=== PATIENT | male | born 1940 | race Caucasian/White ===

== ENCOUNTER → 2022-02-11 | Outpatient (CLI) | payer MEDICARE ==
[2022-02-11 14:14] VITALS: BP 170/72; PULSE 66; RESP 18
--- NOTE | 2022-02-11 14:27 | P.PAINPG ---
PQRS Measure Charge Sheet Comment: HISTORY OF PRESENT ILLNESS: 81 yr old male as a referral from Dr Silver presents today w severe and chronic neck pain secondary to disc bulges, DDD, spinal stenosis and facet arthropathy without myelopathy for evaluation. Pt states pain level is at 5 /10 in intensity, constant, localized in the mid to lower cervical spine, sore in character w shooting pain towards the left and right sides of the neck. Pain is provoked by flexion. Pain is alleviated by occasions (ibuprofen, naproxen), ice, hot showers, use of a massage 10, PT in 2019, daily home stretching regimen, repositioning and rest. PMH: OA, Asthma, HTN, MDD, Hyperlipidemia PSH: Denies SH: Hx of tobacco use, Daily ETOH use, No illicit drug use. and lives w spouse. FH: Non contributory All: See list Meds: See list REVIEW OF ORGAN SYSTEMS: CONSTITUTIONAL: No fevers or chills. No recent weight loss. NEUROLOGICAL: + numbness and tingling along the distal extremities. No seizure disorders or headaches. MUSCULOSKELETAL: + pain PSYCHIATRIC: Denies current depression or suicidal thoughts. Physical Examinations : Constitutional : Cooperative , not in acute distress . Neurologic : Cranial nerve II to XII intact. No focal neurological deficits. Psychiatric : alert & oriented x 3. Matching mood & appropriate affect. Judgment & insight intact. Musculoskeletal : Cervical Spine Motor strength in the deltoid and biceps: Normal right side. Normal Left side Motor strength biceps and the wrist extensors: Normal right side . Normal left side Motor strength in the triceps muscle: Normal right side. Normal left side Deep tendon reflexes: Normal at the biceps. Normal at Brachioradialis. Normal at triceps Vertebral body tenderness to deep palpation over C6 Cervical facet loading test: positive bilaterally Spurling test: positive bilaterally Neck distraction test: positive bilaterally Bobby sign: positive bilaterally Lumbar spine Motor strength lower extremities ,thigh and legs 5/5 Right side , 5/5 Left side Deep tendon reflexes : Normal Knee Jerk. Normal Ankle Jerk Vertebral body tenderness over Lumbar facet Loading Test: positive Right / positive Left Range of motion of the lumbar spine Flexion 30 degrees, extension 10 degrees Straight Leg Raise test: Left/ Right positive at degree Enedina test: positive right / positive left. Severe tenderness over the Sacroiliac joint on the Right / Left sides Gaenslen test: positive bilaterally Seated flexion test: positive bilaterally. Sacral spine : Severe tenderness over the Sacroiliac joint: right side / left side Range of motion: Flexion of the lumbar spine <60 degrees Range of motion: Extension of the lumbar spine <20 degrees Gaenslen's Test positive Ángel's Test positive Enedina test: positive right side / left side Thigh Thrust Test Sacral Thrust Test Imaging: MRI without contrast of the cervical spine from 01/07/22 reviewed Assessment/ Plan : Cervical DDD, cervical stenosis Recommendation of VANCE C6-C7. May need a series of injections, up to 3 within a 6 month timeframe, for optimal pain relief. Risks, benefits of procedure discussed and patient verbalized understanding. Admits to aspirin or anti- coagulant use or medical history of diabetes. Protocol for discontinuation/ continuation of medications ivana procedure discussed. All questions answered. I have spent greater than 30 minutes on patient care today. Dr Ramos was available by phone for the evaluation of this patient. The time was used to review the medical records including relevant urine studies and Prescription history (MAPs), review of the available imaging, evaluation and examination of the patient, coordination of care with the medical staff and if applicable referring physicians, as well as creation of the medical record Controlled Substance Measures - Controlled Substance Measures Is patient prescribed a controlled substance at discharge?: No
== END ==
LOC: PNWHC3 13:27
PROVIDERS: ATTEND Specialist
DX: M48.02 Spinal stenosis, cervical region (principal); M50.30 Other cervical disc degeneration, unspecified cervical region; J45.909 Unspecified asthma, uncomplicated; M19.90 Unspecified osteoarthritis, unspecified site; I10 Essential (primary) hypertension; E78.5 Hyperlipidemia, unspecified; F32.9 Major depressive disorder, single episode, unspecified
CPT/HCPCS: 99211

== ENCOUNTER 2022-03-12 09:26 | Day surgery (SDC) | payer MEDICARE ==
[2022-03-09 16:21] VITALS: BMI 22.9
[~2022-03-12 09:26] MED LIST: LACTATED RINGERS 1,000 ML IV SCH; LIDOCAINE 1% (10MG/ML) FOR IV START INTRADERMA PRN
[2022-03-12 09:51] VITALS: RESP 16; TEMP 97
[2022-03-12] MEDS ORDERED: IOPAMIDOL M200 10 ML VIAL ONE (09:58)
[2022-03-12] MEDS ORDERED: MIDAZOLAM 2 MG/2 ML VIAL ONE (09:58)
[2022-03-12] MEDS ORDERED: DEXAMETHASONE SOD PHOSPHATE 10 MG/ML 1 ML VIAL ONE (09:58)
[2022-03-12] MEDS ORDERED: fentaNYL (PF) 50 MCG/ML 2 ML AMP ONE (09:58)
--- NOTE | 2022-03-12 10:11 | P.PCN ---
Date of Procedure: 03/12/22 Procedure(s) Performed: . PROCEDURE 1. Cervical epidural steroid injection under fluoroscopic guidance, C6-7 (fluoroscopy images available in the radiology department ) 2. Cervical epidurogram. PREOPERATIVE DIAGNOSIS: 1- Cervical Degenerative Disc Diseases 2-cervical spinal stenosis POSTOPERATIVE DIAGNOSIS: : 1- Cervical Degenerative Disc Diseases , 2-cervical spinal stenosis ANESTHESIA: moderate sedation, with Versed 1 mg and Fentanyl 50 mcg. Sedation start time : 1001 Sedation end time : 1008 EBL 0 PROCEDURE INDICATION: The patient with neck pain and radiculitis unresponsive to conservative treatment consents for procedure. PROCEDURE DESCRIPTION / TECHNIQUE: The patient was seen and identified in the preoperative area. Risks, benefits, complications, including but not limited to infections ,bleeding , allergic reactions to the medications ,and not complete pain releife, and alternatives were discussed with the patient, the patient agreed to proceed with the procedure and signed the consent. Patient was taken to the OR and time out was completed. The patient was placed in the prone position on the procedure table. A pillow was placed under the patients chest to increase the cervical interlaminar space. The cervical area was prepped and draped in the usual sterile fashion. Vital signs were closely monitored during the procedure. Conscious sedation was used during the procedure to decrease patients anxiety. Using anterior-posterior fluoroscopy, the C6-7 interlaminar space was identified and the skin over this site was marked and then infiltrated with 1% lidocaine subcutaneously. Subsequently, a 20-gauge 3-1/2-inch Tuohy epidural needle was inserted and advanced toward the epidural space by means of the ``hanging-drop technique and guided by AP and lateral fluoroscopy. The correct needle position in the epidural space was verified with the injection of 2 mL of the water soluble contrast dye [id number]-200 and observing an excellent epidurogram with the epidural spread of the dye, after negative aspiration for blood and CSF and in the absence of paresthesias. then, mixture containing 15 mg Dexamethasone and 2 ml of preservative-free normal saline injected and a washout of epidurogram was seen. Needle was withdrawn intact, skin was cleansed, and bandages were applied. Complications= none. Disposition= patient was placed in supine position and transferred to the recovery room area in stable condition and there was no evidence of upper or lower extremity motor or sensory deficit after the procedure patient was discharged from recovery room after discharge criteria met and home discharge instructions was given by the staff and patient will follow with the pain clinic in 2-4 weeks
--- NOTE | 2022-03-12 10:17 | FL ---
Fluoroscopy INDICATION: Pain FINDINGS: Fluoroscopy time: 2 seconds. Images obtained: One. IMPRESSIONS: 1. Documentation of fluoroscopy.
[2022-03-12] MEDS ORDERED: IV FLUID CONTINUATION 1,000 ML IV ONE (10:26)
[2022-03-12 10:41] VITALS: BP 158/70; PULSE 60
== END 2022-03-12 11:09 | disposition home or self-care (01) ==
LOC: ORPAIN 09:26
PROVIDERS: ATTEND Specialist
DX: M50.123 Cervical disc disorder at C6-C7 level with radiculopathy (principal); M48.02 Spinal stenosis, cervical region
CPT/HCPCS: 62321; J2250; J1100; J3010; Q9966

== ENCOUNTER 2022-05-21 15:32 | Inpatient (IN) | payer MEDICARE ==
--- NOTE | 2022-05-21 16:34 | ED ---
Recheck HPI - General Source: patient Mode of arrival: ambulatory Limitations: no limitations <Jessica Ding - Last Filed: 05/21/22 16:34> <Gurwinder Burks - Last Filed: 05/21/22 19:41> - General Chief Complaint: Recheck/Abnormal Lab/Rx Stated Complaint: recheck Time Seen by Provider: 05/21/22 16:34 - History of Present Illness Initial Comments: Patient is an 82-year-old male who was sent in by his claim auditor Dr. Boykin due to concerns for low hemoglobin. Patient states that he was told he might have a leaking heart valve. Denies chest pain, shortness of breath, lightheadedness. (Jessica Ding) This is an 82-year-old male who presents to the emergency department from his ca rdiologist's office stating that his hemoglobin is low. Patient states he is not short of breath he has no chest pain or palpitations. Patient denies any swelling to light. Patient denies any black or bloody stools. Patient denies any blood thinner medications. Patient states he hasn't been feeling weak and fatigued lately. Patient states he feels as good as he always does and is surprised that he has a low hemoglobin. Patient denies any recent fever chills or cough. Patient states he does not have a history of low hemoglobin (Gurwinder Burks) - Related Data Home Medications Medication Instructions Recorded Confirmed Acetaminophen [Tylenol Extra 500 mg PO DAILY 03/09/22 04/01/22 Strength] Albuterol Inhaler [Ventolin Hfa 1 puff INHALATION TID 03/09/22 04/01/22 Inhaler] Aspirin 81 mg PO DAILY 03/09/22 04/01/22 Atorvastatin [Lipitor] 40 mg PO DAILY 03/09/22 04/01/22 Citalopram Hydrobromide 20 mg PO DAILY 03/09/22 04/01/22 [Citalopram HBr] Finasteride [Proscar] 5 mg PO DAILY 03/09/22 04/01/22 Ibuprofen [Motrin] 400 mg PO Q8HR PRN 03/09/22 04/01/22 Mirabegron [Myrbetriq] 25 mg PO DAILY 03/09/22 04/01/22 Montelukast [Singulair] 10 mg PO HS 03/09/22 04/01/22 Omeprazole 20 mg PO DAILY 03/09/22 04/01/22 Tamsulosin [Flomax] 0.4 mg PO DAILY 03/09/22 04/01/22 lisinopriL [Zestril] 5 mg PO DAILY 03/09/22 04/01/22 Allergies Allergy/AdvReac Type Severity Reaction Status Date / Time No Known Allergies Allergy Verified 05/21/22 15:53 Review of Systems ROS Other: All systems not noted in ROS Statement are negative. <Jessica Ding - Last Filed: 05/21/22 16:34> ROS Other: All systems not noted in ROS Statement are negative. <Gurwinder Burks - Last Filed: 05/21/22 19:41> ROS Statement: Those systems with pertinent positive or pertinent negative responses have been documented in the HPI. Past Medical History Past Medical History: Hyperlipidemia, Hypertension, Osteoarthritis (OA) Additional Past Medical History / Comment(s): Sleep apnea, chronic neck pain, History of Any Multi-Drug Resistant Organisms: Unobtainable Past Surgical History: Tonsillectomy Additional Past Surgical History / Comment(s): Epidural Past Anesthesia/Blood Transfusion Reactions: No Reported Reaction Past Psychological History: No Psychological Hx Reported Smoking Status: Former smoker Past Alcohol Use History: Occasional Past Drug Use History: None Reported <Jessica Ding - Last Filed: 05/21/22 16:34> General Exam Limitations: no limitations <Jessica Ding - Last Filed: 05/21/22 16:34> <Gurwinder Burks - Last Filed: 05/21/22 19:41> - General Exam Comments Initial Comments: Visual Physical Exam Vital signs reviewed General: Well-appearing, nontoxic, no acute distress. Head: Normocephalic, atraumatic Eyes: PERRLA, EOMI ENT: Airway patent Chest: Nonlabored breathing Skin: No visual rash, normal skin tone Neuro: Alert and oriented 3 Musculoskeletal: No gross abnormalities (Jessica Ding) GENERAL: Patient is well-developed and well-nourished. Patient is nontoxic and well- hydrated and is in no acute distress. ENT: Neck is soft and supple. No significant lymphadenopathy is noted. Oropharynx is clear. Moist mucous membranes. Neck has full range of motion without eliciting any pain. EYES: The sclera were anicteric and conjunctiva were pink and moist. Extraocular movements were intact and pupils were equal round and reactive to light. Eyelids were unremarkable. PULMONARY: Unlabored respirations. Good breath sounds bilaterally. No audible rales rhonchi or wheezing was noted. CARDIOVASCULAR: There is a regular rate and rhythm without any murmurs gallops or rubs. Femoral pulses are equal bilaterally ABDOMEN: Soft and nontender with normal bowel sounds. No palpable organomegaly was noted. There is no palpable pulsatile mass. RECTAL: On rectal exam stool is brown and there was no abnormal masses seen in no fresh blood was sitting SKIN: Skin is pale NEUROLOGIC: Patient is alert and oriented x3. Cranial nerves II through XII are grossly intact. Motor and sensory are also intact. Normal speech, volume and content. Symmetrical smile. MUSCULOSKELETAL: Normal extremities with adequate strength and full range of motion. No lower extremity swelling or edema. No calf tenderness. LYMPHATICS: No significant lymphadenopathy is noted PSYCHIATRIC: Normal psychiatric evaluation. (Gurwinder Burks) Course Vital Signs 05/21/22 05/21/22 05/21/22 15:48 17:42 19:37 Temperature 98.2 F 97.9 F Pulse Rate 70 65 67 Respiratory 18 16 16 Rate Blood Pressure 128/53 176/73 172/66 O2 Sat by Pulse 96 100 100 Oximetry Medical Decision Making - Lab Data Result diagrams: 05/21/22 16:58 05/21/22 16:58 <Gurwinder Burks - Last Filed: 05/21/22 19:41> - Medical Decision Making EKG was interpreted by myself shows a sinus rhythm at 64 bpm ID interval is 256 QRS is 108 QT interval is 42 QTC is 412. Patient's EKG shows no ST segment elevation or depression. I interpreted the patient's chest x-ray showed no acute abnormality. Was pt. sent in by a medical professional or institution ([facility], SUPERVISOR HOUSECLE[employer], urgent care, hospital, or long-term...) When possible be specific @ -Patient's physician sent him into the emergency department for low hemoglobin Did you speak to anyone other than the patient for history (EMS, parent, family, police, friend...)? What history was obtained from this source @ -No Did you review nursing and triage notes (agree or disagree)? Why? @ -I reviewed and agree with nursing and triage notes Were old charts reviewed (outside hosp., previous admission, EMS record, old EKG, old radiological studies, urgent care reports/EKG's, long-term records)? Report findings @ -I reviewed prior lab work to compare to today's labwork Differential Diagnosis (chest pain, altered mental status, abdominal pain women, abdominal pain men, vaginal bleeding, weakness, fever, dyspnea, syncope, headache, dizziness, GI bleed, back pain, seizure, CVA, palpatations, mental health, musculoskeletal)? @ -not applicable EKG interpreted by me (3pts min.). @ -As above X-rays interpreted by me (1pt min.). @ -None done CT interpreted by me (1pt min.). @ -None done U/S interpreted by me (1pt. min.). @ -None done What testing was considered but not performed or refused? (CT, X-rays, U/S, lab s)? Why? @ -None What meds were considered but not given or refused? Why? @ -None Did you discuss the management of the patient with other professionals (professionals i.e. , PA, SUPERVISOR HOUSECLEANER, lab, RT, psych nurse, sexual assault social worker, sulfate drier machine operator, teacher, mortgage loan officer, case liner)? Give summary @ -I spoke with Dr. Gregory he agreed to admit the patient admitted the patient. Was smoking cessation discussed for >3mins.? @ -No Was critical care preformed (if so, how long)? @ -5 minutes Were there social determinants of health that impacted care today? How? (Homelessness, low income, unemployed, alcoholism, drug addiction, transportation, low edu. Level, literacy, decrease access to med. care, [facility], rehab)? @ -No Was there de-escalation of care discussed even if they declined (Discuss DNR or withdrawal of care, Hospice)? DNR status @ -No What co-morbidities impacted this encounter? (DM, HTN, Smoking, COPD, CAD, Cancer, CVA, ARF, Chemo, Hep., AIDS, mental health diagnosis, sleep apnea, morbid obesity)? @ -None Was patient admitted / discharged? Hospital course, mention meds given and route, prescriptions, significant lab abnormalities, going to OR and other pertinent info. @ -Heme in for a low hemoglobin value I reviewed the lab work and again hemoglobin was low I did give the patient one unit of packed red blood cells. I did a Hemoccult on the patient was negative for blood. Spoke with Dr. Gregory he agreed to admit the patient and the patient wrote admitting orders. I consulted hematology Undiagnosed new problem with uncertain prognosis? @ -No Drug Therapy requiring intensive monitoring for toxicity (Heparin, Nitro, Insulin, Cardizem)? @ -No Were any procedures done? @ -No Diagnosis/symptom? @ -Anemia Acute, or Chronic, or Acute on Chronic? @ -Acute Uncomplicated (without systemic symptoms) or Complicated (systemic symptoms)? @ -Uncomplicated Side effects of treatment? @ -No Exacerbation, Progression, or Severe Exacerbation? @ -No Poses a threat to life or bodily function? How? (Chest pain, [place], [place], pneumonia, PE, COPD, DKA, ARF, appy, cholecystitis, CVA, Diverticulitis, Homicidal, Suicidal, threat to staff... and all critical care pts) @ -Yes patient could become hypoxic and have end organ dysfunction (Gurwinder Burks) - Lab Data Lab Results 05/21/22 05/21/22 05/21/22 Range/Units 16:58 16:58 16:58 WBC 5.4 (3.8-10.6) k/uL RBC 3.12 L (4.30-5.90) m/uL Hgb 6.5 L* (13.0-17.5) gm/dL Hct 22.0 L (39.0-53.0) % MCV 70.6 L (80.0-100.0) fL MCH 20.7 L (25.0-35.0) pg MCHC 29.4 L (31.0-37.0) g/dL RDW 16.3 H (11.5-15.5) % Plt Count 263 (150-450) k/uL MPV 6.9 Neutrophils % 74 % Lymphocytes % 15 % Monocytes % 7 % Eosinophils % 1 % Basophils % 0 % Neutrophils # 3.9 (1.3-7.7) k/uL Lymphocytes # 0.8 L (1.0-4.8) k/uL Monocytes # 0.4 (0-1.0) k/uL Eosinophils # 0.0 (0-0.7) k/uL Basophils # 0.0 (0-0.2) k/uL Hypochromasia Marked Poikilocytosis Moderate Anisocytosis Slight Microcytosis Moderate Retic Count (0.5-2.0) % PT 11.3 (9.0-12.0) sec INR 1.1 (<1.2) APTT 25.7 (22.0-30.0) sec Sodium 128 L (137-145) mmol/L Potassium 4.4 (3.5-5.1) mmol/L Chloride 96 L (98-107) mmol/L Carbon Dioxide 23 (22-30) mmol/L Anion Gap 9 mmol/L BUN 14 (9-20) mg/dL Creatinine 0.61 L (0.66-1.25) mg/dL Est GFR (CKD-EPI)AfAm >90 (>60 ml/min/1.73 sqM) Est GFR (CKD-EPI)NonAf >90 (>60 ml/min/1.73 sqM) Glucose 83 (74-99) mg/dL Calcium 8.8 (8.4-10.2) mg/dL Magnesium 2.2 (1.6-2.3) mg/dL Total Bilirubin 0.5 (0.2-1.3) mg/dL AST 22 (17-59) U/L ALT 17 (4-49) U/L Alkaline Phosphatase 58 (38-126) U/L Troponin I (0.000-0.034) ng/mL Total Protein 6.4 (6.3-8.2) g/dL Albumin 4.0 (3.5-5.0) g/dL Stool Occult Blood (Negative) Blood Type Blood Type Confirm Blood Type Recheck Bld Type Recheck Status Antibody Screen Crossmatch Spec Expiration Date 05/21/22 05/21/22 05/21/22 Range/Units 16:58 17:15 17:31 WBC (3.8-10.6) k/uL RBC (4.30-5.90) m/uL Hgb (13.0-17.5) gm/dL Hct (39.0-53.0) % MCV (80.0-100.0) fL MCH (25.0-35.0) pg MCHC (31.0-37.0) g/dL RDW (11.5-15.5) % Plt Count (150-450) k/uL MPV Neutrophils % % Lymphocytes % % Monocytes % % Eosinophils % % Basophils % % Neutrophils # (1.3-7.7) k/uL Lymphocytes # (1.0-4.8) k/uL Monocytes # (0-1.0) k/uL Eosinophils # (0-0.7) k/uL Basophils # (0-0.2) k/uL Hypochromasia Poikilocytosis Anisocytosis Microcytosis Retic Count (0.5-2.0) % PT (9.0-12.0) sec INR (<1.2) APTT (22.0-30.0) sec Sodium (137-145) mmol/L Potassium (3.5-5.1) mmol/L Chloride (98-107) mmol/L Carbon Dioxide (22-30) mmol/L Anion Gap mmol/L BUN (9-20) mg/dL Creatinine (0.66-1.25) mg/dL Est GFR (CKD-EPI)AfAm (>60 ml/min/1.73 sqM) Est GFR (CKD-EPI)NonAf (>60 ml/min/1.73 sqM) Glucose (74-99) mg/dL Calcium (8.4-10.2) mg/dL Magnesium (1.6-2.3) mg/dL Total Bilirubin (0.2-1.3) mg/dL AST (17-59) U/L ALT (4-49) U/L Alkaline Phosphatase (38-126) U/L Troponin I <0.012 (0.000-0.034) ng/mL Total Protein (6.3-8.2) g/dL Albumin (3.5-5.0) g/dL Stool Occult Blood Negative (Negative) Blood Type B Positive Blood Type Confirm Blood Type Recheck No Previous Record Bld Type Recheck Status CABO Indicated Antibody Screen NEGATIVE Crossmatch See Detail Spec Expiration Date 05/24/2022 - 233005/21/22 05/21/22 Range/Units 18:09 18:36 WBC (3.8-10.6) k/uL RBC (4.30-5.90) m/uL Hgb (13.0-17.5) gm/dL Hct (39.0-53.0) % MCV (80.0-100.0) fL MCH (25.0-35.0) pg MCHC (31.0-37.0) g/dL RDW (11.5-15.5) % Plt Count (150-450) k/uL MPV Neutrophils % % Lymphocytes % % Monocytes % % Eosinophils % % Basophils % % Neutrophils # (1.3-7.7) k/uL Lymphocytes # (1.0-4.8) k/uL Monocytes # (0-1.0) k/uL Eosinophils # (0-0.7) k/uL Basophils # (0-0.2) k/uL Hypochromasia Poikilocytosis Anisocytosis Microcytosis Retic Count 2.0 (0.5-2.0) % PT (9.0-12.0) sec INR (<1.2) APTT (22.0-30.0) sec Sodium (137-145) mmol/L Potassium (3.5-5.1) mmol/L Chloride (98-107) mmol/L Carbon Dioxide (22-30) mmol/L Anion Gap mmol/L BUN (9-20) mg/dL Creatinine (0.66-1.25) mg/dL Est GFR (CKD-EPI)AfAm (>60 ml/min/1.73 sqM) Est GFR (CKD-EPI)NonAf (>60 ml/min/1.73 sqM) Glucose (74-99) mg/dL Calcium (8.4-10.2) mg/dL Magnesium (1.6-2.3) mg/dL Total Bilirubin (0.2-1.3) mg/dL AST (17-59) U/L ALT (4-49) U/L Alkaline Phosphatase (38-126) U/L Troponin I (0.000-0.034) ng/mL Total Protein (6.3-8.2) g/dL Albumin (3.5-5.0) g/dL Stool Occult Blood (Negative) Blood Type Blood Type Confirm B Positive Blood Type Recheck Bld Type Recheck Status Antibody Screen Crossmatch Spec Expiration Date Disposition <Jessica Ding - Last Filed: 05/21/22 16:34> Time of Disposition: 17:10 <Gurwinder Burks - Last Filed: 05/21/22 19:41> Clinical Impression: Anemia Disposition: ADMITTED IP TO THIS HOSP Referrals: Azra Gregory MD [Primary Care Provider] - 1-2 days
[2022-05-21 17:38] LABS: Anisocytosis Slight; Basophils % (A) 0 %; Eosinophils % (A) 1 %; Hypochromasia Marked; Lymphocytes # (A) 0.8 k/uL (1.0-4.8); Lymphocytes % (A) 15 %; MCH 20.7 pg (25.0-35.0); MCHC 29.4 g/dL (31.0-37.0); MCV 70.6 fL (80.0-100.0); Mean Platelet Volume 6.9; Microcytosis Moderate; Monocytes # (A) 0.4 k/uL (0-1.0); Monocytes % (A) 7 %; Neutrophils # (A) 3.9 k/uL (1.3-7.7); Neutrophils % (A) 74 %; Platelet Count 263 k/uL (150-450); Poikilocytosis Moderate; RBC 3.12 m/uL (4.30-5.90); RDW 16.3 % (11.5-15.5); WBC 5.4 k/uL (3.8-10.6)
[2022-05-21 17:51] LABS: ALT 17 U/L (4-49); AST 22 U/L (17-59); African American GFR (CKD) >90 (>60 ml/min/1.73 sqM); Alkaline Phosphatase 58 U/L (38-126); Anion Gap 9 mmol/L; Blood Urea Nitrogen 14 mg/dL (9-20); Calcium 8.8 mg/dL (8.4-10.2); Carbon Dioxide 23 mmol/L (22-30); Chloride 96 mmol/L (98-107); Glucose 83 mg/dL (74-99); Magnesium 2.2 mg/dL (1.6-2.3); Non-African American GFR(CKD) >90 (>60 ml/min/1.73 sqM); Potassium 4.4 mmol/L (3.5-5.1); Sodium 128 mmol/L (137-145); Total Bilirubin 0.5 mg/dL (0.2-1.3); Total Protein 6.4 g/dL (6.3-8.2)
[2022-05-21 17:55] LABS: INR 1.1 (<1.2); Partial Thromboplastin Time 25.7 sec (22.0-30.0); Prothrombin Time 11.3 sec (9.0-12.0)
[2022-05-21 17:58] LABS: HGB 6.5 gm/dL (13.0-17.5)
--- NOTE | 2022-05-21 18:39 | XR ---
EXAMINATION: XR chest 2V: 05/21/2022 5:38 PM CLINICAL INDICATION: Chest Pain TECHNIQUE: Departmental protocol COMPARISON: 10/21/2012 FINDINGS: There is homogeneously added opacity in the right infrahilar position. Remainder of the lungs appear well-expanded and clear. Elevated right hemidiaphragm as compared with the left hemidiaphragm, which appears lower than the pr ior study. The lateral costophrenic angle is not included on the frontal radiograph. The pleural spaces are negative as seen. The cardiac silhouette is not enlarged. The skeletal structures and soft tissues are negative for acute findings. IMPRESSION: Nonspecific findings as noted. If clinically indicated, noncontrast CT chest can fully characterize. Alternatively, six-week follow-up PA and lateral chest radiographs can further characterize.
[2022-05-22 00:34] LABS: % Iron Saturation 1.84 (15.00-50.00); Ferritin 7.8 ng/mL (22.0-322.0)
[2022-05-22 05:58] LABS: Anisocytosis Slight; HCT 24.7 % (39.0-53.0); HGB 7.5 gm/dL (13.0-17.5); Hypochromasia Marked; MCHC 30.3 g/dL (31.0-37.0); MCV 72.6 fL (80.0-100.0); Mean Platelet Volume 7.2; Microcytosis Moderate; Platelet Count 257 k/uL (150-450); Poikilocytosis Marked; RDW 16.8 % (11.5-15.5); WBC 4.4 k/uL (3.8-10.6)
[2022-05-22 07:08] LABS: Eosinophils # (M) 0.09 k/uL (0-0.7); Lymphocytes # (M) 1.23 k/uL (1.0-4.8); Monocytes # (M) 0.26 k/uL (0-1.0); Neutrophils # (M) 2.82 k/uL (1.3-7.7); Neutrophils % (M) 64 %; Nucleated Red Blood Cells 0 /100 WBC (0-0); Total Cells Counted 200
[2022-05-22 07:10] LABS: RBC Fragments Present
[2022-05-22] MEDS ORDERED: lisinopriL 5 MG TAB PO SCH (10:30)
[2022-05-22] MEDS: CITALOPRAM HYDROBROMIDE 20 MG TAB PO SCH (11:55)
[2022-05-22] MEDS: SODIUM FERRIC GLUCONAT-SUCROSE 125 MG in SODIUM CHLORIDE 0.9% 100 ML IVPB SCH (11:55)
[2022-05-22] MEDS: FINASTERIDE 5 MG TAB PO SCH (11:55)
--- NOTE | 2022-05-22 13:45 | P.GSCN ---
History of Present Illness Consult date: 05/22/22 History of present illness: CHIEF COMPLAINT: Anemia HISTORY OF PRESENT ILLNESS: This is a 82-year-old male who presented to the ER due to low hemoglobin that was found on blood work at Dr. 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 Patient reports that it was just routine blood work. He denies any shortness of breath, dizziness or lightheadedness. He does report feeling a little bit as more fatigued but contributed to being 82 years old. Patient was found to have a hemoglobin of 6.5 he did receive a unit of blood repeat hemoglobin of 7.5. Iron levels are low. He was seen by hematology they've ordered IV iron. His stool for occult blood is negative. Patient denies any blood in his stools or any black stools. Denies being on any blood thinners. His last colonoscopy reports was about a year ago and reported was negative. Patient never had an EGD. He denies any abdominal pain. Denies any nausea or vomiting. His hemoglobin in February was 9.3 and hemoglobin in 2020 was 14.5. PAST MEDICAL HISTORY: Hyperlipidemia, Hypertension, Osteoarthritis (OA) PAST SURGICAL HISTORY: See below MEDICATIONS: See below ALLERGIES: See below SOCIAL HISTORY: No illicit drug use. Former smoker REVIEW OF SYSTEMS: CONSTITUTIONAL: Denies fever or chills. HEENT: Denies blurred vision, vision changes, or eye pain. Denies hemoptysis CARDIOVASCULAR: Denies chest pain or pressure. RESPIRATORY: No shortness of breath. GASTROINTESTINAL: See HPI for pertinent findings HEMATOLOGIC: Denies bleeding disorders. GENITOURINARY: Denies any blood in urine or increased urinary frequency. SKIN: Denies pruitis. Denies rash. PHYSICAL EXAM: VITAL SIGNS: Reviewed GENERAL: Well-developed in no acute distress. HEENT: No sclera icterus. Extraocular movements grossly intact. Moist buccal mucosa. Head is atraumatic, normocephalic. No nasal drainage. ABDOMEN: Soft. Nondistended. Nontender NEUROLOGIC: Alert and oriented. Cranial nerves II through XII grossly intact. LABORATORY DATA: WBC is 4.4 hemoglobin 6.5 up to 7.5 platelets 257 Sodium is 128 potassium 4.4 creatinine 0.61 Iron level 9 Stool for occult blood negative B12 and folate level within normal range IMAGING: ASSESSMENT: 1. Microcytic iron deficiency anemia with no evidence of active bleeding PLAN: -Patient scheduled for EGD and colonoscopy on 05/25/[address] Jara -Continue monitor hemoglobin -Continue monitor for any signs or symptoms of bleeding -Agree with IV iron Thank you for this consultation Physician Firer Kiln note has been reviewed by physician. Signing provider agrees with the documented findings, assessment, and plan of care. Past Medical History Past Medical History: Hyperlipidemia, Hypertension, Osteoarthritis (OA) Additional Past Medical History / Comment(s): Sleep apnea, chronic neck pain, History of Any Multi-Drug Resistant Organisms: Unobtainable Past Surgical History: Tonsillectomy Additional Past Surgical History / Comment(s): Epidural Past Anesthesia/Blood Transfusion Reactions: No Reported Reaction Past Psychological History: No Psychological Hx Reported Smoking Status: Former smoker Past Alcohol Use History: Occasional Past Drug Use History: None Reported Medications and Allergies Home Medications Medication Instructions Recorded Confirmed Type Acetaminophen [Tylenol Extra 500 mg PO HS 03/09/22 05/21/22 History Strength] Aspirin 81 mg PO HS 03/09/22 05/21/22 History Atorvastatin [Lipitor] 40 mg PO DAILY 03/09/22 05/21/22 History Finasteride [Proscar] 5 mg PO DAILY 03/09/22 05/21/22 History Ibuprofen [Motrin] 400 mg PO Q8HR PRN 03/09/22 05/21/22 History Mirabegron [Myrbetriq] 25 mg PO DAILY 03/09/22 05/21/22 History Montelukast [Singulair] 10 mg PO HS 03/09/22 05/21/22 History Omeprazole 20 mg PO DAILY 03/09/22 05/21/22 History Tamsulosin [Flomax] 0.4 mg PO HS 03/09/22 05/21/22 History lisinopriL [Zestril] 5 mg PO DAILY 03/09/22 05/21/22 History Albuterol Nebulized [Ventolin 2.5 mg INHALATION RT-Q6H 05/21/22 05/21/22 History Nebulized] Budesonide [Pulmicort] 0.5 mg INHALATION RT-BID 05/21/22 05/21/22 History Citalopram Hydrobromide [CeleXA] 40 mg PO DAILY 05/21/22 05/21/22 History Allergies Allergy/AdvReac Type Severity Reaction Status Date / Time No Known Allergies Allergy Verified 05/21/22 20:00 Surgical - Exam Vital Signs Temp Pulse Resp BP Pulse Ox 98.2 F 70 18 128/53 96 05/21/22 15:48 05/21/22 15:48 05/21/22 15:48 05/21/22 15:48 05/21/22 15:48 Results - Labs 05/22/22 04:21 05/21/22 16:58 Abnormal Lab Results - Last 24 Hours (Table) 05/21/22 05/21/22 05/21/22 Range/Units 16:58 16:58 17:31 RBC 3.12 L (4.30-5.90) m/uL Hgb 6.5 L* (13.0-17.5) gm/dL Hct 22.0 L (39.0-53.0) % MCV 70.6 L (80.0-100.0) fL MCH 20.7 L (25.0-35.0) pg MCHC 29.4 L (31.0-37.0) g/dL RDW 16.3 H (11.5-15.5) % Lymphocytes # 0.8 L (1.0-4.8) k/uL Sodium 128 L (137-145) mmol/L Chloride 96 L (98-107) mmol/L Creatinine 0.61 L (0.66-1.25) mg/dL Iron (65-175) ug/dL TIBC (228-460) ug/dL % Saturation (15.00-50.00) Ferritin (22.0-322.0) ng/mL Crossmatch See Detail 05/21/22 05/22/22 Range/Units 18:36 04:21 RBC 3.40 L (4.30-5.90) m/uL Hgb 7.5 L (13.0-17.5) gm/dL Hct 24.7 L (39.0-53.0) % MCV 72.6 L (80.0-100.0) fL MCH 22.0 L (25.0-35.0) pg MCHC 30.3 L (31.0-37.0) g/dL RDW 16.8 H (11.5-15.5) % Lymphocytes # (1.0-4.8) k/uL Sodium (137-145) mmol/L Chloride (98-107) mmol/L Creatinine (0.66-1.25) mg/dL Iron 9 L (65-175) ug/dL TIBC 479 H (228-460) ug/dL % Saturation 1.84 L (15.00-50.00) Ferritin 7.8 L (22.0-322.0) ng/mL Crossmatch Diabetes panel 05/21/22 Range/Units 16:58 Sodium 128 L (137-145) mmol/L Potassium 4.4 (3.5-5.1) mmol/L Chloride 96 L (98-107) mmol/L Carbon Dioxide 23 (22-30) mmol/L BUN 14 (9-20) mg/dL Creatinine 0.61 L (0.66-1.25) mg/dL Glucose 83 (74-99) mg/dL Calcium 8.8 (8.4-10.2) mg/dL AST 22 (17-59) U/L ALT 17 (4-49) U/L Alkaline Phosphatase 58 (38-126) U/L Total Protein 6.4 (6.3-8.2) g/dL Albumin 4.0 (3.5-5.0) g/dL Calcium panel 05/21/22 Range/Units 16:58 Calcium 8.8 (8.4-10.2) mg/dL Albumin 4.0 (3.5-5.0) g/dL Pituitary panel 05/21/22 Range/Units 16:58 Sodium 128 L (137-145) mmol/L Potassium 4.4 (3.5-5.1) mmol/L Chloride 96 L (98-107) mmol/L Carbon Dioxide 23 (22-30) mmol/L BUN 14 (9-20) mg/dL Creatinine 0.61 L (0.66-1.25) mg/dL Glucose 83 (74-99) mg/dL Calcium 8.8 (8.4-10.2) mg/dL Adrenal panel 05/21/22 Range/Units 16:58 Sodium 128 L (137-145) mmol/L Potassium 4.4 (3.5-5.1) mmol/L Chloride 96 L (98-107) mmol/L Carbon Dioxide 23 (22-30) mmol/L BUN 14 (9-20) mg/dL Creatinine 0.61 L (0.66-1.25) mg/dL Glucose 83 (74-99) mg/dL Calcium 8.8 (8.4-10.2) mg/dL Total Bilirubin 0.5 (0.2-1.3) mg/dL AST 22 (17-59) U/L ALT 17 (4-49) U/L Alkaline Phosphatase 58 (38-126) U/L Total Protein 6.4 (6.3-8.2) g/dL Albumin 4.0 (3.5-5.0) g/dL
--- NOTE | 2022-05-22 14:04 | P.HPIM ---
History of Present Illness H&P Date: 05/22/22 HISTORY OF PRESENT ILLNESS This is an 82-year-old male with past medical history of peripheral vascular disease, dyslipidemia, ALLERGIC rhinitis, benign prostatic hypertrophy. 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 Boykin. Patient was at Dr. Boykin's office for routine visit and there was concern for low hemoglobin and patient was directed to [facility] emergency [facility] for further evaluation. Patient denies having any black or bloody stools. Patient has had increased fatigue. He denies shortness of breath or chest pain no palpitations. No swelling. He does have known dyspnea on exertion which is mild REVIEW OF SYSTEMS Constitutional: No fever, no chills, no night sweats. No weight change. No weakness, fatigue or lethargy. No daytime sleepiness. EENT: No headache. No blurred vision or double vision, no loss of vision. No loss of Hearing, no ringing in the ears, no dizziness. No nasal drainage or congestion. No epistaxis. No sore throat. Lungs: No shortness of breath, cough, no sputum production. No wheezing. Cardiovascular: No chest pain, no lower extremity edema. No palpitations. No paroxysmal nocturnal dyspnea. No orthopnea. No lightheadedness or dizziness. No syncopal episodes. Abdominal: No abdominal pain. No nausea, vomiting. No diarrhea. No constipation. No bloody or tarry stools. No loss of appetite. Genitourinary: No dysuria, increased frequency, urgency. No urinary retention. Musculoskeletal: No myalgias. No muscle weakness, no gait dysfunction, no frequent falls. No back pain. No neck pain. Integumentary: No wounds, no lesions. No rash or pruritus. No unusual bruising. No change in hair or nails. Neurologic: No aphasia. No facial droop. No change in mentation. No head injury. No headache. No paralysis. No paresthesia. Psychiatric: No depression. No anxiety. No mood swings. Endocrine: No abnormal blood sugars. No weight change. No excessive sweating or thirst. No cold intolerance. MEDICAL HISTORY Peripheral vascular disease Dyslipidemia ALLERGIC rhinitis Benign prostatic hypertrophy SURGICAL HISTORY Right inguinal hernia repair 05/2020 Tonsillectomy Breast cyst removal Bilateral retinal membranes removal Colonoscopy 2017 UPPP Lateral cataracts. SOCIAL HISTORY Patient was a smoker for greater than 20 years at 1 pack per day starting at age 17 and quit 40 years ago. He drinks alcohol 4 times per week 1-2 drinks at a time. Patient lives at home with his . FAMILY HISTORY Father at age 87 from lung cancer. Mother at age 82 from dementia. Patient has 1 brother that at age 75 from liver cancer. Patient has 2 sons with no major medical problems.. PHYSICAL EXAMINATION Gen: This is an 82-year old male. He is resting in bed appears to be comfortable at rest. HEENT: Head is atraumatic, normocephalic. Pupils equal, round. Sclerae is anicteric. NECK: Supple. No JVD. No lymphadenopathy. No thyromegaly. LUNGS: Clear to auscultation. No wheezes or rhonchi. No intercostal retractions. HEART: Regular rate and rhythm. 2/6 systolic ejection murmur. ABDOMEN: Soft. Bowel sounds are present. No masses. No tenderness. EXTREMITIES: No pedal edema. No calf tenderness. NEUROLOGICAL: Patient is awake, alert and oriented x3. Cranial nerves 2 through 12 are grossly intact. ASSESSMENT AND PLAN 1. Acute on chronic anemia. Patient is status post transfusion of 1 unit of packed RBCs, anemia workup, consult with oncology and general surgery with plan for EGD and colonoscopy on Wednesday. Oncology is started patient on Ferrlecit for daily for 3 doses. 2. Peripheral vascular disease. Continue patient on atorvastatin 40 mg daily for secondary prevention. 3. Dyslipidemia.Continue atorvastatin 40 mg daily 4. ALLERGIC rhinitis.Continue Singulair 10 mg at bedtime 5. Benign prostatic hypertrophy.Continue Flomax 0.4 mg at bedtime and Proscar 5 mg daily. 6. COPD. Continue Pulmicort 0.5 mg twice daily. 7. Hypertension. Continue lisinopril 5 mg daily. 8. Generalized anxiety disorder. Continue citalopram 40 mg daily. 9. GI prophylaxis. Protonix 40 mg IV daily. 10. DVT prophylaxis. CORRY marioe and SCDs. Patient will be admitted to the hospital for a minimum of 2 night stay. DISCHARGE PLAN To be determined. Impression and plan of care have been directed as dictated by the signing physician. Nahomi Hair nurse practitioner acting as scribe for signing physician. Past Medical History Past Medical History: Hyperlipidemia, Hypertension, Osteoarthritis (OA) Additional Past Medical History / Comment(s): Sleep apnea, chronic neck pain, History of Any Multi-Drug Resistant Organisms: Unobtainable Past Surgical History: Tonsillectomy Additional Past Surgical History / Comment(s): Epidural Past Anesthesia/Blood Transfusion Reactions: No Reported Reaction Past Psychological History: No Psychological Hx Reported Smoking Status: Former smoker Past Alcohol Use History: Occasional Past Drug Use History: None Reported Medications and Allergies Home Medications Medication Instructions Recorded Confirmed Type Acetaminophen [Tylenol Extra 500 mg PO HS 03/09/22 05/21/22 History Strength] Aspirin 81 mg PO HS 03/09/22 05/21/22 History Atorvastatin [Lipitor] 40 mg PO DAILY 03/09/22 05/21/22 History Finasteride [Proscar] 5 mg PO DAILY 03/09/22 05/21/22 History Ibuprofen [Motrin] 400 mg PO Q8HR PRN 03/09/22 05/21/22 History Mirabegron [Myrbetriq] 25 mg PO DAILY 03/09/22 05/21/22 History Montelukast [Singulair] 10 mg PO HS 03/09/22 05/21/22 History Omeprazole 20 mg PO DAILY 03/09/22 05/21/22 History Tamsulosin [Flomax] 0.4 mg PO HS 03/09/22 05/21/22 History lisinopriL [Zestril] 5 mg PO DAILY 03/09/22 05/21/22 History Albuterol Nebulized [Ventolin 2.5 mg INHALATION RT-Q6H 05/21/22 05/21/22 History Nebulized] Budesonide [Pulmicort] 0.5 mg INHALATION RT-BID 05/21/22 05/21/22 History Citalopram Hydrobromide [CeleXA] 40 mg PO DAILY 05/21/22 05/21/22 History Allergies Allergy/AdvReac Type Severity Reaction Status Date / Time No Known Allergies Allergy Verified 05/21/22 20:00 Physical Exam Vitals: Vital Signs Temp Pulse Pulse Resp BP BP Pulse Ox 05/22/22 11:54 60 18 181/71 99 05/22/22 08:14 97.4 F L 69 18 169/79 97 05/22/22 04:00 98.1 F 72 18 162/69 05/21/22 23:26 98.1 F 68 18 165/75 05/21/22 22:05 98.1 F 65 18 174/65 98 05/21/22 21:59 98.1 F 65 18 174/65 98 05/21/22 20:20 98.2 F 67 16 172/77 98 05/21/22 20:00 98.2 F 70 18 171/71 98 05/21/22 19:37 97.9 F 67 16 172/66 100 05/21/22 17:42 65 16 176/73 100 05/21/22 15:48 98.2 F 70 18 128/53 96 Intake and Output 05/21/22 05/22/22 05/22/22 22:59 06:59 14:59 Intake Total 310 540 Balance 310 540 Intake: Oral 540 Blood Product 310 Rc As-1 Unit 310 [id number] Other: Voiding Method Toilet Toilet # Voids 1 Weight 71.214 kg Results CBC & Chem 7: 05/25/22 07:24 05/25/22 07:24 Labs: Abnormal Lab Results - Last 24 Hours (Table) 05/21/22 05/21/22 05/21/22 Range/Units 16:58 16:58 17:31 RBC 3.12 L (4.30-5.90) m/uL Hgb 6.5 L* (13.0-17.5) gm/dL Hct 22.0 L (39.0-53.0) % MCV 70.6 L (80.0-100.0) fL MCH 20.7 L (25.0-35.0) pg MCHC 29.4 L (31.0-37.0) g/dL RDW 16.3 H (11.5-15.5) % Lymphocytes # 0.8 L (1.0-4.8) k/uL Sodium 128 L (137-145) mmol/L Chloride 96 L (98-107) mmol/L Creatinine 0.61 L (0.66-1.25) mg/dL Iron (65-175) ug/dL TIBC (228-460) ug/dL % Saturation (15.00-50.00) Ferritin (22.0-322.0) ng/mL Crossmatch See Detail 05/21/22 05/22/22 Range/Units 18:36 04:21 RBC 3.40 L (4.30-5.90) m/uL Hgb 7.5 L (13.0-17.5) gm/dL Hct 24.7 L (39.0-53.0) % MCV 72.6 L (80.0-100.0) fL MCH 22.0 L (25.0-35.0) pg MCHC 30.3 L (31.0-37.0) g/dL RDW 16.8 H (11.5-15.5) % Lymphocytes # (1.0-4.8) k/uL Sodium (137-145) mmol/L Chloride (98-107) mmol/L Creatinine (0.66-1.25) mg/dL Iron 9 L (65-175) ug/dL TIBC 479 H (228-460) ug/dL % Saturation 1.84 L (15.00-50.00) Ferritin 7.8 L (22.0-322.0) ng/mL Crossmatch Thrombosis Risk Factor Assmnt - Choose All That Apply Any of the Below Risk Factors Present?: No Other Risk Factors: Yes Each Risk Factor Represents 3 Points: Age 75 years or older Other congenital or acquired thrombophilia - If yes, enter type in comment: No Thrombosis Risk Factor Assessment Total Risk Factor Score: 3 Thrombosis Risk Factor Assessment Level: Moderate Risk
--- NOTE | 2022-05-22 15:48 | P.CONS ---
History of Present Illness - Reason for Consult Consult date: 05/22/22 anemia Requesting physician: Gurwinder Burks - Chief Complaint abdnormal cbc, fatigue - History of Present Illness patient is a 82-year-old male with a significant history of hyperlipidemia and hypertension. 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 Blood work in office revealed a Low Hemoglobin and pt was subsequently sent to the ER for further evaluation. Patient C/O Generalized Weakness and Fatigue but Reports This Has Been an Ongoing Issue. He Denies Shortness of Breath Chest Pain and Dizziness. He Denies Blood in Stool and Melena. He Denies Taking Any Blood Thinners and Aspirin. Denies abdominal pain, nausea, vomiting, diarrhea, fevers and chills. Upon Presentation to the ER, Hemoglobin Was 6.5 with an MCV of 70.6. Coags normal. Stool occult negative. One Unit of PRBCs Was Given Yesterday. Iron Studies Were Consistent with Iron Deficiency Anemia. IV iron x 3 doses has been ordered. Vitamin B12 Was on the Low End of N ormal. patient reports he had a colonoscopy approximately 1 year ago which was normal at that time. He states he has never had an EGD in the past. Of note patient reports over the last 6 months he's been taking 1-2 800mg Motrin daily for arthritis. Review of Systems 10 point ROS is negative except as stated in the HPI Past Medical History Past Medical History: Hyperlipidemia, Hypertension, Osteoarthritis (OA) Additional Past Medical History / Comment(s): Sleep apnea, chronic neck pain, History of Any Multi-Drug Resistant Organisms: Unobtainable Past Surgical History: Tonsillectomy Additional Past Surgical History / Comment(s): Epidural Past Anesthesia/Blood Transfusion Reactions: No Reported Reaction Past Psychological History: No Psychological Hx Reported Smoking Status: Former smoker Past Alcohol Use History: Occasional Past Drug Use History: None Reported Medications and Allergies Home Medications Medication Instructions Recorded Confirmed Type Acetaminophen [Tylenol Extra 500 mg PO HS 03/09/22 05/21/22 History Strength] Aspirin 81 mg PO HS 03/09/22 05/21/22 History Atorvastatin [Lipitor] 40 mg PO DAILY 03/09/22 05/21/22 History Finasteride [Proscar] 5 mg PO DAILY 03/09/22 05/21/22 History Ibuprofen [Motrin] 400 mg PO Q8HR PRN 03/09/22 05/21/22 History Mirabegron [Myrbetriq] 25 mg PO DAILY 03/09/22 05/21/22 History Montelukast [Singulair] 10 mg PO HS 03/09/22 05/21/22 History Omeprazole 20 mg PO DAILY 03/09/22 05/21/22 History Tamsulosin [Flomax] 0.4 mg PO HS 03/09/22 05/21/22 History lisinopriL [Zestril] 5 mg PO DAILY 03/09/22 05/21/22 History Albuterol Nebulized [Ventolin 2.5 mg INHALATION RT-Q6H 05/21/22 05/21/22 History Nebulized] Budesonide [Pulmicort] 0.5 mg INHALATION RT-BID 05/21/22 05/21/22 History Citalopram Hydrobromide [CeleXA] 40 mg PO DAILY 05/21/22 05/21/22 History Allergies Allergy/AdvReac Type Severity Reaction Status Date / Time No Known Allergies Allergy Verified 05/21/22 20:00 Physical Exam Vitals: Vital Signs Temp Pulse Pulse Resp BP BP Pulse Ox 05/22/22 11:54 60 18 181/71 99 05/22/22 08:14 97.4 F L 69 18 169/79 97 05/22/22 04:00 98.1 F 72 18 162/69 05/21/22 23:26 98.1 F 68 18 165/75 05/21/22 22:05 98.1 F 65 18 174/65 98 05/21/22 21:59 98.1 F 65 18 174/65 98 05/21/22 20:20 98.2 F 67 16 172/77 98 05/21/22 20:00 98.2 F 70 18 171/71 98 05/21/22 19:37 97.9 F 67 16 172/66 100 05/21/22 17:42 65 16 176/73 100 05/21/22 15:48 98.2 F 70 18 128/53 96 Intake and Output 05/22/22 05/22/22 05/22/22 06:59 14:59 22:59 Intake Total 540 Balance 540 Intake: Oral 540 Other: Voiding Method Toilet Toilet # Voids 1 - Constitutional General appearance: average body habitus, no acute distress - EENT Eyes: anicteric sclerae, EOMI ENT: hearing grossly normal - Respiratory Respiratory: bilateral: CTA - Cardiovascular Rhythm: regular Heart sounds: normal: S1, S2 Abnormal Heart Sounds: systolic murmur - Gastrointestinal General gastrointestinal: normal bowel sounds, soft, no tenderness - Integumentary Integumentary: pale - Neurologic grossly intact - Musculoskeletal Musculoskeletal: strength equal bilaterally - Psychiatric Psychiatric: A&O x's 3, appropriate affect, intact judgment & insight Results CBC & Chem 7: 05/22/22 04:21 05/21/22 16:58 Labs: Abnormal Lab Results - Last 24 Hours (Table) 05/21/22 05/21/22 05/21/22 Range/Units 16:58 16:58 17:31 RBC 3.12 L (4.30-5.90) m/uL Hgb 6.5 L* (13.0-17.5) gm/dL Hct 22.0 L (39.0-53.0) % MCV 70.6 L (80.0-100.0) fL MCH 20.7 L (25.0-35.0) pg MCHC 29.4 L (31.0-37.0) g/dL RDW 16.3 H (11.5-15.5) % Lymphocytes # 0.8 L (1.0-4.8) k/uL Sodium 128 L (137-145) mmol/L Chloride 96 L (98-107) mmol/L Creatinine 0.61 L (0.66-1.25) mg/dL Iron (65-175) ug/dL TIBC (228-460) ug/dL % Saturation (15.00-50.00) Ferritin (22.0-322.0) ng/mL Crossmatch See Detail 05/21/22 05/22/22 Range/Units 18:36 04:21 RBC 3.40 L (4.30-5.90) m/uL Hgb 7.5 L (13.0-17.5) gm/dL Hct 24.7 L (39.0-53.0) % MCV 72.6 L (80.0-100.0) fL MCH 22.0 L (25.0-35.0) pg MCHC 30.3 L (31.0-37.0) g/dL RDW 16.8 H (11.5-15.5) % Lymphocytes # (1.0-4.8) k/uL Sodium (137-145) mmol/L Chloride (98-107) mmol/L Creatinine (0.66-1.25) mg/dL Iron 9 L (65-175) ug/dL TIBC 479 H (228-460) ug/dL % Saturation 1.84 L (15.00-50.00) Ferritin 7.8 L (22.0-322.0) ng/mL Crossmatch Chest x-ray: report reviewed Assessment and Plan (1) Iron deficiency anemia Current Visit: Yes Status: Acute Priority: High Code(s): D50.9 - IRON DEFICIENCY ANEMIA, UNSPECIFIED SNOMED Code(s): 81816347 Plan: Iron deficiency anemia: -Hemoglobin upon admission was 6.5. Hematocrit 22, MCV 70.6. One unit of PRBCs was given yesterday with repeat hemoglobin 7.5. -Iron studies consistent with iron deficiency anemia. Vitamin B-12 on the low end of normal. IV iron 3 doses ordered -MMA, copper, and homocysteine ordered -Stool occult negative. Colonoscopy approximately 1 year ago was normal per patient. Surgery has been consulted to rule out GI bleed -Will continue to monitor counts. Please transfuse for hemoglobin less than 7 or if symptomatic attests: I have performed H and P and developed impression and plan of care for patient, discussed with dictator. I agree with dictated note, documented as a scribe
[2022-05-22] MEDS: PANTOPRAZOLE 40 MG/10 ML VIAL IVP SCH (17:46)
[2022-05-22] MEDS: TAMSULOSIN 0.4 MG CAP.ER.24H PO SCH (19:54)
[2022-05-22] MEDS: MONTELUKAST 10 MG TAB PO SCH (19:54)
[2022-05-22] MEDS: BUDESONIDE 0.5 MG/2 ML NEBU INHALATION SCH (20:51)
[2022-05-22] MEDS: ACETAMINOPHEN TAB 500 MG TAB PO PRN (21:22)
[2022-05-23 07:09] LABS: Anisocytosis Slight; HGB 7.9 gm/dL (13.0-17.5); Hypochromasia Marked; MCH 22.2 pg (25.0-35.0); MCHC 30.4 g/dL (31.0-37.0); MCV 72.8 fL (80.0-100.0); Mean Platelet Volume 7.1; Microcytosis Moderate; Platelet Count 277 k/uL (150-450); Poikilocytosis Marked; RBC 3.57 m/uL (4.30-5.90); RDW 17.3 % (11.5-15.5); WBC 5.1 k/uL (3.8-10.6)
[2022-05-23 07:23] LABS: African American GFR (CKD) >90 (>60 ml/min/1.73 sqM); Anion Gap 8 mmol/L; Blood Urea Nitrogen 10 mg/dL (9-20); Calcium 8.8 mg/dL (8.4-10.2); Carbon Dioxide 24 mmol/L (22-30); Chloride 96 mmol/L (98-107); Glucose 80 mg/dL (74-99); Non-African American GFR(CKD) >90 (>60 ml/min/1.73 sqM); Potassium 3.8 mmol/L (3.5-5.1); Sodium 128 mmol/L (137-145)
[2022-05-23] MEDS: FINASTERIDE 5 MG TAB PO SCH (08:45)
[2022-05-23] MEDS: SODIUM FERRIC GLUCONAT-SUCROSE 125 MG in SODIUM CHLORIDE 0.9% 100 ML IVPB SCH (08:45)
[2022-05-23] MEDS: CITALOPRAM HYDROBROMIDE 20 MG TAB PO SCH (08:45)
[2022-05-23] MEDS: PANTOPRAZOLE 40 MG/10 ML VIAL IVP SCH (08:45)
[2022-05-23] MEDS: ATORVASTATIN 40 MG TAB PO SCH (08:45)
[2022-05-23] MEDS ORDERED: lisinopriL 10 MG TAB PO SCH (09:00)
--- NOTE | 2022-05-23 09:22 | P.PN ---
Progress Note - Text Progress Note Date: 05/23/22 A shunt feels well. His hemoglobin 7.9. He denies any rectal bleeding. On exam vital signs are stable. Abdomen soft. Patient scheduled for EGD colonoscopy on Wednesday.
[2022-05-23] MEDS: ACETAMINOPHEN TAB 500 MG TAB PO PRN ×3 (09:56→20:01)
[2022-05-23] MEDS: BUDESONIDE 0.5 MG/2 ML NEBU INHALATION SCH ×2 (11:11→20:35)
[2022-05-23] MEDS: PATIENT'S OWN (Mirabegron [Myrbetriq] 25 MG Tab.Er.24h) PO SCH (11:12)
--- NOTE | 2022-05-23 12:00 | P.PN ---
Subjective Progress Note Date: 05/23/22 HISTORY OF PRESENT ILLNESS This is an 82-year-old male with past medical history of peripheral vascular disease, dyslipidemia, ALLERGIC rhinitis, benign prostatic hypertrophy. his parts administrator is Dr. Boykin. Patient was at Dr. Boykin's office for routine visit and there was concern for low hemoglobin and patient was directed to [facility] emergency center for further evaluation. Patient denies having any black or bloody stools. Patient has had increased fatigue. He denies shortness of breath or chest pain no palpitations. No swelling. He does have known dyspnea on exertion which is mild /: Patient sitting up in bed in no apparent distress, he denies any chest pain, shortness breath, he went to be discharged home with follow-up as an outpatient with urgency and colonoscopy, however the patient was scheduled to have an iron infusions 3 doses over the next few days, therefore we will keep the patient hospital and performed EGD and colonoscopy on Wednesday, patient did have a colonoscopy about a year ago and that was negative however in view of the iron deficiency anemia we are obligated to repeat EGD and colonoscopy and possible capsule endoscopy general surgery is following as well as hematology, iron studies suggestive of iron deficiency anemia. REVIEW OF SYSTEMS Constitutional: No fever, no chills, no night sweats. No weight change. No weakness, fatigue or lethargy. No daytime sleepiness. EENT: No headache. No blurred vision or double vision, no loss of vision. No loss of Hearing, no ringing in the ears, no dizziness. No nasal drainage or congestion. No epistaxis. No sore throat. Lungs: No shortness of breath, cough, no sputum production. No wheezing. Cardiovascular: No chest pain, no lower extremity edema. No palpitations. No paroxysmal nocturnal dyspnea. No orthopnea. No lightheadedness or dizziness. No syncopal episodes. Abdominal: No abdominal pain. No nausea, vomiting. No diarrhea. No constipation. No bloody or tarry stools. No loss of appetite. Genitourinary: No dysuria, increased frequency, urgency. No urinary retention. Musculoskeletal: No myalgias. No muscle weakness, no gait dysfunction, no frequent falls. No back pain. No neck pain. Integumentary: No wounds, no lesions. No rash or pruritus. No unusual bruising. No change in hair or nails. Neurologic: No aphasia. No facial droop. No change in mentation. No head injury. No headache. No paralysis. No paresthesia. Psychiatric: No depression. No anxiety. No mood swings. Endocrine: No abnormal blood sugars. No weight change. No excessive sweating or thirst. No cold intolerance. PHYSICAL EXAMINATION Gen: This is an 82-year old male. He is resting in bed appears to be comfortable at rest. HEENT: Head is atraumatic, normocephalic. Pupils equal, round. Sclerae is anicteric. NECK: Supple. No JVD. No lymphadenopathy. No thyromegaly. LUNGS: Clear to auscultation. No wheezes or rhonchi. No intercostal retractions. HEART: Regular rate and rhythm. 2/6 systolic ejection murmur. ABDOMEN: Soft. Bowel sounds are present. No masses. No tenderness. EXTREMITIES: No pedal edema. No calf tenderness. NEUROLOGICAL: Patient is awake, alert and oriented x3. Cranial nerves 2 through 12 are grossly intact. ASSESSMENT AND PLAN 1. Acute on chronic anemia. Patient is status post transfusion of 1 unit of packed RBCs, anemia workup, consult with oncology and general surgery with plan for EGD and colonoscopy on Wednesday. Oncology is started patient on Ferrlecit for daily for 3 doses. We will continue to monitor the patient very closely we'll try to keep the patient in the hospital to receive his iron infusion. 2. Peripheral vascular disease. Continue patient on atorvastatin 40 mg daily for secondary prevention. 3. Dyslipidemia.Continue atorvastatin 40 mg daily 4. ALLERGIC rhinitis.Continue Singulair 10 mg at bedtime 5. Benign prostatic hypertrophy.Continue Flomax 0.4 mg at bedtime and Proscar 5 mg daily. 6. COPD. Continue Pulmicort 0.5 mg twice daily. 7. Hypertension. Continue lisinopril 5 mg daily we will continue to monitor the patient blood pressure very closely. 8. Generalized anxiety disorder. Continue citalopram 40 mg daily. 9. GI prophylaxis. Protonix 40 mg IV daily. 10. DVT prophylaxis. CORRY marioe and SCDs. 11. We'll continue to follow. Objective - Vital Signs Vital signs: Vital Signs Temp 97.8 F 05/23/22 04:00 Pulse 78 05/23/22 08:44 Resp 18 05/23/22 08:44 BP 174/76 05/23/22 08:44 Pulse Ox 96 05/23/22 08:44 FiO2 Intake & Output 05/22/22 05/23/22 05/23/22 18:59 06:59 18:59 Intake Total 658 520 Balance 658 520 Intake: IV 10 Invasive Line 1 10 Oral 658 510 Other: Voiding Method Toilet Toilet Toilet # Voids 1 - Labs CBC & Chem 7: 05/23/22 06:19 05/23/22 06:19 Labs: Abnormal Lab Results - Last 24 Hours (Table) 05/22/22 05/23/22 05/23/22 Range/Units 12:56 06:19 06:19 RBC 3.57 L (4.30-5.90) m/uL Hgb 7.9 L (13.0-17.5) gm/dL Hct 26.0 L (39.0-53.0) % MCV 72.8 L (80.0-100.0) fL MCH 22.2 L (25.0-35.0) pg MCHC 30.4 L (31.0-37.0) g/dL RDW 17.3 H (11.5-15.5) % Sodium 128 L (137-145) mmol/L Chloride 96 L (98-107) mmol/L Creatinine 0.56 L (0.66-1.25) mg/dL Homocysteine 17.80 H (4.00-14.00) umol/L
[2022-05-23] MEDS: MONTELUKAST 10 MG TAB PO SCH (20:01)
[2022-05-23] MEDS: MELATONIN 3 MG TABLET PO SCH (20:02)
[2022-05-23] MEDS: TAMSULOSIN 0.4 MG CAP.ER.24H PO SCH (20:02)
[2022-05-24] MEDS: ACETAMINOPHEN TAB 500 MG TAB PO PRN ×2 (06:14→20:33)
[2022-05-24] MEDS: ATORVASTATIN 40 MG TAB PO SCH (08:57)
[2022-05-24] MEDS: lisinopriL 20 MG TAB PO SCH (08:57)
[2022-05-24] MEDS: CITALOPRAM HYDROBROMIDE 20 MG TAB PO SCH (08:57)
[2022-05-24] MEDS: FINASTERIDE 5 MG TAB PO SCH (08:57)
[2022-05-24] MEDS ORDERED: PEG 3350 (236 GM/BTL) + LYTES 4,000 ML BOTTLE PO ONE (09:00)
[2022-05-24] MEDS: PANTOPRAZOLE 40 MG/10 ML VIAL IVP SCH (09:02)
[2022-05-24] MEDS: BUDESONIDE 0.5 MG/2 ML NEBU INHALATION SCH ×2 (09:10→20:30)
[2022-05-24] MEDS: PATIENT'S OWN (Mirabegron [Myrbetriq] 25 MG Tab.Er.24h) PO SCH (09:36)
[2022-05-24] MEDS: SODIUM FERRIC GLUCONAT-SUCROSE 125 MG in SODIUM CHLORIDE 0.9% 100 ML IVPB SCH (09:53)
--- NOTE | 2022-05-24 11:08 | P.PN ---
Progress Note - Text Progress Note Date: 05/24/22 Patient [place] stable. He is currently drinking his bowel prep. He's had no further GI bleed. On exam vessels are still. Abdomen soft. Patient was scheduled for EGD colonoscopy exam.
--- NOTE | 2022-05-24 12:26 | P.PN ---
Subjective Progress Note Date: 05/24/22 HISTORY OF PRESENT ILLNESS This is an 82-year-old male with past medical history of peripheral vascular disease, dyslipidemia, ALLERGIC rhinitis, benign prostatic hypertrophy. his bomb squad officer is Dr. Boykin. Patient was at Dr. Boykin's office for routine visit and there was concern for low hemoglobin and patient was directed to [facility] emergency center for further evaluation. Patient denies having any black or bloody stools. Patient has had increased fatigue. He denies shortness of breath or chest pain no palpitations. No swelling. He does have known dyspnea on exertion which is mild 4/: Patient sitting up in bed in no apparent distress, he denies any chest pain, shortness breath, he went to be discharged home with follow-up as an outpatient with urgency and colonoscopy, however the patient was scheduled to have an iron infusions 3 doses over the next few days, therefore we will keep the patient hospital and performed EGD and colonoscopy on Wednesday, patient did have a colonoscopy about a year ago and that was negative however in view of the iron deficiency anemia we are obligated to repeat EGD and colonoscopy and possible capsule endoscopy general surgery is following as well as hematology, iron studies suggestive of iron deficiency anemia. /2: Patient is sitting up in a chair in no apparent distress, he started to the prep for his colonoscopy and EGD tomorrow morning, patient has not had any further bleeding at this time, he did receive 3 day course of Ferrlicet we'll continue to monitor is able to open, patient will be nothing by mouth after midnight, if the procedures negative tomorrow he can be discharged home after the procedure. REVIEW OF SYSTEMS Constitutional: No fever, no chills, no night sweats. No weight change. No weakness, fatigue or lethargy. No daytime sleepiness. EENT: No headache. No blurred vision or double vision, no loss of vision. No loss of Hearing, no ringing in the ears, no dizziness. No nasal drainage or congestion. No epistaxis. No sore throat. Lungs: No shortness of breath, cough, no sputum production. No wheezing. Cardiovascular: No chest pain, no lower extremity edema. No palpitations. No paroxysmal nocturnal dyspnea. No orthopnea. No lightheadedness or dizziness. No syncopal episodes. Abdominal: No abdominal pain. No nausea, vomiting. No diarrhea. No constipation. No bloody or tarry stools. No loss of appetite. Genitourinary: No dysuria, increased frequency, urgency. No urinary retention. Musculoskeletal: No myalgias. No muscle weakness, no gait dysfunction, no frequent falls. No back pain. No neck pain. Integumentary: No wounds, no lesions. No rash or pruritus. No unusual bruising. No change in hair or nails. Neurologic: No aphasia. No facial droop. No change in mentation. No head injury. No headache. No paralysis. No paresthesia. Psychiatric: No depression. No anxiety. No mood swings. Endocrine: No abnormal blood sugars. No weight change. No excessive sweating or thirst. No cold intolerance. PHYSICAL EXAMINATION Gen: This is an 82-year old male. He is resting in bed appears to be comfortable at rest. HEENT: Head is atraumatic, normocephalic. Pupils equal, round. Sclerae is anicteric. NECK: Supple. No JVD. No lymphadenopathy. No thyromegaly. LUNGS: Clear to auscultation. No wheezes or rhonchi. No intercostal retractions. HEART: Regular rate and rhythm. 2/6 systolic ejection murmur. ABDOMEN: Soft. Bowel sounds are present. No masses. No tenderness. EXTREMITIES: No pedal edema. No calf tenderness. NEUROLOGICAL: Patient is awake, alert and oriented x3. Cranial nerves 2 through 12 are grossly intact. ASSESSMENT AND PLAN 1. Acute on chronic anemia. Patient is status post transfusion of 1 unit of packed RBCs, anemia workup, consult with oncology and general surgery with plan for EGD and colonoscopy on Wednesday. Oncology is started patient on Ferrlecit for daily for 3 doses. We will continue to monitor the patient very closely we'll try to keep the patient in the hospital to receive his iron infusion. 2. Peripheral vascular disease. Continue patient on atorvastatin 40 mg daily for secondary prevention. 3. Dyslipidemia.Continue atorvastatin 40 mg daily 4. ALLERGIC rhinitis.Continue Singulair 10 mg at bedtime 5. Benign prostatic hypertrophy.Continue Flomax 0.4 mg at bedtime and Proscar 5 mg daily. 6. COPD. Continue Pulmicort 0.5 mg twice daily. 7. Hypertension. Continue lisinopril 5 mg daily we will continue to monitor the patient blood pressure very closely. 8. Generalized anxiety disorder. Continue citalopram 40 mg daily. 9. GI prophylaxis. Protonix 40 mg IV daily. 10. DVT prophylaxis. CORRY mckeon and SCDs. 11. Patient can be discharged home tomorrow after his EGD and colonoscopy Objective - Vital Signs Vital signs: Vital Signs Temp 97.8 F 05/24/22 12:18 Pulse 65 05/24/22 12:18 Resp 18 05/24/22 12:18 BP 155/66 05/24/22 12:18 Pulse Ox 96 05/24/22 12:18 FiO2 Intake & Output 05/23/22 05/24/22 05/24/22 18:59 06:59 18:59 Intake Total 998 40 220 Balance 998 40 220 Intake: IV 30 40 20 Invasive Line 1 20 20 10 Invasive Line 2 10 20 10 Intake, IV Titration 100 Amount Sodium Ferric Gluconat- 100 Sucrose 125 mg In Sodium Chloride 0.9% 100 ml @ 100 mls/hr IVPB DAILY [facility] Rx#:[id number] Oral 868 200 Other: Voiding Method Toilet Toilet Toilet # Voids 2 1 # Bowel Movements 0 - Labs CBC & Chem 7: 05/23/22 06:19 05/23/22 06:19
[2022-05-24] MEDS: TAMSULOSIN 0.4 MG CAP.ER.24H PO SCH (20:32)
[2022-05-24] MEDS: MONTELUKAST 10 MG TAB PO SCH (20:33)
[2022-05-24] MEDS: MELATONIN 3 MG TABLET PO SCH (20:33)
[2022-05-25] MEDS: ATORVASTATIN 40 MG TAB PO SCH (08:35)
[2022-05-25] MEDS: CITALOPRAM HYDROBROMIDE 20 MG TAB PO SCH (08:35)
[2022-05-25] MEDS: FINASTERIDE 5 MG TAB PO SCH (08:35)
[2022-05-25] MEDS: PANTOPRAZOLE 40 MG/10 ML VIAL IVP SCH (08:35)
[2022-05-25] MEDS: lisinopriL 20 MG TAB PO SCH (08:35)
[2022-05-25 08:38] LABS: Anisocytosis Slight; HCT 25.6 % (39.0-53.0); HGB 7.7 gm/dL (13.0-17.5); Hypochromasia Marked; MCH 21.7 pg (25.0-35.0); MCV 72.5 fL (80.0-100.0); Mean Platelet Volume 7.6; Microcytosis Moderate; Platelet Count 336 k/uL (150-450); Poikilocytosis Marked; RBC 3.54 m/uL (4.30-5.90); RDW 18.8 % (11.5-15.5); WBC 4.5 k/uL (3.8-10.6)
[2022-05-25] MEDS: PATIENT'S OWN (Mirabegron [Myrbetriq] 25 MG Tab.Er.24h) PO SCH (08:38)
[2022-05-25 08:47] LABS: African American GFR (CKD) >90 (>60 ml/min/1.73 sqM); Anion Gap 7 mmol/L; Blood Urea Nitrogen 6 mg/dL (9-20); Calcium 8.7 mg/dL (8.4-10.2); Carbon Dioxide 26 mmol/L (22-30); Chloride 96 mmol/L (98-107); Glucose 81 mg/dL (74-99); Non-African American GFR(CKD) >90 (>60 ml/min/1.73 sqM); Sodium 129 mmol/L (137-145)
[2022-05-25] MEDS: BUDESONIDE 0.5 MG/2 ML NEBU INHALATION SCH ×2 (09:06→20:17)
--- NOTE | 2022-05-25 11:18 | P.PN ---
Subjective Progress Note Date: 05/25/22 HISTORY OF PRESENT ILLNESS This is an 82-year-old male with past medical history of peripheral vascular disease, dyslipidemia, ALLERGIC rhinitis, benign prostatic hypertrophy. his mess cook is Dr. Boykin. Patient was at Dr. Boykin's office for routine visit and there was concern for low hemoglobin and patient was directed to [facility] emergency center for further evaluation. Patient denies having any black or bloody stools. Patient has had increased fatigue. He denies shortness of breath or chest pain no palpitations. No swelling. He does have known dyspnea on exertion which is mild 4/: Patient sitting up in bed in no apparent distress, he denies any chest pain, shortness breath, he went to be discharged home with follow-up as an outpatient with urgency and colonoscopy, however the patient was scheduled to have an iron infusions 3 doses over the next few days, therefore we will keep the patient hospital and performed EGD and colonoscopy on Wednesday, patient did have a colonoscopy about a year ago and that was negative however in view of the iron deficiency anemia we are obligated to repeat EGD and colonoscopy and possible capsule endoscopy general surgery is following as well as hematology, iron studies suggestive of iron deficiency anemia. 4/2: Patient is sitting up in a chair in no apparent distress, he started to the prep for his colonoscopy and EGD tomorrow morning, patient has not had any further bleeding at this time, he did receive 3 day course of Ferrlicet we'll continue to monitor is able to open, patient will be nothing by mouth after midnight, if the procedures negative tomorrow he can be discharged home after the procedure. 43: Patient is scheduled for EGD and colonoscopy late this afternoon. His hemoglobin is 7.7 today. Sodium 129, potassium 4.0, creatinine 0.57. Homocysteine came back at 17.8. Patient remains afebrile, heart rate in the 60s and 70s, blood pressure 130/74, pulse ox 96% on room air. Patient is nothing by mouth for EGD and colonoscopy today and will be started on IV fluids for hydration as his procedures are scheduled late this afternoon. If he is cleared for discharge from general surgery, patient may be discharged later but I anticipate that he will need to stay overnight. Patient continued on Protonix 40 mg daily. REVIEW OF SYSTEMS Constitutional: No fever, no chills, no night sweats. No weight change. No weakness, fatigue or lethargy. No daytime sleepiness. EENT: No headache. No blurred vision or double vision, no loss of vision. No loss of Hearing, no ringing in the ears, no dizziness. No nasal drainage or congestion. No epistaxis. No sore throat. Lungs: No shortness of breath, cough, no sputum production. No wheezing. Cardiovascular: No chest pain, no lower extremity edema. No palpitations. No paroxysmal nocturnal dyspnea. No orthopnea. No lightheadedness or dizziness. No syncopal episodes. Abdominal: No abdominal pain. No nausea, vomiting. No diarrhea. No constipation. No bloody or tarry stools. No loss of appetite. Genitourinary: No dysuria, increased frequency, urgency. No urinary retention. Musculoskeletal: No myalgias. No muscle weakness, no gait dysfunction, no frequent falls. No back pain. No neck pain. Integumentary: No wounds, no lesions. No rash or pruritus. No unusual brui sing. No change in hair or nails. Neurologic: No aphasia. No facial droop. No change in mentation. No head injury. No headache. No paralysis. No paresthesia. Psychiatric: No depression. No anxiety. No mood swings. Endocrine: No abnormal blood sugars. No weight change. No excessive sweating or thirst. No cold intolerance. PHYSICAL EXAMINATION Gen: This is an 82-year old male. He is resting in bed appears to be comfortable at rest. HEENT: Head is atraumatic, normocephalic. Pupils equal, round. Sclerae is anicteric. NECK: Supple. No JVD. No lymphadenopathy. No thyromegaly. LUNGS: Clear to auscultation. No wheezes or rhonchi. No intercostal retractio ns. HEART: Regular rate and rhythm. 2/6 systolic ejection murmur. ABDOMEN: Soft. Bowel sounds are present. No masses. No tenderness. EXTREMITIES: No pedal edema. No calf tenderness. NEUROLOGICAL: Patient is awake, alert and oriented x3. Cranial nerves 2 through 12 are grossly intact. ASSESSMENT AND PLAN 1. Acute on chronic anemia. Patient is status post transfusion of 1 unit of packed RBCs, anemia workup, consult with oncology and general surgery with plan for EGD and colonoscopy on Wednesday. Oncology is started patient on Ferrlecit for daily for 3 doses which she has completed. Start patient on IV fluids for hydration prior to procedures. Continue on Protonix 40 mg IV push daily 2. Peripheral vascular disease. Continue patient on atorvastatin 40 mg daily fo r secondary prevention. 3. Dyslipidemia.Continue atorvastatin 40 mg daily 4. ALLERGIC rhinitis.Continue Singulair 10 mg at bedtime 5. Benign prostatic hypertrophy.Continue Flomax 0.4 mg at bedtime and Proscar 5 mg daily. 6. COPD. Continue Pulmicort 0.5 mg twice daily. 7. Hypertension. Continue lisinopril 5 mg daily we will continue to monitor the patient blood pressure very closely. 8. Generalized anxiety disorder. Continue citalopram 40 mg daily. 9. GI prophylaxis. Protonix 40 mg IV daily. 10. DVT prophylaxis. CORRY mckeon and SINGHs. 11. Patient can be discharged home after his EGD and colonoscopy if cleared by general surgery or discharge tomorrow Impression and plan of care have been directed as dictated by the signing physician. Nahomi Hair nurse practitioner acting as scribe for signing physician. Objective - Vital Signs Vital signs: Vital Signs Temp 98.5 F 05/25/22 09:00 Pulse 74 05/25/22 09:00 Resp 18 05/25/22 09:00 BP 130/74 05/25/22 09:00 Pulse Ox 96 05/25/22 09:00 FiO2 Intake & Output 05/24/22 05/25/22 05/25/22 18:59 06:59 18:59 Intake Total 600 0 Balance 600 0 Intake: IV 40 Invasive Line 1 20 Invasive Line 2 20 Oral 560 0 Other: Voiding Method Toilet Toilet Toilet # Voids 2 1 # Bowel Movements 1 - Labs CBC & Chem 7: 05/25/22 07:24 05/25/22 07:24 Labs: Abnormal Lab Results - Last 24 Hours (Table) 05/25/22 05/25/22 Range/Units 07:24 07:24 RBC 3.54 L (4.30-5.90) m/uL Hgb 7.7 L (13.0-17.5) gm/dL Hct 25.6 L (39.0-53.0) % MCV 72.5 L (80.0-100.0) fL MCH 21.7 L (25.0-35.0) pg MCHC 30.0 L (31.0-37.0) g/dL RDW 18.8 H (11.5-15.5) % Sodium 129 L (137-145) mmol/L Chloride 96 L (98-107) mmol/L BUN 6 L (9-20) mg/dL Creatinine 0.57 L (0.66-1.25) mg/dL
[2022-05-25] MEDS: CYANOCOBALAMIN 1,000 MCG/ML 1 ML VIAL IM SCH (12:06)
[2022-05-25] MEDS: SODIUM CHLORIDE 0.9% 1,000 ML IV SCH ×2 (12:07→20:06)
[2022-05-25] MEDS: FOLIC ACID 1 MG TAB PO SCH (12:07)
--- NOTE | 2022-05-25 12:16 | P.DS ---
Providers Date of admission: 05/21/22 19:38 Expected date of discharge: 05/26/22 Attending physician: Azra Gregory Consults: 05/21/22 19:38 Consult Physician Urgent Consulting Provider: Asa Younger Consult Reason/Comments: Anemia Do you want consulting provider notified?: Yes 05/22/22 13:34 Consult Physician Routine Consulting Provider: Dani Jara Consult Reason/Comments: r/o GIB, ELEN Do you want consulting provider notified?: Already Contacted [facility] Course: HISTORY OF PRESENT ILLNESS This is an 82-year-old male with past medical history of peripheral vascular disease, dyslipidemia, ALLERGIC rhinitis, benign prostatic hypertrophy. his accountancy professor is Dr. Boykin. Patient was at Dr. Boykin's office for routine visit and there was concern for low hemoglobin and patient was directed to [facility] emergency center for further evaluation. Patient denies having any black or bloody stools. Patient has had increased fatigue. He denies shortness of breath or chest pain no palpitations. No swelling. He does have known dyspnea on exertion which is mild 4/: Patient sitting up in bed in no apparent distress, he denies any chest pain, shortness breath, he went to be discharged home with follow-up as an outpatient with urgency and colonoscopy, however the patient was scheduled to have an iron infusions 3 doses over the next few days, therefore we will keep the patient hospital and performed EGD and colonoscopy on Wednesday, patient did have a colonoscopy about a year ago and that was negative however in view of the iron deficiency anemia we are obligated to repeat EGD and colonoscopy and possible capsule endoscopy general surgery is following as well as hematology, iron studies suggestive of iron deficiency anemia. 4/2: Patient is sitting up in a chair in no apparent distress, he started to the prep for his colonoscopy and EGD tomorrow morning, patient has not had any further bleeding at this time, he did receive 3 day course of Ferrlicet we'll continue to monitor is able to open, patient will be nothing by mouth after midnight, if the procedures negative tomorrow he can be discharged home after the procedure. 4/3: Patient is scheduled for EGD and colonoscopy late this afternoon. His hemoglobin is 7.7 today. Sodium 129, potassium 4.0, creatinine 0.57. Homocysteine came back at 17.8. Patient remains afebrile, heart rate in the 60s and 70s, blood pressure 130/74, pulse ox 96% on room air. Patient is nothing by mouth for EGD and colonoscopy today and will be started on IV fluids for hydration as his procedures are scheduled late this afternoon. If he is cleared for discharge from general surgery, patient may be discharged later but I anticipate that he will need to stay overnight. Patient continued on Protonix 40 mg daily. 05/26: Endoscopy revealed no active upper or lower GI bleed. 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 Oncology as scheduled patient for B12 injections in the office. Iron studies to be done in 4 weeks and patient to follow-up with Dr. Steve Alcala in 4 weeks. Patient was started on a full liquid diet last evening. Patient has been cleared for discharge from general surgery. DISCHARGE DIAGNOSES 1. Acute on chronic anemia. Patient is status post transfusion of 1 unit of packed RBCs and Ferrlecit x 3 doses. 2. Peripheral vascular disease. 3. Dyslipidemia. 4. ALLERGIC rhinitis. 5. Benign prostatic hypertrophy. 6. COPD. 7. Hypertension. 8. Generalized anxiety disorder. Patient can be discharged home after his EGD and colonoscopy if cleared by general surgery or discharge tomorrow Greater than 35 minutes was utilized and coordinating patient's discharge. Impression and plan of care have been directed as dictated by the signing physician. Nahomi Hair nurse practitioner acting as scribe for signing physician. Patient Condition at Discharge: Good Plan - Discharge Summary Discharge Rx Participant: No New Discharge Prescriptions: New Folic Acid 1 mg PO DAILY tab Cyanocobalamin [Vitamin B-12] 1,000 mcg PO DAILY #30 tablet lisinopriL [Zestril] 20 mg PO DAILY #30 tab Continue Tamsulosin [Flomax] 0.4 mg PO HS Montelukast [Singulair] 10 mg PO HS Acetaminophen [Tylenol Extra Strength] 500 mg PO HS Budesonide [Pulmicort] 0.5 mg INHALATION RT-BID Mirabegron [Myrbetriq] 25 mg PO DAILY Finasteride [Proscar] 5 mg PO DAILY Atorvastatin [Lipitor] 40 mg PO DAILY Omeprazole 20 mg PO DAILY Albuterol Nebulized [Ventolin Nebulized] 2.5 mg INHALATION RT-Q6H Citalopram Hydrobromide [CeleXA] 40 mg PO DAILY Discontinued lisinopriL [Zestril] 5 mg PO DAILY Ibuprofen [Motrin] 400 mg PO Q8HR PRN PRN Reason: Pain Aspirin 81 mg PO HS Discharge Medication List Acetaminophen [Tylenol Extra Strength] 500 mg PO HS 03/09/22 [History] Atorvastatin [Lipitor] 40 mg PO DAILY 03/09/22 [History] Finasteride [Proscar] 5 mg PO DAILY 03/09/22 [History] Mirabegron [Myrbetriq] 25 mg PO DAILY 03/09/22 [History] Montelukast [Singulair] 10 mg PO HS 03/09/22 [History] Omeprazole 20 mg PO DAILY 03/09/22 [History] Tamsulosin [Flomax] 0.4 mg PO HS 03/09/22 [History] Albuterol Nebulized [Ventolin Nebulized] 2.5 mg INHALATION RT-Q6H 05/21/22 [History] Budesonide [Pulmicort] 0.5 mg INHALATION RT-BID 05/21/22 [History] Citalopram Hydrobromide [CeleXA] 40 mg PO DAILY 05/21/22 [History] Cyanocobalamin [Vitamin B-12] 1,000 mcg PO DAILY #30 tablet 05/25/22 [Rx] Folic Acid 1 mg PO DAILY tab 05/25/22 [Rx] lisinopriL [Zestril] 20 mg PO DAILY #30 tab 05/25/22 [Rx] Follow up Appointment(s)/Referral(s): Azra Gregory MD [Primary Care Provider] - 1 Week Wilfrid Alcala MD [STAFF PHYSICIAN] - 06/22/22 1:15 pm Dani Jara MD [STAFF PHYSICIAN] - 1 Week Patient Instructions/Handouts: Anemia (DC) Discharge Disposition: HOME SELF-CARE
--- NOTE | 2022-05-25 14:02 | P.PN ---
Subjective Progress Note Date: 05/25/22 Principal diagnosis: Microcytic, hypochromic anemia In follow-up today patient having endoscopy. He denies epistaxis, hemoptysis, hematuria, hematochezia or melena. He is not in any pain. Objective - Vital Signs Vital signs: Vital Signs Temp 98.5 F 05/25/22 09:00 Pulse 76 05/25/22 12:08 Resp 18 05/25/22 12:08 BP 154/73 05/25/22 12:08 Pulse Ox 96 05/25/22 12:08 FiO2 Intake & Output 05/24/22 05/25/22 05/25/22 18:59 06:59 18:59 Intake Total 600 0 Balance 600 0 Intake: IV 40 Invasive Line 1 20 Invasive Line 2 20 Oral 560 0 Other: Voiding Method Toilet Toilet Toilet # Voids 2 1 # Bowel Movements 1 - Constitutional General appearance: Present: average body habitus, cooperative, no acute distress - EENT Eyes: Present: anicteric sclerae, EOMI ENT: Present: hearing grossly normal - Respiratory Respiratory: bilateral: CTA - Cardiovascular Rhythm: regular - Peripheral edema leg Peripheral Edema: bilateral: None - Integumentary Integumentary: Present: pale - Neurologic Neurologic: Present: CNII-XII intact (Grossly) - Musculoskeletal Musculoskeletal Comment(s): Independently ambulatory Musculoskeletal: Present: strength equal bilaterally - Psychiatric Psychiatric: Present: A&O x's 3, appropriate affect, intact judgment & insight - Labs CBC & Chem 7: 05/25/22 07:24 05/25/22 07:24 Labs: Abnormal Lab Results - Last 24 Hours (Table) 05/25/22 05/25/22 Range/Units 07:24 07:24 RBC 3.54 L (4.30-5.90) m/uL Hgb 7.7 L (13.0-17.5) gm/dL Hct 25.6 L (39.0-53.0) % MCV 72.5 L (80.0-100.0) fL MCH 21.7 L (25.0-35.0) pg MCHC 30.0 L (31.0-37.0) g/dL RDW 18.8 H (11.5-15.5) % Sodium 129 L (137-145) mmol/L Chloride 96 L (98-107) mmol/L BUN 6 L (9-20) mg/dL Creatinine 0.57 L (0.66-1.25) mg/dL Assessment and Plan (1) Microcytic hypochromic anemia Current Visit: Yes Status: Acute Priority: High Code(s): D50.9 - IRON DEFICIENCY ANEMIA, UNSPECIFIED SNOMED Code(s): 47760844 (2) B12 deficiency Current Visit: Yes Status: Acute Priority: High Code(s): E53.8 - DEF ICIENCY OF OTHER SPECIFIED B GROUP VITAMINS SNOMED Code(s): 270928867 Plan: Anemia, iron deficiency, B vitamins low normal -Iron deficiency. Status post 3 doses of parenteral iron -Endoscopy today, pending results -B12 low normal 216, low-normal, folate low-normal at 10, elevated homocysteine level, pending MMA and copper levels. B12 injections started, oral folic acid started. -Will schedule him to continue on B12 injections in ofc. Iron studies in 4 weeks. Follow-up with Dr. Steve Alcala in 4 weeks. We will contact patient with a ppointment dates and times if he is discharged. Patient verbalized understanding the plan is in agreement with the same
[2022-05-25 14:03] LABS: Eosinophils # (M) 0.05 k/uL (0-0.7); Lymphocytes # (M) 0.86 k/uL (1.0-4.8); Neutrophils # (M) 3.11 k/uL (1.3-7.7); Neutrophils % (M) 69 %; Nucleated Red Blood Cells 0 /100 WBC (0-0); Total Cells Counted 100
[2022-05-25] MEDS ORDERED: PROPOFOL 10 MG/ML 20 ML VIAL IV ONE (15:56)
[2022-05-25] MEDS ORDERED: LIDOCAINE 2% INJ 20 MG/ML (2 ML VIAL) ONE (15:56)
[2022-05-25] MEDS ORDERED: IV FLUID CONTINUATION 1,000 ML IV ONE (16:18)
--- NOTE | 2022-05-25 16:20 | P.OP ---
Description of Procedure: The patient's placed on the endoscopy table lateral position. He received IV sedation. The gastro-/oropharynx passed into the esophagus and stomach. Scope was then placed through the pylorus. The first and second portion of the duodenum appeared normal. Scope was then brought back the antrum this. Minimal inflamed. A biopsies performed. Scope was then retroflexed and the patient had a very large paraesophageal hernia pressure one third of the stomach was in the chest. The GE junction was at 35 cm per the distal esophagus inflamed. A biopsies performed. The proximal esophagus appeared normal. Scope withdrawn for patient. Next digital rectal exam was performed. This revealed no abnormalities. The flexible colonoscope was then placed patient anus and passed throughout the entire colon. The ileocecal valve was visually is. The cecum, ascending and transverse colon appeared normal. The patient a very poor colon prep. The visualized mucosa looked normal. There is a large amount liquid stool. The transverse colon and descending colon was examined. There was evidence of some mild diverticular changes in the descending colon. The sigmoid colon had a few scattered diverticula. Scope was brought back the rectum and this appeared normal. Scope withdrawn for patient. There was no evidence of any active upper or lower GI bleed. The patient may have had anemia from his large paraesophageal hernia.
[2022-05-25] MEDS: MELATONIN 3 MG TABLET PO SCH (20:12)
[2022-05-25] MEDS: TAMSULOSIN 0.4 MG CAP.ER.24H PO SCH (20:12)
[2022-05-25] MEDS: MONTELUKAST 10 MG TAB PO SCH (20:12)
[2022-05-26 06:00] LABS: Methylmalonic Acid 0.13 umol/L (<0.40)
[2022-05-26] MEDS: PATIENT'S OWN (Mirabegron [Myrbetriq] 25 MG Tab.Er.24h) PO SCH (07:08)
[2022-05-26 08:01] VITALS: RESP 14
[2022-05-26] MEDS: BUDESONIDE 0.5 MG/2 ML NEBU INHALATION SCH (08:23)
[2022-05-26] MEDS: ATORVASTATIN 40 MG TAB PO SCH (09:28)
[2022-05-26] MEDS: CITALOPRAM HYDROBROMIDE 20 MG TAB PO SCH (09:28)
[2022-05-26] MEDS: CYANOCOBALAMIN 1,000 MCG/ML 1 ML VIAL IM SCH (09:29)
[2022-05-26] MEDS: FOLIC ACID 1 MG TAB PO SCH (09:30)
[2022-05-26] MEDS: FINASTERIDE 5 MG TAB PO SCH (09:30)
[2022-05-26] MEDS: lisinopriL 20 MG TAB PO SCH (09:31)
[2022-05-26] MEDS: PANTOPRAZOLE 40 MG/10 ML VIAL IVP SCH (09:31)
--- NOTE | 2022-05-26 11:17 | P.PN ---
Subjective Progress Note Date: 05/26/22 CHIEF COMPLAINT: Anemia HISTORY OF PRESENT ILLNESS: Patient is status post EGD and colonoscopy with results showing a large paraesophageal hernia. Colonoscopy had shown evidence of diverticulosis did have a poor copy colon prep no evidence of active bleeding. His presumed patient's anemia may be from his large paraesophageal hernia. Hemoglobin stable at 7.7 patient is tolerating diet. Denies any ab dominal pain. Denies any nausea or vomiting. Denies any heartburn or indigestion. PHYSICAL EXAM: VITAL SIGNS: Reviewed. GENERAL: Well-developed in no acute distress. HEENT: No sclera icterus. Extraocular movements grossly intact. Moist buccal mucosa. Head is atraumatic, normocephalic. ABDOMEN: Soft. Nondistended. Nontender. NEUROLOGIC: Alert and oriented. Cranial nerves II through XII grossly intact. ASSESSMENT: 1. Iron deficiency anemia 2. 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 Recommend follow-up outpatient with Dr. Jara Physician Retread Operator note has been reviewed by physician. Signing provider agrees with the documented findings, assessment, and plan of care. Objective - Vital Signs Vital signs: Vital Signs Temp 97.9 F 05/26/22 07:59 Pulse 71 05/26/22 07:59 Resp 14 05/26/22 07:59 BP 172/65 05/26/22 07:59 Pulse Ox 100 05/26/22 07:59 FiO2 Intake & Output 05/25/22 05/26/22 05/26/22 18:59 06:59 18:59 Intake Total 380 395 10 Balance 380 395 10 Intake: IV 200 20 10 Invasive Line 2 20 10 Intake, IV Titration 375 Amount Sodium Chloride 0.9% 1, 375 000 ml @ 75 mls/hr IV . [id number] YOGI Rx#:[id number] Oral 180 Other: Voiding Method Toilet Toilet Toilet # Voids 1 # Bowel Movements 1 - Labs CBC & Chem 7: 05/25/22 07:24 05/25/22 07:24 Labs: Abnormal Lab Results - Last 24 Hours (Table) 05/25/22 Range/Units 07:24 Lymphocytes # (Manual) 0.86 L (1.0-4.8) k/uL
[2022-05-26 11:36] VITALS: PULSE 73; TEMP 97.2
[2022-05-26 11:48] VITALS: BP 146/55
[2022-05-26 12:06] LABS: Anisocytosis Moderate; HCT 27.8 % (39.0-53.0); HGB 8.2 gm/dL (13.0-17.5); Hypochromasia Marked; MCH 21.9 pg (25.0-35.0); MCHC 29.3 g/dL (31.0-37.0); MCV 74.7 fL (80.0-100.0); Mean Platelet Volume 7.3; Microcytosis Moderate; Platelet Count 365 k/uL (150-450); Poikilocytosis Moderate; RBC 3.72 m/uL (4.30-5.90); RDW 20.4 % (11.5-15.5)
--- NOTE | 2022-05-26 15:47 | P.PN ---
Subjective Progress Note Date: 05/26/22 Principal diagnosis: Microcytic, hypochromic anemia In follow-up today pt is s/p endoscopy, no acute bleeding, paraesophageal hernia. He denies bleeding, states he has never had any. Fatigue is mild, does wear out easier. Objective - Vital Signs Vital signs: Vital Signs Temp 97.2 F L 05/26/22 11:35 Pulse 73 05/26/22 11:35 Resp 14 05/26/22 11:35 BP 146/55 05/26/22 11:35 Pulse Ox 100 05/26/22 07:59 FiO2 Intake & Output 05/25/22 05/26/22 05/26/22 18:59 06:59 18:59 Intake Total 380 395 10 Balance 380 395 10 Intake: IV 200 20 10 Invasive Line 2 20 10 Intake, IV Titration 375 Amount Sodium Chloride 0.9% 1, 375 000 ml @ 75 mls/hr IV . [id number] YOGI Rx#:[id number] Oral 180 Other: Voiding Method Toilet Toilet Toilet # Voids 1 2 # Bowel Movements 1 - Constitutional General appearance: Present: average body habitus, cooperative, no acute distr ess - EENT Eyes: Present: anicteric sclerae, EOMI ENT: Present: hearing grossly normal - Respiratory Details: resp even and unlabored - Neurologic Neurologic: Present: CNII-XII intact - Musculoskeletal Musculoskeletal: Present: strength equal bilaterally - Psychiatric Psychiatric: Present: A&O x's 3, appropriate affect, intact judgment & insight - Labs CBC & Chem 7: 05/26/22 11:16 05/25/22 07:24 Labs: Abnormal Lab Results - Last 24 Hours (Table) 05/25/22 05/26/22 Range/Units 07:24 11:16 RBC 3.72 L (4.30-5.90) m/uL Hgb 8.2 L (13.0-17.5) gm/dL Hct 27.8 L (39.0-53.0) % MCV 74.7 L (80.0-100.0) fL MCH 21.9 L (25.0-35.0) pg MCHC 29.3 L (31.0-37.0) g/dL RDW 20.4 H (11.5-15.5) % Lymphocytes # (Manual) 0.86 L (1.0-4.8) k/uL Assessment and Plan (1) Microcytic hypochromic anemia Status: Acute Priority: High Code(s): D50.9 - IRON DEFICIENCY ANEMIA, UNSPECIFIED SNOMED Code(s): 29334128 (2) B12 deficiency Status: Acute Priority: High Code(s): E53.8 - DEFICIENCY OF OTHER SPECIFIED B GROUP VITAMINS SNOMED Code(s): 196054726 Plan: Anemia, iron deficiency, B vitamins low normal -Iron deficiency. Status post 3 doses of parenteral iron, pt tolerated well -Endoscopy done, paraesophageal hernia, no bleeding per report. -B12 low normal 216, low-normal, folate low-normal 10, elevated homocysteine level, MMA and copper levels normal. B12 injections started, oral folic acid started for low normal values with elevated homocysteine level. -Will schedule him to continue on B12 injections in ofc. Iron studies in 4 weeks. Follow-up appt with Dr. Steve Alcala in 4 weeks in discharge plan. We will contact patient with appointment dates and times for injections. Patient verbalized understanding the plan is in agreement with the same
== END 2022-05-26 14:24 | disposition home or self-care (01) | DRG 812 ==
LOC: EC 15:32 → 3SCARD 19:38
PROVIDERS: ADMIT Internal Medicine; ATTEND Internal Medicine
PROC: 30233N1 Transfusion of Nonautologous Red Blood Cells into Peripheral Vein, Percutaneous Approach (ICD-10-PCS; 2022-05-21)
PROC: 0DJD8ZZ Inspection of Lower Intestinal Tract, Via Natural or Artificial Opening Endoscopic (ICD-10-PCS; 2022-05-25)
PROC: 0DB48ZX Excision of Esophagogastric Junction, Via Natural or Artificial Opening Endoscopic, Diagnostic (ICD-10-PCS; principal; 2022-05-25 16:00)
PROC: 0DB78ZX Excision of Stomach, Pylorus, Via Natural or Artificial Opening Endoscopic, Diagnostic (ICD-10-PCS; 2022-05-25 16:00)
DX: D62 Acute posthemorrhagic anemia (principal); E53.8 Deficiency of other specified B group vitamins; I10 Essential (primary) hypertension; I73.9 Peripheral vascular disease, unspecified; J44.9 Chronic obstructive pulmonary disease, unspecified; E78.5 Hyperlipidemia, unspecified; G47.30 Sleep apnea, unspecified; G89.29 Other chronic pain; M54.2 Cervicalgia; K44.9 Diaphragmatic hernia without obstruction or gangrene; J30.9 Allergic rhinitis, unspecified; N40.0 Benign prostatic hyperplasia without lower urinary tract symptoms; F41.1 Generalized anxiety disorder; M19.90 Unspecified osteoarthritis, unspecified site; R01.1 Cardiac murmur, unspecified; K57.30 Diverticulosis of large intestine without perforation or abscess without bleeding; R58 Hemorrhage, not elsewhere classified; Z87.891 Personal history of nicotine dependence; Z79.899 Other long term (current) drug therapy; Z79.82 Long term (current) use of aspirin; Z79.51 Long term (current) use of inhaled steroids; Z79.1 Long term (current) use of non-steroidal anti-inflammatories (NSAID)
CPT/HCPCS: 36415; 36430; 43239; 45378; 71046; 80048; 80053; 82272; 82525; 82607; 82728; 82746; 83010; 83090; 83540; 83550; 83615; 83735; 83921; 84484; 85025; 85027; 85045; 85610; 85730; 86850; 86900; 86901; 86920; 88305; 93005; 99285

== ENCOUNTER 2022-06-03 14:20 | Inpatient (IN) | payer MEDICARE ==
--- NOTE | 2022-06-03 17:17 | XR ---
EXAMINATION TYPE: XR toes RT DATE OF EXAM: 06/03/2022 COMPARISON: NONE HISTORY: Nonhealing wound second toe TECHNIQUE: Three views are submitted. FINDINGS: Severe hypertrophic arthropathy first MTP with complete loss of joint space. There is soft tissue lev ma with probable ulceration involving the distal margin of soft tissues of the second digit. Cortex r emains preserved with no diagnostic evidence of osteomyelitis or fracture. IMPRESSION: 1. Soft tissue swelling with possible ulceration distal margin second digit with no diagnostic eviden ce of osteomyelitis.
[2022-06-03 18:15] LABS: Anisocytosis Moderate; Basophils % (A) 0 %; Eosinophils % (A) 1 %; HCT 30.2 % (39.0-53.0); HGB 9.2 gm/dL (13.0-17.5); Hypochromasia Marked; Lymphocytes # (A) 0.9 k/uL (1.0-4.8); Lymphocytes % (A) 16 %; MCH 22.9 pg (25.0-35.0); MCHC 30.4 g/dL (31.0-37.0); MCV 75.4 fL (80.0-100.0); Mean Platelet Volume 7.3; Microcytosis Moderate; Monocytes # (A) 0.5 k/uL (0-1.0); Monocytes % (A) 8 %; Neutrophils # (A) 4.1 k/uL (1.3-7.7); Neutrophils % (A) 72 %; Platelet Count 383 k/uL (150-450); Poikilocytosis Slight; RBC 4.01 m/uL (4.30-5.90); RDW 21.8 % (11.5-15.5); WBC 5.7 k/uL (3.8-10.6)
[2022-06-03 18:32] LABS: ALT 18 U/L (4-49); AST 26 U/L (17-59); African American GFR (CKD) >90 (>60 ml/min/1.73 sqM); Albumin 4.2 g/dL (3.5-5.0); Alkaline Phosphatase 76 U/L (38-126); Anion Gap 8 mmol/L; Blood Urea Nitrogen 14 mg/dL (9-20); Calcium 8.9 mg/dL (8.4-10.2); Carbon Dioxide 26 mmol/L (22-30); Chloride 93 mmol/L (98-107); Glucose 82 mg/dL (74-99); Non-African American GFR(CKD) >90 (>60 ml/min/1.73 sqM); Sodium 127 mmol/L (137-145); Total Bilirubin 0.5 mg/dL (0.2-1.3); Total Protein 6.8 g/dL (6.3-8.2)
[2022-06-03] MEDS ORDERED: SODIUM CHLORIDE 0.9% 1,000 ML IV ONE (18:52)
[2022-06-03] MEDS ORDERED: PIPERACILLIN-TAZOBACTAM 3.375 GM in SODIUM CHLORIDE 0.9% 100 ML IVPB STA (18:52)
[2022-06-03] MEDS ORDERED: NALOXONE 0.4 MG/ML 1 ML VIAL IV PRN (18:57)
--- NOTE | 2022-06-03 19:01 | ED ---
Skin/Abscess/FB HPI - General Chief complaint: Skin/Abscess/Foreign Body Stated complaint: rt foot wound Time Seen by Provider: 06/03/22 16:50 Source: patient Mode of arrival: ambulatory Limitations: no limitations - History of Present Illness Initial comments: Patient is an 82-year-old male presenting with chief complaint of infection to the toe. Patient has had a worsening blister to the right second toe for 2 months. He is experiencing increased redness and swelling. Patient was sent to the ER by Dr. Santacruz, for IV antibiotics. No fevers or chills. No numbness or tingling. No nausea or vomiting. No chest pain, difficulty breathing, abdominal pain. - Related Data Home Medications Medication Instructions Recorded Confirmed Acetaminophen [Tylenol Extra 500 mg PO HS 03/09/22 06/03/22 Strength] Atorvastatin [Lipitor] 40 mg PO DAILY 03/09/22 06/03/22 Finasteride [Proscar] 5 mg PO DAILY 03/09/22 06/03/22 Mirabegron [Myrbetriq] 25 mg PO DAILY 03/09/22 06/03/22 Montelukast [Singulair] 10 mg PO HS 03/09/22 06/03/22 Omeprazole 20 mg PO DAILY 03/09/22 06/03/22 Tamsulosin [Flomax] 0.4 mg PO HS 03/09/22 06/03/22 Albuterol Nebulized [Ventolin 2.5 mg INHALATION RT-Q6H 05/21/22 06/03/22 Nebulized] Budesonide [Pulmicort] 0.5 mg INHALATION RT-BID 05/21/22 06/03/22 Citalopram Hydrobromide [CeleXA] 40 mg PO DAILY 05/21/22 06/03/22 Cephalexin [Keflex] 500 mg PO Q8HR 06/03/22 06/03/22 Previous Rx's Medication Instructions Recorded Cyanocobalamin [Vitamin B-12] 1,000 mcg PO DAILY #30 tablet 05/25/22 Folic Acid 1 mg PO DAILY tab 05/25/22 lisinopriL [Zestril] 20 mg PO DAILY #30 tab 05/25/22 Allergies Allergy/AdvReac Type Severity Reaction Status Date / Time No Known Allergies Allergy Verified 06/03/22 18:09 Review of Systems ROS Statement: Those systems with pertinent positive or pertinent negative responses have been documented in the HPI. ROS Other: All systems not noted in ROS Statement are negative. Past Medical History Past Medical History: Hyperlipidemia, Hypertension, Osteoarthritis (OA), Sleep Apnea/CPAP/BIPAP Additional Past Medical History / Comment(s): Sleep apnea, chronic neck pain, History of Any Multi-Drug Resistant Organisms: Unobtainable Past Surgical History: Tonsillectomy Additional Past Surgical History / Comment(s): Epidural , eye surgery x 3 Past Anesthesia/Blood Transfusion Reactions: No Reported Reaction Past Psychological History: No Psychological Hx Reported Smoking Status: Former smoker Past Alcohol Use History: Occasional Past Drug Use History: None Reported General Exam Limitations: no limitations General appearance: alert, in no apparent distress Head exam: Present: atraumatic, normocephalic, normal inspection Eye exam: Present: normal appearance Neck exam: Present: normal inspection, full ROM Respiratory exam: Present: normal lung sounds bilaterally. Absent: respiratory distress, wheezes, rales, rhonchi, stridor Cardiovascular Exam: Present: regular rate, normal rhythm, normal heart sounds. Absent: systolic murmur, diastolic murmur, rubs, gallop, clicks Neurological exam: Present: alert, oriented X3, CN II-XII intact Psychiatric exam: Present: normal affect, normal mood Skin exam: Present: erythema (Erythema and scabbing over the right second toe) Course Vital Signs 06/03/22 06/03/22 06/03/22 14:42 18:37 20:00 Temperature 98.4 F 98.2 F 98.1 F Pulse Rate 69 64 66 Respiratory 20 16 16 Rate Blood Pressure 148/58 179/151 O2 Sat by Pulse 99 100 95 Oximetry 06/03/22 06/03/22 21:41 22:30 Temperature 98.1 F Pulse Rate 79 Respiratory 16 Rate Blood Pressure 172/80 172/88 O2 Sat by Pulse 98 Oximetry Medical Decision Making - Medical Decision Making Was pt. sent in by a medical professional or institution (, PA, CLIPPER MACHINE, urgent care, hospital, or snf...) When possible be specific @ -Sent in by Dr. Santacruz vascular surgeon Did you speak to anyone other than the patient for history (EMS, parent, family, police, friend...)? What history was obtained from this source @ -No Did you review nursing and triage notes (agree or disagree)? Why? @ -I reviewed and agree with nursing and triage notes Were old charts reviewed (outside hosp., previous admission, EMS record, old EKG, old radiological studies, urgent care reports/EKG's, snf records)? Report findings @ -No old charts were reviewed Differential Diagnosis (chest pain, altered mental status, abdominal pain women, abdominal pain men, vaginal bleeding, weakness, fever, dyspnea, syncope, headache, dizziness, GI bleed, back pain, seizure, CVA, palpatations, mental health, musculoskeletal)? @ -Differential Musculoskeletal Muscular strain, contusion, ligament sprain, fracture, arthritis, septic arthritis, bursitis, cellulitis, muscle spasm, nerve compression, DVT, arterial occlusion, herpes zoster, electrolyte abnormality, tumor.... This is not meant to be in all inclusive list EKG interpreted by me (3pts min.). @ -As above X-rays interpreted by me (1pt min.). @ -X-ray shows soft tissue swelling with possible ulceration distal margin second digit with no diagnostic evidence of osteomyelitis CT interpreted by me (1pt min.). @ -None done U/S interpreted by me (1pt. min.). @ -None done What testing was considered but not performed or refused? (CT, X-rays, U/S, labs)? Why? @ -None What meds were considered but not given or refused? Why? @ -None Did you discuss the management of the patient with other professionals (professionals i.e. , PA, CLIPPER MACHINE, lab, RT, psych nurse, clinical social worker, safety and security officer, teacher, juvenile officer, case coordinator)? Give summary @ -Discussed with Lakia LEUNG from [facility] hospitalist group who accepted admission of this patient Was smoking cessation discussed for >3mins.? @ -No Was critical care preformed (if so, how long)? @ -No Were there social determinants of health that impacted care today? How? (Homelessness, low income, unemployed, alcoholism, drug addiction, transportation, low edu. Level, literacy, decrease access to med. care, senior living, rehab)? @ -No Was there de-escalation of care discussed even if they declined (Discuss DNR or withdrawal of care, Hospice)? DNR status @ -No What co-morbidities impacted this encounter? (DM, HTN, Smoking, COPD, CAD, Cancer, CVA, ARF, Chemo, Hep., AIDS, mental health diagnosis, sleep apnea, m orbid obesity)? @ -None Was patient admitted / discharged? Hospital course, mention meds given and route, prescriptions, significant lab abnormalities, going to OR and other pertinent info. @ -Minute. Patient is an 82-year-old male sent in by his vascular surgeon Dr. Santacruz for worsening wound to the right second toe. On physical examination ulceration as well as erythema is noted. There is tenderness on palpation. X- ray shows no evidence of osteomyelitis. No leukocytosis. Patient is started on IV antibiotics and will be admitted. Lakia from [facility] hospitalist group accepted admission. Patient is agreeable with this plan. I discussed this case with my attending Dr. Burks. Undiagnosed new problem with uncertain prognosis? @ -No Drug Therapy requiring intensive monitoring for toxicity (Heparin, Nitro, Insulin, Cardizem)? @ -No Were any procedures done? @ -No Diagnosis/symptom? @ -Infected ulceration Acute, or Chronic, or Acute on Chronic? @ -Acute Uncomplicated (without systemic symptoms) or Complicated (systemic symptoms)? @ -complicated Side effects of treatment? @ -No Exacerbation, Progression, or Severe Exacerbation? @ -No Poses a threat to life or bodily function? How? (Chest pain, [place], [place], pneumonia, PE, COPD, DKA, ARF, appy, cholecystitis, CVA, Diverticulitis, Homicidal, Suici stephen, threat to staff... and all critical care pts) @ -yes - Lab Data Result diagrams: 06/03/22 17:04 06/03/22 17:04 Lab Results 06/03/22 06/03/22 Range/Units 17:04 17:04 WBC 5.7 (3.8-10.6) k/uL RBC 4.01 L (4.30-5.90) m/uL Hgb 9.2 L (13.0-17.5) gm/dL Hct 30.2 L (39.0-53.0) % MCV 75.4 L (80.0-100.0) fL MCH 22.9 L (25.0-35.0) pg MCHC 30.4 L (31.0-37.0) g/dL RDW 21.8 H (11.5-15.5) % Plt Count 383 (150-450) k/uL MPV 7.3 Neutrophils % 72 % Lymphocytes % 16 % Monocytes % 8 % Eosinophils % 1 % Basophils % 0 % Neutrophils # 4.1 (1.3-7.7) k/uL Lymphocytes # 0.9 L (1.0-4.8) k/uL Monocytes # 0.5 (0-1.0) k/uL Eosinophils # 0.0 (0-0.7) k/uL Basophils # 0.0 (0-0.2) k/uL Hypochromasia Marked Poikilocytosis Slight Anisocytosis Moderate Microcytosis Moderate Sodium 127 L (137-145) mmol/L Potassium 5.0 (3.5-5.1) mmol/L Chloride 93 L (98-107) mmol/L Carbon Dioxide 26 (22-30) mmol/L Anion Gap 8 mmol/L BUN 14 (9-20) mg/dL Creatinine 0.54 L (0.66-1.25) mg/dL Est GFR (CKD-EPI)AfAm >90 (>60 ml/min/1.73 sqM) Est GFR (CKD-EPI)NonAf >90 (>60 ml/min/1.73 sqM) Glucose 82 (74-99) mg/dL Calcium 8.9 (8.4-10.2) mg/dL Total Bilirubin 0.5 (0.2-1.3) mg/dL AST 26 (17-59) U/L ALT 18 (4-49) U/L Alkaline Phosphatase 76 (38-126) U/L Total Protein 6.8 (6.3-8.2) g/dL Albumin 4.2 (3.5-5.0) g/dL Disposition Clinical Impression: Infected ulcer of skin Disposition: ADMITTED IP TO THIS HOSP Condition: Fair Time of Disposition: 19:01
[2022-06-03] MEDS: SODIUM CHLORIDE 0.9% 1,000 ML IV SCH (19:28)
[2022-06-03] MEDS: lisinopriL 20 MG TAB PO SCH (21:48)
[2022-06-03] MEDS: HYDROcodone/APAP 5-325MG 1 EACH TAB PO PRN (23:02)
[2022-06-03] MEDS: MELATONIN 5 MG TABLET PO PRN (23:20)
[2022-06-04] MEDS: HYDROcodone/APAP 5-325MG 1 EACH TAB PO PRN ×2 (08:16→15:57)
[2022-06-04] MEDS: PANTOPRAZOLE 40 MG TABLET PO SCH (08:16)
[2022-06-04] MEDS: ATORVASTATIN 40 MG TAB PO SCH (08:16)
[2022-06-04] MEDS: lisinopriL 20 MG TAB PO SCH (08:17)
[2022-06-04] MEDS: CITALOPRAM HYDROBROMIDE 20 MG TAB PO SCH (08:17)
[2022-06-04] MEDS: FINASTERIDE 5 MG TAB PO SCH (08:17)
[2022-06-04] MEDS: BUDESONIDE 0.5 MG/2 ML NEBU INHALATION SCH ×2 (09:09→19:40)
[2022-06-04] MEDS: SODIUM CHLORIDE 0.9% 1,000 ML IV SCH (09:59)
[2022-06-04 11:10] VITALS: BMI 22.5
--- NOTE | 2022-06-04 13:35 | P.GSCN ---
History of Present Illness Consult date: 06/04/22 Reason for Consult: Right second toe infected ulcer Requesting physician: Alton Santacruz History of present illness: This is a pleasant 82-year-old male who was sent in to the emergency department yesterday by Dr. Santacruz for concerns of infected second toe ulcer on his right foot. 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 He states it started having pain on the bottom of his right foot about 2 months ago. He saw his PCP Dr. Gregory who had noted that he had a wound on the bottom of the second toe and had sent him to see vascular surgeon Dr. Santacruz. Apparently patient has been following with Dr. Santacruz and had some imaging done in his office. He was seen by him yesterday and patient states he had been having increased redness and swelling over the last couple days. He was sent in for IV antibiotics. Vascular surgery was consulted by Dr. Santacruz to evaluate the patient for possible infected nonhealing wound. Patient denies any chest pain, shortness of breath, abdominal pain, nausea or vomiting. He denies any fever, chills, or body aches. He denies any pain with walking in his legs, only states that the bottom of his right foot where the ulcer is hurts. X-ray toes right footreported soft tissue swelling with possible ulceration distal margin second digit with no diagnostic evidence of osteomyelitis. Review of Systems A 14 point review systems was completed all pertinent positives and negatives as stated in the HPI. Past Medical History Past Medical History: Hyperlipidemia, Hypertension, Osteoarthritis (OA), Sleep Apnea/CPAP/BIPAP Additional Past Medical History / Comment(s): Sleep apnea, chronic neck pain, History of Any Multi-Drug Resistant Organisms: Unobtainable Past Surgical History: Tonsillectomy Additional Past Surgical History / Comment(s): Epidural , eye surgery x 3 Past Anesthesia/Blood Transfusion Reactions: No Reported Reaction Past Psychological History: No Psychological Hx Reported Smoking Status: Former smoker Past Alcohol Use History: Occasional Past Drug Use History: None Reported Medications and Allergies Home Medications Medication Instructions Recorded Confirmed Type Acetaminophen [Tylenol Extra 500 mg PO HS 03/09/22 06/03/22 History Strength] Atorvastatin [Lipitor] 40 mg PO DAILY 03/09/22 06/03/22 History Finasteride [Proscar] 5 mg PO DAILY 03/09/22 06/03/22 History Mirabegron [Myrbetriq] 25 mg PO DAILY 03/09/22 06/03/22 History Montelukast [Singulair] 10 mg PO HS 03/09/22 06/03/22 History Omeprazole 20 mg PO DAILY 03/09/22 06/03/22 History Tamsulosin [Flomax] 0.4 mg PO HS 03/09/22 06/03/22 History Albuterol Nebulized [Ventolin 2.5 mg INHALATION RT-Q6H 05/21/22 06/03/22 History Nebulized] Budesonide [Pulmicort] 0.5 mg INHALATION RT-BID 05/21/22 06/03/22 History Citalopram Hydrobromide [CeleXA] 40 mg PO DAILY 05/21/22 06/03/22 History Cyanocobalamin [Vitamin B-12] 1,000 mcg PO DAILY #30 tablet 05/25/22 06/03/22 Rx Folic Acid 1 mg PO DAILY tab 05/25/22 06/03/22 Rx lisinopriL [Zestril] 20 mg PO DAILY #30 tab 05/25/22 06/03/22 Rx Cephalexin [Keflex] 500 mg PO Q8HR 06/03/22 06/03/22 History Allergies Allergy/AdvReac Type Severity Reaction Status Date / Time No Known Allergies Allergy Verified 06/03/22 18:09 Surgical - Exam Vital Signs Temp Pulse Resp BP Pulse Ox 98.4 F 69 20 148/58 99 06/03/22 14:42 06/03/22 14:42 06/03/22 14:42 06/03/22 14:42 06/03/22 14:42 General appearance: The patient is alert, oriented, appears in no acute distress. HET: Head is normocephalic and atraumatic. Pupils are equal and reactive. Neck: Supple. Trachea midline. Heart: Regular. Lungs: Equal expansion, normal respiratory effort. Abdomen: Soft, nontender, nondistended. Extremities: Normal skin color and turgor. Right lower extremity edema with erythema second toe distal tip on plantar surface with ulcer with necrotic tissue. Palpable bilateral femoral pulses. Bilateral lower extremity with good capillary refill, warm to the touch and sensorimotor intact. Neurological: No focal deficits. Strength and sensation are grossly intact. Results - Labs 06/03/22 17:04 06/03/22 17:04 Abnormal Lab Results - Last 24 Hours (Table) 06/03/22 06/03/22 Range/Units 17:04 17:04 RBC 4.01 L (4.30-5.90) m/uL Hgb 9.2 L (13.0-17.5) gm/dL Hct 30.2 L (39.0-53.0) % MCV 75.4 L (80.0-100.0) fL MCH 22.9 L (25.0-35.0) pg MCHC 30.4 L (31.0-37.0) g/dL RDW 21.8 H (11.5-15.5) % Lymphocytes # 0.9 L (1.0-4.8) k/uL Sodium 127 L (137-145) mmol/L Chloride 93 L (98-107) mmol/L Creatinine 0.54 L (0.66-1.25) mg/dL Diabetes panel 06/03/22 Range/Units 17:04 Sodium 127 L (137-145) mmol/L Potassium 5.0 (3.5-5.1) mmol/L Chloride 93 L (98-107) mmol/L Carbon Dioxide 26 (22-30) mmol/L BUN 14 (9-20) mg/dL Creatinine 0.54 L (0.66-1.25) mg/dL Glucose 82 (74-99) mg/dL Calcium 8.9 (8.4-10.2) mg/dL AST 26 (17-59) U/L ALT 18 (4-49) U/L Alkaline Phosphatase 76 (38-126) U/L Total Protein 6.8 (6.3-8.2) g/dL Albumin 4.2 (3.5-5.0) g/dL Calcium panel 06/03/22 Range/Units 17:04 Calcium 8.9 (8.4-10.2) mg/dL Albumin 4.2 (3.5-5.0) g/dL Pituitary panel 06/03/22 Range/Units 17:04 Sodium 127 L (137-145) mmol/L Potassium 5.0 (3.5-5.1) mmol/L Chloride 93 L (98-107) mmol/L Carbon Dioxide 26 (22-30) mmol/L BUN 14 (9-20) mg/dL Creatinine 0.54 L (0.66-1.25) mg/dL Glucose 82 (74-99) mg/dL Calcium 8.9 (8.4-10.2) mg/dL Adrenal panel 06/03/22 Range/Units 17:04 Sodium 127 L (137-145) mmol/L Potassium 5.0 (3.5-5.1) mmol/L Chloride 93 L (98-107) mmol/L Carbon Dioxide 26 (22-30) mmol/L BUN 14 (9-20) mg/dL Creatinine 0.54 L (0.66-1.25) mg/dL Glucose 82 (74-99) mg/dL Calcium 8.9 (8.4-10.2) mg/dL Total Bilirubin 0.5 (0.2-1.3) mg/dL AST 26 (17-59) U/L ALT 18 (4-49) U/L Alkaline Phosphatase 76 (38-126) U/L Total Protein 6.8 (6.3-8.2) g/dL Albumin 4.2 (3.5-5.0) g/dL Assessment and Plan Assessment: 1. Nonhealing Right second toe ulcer 2. Cellulitis right lower extremity 3. 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 Arterial ultrasound bilateral lower extremities ordered 2. Antibiotics per recommendations from infectious disease 3. Further recommendations forthcoming from vascular surgeon Thank you for this consultation, we will continue to follow. The impression and plan of care has been dictated as directed. I performed a history and examination of this patient, discussed the same with the dictator. I agree with the dictator's note ,documented as a scribe. Any additional findings or plans will be noted.
--- NOTE | 2022-06-04 14:45 | P.HPIM ---
History of Present Illness H&P Date: 06/04/22 History of present illness; patient is a 82-year-old gentleman with past medical significant for BPH, hyperlipidemia presented to the ER because of right toe pain. Patient has been dealing with pain of right second toe for the last 2 months, had a blister there that has been worsening. It is associated with increasing pain and redness.He saw his PCP Dr. Gregory who had noted that he had a wound on the bottom of the second toe and had sent him to see vascular surgeon Dr. Santacruz. Patient was then sent to the ER Initial lab work in the ER showed WBC 5.7, hemoglobin 9.2, MCV 74, sodium 127, potassium 5, chloride 93, BUN 14, creatinine 0.54 X-ray for done showed soft tissue swelling with possible ulceration distal margin of second digit with no diagnostic evidence of osteomyelitis REVIEW OF SYSTEMS: CONSTITUTIONAL: No fever, no malaise, no fatigue. HEENT: No recent visual problems or hearing problems. Denied any sore throat. CARDIOVASCULAR: No chest pain, orthopnea, PND, no palpitations, no syncope. PULMONARY: No shortness of breath, no cough, no hemoptysis. GASTROINTESTINAL: No diarrhea, no nausea, no vomiting, no abdominal pain. NEUROLOGICAL: No headaches, no weakness, no numbness. HEMATOLOGICAL: Denies any bleeding or petechiae. GENITOURINARY: Denies any burning micturition, frequency, or urgency. MUSCULOSKELETAL/RHEUMATOLOGICAL: As mentioned in HPI ENDOCRINE: Denies any polyuria or polydipsia. The rest of the 14-point review of systems is negative. PHYSICAL EXAMINATION: GENERAL: The patient is alert and oriented x3, not in any acute distress. Well developed, well nourished. HEENT: Pupils are round and equally reacting to light. EOMI. No scleral icterus. No conjunctival pallor. Normocephalic, atraumatic. No pharyngeal erythema. No t hyromegaly. CARDIOVASCULAR: S1 and S2 present. No murmurs, rubs, or gallops. PULMONARY: Chest is clear to auscultation, no wheezing or crackles. ABDOMEN: Soft, nontender, nondistended, normoactive bowel sounds. No palpable organomegaly. MUSCULOSKELETAL: No joint swelling or deformity. EXTREMITIES: Right second toe ulcer seen NEUROLOGICAL: Gross neurological examination did not reveal any focal deficits. SKIN: No rashes. Assessment and plan Ulceration right second toe Right foot cellulitis Hyponatremia Plan; Monitor vital signs Monitor CBC Monitor CMP Follow-up on blood cultures Consult ID Continue IV Zosyn Resume home meds DVT prophylaxis: Past Medical History Past Medical History: Hyperlipidemia, Hypertension, Osteoarthritis (OA), Sleep Apnea/CPAP/BIPAP Additional Past Medical History / Comment(s): Sleep apnea, chronic neck pain, History of Any Multi-Drug Resistant Organisms: Unobtainable Past Surgical History: Tonsillectomy Additional Past Surgical History / Comment(s): Epidural , eye surgery x 3 Past Anesthesia/Blood Transfusion Reactions: No Reported Reaction Past Psychological History: No Psychological Hx Reported Smoking Status: Former smoker Past Alcohol Use History: Occasional Past Drug Use History: None Reported Medications and Allergies Home Medications Medication Instructions Recorded Confirmed Type Acetaminophen [Tylenol Extra 500 mg PO HS 03/09/22 06/03/22 History Strength] Atorvastatin [Lipitor] 40 mg PO DAILY 03/09/22 06/03/22 History Finasteride [Proscar] 5 mg PO DAILY 03/09/22 06/03/22 History Mirabegron [Myrbetriq] 25 mg PO DAILY 03/09/22 06/03/22 History Montelukast [Singulair] 10 mg PO HS 03/09/22 06/03/22 History Omeprazole 20 mg PO DAILY 03/09/22 06/03/22 History Tamsulosin [Flomax] 0.4 mg PO HS 03/09/22 06/03/22 History Albuterol Nebulized [Ventolin 2.5 mg INHALATION RT-Q6H 05/21/22 06/03/22 History Nebulized] Budesonide [Pulmicort] 0.5 mg INHALATION RT-BID 05/21/22 06/03/22 History Citalopram Hydrobromide [CeleXA] 40 mg PO DAILY 05/21/22 06/03/22 History Cyanocobalamin [Vitamin B-12] 1,000 mcg PO DAILY #30 tablet 05/25/22 06/03/22 Rx Folic Acid 1 mg PO DAILY tab 05/25/22 06/03/22 Rx lisinopriL [Zestril] 20 mg PO DAILY #30 tab 05/25/22 06/03/22 Rx Cephalexin [Keflex] 500 mg PO Q8HR 06/03/22 06/03/22 History Allergies Allergy/AdvReac Type Severity Reaction Status Date / Time No Known Allergies Allergy Verified 06/03/22 18:09 Physical Exam Vitals: Vital Signs Temp Pulse Pulse Resp BP BP Pulse Ox 06/04/22 07:27 97.4 F L 70 18 161/71 97 06/04/22 01:40 98.1 F 67 15 157/65 97 06/03/22 22:37 97.8 F 71 16 176/65 95 06/03/22 22:30 98.1 F 79 16 172/88 98 06/03/22 21:41 172/80 06/03/22 20:00 98.1 F 66 16 179/151 95 06/03/22 18:37 98.2 F 64 16 100 06/03/22 14:42 98.4 F 69 20 148/58 99 Intake and Output 06/03/22 06/04/22 06/04/22 22:59 06:59 14:59 Intake Total 0 Balance 0 Intake: Intake, IV Titration 0 Amount Sodium Chloride 0.9% 1, 0 000 ml @ 75 mls/hr IV . [id number] Rx#:[id number] Other: # Voids 3 Weight 71.214 kg Results CBC & Chem 7: 06/03/22 17:04 06/03/22 17:04 Labs: Abnormal Lab Results - Last 24 Hours (Table) 06/03/22 06/03/22 Range/Units 17:04 17:04 RBC 4.01 L (4.30-5.90) m/uL Hgb 9.2 L (13.0-17.5) gm/dL Hct 30.2 L (39.0-53.0) % MCV 75.4 L (80.0-100.0) fL MCH 22.9 L (25.0-35.0) pg MCHC 30.4 L (31.0-37.0) g/dL RDW 21.8 H (11.5-15.5) % Lymphocytes # 0.9 L (1.0-4.8) k/uL Sodium 127 L (137-145) mmol/L Chloride 93 L (98-107) mmol/L Creatinine 0.54 L (0.66-1.25) mg/dL Thrombosis Risk Factor Assmnt - Choose All That Apply Any of the Below Risk Factors Present?: Yes Each Risk Factor Represents 3 Points: Age 75 years or older Thrombosis Risk Factor Assessment Total Risk Factor Score: 3 Thrombosis Risk Factor Assessment Level: Moderate Risk
[2022-06-04] MEDS: AMPICILLIN-SULBACTAM 3 GM in SODIUM CHLORIDE 0.9% 100 ML IVPB SCH ×2 (15:56→20:05)
[2022-06-04] MEDS ORDERED: DOCUSATE 100 MG CAP PO PRN (19:50)
[2022-06-04] MEDS: MELATONIN 5 MG TABLET PO PRN (20:05)
[2022-06-04] MEDS ORDERED: TAMSULOSIN 0.4 MG CAP.ER.24H PO SCH (21:00)
[2022-06-04] MEDS ORDERED: MONTELUKAST 10 MG TAB PO SCH (21:00)
--- NOTE | 2022-06-04 21:33 | P.CONS ---
History of Present Illness - Reason for Consult Consult date: 06/04/22 - History of Present Illness Patient is a 82-year-old male with past medical history sniffing for hypertension hyperlipidemia osteoarthritis presenting to the ER for evaluation of his right second toe infection apparently the patient has developed a hammertoe deformity and ulceration on the top of his right second toe symptom has been going on for almost a month patient denies any history of any trauma he did have some dull aching pain to the right second toe and apparently noticed to have increasing swelling redness for the last few days patient denies any possible drainage denies high-grade fever patient apparently was evaluated by Dr. Santacruz who referred the patient to the ER on presentation to the hospital patient was afebrile and no fever have been recorded subsequently patient did have a normal white count kidney function was normal blood cultures obtained which are currently pending patient did have a toe x-ray did not show any evidence of osteomyelitis patient did receive a dose of Zosyn in the ER subsequently infectious disease was consulted for further management of antibiotic therapy Past Medical History Past Medical History: Hyperlipidemia, Hypertension, Osteoarthritis (OA), Sleep Apnea/CPAP/BIPAP Additional Past Medical History / Comment(s): Sleep apnea, chronic neck pain, History of Any Multi-Drug Resistant Organisms: Unobtainable Past Surgical History: Tonsillectomy Additional Past Surgical History / Comment(s): Epidural , eye surgery x 3 Past Anesthesia/Blood Transfusion Reactions: No Reported Reaction Past Psychological History: No Psychological Hx Reported Smoking Status: Former smoker Past Alcohol Use History: Occasional Past Drug Use History: None Reported Medications and Allergies Home Medications Medication Instructions Recorded Confirmed Type Acetaminophen [Tylenol Extra 500 mg PO HS 03/09/22 06/03/22 History Strength] Atorvastatin [Lipitor] 40 mg PO DAILY 03/09/22 06/03/22 History Finasteride [Proscar] 5 mg PO DAILY 03/09/22 06/03/22 History Mirabegron [Myrbetriq] 25 mg PO DAILY 03/09/22 06/03/22 History Montelukast [Singulair] 10 mg PO HS 03/09/22 06/03/22 History Omeprazole 20 mg PO DAILY 03/09/22 06/03/22 History Tamsulosin [Flomax] 0.4 mg PO HS 03/09/22 06/03/22 History Albuterol Nebulized [Ventolin 2.5 mg INHALATION RT-Q6H 05/21/22 06/03/22 History Nebulized] Budesonide [Pulmicort] 0.5 mg INHALATION RT-BID 05/21/22 06/03/22 History Citalopram Hydrobromide [CeleXA] 40 mg PO DAILY 05/21/22 06/03/22 History Cyanocobalamin [Vitamin B-12] 1,000 mcg PO DAILY #30 tablet 05/25/22 06/03/22 Rx Folic Acid 1 mg PO DAILY tab 05/25/22 06/03/22 Rx lisinopriL [Zestril] 20 mg PO DAILY #30 tab 05/25/22 06/03/22 Rx Cephalexin [Keflex] 500 mg PO Q8HR 06/03/22 06/03/22 History Allergies Allergy/AdvReac Type Severity Reaction Status Date / Time No Known Allergies Allergy Verified 06/03/22 18:09 Physical Exam Vitals: Vital Signs Temp Pulse Pulse Resp BP BP Pulse Ox 06/04/22 20:00 85 16 06/04/22 19:33 98.3 F 85 16 165/63 95 06/04/22 12:33 98.0 F 61 16 106/65 99 06/04/22 07:27 97.4 F L 70 18 161/71 97 06/04/22 01:40 98.1 F 67 15 157/65 97 06/03/22 22:37 97.8 F 71 16 176/65 95 06/03/22 22:30 98.1 F 79 16 172/88 98 06/03/22 21:41 172/80 Intake and Output 06/04/22 06/04/22 06/04/22 06:59 14:59 22:59 Intake Total 0 Balance 0 Intake: Intake, IV Titration 0 Amount Sodium Chloride 0.9% 1, 0 000 ml @ 75 mls/hr IV . [id number] [facility] Rx#:[id number] Other: # Voids 3 Weight 71.214 kg Results CBC & Chem 7: 06/03/22 17:04 06/03/22 17:04 Labs: Microbiology - Last 24 Hours (Table) 06/03/22 16:56 Blood Culture - Preliminary Blood No Growth after 24 hours 06/03/22 17:14 Blood Culture - Preliminary Blood No Growth after 24 hours Assessment and Plan Plan: 1patient was in the hospital right second toe wound that has not been healing concerning for increasing swelling redness and possible cellulitis likely from gram-positive skin candace x-rays did not show any evidence of bony destruction or osteomyelitis vascular surgery has been consulted for vascular work-up concern for possible arterial insufficiency 2-we will request local culture if the area started to drain 3-start the patient on Unasyn 3 g every 6 hours We will follow on clinical condition and cultures to further adjust medication if needed Thank you for this consultation we will follow the patient along with you Time with Patient: Greater than 30
--- NOTE | 2022-06-04 21:48 | CT ---
EXAMINATION TYPE: CT angio abd aorta w/Runoff DATE OF EXAM: 06/04/2022 COMPARISON: None HISTORY: infected toe wound, right foot CT DLP: 1601.2 mGycm, Automated Exposure Control for Dose Reduction was Utilized. CONTRAST: CT scan of the abdomen and pelvis is performed with oral and with IV Contrast, patient inje cted with 100ML mL of Isovue 300. FINDINGS: LUNG BASES: 3.2 cm diameter right lung base groundglass opacity noted laterally. 8 cm hiatal hernia n oted. LIVER/GB: No significant abnormality is appreciated. PANCREAS: No significant abnormality is seen. SPLEEN: No significant abnormality is seen. ADRENALS: No significant abnormality is seen. KIDNEYS: No significant abnormality is seen. BOWEL: No significant abnormality is seen. PROSTATE/SEMINAL VESICLES: No gross abnormality seen. LYMPH NODES: No greater than 1cm abdominal or pelvic lymph nodes are appreciated. VASCULATURE: The lower descending thoracic aorta and the abdominal aorta are nonaneurysmal, but they are tortuous and demonstrate moderate atherosclerotic intimal calcifications. The celiac axis, SMA, I MA, and bilateral renal arteries are widely patent. The aorto-iliac inflow is widely patent bilateral ly, and the common, external, and internal iliac arteries are widely patent bilaterally. Right lower extremity: There is prominent distal [employer] calcified plaque which appears to occlude for a short segment before reconstituting, with the profunda and SFA patent throughout their extent. The po pliteal shows multifocal stenoses, particularly distally, where they appear flow limiting before occl usion of this vessel with reconstitution of the distalmost popliteal artery and patency to the anteri or tibial, peroneal, posterior tibial throughout the leg, with multifocal stenoses. Dorsalis pedis ap pears patent onto the foot. Left lower extremity: The distal [employer] appears occluded, with reconstitution of the proximal profunda a nd SFA. The SFA is patent throughout the remainder of its course but there are multifocal stenoses wh ich appear flow-limiting. The popliteal artery shows multifocal proximal stenoses, but is patent. Ant erior tibial, peroneal, and posterior tibial artery are patent throughout the leg, although there are multifocal stenoses. Dorsalis pedis appears patent on into the foot. OSSEOUS STRUCTURES: No significant abnormality is seen. Limitations of the study: Arterial phase abdominal pelvic imaging was obtained with the CTA, by defin ition, which limits CT sensitivity particularly for focal visceral lesions and for venous pathology. IMPRESSION: 1. Widely patent aortoiliac inflow, but bilateral [employer] occlusive disease and runoff findings as noted. 2. Incidental 3.2 cm diameter groundglass opacity in the RLL; three-month follow-up CT can be used to prove resolution.
[2022-06-05] MEDS: SODIUM CHLORIDE 0.9% 1,000 ML IV SCH ×2 (03:17→12:22)
[2022-06-05] MEDS: AMPICILLIN-SULBACTAM 3 GM in SODIUM CHLORIDE 0.9% 100 ML IVPB SCH ×2 (03:17→07:57)
[2022-06-05 07:41] VITALS: RESP 18
[2022-06-05] MEDS: HYDROcodone/APAP 5-325MG 1 EACH TAB PO PRN (07:57)
[2022-06-05] MEDS: lisinopriL 20 MG TAB PO SCH (09:07)
[2022-06-05] MEDS: PANTOPRAZOLE 40 MG TABLET PO SCH (09:07)
[2022-06-05] MEDS: CITALOPRAM HYDROBROMIDE 20 MG TAB PO SCH (09:07)
[2022-06-05] MEDS: FINASTERIDE 5 MG TAB PO SCH (09:08)
[2022-06-05] MEDS: ATORVASTATIN 40 MG TAB PO SCH (09:08)
--- NOTE | 2022-06-05 09:36 | P.PN ---
Subjective Progress Note Date: 06/05/22 Patient was seen and examined stay in for follow-up for right toe ulcer. Yesterday he underwent CT angiogram with runoff with findings of bilateral common femoral artery occlusion. Patient denies any pain in his legs, he states he just has pain in the right second toe. He is been afebrile. He denies any shortness of breath, chest pain, abdominal pain, nausea or vomiting. No fevers chills or body aches. Patient was started on Unasyn from infectious disease, they are following. Objective - Vital Signs Vital signs: Vital Signs Temp 97.7 F 06/05/22 07:36 Pulse 78 06/05/22 07:36 Resp 18 06/05/22 07:36 BP 131/53 06/05/22 07:36 Pulse Ox 97 06/05/22 07:36 FiO2 Intake & Output 06/04/22 06/05/22 06/05/22 18:59 06:59 18:59 Intake Total 540 Balance 540 Weight 71.214 kg Intake: Oral 540 Other: # Voids 3 - Exam General appearance: The patient is alert, oriented, appears in no acute distress. HET: Head is normocephalic and atraumatic. Neck: Supple. Trachea midline. Extremities: Normal skin color and turgor. Right lower extremity edema and erythema improving, second toe distal tip on plantar surface with ulcer with n ecrotic tissue. Palpable bilateral femoral pulses. Bilateral lower extremity with good capillary refill, warm to the touch and sensorimotor intact. Bilateral PT and DP Doppler signals present. Neurological: No focal deficits. Alert and oriented 3. - Labs CBC & Chem 7: 06/05/22 12:23 06/03/22 17:04 Labs: Microbiology - Last 24 Hours (Table) 06/03/22 16:56 Blood Culture - Preliminary Blood No Growth after 24 hours 06/03/22 17:14 Blood Culture - Preliminary Blood No Growth after 24 hours Assessment and Plan Assessment: 1. Nonhealing Right second toe ulcer 2. Bilateral common femoral artery occlusive disease 3. Cellulitis right lower extremity Plan: 1. CT angiogram abdomen pelvis aortogram with runoff ordered and reviewed 2. Antibiotics per recommendations from infectious disease 3. Vascular surgeon to discuss further with patient on timing of surgical intervention, will be done as outpatient and will need medical and surgical clearance. Thank you for this consultation, patient is cleared for discharge from vascular surgery. The impression and plan of care has been dictated as directed. I performed a history and examination of this patient, discussed the same with the dictator. I agree with the dictator's note ,documented as a scribe. Any additional findings or plans will be noted.
[2022-06-05] MEDS: BUDESONIDE 0.5 MG/2 ML NEBU INHALATION SCH (09:47)
--- NOTE | 2022-06-05 12:54 | P.DS ---
Providers Date of admission: 06/03/22 21:03 Expected date of discharge: 06/05/22 Attending physician: Nasir Fregoso Consults: 06/04/22 10:27 Consult Physician Routine Consulting Provider: La Cochran Consult Reason/Comments: Right second toe infection Do you want consulting provider notified?: Yes 06/04/22 11:34 Consult Physician Urgent Consulting Provider: Elo Jordan Consult Reason/Comments: right second toe infected ulcer Do you want consulting provider notified?: Already Contacted Primary care physician: Azra Gregory Hospital Course: Discharge diagnoses; Ulceration right second toe Right foot cellulitis Hyponatremia bilateral common femoral artery occlusion Hospital course; patient is a 82-year-old gentleman with past medical significant for BPH, hyperlipidemia presented to the ER because of right toe pain. Patient has been dealing with pain of right second toe for the last 2 months, had a blister there that has been worsening. It is associated with increasing pain and redness.He saw his PCP Dr. Gregory who had noted that he had a wound on the bottom of the second toe and had sent him to see vascular surgeon Dr. Santacruz. Patient was then sent to the ER Initial lab work in the ER showed WBC 5.7, hemoglobin 9.2, MCV 74, sodium 127, potassium 5, chloride 93, BUN 14, creatinine 0.54 X-ray for done showed soft tissue swelling with possible ulceration distal margin of second digit with no diagnostic evidence of osteomyelitis. Patient was being seen by ID and vascular surgery Patient underwent CT angiogram with runoff with findings of bilateral common femoral artery occlusion. Vascular surgeon to discuss further with patient on timing of surgical intervention, likely to be done outpatient Patient is unwilling to go for surgery right now, wants to be discharged to follow-up outpatient with vascular surgery. Discuss with ID, they recommended discharging patient on oral Augmentin for 1 week PHYSICAL EXAMINATION: GENERAL: The patient is alert and oriented x3, not in any acute distress. Well developed, well nourished. HEENT: Pupils are round and equally reacting to light. EOMI. No scleral icterus. No conjunctival pallor. Normocephalic, atraumatic. No pharyngeal erythema. No thyromegaly. CARDIOVASCULAR: S1 and S2 present. No murmurs, rubs, or gallops. PULMONARY: Chest is clear to auscultation, no wheezing or crackles. ABDOMEN: Soft, nontender, nondistended, normoactive bowel sounds. No palpable organomegaly. MUSCULOSKELETAL: No joint swelling or deformity. EXTREMITIES: No cyanosis, clubbing, or pedal edema. Right second toe ulcer seen NEUROLOGICAL: Gross neurological examination did not reveal any focal deficits. SKIN: No rashes. Patient Condition at Discharge: Fair Plan - Discharge Summary Discharge Rx Participant: No New Discharge Prescriptions: New Amoxic-Pot Clav 875-125Mg [Augmentin 875-125] 1 tab PO Q12HR 7 Days #14 tab Continue Tamsulosin [Flomax] 0.4 mg PO HS Montelukast [Singulair] 10 mg PO HS Acetaminophen [Tylenol Extra Strength] 500 mg PO HS Budesonide [Pulmicort] 0.5 mg INHALATION RT-BID Folic Acid 1 mg PO DAILY tab Mirabegron [Myrbetriq] 25 mg PO DAILY Finasteride [Proscar] 5 mg PO DAILY Atorvastatin [Lipitor] 40 mg PO DAILY Omeprazole 20 mg PO DAILY Albuterol Nebulized [Ventolin Nebulized] 2.5 mg INHALATION RT-Q6H Citalopram Hydrobromide [CeleXA] 40 mg PO DAILY Cyanocobalamin [Vitamin B-12] 1,000 mcg PO DAILY #30 tablet lisinopriL [Zestril] 20 mg PO DAILY #30 tab Discontinued Cephalexin [Keflex] 500 mg PO Q8HR Discharge Medication List Acetaminophen [Tylenol Extra Strength] 500 mg PO HS 03/09/22 [History] Atorvastatin [Lipitor] 40 mg PO DAILY 03/09/22 [History] Finasteride [Proscar] 5 mg PO DAILY 03/09/22 [History] Mirabegron [Myrbetriq] 25 mg PO DAILY 03/09/22 [History] Montelukast [Singulair] 10 mg PO HS 03/09/22 [History] Omeprazole 20 mg PO DAILY 03/09/22 [History] Tamsulosin [Flomax] 0.4 mg PO HS 03/09/22 [History] Albuterol Nebulized [Ventolin Nebulized] 2.5 mg INHALATION RT-Q6H 05/21/22 [History] Budesonide [Pulmicort] 0.5 mg INHALATION RT-BID 05/21/22 [History] Citalopram Hydrobromide [CeleXA] 40 mg PO DAILY 05/21/22 [History] Cyanocobalamin [Vitamin B-12] 1,000 mcg PO DAILY #30 tablet 05/25/22 [Rx] Folic Acid 1 mg PO DAILY tab 05/25/22 [Rx] lisinopriL [Zestril] 20 mg PO DAILY #30 tab 05/25/22 [Rx] Amoxic-Pot Clav 875-125Mg [Augmentin 875-125] 1 tab PO Q12HR 7 Days #14 tab 06/05/22 [Rx] Follow up Appointment(s)/Referral(s): Azra Gregory MD [Primary Care Provider] - 1-2 days Alton Santacruz MD [STAFF PHYSICIAN] - 1 Week La Cochran MD [STAFF PHYSICIAN] - 1 Week
[2022-06-05 13:04] LABS: Anisocytosis Moderate; Basophils % (A) 0 %; Eosinophils % (A) 1 %; HCT 30.8 % (39.0-53.0); Hypochromasia Marked; Lymphocytes # (A) 0.8 k/uL (1.0-4.8); Lymphocytes % (A) 14 %; MCH 22.4 pg (25.0-35.0); MCHC 29.1 g/dL (31.0-37.0); MCV 76.9 fL (80.0-100.0); Mean Platelet Volume 7.3; Microcytosis Moderate; Monocytes # (A) 0.4 k/uL (0-1.0); Monocytes % (A) 8 %; Neutrophils % (A) 74 %; Platelet Count 410 k/uL (150-450); Poikilocytosis Slight; RDW 21.5 % (11.5-15.5); WBC 5.4 k/uL (3.8-10.6)
[2022-06-05 13:05] VITALS: BP 152/63; PULSE 65; TEMP 98.2
[2022-06-05 13:34] LABS: ALT 17 U/L (4-49); AST 22 U/L (17-59); African American GFR (CKD) >90 (>60 ml/min/1.73 sqM); Albumin 3.6 g/dL (3.5-5.0); Albumin/Globulin Ratio 1.5; Alkaline Phosphatase 60 U/L (38-126); Anion Gap 7 mmol/L; Blood Urea Nitrogen 12 mg/dL (9-20); Calcium 8.9 mg/dL (8.4-10.2); Carbon Dioxide 27 mmol/L (22-30); Chloride 96 mmol/L (98-107); Globulin 2.4 g/dL; Glucose 106 mg/dL (74-99); Non-African American GFR(CKD) >90 (>60 ml/min/1.73 sqM); Potassium 4.5 mmol/L (3.5-5.1); Sodium 130 mmol/L (137-145); Total Bilirubin 0.3 mg/dL (0.2-1.3)
== END 2022-06-05 15:50 | disposition home or self-care (01) | DRG 603 ==
LOC: EC 14:20 → 5NMEDONC 21:03
PROVIDERS: ADMIT Hospitalist; ATTEND Hospitalist
DX: L03.115 Cellulitis of right lower limb (principal); I70.261 Atherosclerosis of native arteries of extremities with gangrene, right leg; E87.1 Hypo-osmolality and hyponatremia; E78.5 Hyperlipidemia, unspecified; G89.29 Other chronic pain; M54.2 Cervicalgia; N40.0 Benign prostatic hyperplasia without lower urinary tract symptoms; M19.90 Unspecified osteoarthritis, unspecified site; I10 Essential (primary) hypertension; Z79.899 Other long term (current) drug therapy; Z87.891 Personal history of nicotine dependence
CPT/HCPCS: 36415; 75635; 80053; 85025; 87040; 96360; 96361; 99285

== ENCOUNTER → 2022-06-09 | Outpatient (CLI) | payer MEDICARE ==
--- NOTE | 2022-06-09 23:26 | CT ---
EXAMINATION TYPE: CT angio lower extremity RT DATE OF EXAM: 06/09/2022 COMPARISON: None HISTORY: Ulcer of right 2nd toe. CT DLP: 753.6 mGycm Automated exposure control for dose reduction was used. Contrast: 100 mL Isovue-300 with 50 mL saline Technique: Axial images 2 mm thick sections. Reconstructed images in the coronal and sagittal plane. Three-D reconstructed images of the runoff were performed. FINDINGS: CT sections are obtained through the lung bases which are clear. Hiatal hernia is present. There is diminished density of the liver correlation spleen compatible with mild fatty infiltration. A bladder staining pancreas appear normal. The adrenal glands as visualized normal. Kidneys as visual ized are unremarkable. Vascular calcifications within the aorta. No aneurysmal dilatation or dissecti on is evident. Inferior vena cava is normal. Fecal debris is through the colon CT PELVIS: Large fecal bolus at the rectum. Prostate appears prominent. Urinary bladder is largely de compressed. The appendix is not identified. Runoff: No aneurysmal dilatation or dissection is evident. Aortic bifurcation appears normal. Common iliac internal and external iliac arteries are patent. Proximal common femoral arteries are patent. Right common femoral artery bifurcates into profunda fem kerwin and superficial femoral arteries. Distal left common femoral artery is occluded. Collateral flow reconstitutes the left superficial femoral artery and branches of the profunda femoris. Superficial femoral arteries are patent to the obturator canals. Atheromatous plaquing is present wit h areas of mild to moderate narrowing. No obstruction is evident. Popliteal arteries are patent. Vascular calcifications present. The right anterior tibial type artery appears to form from the proximal popliteal artery extending pa st the level of the knee. This appears to be reconstituting the posterior tibial artery on the right and may be a collateral vessel. Right trifurcation vessels: Trifurcation vessels are identified on the right. With the additional ear ly takeoff collateral anterior tibial type artery. These vascular structures extend to the ankle. Pos terior tibial arteries extending through the base of the foot. Left trifurcation vessels: Origins are below the knee. There are areas of narrowing of the posterior tibial artery on the left. However, this vessel remains patent to the level of the ankle. Peroneal ar marti and anterior tibial artery across the level of the ankle. A faint posterior tibial artery on the left is evident into the foot. IMPRESSION: 1. ATHEROMATOUS PLAQUING THROUGHOUT THE ABDOMINAL AORTA AND ILIAC VESSELS FEMORAL ARTERIES AND TRIFUR CATION VESSELS. 2. A COLLATERAL VESSEL MAY BE RECONSTITUTING RIGHT POSTERIOR TIBIAL ARTERY. POSTERIOR TIBIAL ARTERY E XTENDS ON THE RIGHT TO THE FOOT. THERE ARE MULTIPLE AREAS OF MODERATE TO SEVERE NARROWING WITHIN THE DISTAL RIGHT POSTERIOR TIBIAL ARTERY. 3. LEFT TRIFURCATION VESSELS EXTEND TO THE LEVEL OF THE ANKLE.
== END | disposition home or self-care (01) ==
LOC: RADCTMAIN 14:01
PROVIDERS: ATTEND Internal Medicine
DX: I70.0 Atherosclerosis of aorta (principal); I70.201 Unspecified atherosclerosis of native arteries of extremities, right leg; L97.511 Non-pressure chronic ulcer of other part of right foot limited to breakdown of skin
CPT/HCPCS: 73706; Q9967

== ENCOUNTER 2022-06-25 06:40 | Inpatient (IN) | payer MEDICARE ==
[~2022-06-25 06:40] MED LIST changes: +DEXAMETHASONE SOD PHOSPHATE 4 MG/ML 1 ML VIAL IV ONE; -LACTATED RINGERS 1,000 ML IV SCH; -LIDOCAINE 1% (10MG/ML) FOR IV START INTRADERMA PRN; +ONDANSETRON 4 MG/2 ML VIAL IVP ONE; +fentaNYL (PF) 50 MCG/ML 2 ML AMP IV PRN
[2022-06-25] MEDS ORDERED: MIDAZOLAM 2 MG/2 ML VIAL IVP ONE (08:03)
[2022-06-25] MEDS: LACTATED RINGERS 1,000 ML IV SCH (08:34)
[2022-06-25] MEDS ORDERED: PROTAMINE SULFATE 10 MG/ML 5 ML VIAL IV ONE (08:46)
[2022-06-25] MEDS ORDERED: KETAMINE 10 MG/ML 20 ML VIAL ONE (08:46)
[2022-06-25] MEDS ORDERED: LABETALOL 5 MG/ML VIAL MDV ONE (08:46)
[2022-06-25] MEDS ORDERED: fentaNYL (PF) 50 MCG/ML 2 ML AMP ONE (08:46)
[2022-06-25] MEDS ORDERED: PROPOFOL 10 MG/ML 20 ML VIAL IV ONE (08:46)
[2022-06-25] MEDS ORDERED: HEPARIN SODIUM,PORCINE 10,000 UNIT/ML 1 ML VIAL ONE (08:46)
[2022-06-25] MEDS ORDERED: MIDAZOLAM 2 MG/2 ML VIAL ONE (08:46)
[2022-06-25 09:05] LABS: Anisocytosis Moderate; Basophils % (A) 0 %; Eosinophils # (A) 0.1 k/uL (0-0.7); Eosinophils % (A) 1 %; HCT 25.5 % (39.0-53.0); HGB 7.7 gm/dL (13.0-17.5); Hypochromasia Marked; Lymphocytes # (A) 0.6 k/uL (1.0-4.8); Lymphocytes % (A) 13 %; MCH 22.2 pg (25.0-35.0); MCHC 30.3 g/dL (31.0-37.0); MCV 73.4 fL (80.0-100.0); Microcytosis Marked; Monocytes # (A) 0.4 k/uL (0-1.0); Monocytes % (A) 9 %; Neutrophils # (A) 3.4 k/uL (1.3-7.7); Neutrophils % (A) 73 %; Platelet Count 247 k/uL (150-450); Poikilocytosis Slight; RBC 3.48 m/uL (4.30-5.90); RDW 21.4 % (11.5-15.5); WBC 4.7 k/uL (3.8-10.6)
[2022-06-25] MEDS ORDERED: HEPARIN SODIUM (1,000 UNIT/ML) 2,000 UNIT in SODIUM CHLORIDE 0.9% 1,000 ML IRRIGATION ONE (09:21)
[2022-06-25] MEDS ORDERED: LIDOCAINE 1% INJ 10MG/ML (20 ML MDV) SQ ONE (09:22)
[2022-06-25] MEDS ORDERED: ceFAZolin 2,000 MG in SODIUM CHLORIDE 0.9% 500 ML IRRIGATION ONE (09:22)
[2022-06-25] MEDS ORDERED: GELATIN SPONGE,ABSORB (LARGE) 1 EACH SPONGE TOPICAL ONE (10:25)
[2022-06-25] MEDS ORDERED: THROMBIN (BOVINE) 5,000 UNIT VIAL TOPICAL ONE (10:26)
[2022-06-25] MEDS ORDERED: LACTATED RINGERS 1,000 ML IV ONE (11:11)
--- NOTE | 2022-06-25 11:31 | P.OP ---
Date of Procedure: 06/25/22 Description of Procedure: Preoperative diagnosis: Right femoral artery occlusive disease, right second toe wound Postoperative diagnosis: Same, iliofemoral occlusive disease Procedure: Right ileofemoral endarterectomy with patch angioplasty Sharp excisional debridement of right second toe to the muscle measuring 2.0 x 1.7 x 0.4 cm Surgeon: Elo Jordan D.O. [employer] Officer Captain: Usha José Anesthesia spinal with Mac EBL: 100 mL IV fluids: See records Urine output: See records Drains: None Complications: None immediately apparent Condition: Stable to recovery Operative indication and findings: Patient is an 82-year-old male with a right second toe nonhealing wound who underwent imaging is found to have severe femoral artery occlusive disease. Given the findings on imaging he was already femoral endarterectomy and patch angioplasty as well as debridement of his second toe. He seemingly understood and was willing to proceed. Procedure in detail: The patient was taken to the operative suite and placed in supine position. Bilateral groins prepped and draped in usual sterile fashion. A preprocedure timeout was performed and all parties are in agreement. A vertical incision was made in the right groin with the scalpel. It was deepened through subcutaneous tissues with electrocautery. The encountered lymphatics were ligated and divided. The femoral sheath was opened sharply. The common femoral artery was dissected free circumferentially. The dissection was extended proximally to the level of the inguinal ligament, and distally to include the superficial femoral and profunda femoris arteries. They were encircled with vessel loops. Further distally there was significant calcific disease at the superficial femoral artery. There was a section beyond this that appeared to be soft and therefore are dissection was carried further distally into the flow. There is another posterior branch that was also encircled. Attention was then again turned proximally. There was a very large ridge of calcium and up above this was a palpable area of soft and is therefore the inguinal ligament was divided and dissection was carried up further into the external iliac vessel. Branching vessels were encircled with vessel loops. More proximally, the area of the soft vessel was encircled with a vessel loop. ACTs were monitored and the patient was heparinized. Once heparinization was adequate, flow was occluded through the vessel. An 11 blade was utilized and arteriotomy is made the Sarah-Ayon scissors was utilized to enlarge the arteriotomy. An endarterectomy was performed with an eversion endarterectomy at the profunda femoris and the distal branch. There was significant calcium deposition throughout essentially occlusion through the level of the external iliac. The endarterectomized surface was cleared of all debris. A large, 2 x 9 cm bovine pericardial patch was utilized and anastomosis was created utilizing 5-0 Prolene. The anastomosis was flushed and flow was reinstituted. Hemostasis was achieved with interrupted sutures of 6-0 Prolene and thrombin and Gelfoam. A Doppler was used and revealed multiphasic flow distal to the anastomosis. At that point, the wound was copiously irrigated with antibiotic solution. The femoral sheath was reapproximated with interrupted sutures of 3-0 Vicryl. The subcuticular tissue was reapproximated with 3-0 Vicryl. The skin was reprepped with running sutures of 4-0 Monocryl. Dressing was placed. Attention was then turned to the right second toe which was cleansed. The overlying area of callus was removed with pickups. This cause removal of the toenail. The renal was carried forward with the eschar tissue using scissors and pickups. This was abraded down to the level of the muscle. There did appear to be some degree of suture-like material through this which was removed. Adequate leading was apparent. The area was then irrigated and dressings were placed. Pedal signals multiphasic were noted and marked The patient was awakened from surgery, extubated and transferred to PACU in stable condition and tolerated the procedure well.
[2022-06-25] MEDS ORDERED: MORPHINE SULFATE 4 MG/ML SYRINGE IVP PRN (11:34)
[2022-06-25] MEDS ORDERED: ONDANSETRON 4 MG/2 ML VIAL IVP PRN (11:35)
[2022-06-25 12:55] LABS: Anisocytosis Moderate; HCT 30.3 % (39.0-53.0); HGB 9.1 gm/dL (13.0-17.5); Hypochromasia Marked; MCH 22.8 pg (25.0-35.0); MCHC 29.9 g/dL (31.0-37.0); MCV 76.2 fL (80.0-100.0); Mean Platelet Volume 7.4; Microcytosis Moderate; Platelet Count 258 k/uL (150-450); Poikilocytosis Slight; RBC 3.98 m/uL (4.30-5.90); RDW 20.9 % (11.5-15.5); WBC 4.8 k/uL (3.8-10.6)
[2022-06-25] MEDS ORDERED: PANTOPRAZOLE 40 MG TABLET PO PRN (12:59)
[2022-06-25] MEDS ORDERED: CYANOCOBALAMIN 1,000 MCG/ML 1 ML VIAL IM SCH (13:00)
[2022-06-25] MEDS: ALBUTEROL NEBULIZED 2.5 MG/3 ML INHALATION SCH ×2 (16:30→21:13)
[2022-06-25] MEDS: HYDROcodone/APAP 5-325MG 1 EACH TAB PO PRN (20:00)
[2022-06-25] MEDS ORDERED: FINASTERIDE 5 MG TAB PO SCH (21:00)
[2022-06-25] MEDS ORDERED: MONTELUKAST 10 MG TAB PO SCH (21:00)
[2022-06-25 23:57] VITALS: RESP 18
[2022-06-26] MEDS: ALBUTEROL NEBULIZED 2.5 MG/3 ML INHALATION SCH ×3 (00:12→12:06)
[2022-06-26] MEDS: LACTATED RINGERS 1,000 ML IV SCH (04:36)
[2022-06-26] MEDS: HYDROcodone/APAP 5-325MG 1 EACH TAB PO PRN (08:41)
[2022-06-26 08:44] VITALS: TEMP 98.1
[2022-06-26] MEDS ORDERED: CYANOCOBALAMIN 500 MCG TAB PO SCH (09:00)
[2022-06-26] MEDS ORDERED: CITALOPRAM HYDROBROMIDE 20 MG TAB PO SCH (09:00)
[2022-06-26] MEDS ORDERED: ATORVASTATIN 40 MG TAB PO SCH (09:00)
[2022-06-26] MEDS ORDERED: lisinopriL 20 MG TAB PO SCH (09:00)
[2022-06-26 10:11] LABS: African American GFR (CKD) >90 (>60 ml/min/1.73 sqM); Anion Gap 9 mmol/L; Blood Urea Nitrogen 12 mg/dL (9-20); Calcium 8.7 mg/dL (8.4-10.2); Carbon Dioxide 24 mmol/L (22-30); Chloride 95 mmol/L (98-107); Glucose 107 mg/dL (74-99); Non-African American GFR(CKD) >90 (>60 ml/min/1.73 sqM); Potassium 4.2 mmol/L (3.5-5.1); Sodium 128 mmol/L (137-145)
[2022-06-26 11:25] LABS: Anisocytosis Moderate; HGB 9.6 gm/dL (13.0-17.5); Hypochromasia Marked; MCHC 29.1 g/dL (31.0-37.0); MCV 79.3 fL (80.0-100.0); Mean Platelet Volume 7.2; Microcytosis Moderate; Platelet Count 308 k/uL (150-450); Poikilocytosis Slight; RBC 4.16 m/uL (4.30-5.90); RDW 21.6 % (11.5-15.5); WBC 6.3 k/uL (3.8-10.6)
--- NOTE | 2022-06-26 12:23 | P.DS ---
Providers Date of admission: 06/25/22 06:40 Attending physician: Elo Jordan DO Consults: 06/25/22 11:32 Consult Physician Routine Consulting Provider: Azra Gregory Consult Reason/Comments: med mgmnt, pt known to you, post revasc, anemia preop Do you want consulting provider notified?: Yes Primary care physician: Azra Gregory Hospital Course: 82-year-old male with right second toe nonhealing wound that underwent imaging found to have severe femoral artery occlusive disease. Patient was scheduled for femoral endarterectomy and patch angioplasty with debridement of second toe. Patient is postop day #1 for right iliofemoral endarterectomy with patch angioplasty and sharp excisional debridement of right second toe to the muscle. Patient has a history of chronic anemia for which she follows with hematology and gets vitamin B12 supplement. Preop hemoglobin was 7.7 he was given 1 unit of blood. Repeat hemoglobin 9.1 following blood transfusion. Today hemoglobin 9.6. Patient states pain down right lower extremity and foot is improved. Dressing is clean dry and intact in the right groin. Sensorimotor intact. Patient has been up ambulating and voided. Patient also states he had a small bowel movement this morning. He is tolerating regular diet. He's been afebrile. Exam General appearance: The patient is alert, oriented, appears in no acute distress. HET: Head is normocephalic and atraumatic. Pupils are equal and reactive. Neck: Supple. Trachea midline. Heart: Regular. Lungs: Equal expansion, normal respiratory effort. Abdomen: Soft, nontender, nondistended. Extremities: Normal skin color and turgor. Right coronary with dressing in place, with minimal old drainage. No palpable hematoma. Multiphasic PT and DP signal present. Sensorimotor intact. Neurological: No focal deficits. Alert and oriented 3. Assessment 1. Right femoral artery occlusive disease status post right ileal femoral endarterectomy with patch angioplasty 2. Right second toe wound status post excisional debridement 3. Chronic anemia Plan Plan for discharge this afternoon. Recommend 81 mg aspirin daily and Plavix 75 mg daily however patient has history of chronic anemia. Await recommendations from PCP Dr. Gregory regarding dual antiplatelet therapy, which he was agreeable for us to start patient on aspirin and Plavix. The impression and plan of care has been dictated as directed. Dr.Cuppari I performed a history and examination of this patient, discussed the same with the dictator. I agree with the dictator's note ,documented as a scribe. Any additional findings or plans will be noted. Procedures: Procedure: Right ileofemoral endarterectomy with patch angioplasty Sharp excisional debridement of right second toe to the muscle measuring 2.0 x 1.7 x 0.4 cm Patient Condition at Discharge: Stable Plan - Discharge Summary Discharge Rx Participant: No New Discharge Prescriptions: Continue Montelukast [Singulair] 10 mg PO HS Acetaminophen [Tylenol Extra Strength] 500 mg PO HS lisinopriL [Zestril] 20 mg PO QAM Cyanocobalamin [Vitamin B-12 Injection] 1,000 mcg IM DIRECTED Finasteride [Proscar] 5 mg PO HS Atorvastatin [Lipitor] 40 mg PO QAM Omeprazole 20 mg PO DAILY PRN PRN Reason: Heartburn Albuterol Nebulized [Ventolin Nebulized] 2.5 mg INHALATION RT-Q6H Citalopram Hydrobromide [CeleXA] 40 mg PO QAM HYDROcodone/APAP 5-325MG [[place] 5-325] 1 each PO Q4HR PRN #12 tab PRN Reason: Moderate Pain (Scale 4 To 6) Cyanocobalamin [Vitamin B-12] 1,000 mcg PO QAM Discontinued Ibuprofen 800 mg PO TID PRN PRN Reason: Pain Discharge Medication List Acetaminophen [Tylenol Extra Strength] 500 mg PO HS 03/09/22 [History] Atorvastatin [Lipitor] 40 mg PO QAM 03/09/22 [History] Finasteride [Proscar] 5 mg PO HS 03/09/22 [History] Montelukast [Singulair] 10 mg PO HS 03/09/22 [History] Omeprazole 20 mg PO DAILY PRN 03/09/22 [History] Albuterol Nebulized [Ventolin Nebulized] 2.5 mg INHALATION RT-Q6H 05/21/22 [History] Citalopram Hydrobromide [CeleXA] 40 mg PO QAM 05/21/22 [History] HYDROcodone/APAP 5-325MG [[place] 5-325] 1 each PO Q4HR PRN #12 tab 06/05/22 [Rx] Cyanocobalamin [Vitamin B-12 Injection] 1,000 mcg IM DIRECTED 06/23/22 [History] Cyanocobalamin [Vitamin B-12] 1,000 mcg PO QAM 06/23/22 [History] lisinopriL [Zestril] 20 mg PO QAM 06/23/22 [History] Follow up Appointment(s)/Referral(s): Elo Jordan DO [STAFF PHYSICIAN] - 3 Weeks Patient Instructions/Handouts: Remote Superficial Femoral Artery Endarterectomy (DC) Activity/Diet/Wound Care/Special Instructions: No driving for 2 weeks Avoid heavy lifting greater than 10 lbs , pushing, pulling, straining, flights of stairs for 7 days ok to shower tomorrow but no baths, pools, soaking in tubs for three days to avoid risk of infection. signs of infection ie: fever, rash, drainage from puncture site, swelling contact doctor or return to ER immediately. Heavy bleeding from incision site apply firm direct pressure and return to ER. Do not attempt to drive self. low sodium/low fat diet Apply Vaseline gauze to second toe on right foot Discharge Disposition: HOME SELF-CARE
[2022-06-26 12:39] VITALS: BP 149/62; PULSE 65
[2022-06-26] MEDS ORDERED: CLOPIDOGREL 75 MG TAB PO SCH (13:00)
[2022-06-26] MEDS ORDERED: ASPIRIN 81 MG PO SCH (13:00)
--- NOTE | 2022-06-28 18:26 | P.CONS ---
History of Present Illness - Reason for Consult Consult date: 06/25/22 Medical management Requesting physician: Elo Jordan - Chief Complaint Status post iliofemoral endarterectomy with patch angioplasty. - History of Present Illness HISTORY OF PRESENT ILLNESS This is an 82-year-old male with past medical history of peripheral vascular disease, dyslipidemia, ALLERGIC rhinitis, benign prostatic hypertrophy. his card iologist is Dr. Boykin. Patient has been hospitalized in and out of the hospital 3 times over the last month initially due to significant anemia for which he did receive blood transfusion underwent gastrointestinal workup that was negative for blood loss, he was seen in consultation by hematology oncology and he was placed on iron infusion along with B12 Injection , patient developed to have a significant blister to the right second toe initially he was seen in consultation by Dr. Santacruz and after that the head and artery Doppler that showed significant femoral artery disease, he was supposed to come back to have surgical intervention, ended up going to [facility] where he was seen in consultation by Dr. Jordan and he did have a CT angiography of the aorta with the run off and was found to have a significant femoral artery disease, so the patient was scheduled to come back to hospital today where he underwent right iliofemoral antrectomy with patch angioplasty that was done successfully and was asked to see the patient for medical management. REVIEW OF SYSTEMS Constitutional: No fever, no chills, no night sweats. No weight change. No weakness, fatigue or lethargy. No daytime sleepiness. EENT: No headache. No blurred vision or double vision, no loss of vision. No loss of Hearing, no ringing in the ears, no dizziness. No nasal drainage or con gestion. No epistaxis. No sore throat. Lungs: No shortness of breath, cough, no sputum production. No wheezing. Cardiovascular: No chest pain, no lower extremity edema. No palpitations. No paroxysmal nocturnal dyspnea. No orthopnea. No lightheadedness or dizziness. No syncopal episodes. Abdominal: No abdominal pain. No nausea, vomiting. No diarrhea. No constipation. No bloody or tarry stools. No loss of appetite. Genitourinary: No dysuria, increased frequency, urgency. No urinary retention. Musculoskeletal: No myalgias. No muscle weakness, no gait dysfunction, no frequent falls. No back pain. No neck pain. Integumentary: There is a wound to the right second toe status post sharp debridement Neurologic: No aphasia. No facial droop. No change in mentation. No head injury. No headache. No paralysis. No paresthesia. Psychiatric: No depression. No anxiety. No mood swings. Endocrine: No abnormal blood sugars. No weight change. No excessive sweating or thirst. No cold intolerance. MEDICAL HISTORY Peripheral vascular disease Dyslipidemia ALLERGIC rhinitis Benign prostatic hypertrophy SURGICAL HISTORY Right inguinal hernia repair 05/2020 Tonsillectomy Breast cyst removal Bilateral retinal membranes removal Colonoscopy 2017 UPPP Lateral cataracts. SOCIAL HISTORY Patient was a smoker for greater than 20 years at 1 pack per day starting at age 17 and quit 40 years ago. He drinks alcohol 4 times per week 1-2 drinks at a time. Patient lives at home with his . FAMILY HISTORY Father at age 87 from lung cancer. Mother at age 82 from dementia. Patient has 1 brother that at age 75 from liver cancer. Patient has 2 sons with no major medical problems.. PHYSICAL EXAMINATION Gen: This is an 82-year old male. He is resting in bed appears to be comfortable at rest. HEENT: Head is atraumatic, normocephalic. Pupils equal, round. Sclerae is anicteric. NECK: Supple. No JVD. No lymphadenopathy. No thyromegaly. LUNGS: Clear to auscultation. No wheezes or rhonchi. No intercostal retractions. HEART: Regular rate and rhythm. 2/6 systolic ejection murmur. ABDOMEN: Soft. Bowel sounds are present. No masses. No tenderness. EXTREMITIES: There is trace edema, no calf tenderness, DP +1 bilaterally, there is right second toe wound post sharp debridement NEUROLOGICAL: Patient is awake, alert and oriented x3. Cranial nerves 2 through 12 are grossly intact. ASSESSMENT AND PLAN 1. POD#0 status post iliofemoral endarterectomy with patch plasty. Continue IV fluid resuscitation as indicated by vascular surgery, patient did receive 2 units of packed red blood cells in the OR, we will continue to monitor patient hemoglobin over the next 24 hours, patient is to be resuscitated back on his aspirin 81 mg once every day and Plavix 75 and almost every day in the next 24 hours. 2. Peripheral vascular disease. Continue patient on atorvastatin 40 mg daily for secondary prevention. and treatment as in paragraph #1. 3. Dyslipidemia.Continue atorvastatin 40 mg daily 4. ALLERGIC rhinitis.Continue Singulair 10 mg at bedtime 5. Benign prostatic hypertrophy.Continue Flomax 0.4 mg at bedtime and Proscar 5 mg daily. 6. COPD. seems to do better at this time 7. Hypertension. Continue lisinopril 5 mg daily. 8. Generalized anxiety disorder. Continue citalopram 40 mg daily. 9. GI prophylaxis. Protonix 40 mg orally once every 3 10. DVT prophylaxis. per vascular surgery 11. Acute on chronic anemia status post 2 units of packed red blood cell transfusion that was done in the OR. Monitor the patient's CBC with her next 24 hours, 12. Thank you for the consultation will follow the patient with you. Past Medical History Past Medical History: GERD/Reflux, Hyperlipidemia, Hypertension, Osteoarthritis (OA), Prostate Disorder, Skin Disorder, Sleep Apnea/CPAP/BIPAP, Vascular Disorder Additional Past Medical History / Comment(s): 06/03/22 admitted to [facility] with R 2nd toe infection/ulcer/R foot cellulitis/hyponatremia, bilateral common femoral artery occlusion, anemia, gastritis, hiatal hernia, diverticular disease, [place] years ago/sx fixed, chronic neck pain/better now, BPH, back skin issues/uses special soap. History of Any Multi-Drug Resistant Organisms: None Reported, Unobtainable Past Surgical History: Tonsillectomy Additional Past Surgical History / Comment(s): Ct angiogram with bilateral runoff, cervical epidural pain procedures , eye surgery x 3 to remove member over retina, EGD, colonoscopies Past Anesthesia/Blood Transfusion Reactions: No Reported Reaction Additional Past Anesthesia/Blood Transfusion Reaction / Comm: Pt received blood without reaction. Currently receiving B-12 injections. Smoking Status: Former smoker - Past Family History Father Family Medical History: Cancer Additional Family Medical History / Comment(s): Lived to be 80yrs old. Mother Family Medical History: Dementia Medications and Allergies Home Medications Medication Instructions Recorded Confirmed Type Acetaminophen [Tylenol Extra 500 mg PO HS 03/09/22 06/25/22 History Strength] Atorvastatin [Lipitor] 40 mg PO QAM 03/09/22 06/23/22 History Finasteride [Proscar] 5 mg PO HS 03/09/22 06/25/22 History Montelukast [Singulair] 10 mg PO HS 03/09/22 06/25/22 History Omeprazole 20 mg PO DAILY PRN 03/09/22 06/25/22 History Albuterol Nebulized [Ventolin 2.5 mg INHALATION RT-Q6H 05/21/22 06/25/22 History Nebulized] Citalopram Hydrobromide [CeleXA] 40 mg PO QAM 05/21/22 06/23/22 History HYDROcodone/APAP 5-325MG [Jackson 1 each PO Q4HR PRN #12 tab 06/05/22 06/25/22 Rx 5-325] Cyanocobalamin [Vitamin B-12 1,000 mcg IM DIRECTED 06/23/22 06/25/22 History Injection] Cyanocobalamin [Vitamin B-12] 1,000 mcg PO QAM 06/23/22 06/23/22 History lisinopriL [Zestril] 20 mg PO QAM 06/23/22 06/23/22 History Aspirin 81 mg PO DAILY #30 tab 06/26/22 Rx Clopidogrel [Plavix] 75 mg PO DAILY #30 tab 06/26/22 Rx Allergies Allergy/AdvReac Type Severity Reaction Status Date / Time No Known Allergies Allergy Verified 06/25/22 07:15 Physical Exam Vitals: Vital Signs Temp Pulse Resp BP Pulse Ox 06/26/22 03:24 98.2 F 68 18 159/82 98 06/26/22 02:00 70 18 06/25/22 23:55 70 18 127/62 95 06/25/22 20:00 97.9 F 71 16 131/58 98 06/25/22 16:00 97.9 F 72 14 179/77 100 06/25/22 13:42 72 16 06/25/22 13:34 72 16 190/77 93 L 06/25/22 12:41 62 16 177/82 100 06/25/22 12:26 64 16 178/84 100 06/25/22 12:11 62 16 178/81 100 06/25/22 11:56 63 16 174/81 100 06/25/22 11:41 61 16 165/69 100 06/25/22 11:26 97.2 F L 67 16 163/69 100 Intake and Output 06/25/22 06/26/22 06/26/22 22:59 06:59 14:59 Intake Total 118 170 Output Total 1860 250 Balance -1742 -80 Intake: Intake, IV Titration 50 Amount ceFAZolin 2 gm In Sodium 50 Chloride 0.9% 50 ml @ 100 mls/hr IVPB Q8H [facility] Rx#: [id number] Oral 118 120 Output: Urine 1860 250 Other: Voiding Method Indwelling Catheter Indwelling Catheter Results CBC & Chem 7: 06/26/22 10:48 06/26/22 08:30 Labs: Abnormal Lab Results - Last 24 Hours (Table) 06/24/22 06/25/22 06/25/22 Range/Units 13:17 08:41 11:37 RBC 3.48 L 3.98 L (4.30-5.90) m/uL Hgb 7.7 L 9.1 L (13.0-17.5) gm/dL Hct 25.5 L 30.3 L (39.0-53.0) % MCV 73.4 L 76.2 L (80.0-100.0) fL MCH 22.2 L 22.8 L (25.0-35.0) pg MCHC 30.3 L 29.9 L (31.0-37.0) g/dL RDW 21.4 H 20.9 H (11.5-15.5) % Lymphocytes # 0.6 L (1.0-4.8) k/uL Crossmatch See Detail
--- NOTE | 2022-06-28 18:28 | P.PN ---
Subjective Progress Note Date: 06/26/22 HISTORY OF PRESENT ILLNESS This is an 82-year-old male with past medical history of peripheral vascular disease, dyslipidemia, ALLERGIC rhinitis, benign prostatic hypertrophy. his infrastructure director is Dr. Boykin. Patient has been hospitalized in and out of the hospital 3 times over the last month initially due to significant anemia for which he did receive blood transfusion underwent gastrointestinal workup that was negative for blood loss, he was seen in consultation by hematology oncology and he was placed on iron infusion along with B12 Injection , patient developed to have a significant blister to the right second toe initially he was seen in consultation by Dr. Santacruz and after that the head and artery Doppler that showed significant femoral artery disease, he was supposed to come back to have surgical intervention, ended up going to [facility] where he was seen in consultation by Dr. Jordan and he did have a CT angiography of the aorta with the run off and was found to have a significant femoral artery disease, so the patient was scheduled to come back to hospital today where he underwent right iliofemoral antrectomy with patch angioplasty that was done successfully and was asked to see the patient for medical management. 06/26: Patient is sitting up with apparent distress, he is eating his lunch, he was cleared by vascular surgery be discharged home today, patient hemoglobin stable at 9, continue aspirin, Plavix 75 mg once every day, follow-up with me as an outpatient, continue local care for his wound on the right second toe, we'll follow-up with the patient as an outpatient 1 week. REVIEW OF SYSTEMS Constitutional: No fever, no chills, no night sweats. No weight change. No weakness, fatigue or lethargy. No daytime sleepiness. EENT: No headache. No blurred vision or double vision, no loss of vision. No loss of Hearing, no ringing in the ears, no dizziness. No nasal drainage or congestion. No epistaxis. No sore throat. Lungs: No shortness of breath, cough, no sputum production. No wheezing. Cardiovascular: No chest pain, no lower extremity edema. No palpitations. No paroxysmal nocturnal dyspnea. No orthopnea. No lightheadedness or dizziness. No syncopal episodes. Abdominal: No abdominal pain. No nausea, vomiting. No diarrhea. No constipation. No bloody or tarry stools. No loss of appetite. Genitourinary: No dysuria, increased frequency, urgency. No urinary retention. Musculoskeletal: No myalgias. No muscle weakness, no gait dysfunction, no frequent falls. No back pain. No neck pain. Integumentary: There is a wound to the right second toe status post sharp debridement Neurologic: No aphasia. No facial droop. No change in mentation. No head injury. No headache. No paralysis. No paresthesia. Psychiatric: No depression. No anxiety. No mood swings. Endocrine: No abnormal blood sugars. No weight change. No excessive sweating or thirst. No cold intolerance. PHYSICAL EXAMINATION Gen: This is an 82-year old male. He is resting in bed appears to be comfortable at rest. HEENT: Head is atraumatic, normocephalic. Pupils equal, round. Sclerae is anicteric. NECK: Supple. No JVD. No lymphadenopathy. No thyromegaly. LUNGS: Clear to auscultation. No wheezes or rhonchi. No intercostal retractions. HEART: Regular rate and rhythm. 2/6 systolic ejection murmur. ABDOMEN: Soft. Bowel sounds are present. No masses. No tenderness. EXTREMITIES: There is trace edema, no calf tenderness, DP +1 bilaterally, there is right second toe wound post sharp debridement NEUROLOGICAL: Patient is awake, alert and oriented x3. Cranial nerves 2 through 12 are grossly intact. ASSESSMENT AND PLAN 1. POD#1 status post iliofemoral endarterectomy with patch plasty. Continue IV fluid resuscitation as indicated by vascular surgery, patient did receive 2 units of packed red blood cells in the OR, we will continue to monitor patient h emoglobin over the next 24 hours, patient is to be resuscitated back on his aspirin 81 mg once every day and Plavix 75 and almost every day in the next 24 hours. 2. Peripheral vascular disease. Continue patient on atorvastatin 40 mg daily for secondary prevention. and treatment as in paragraph #1. 3. Dyslipidemia.Continue atorvastatin 40 mg daily 4. ALLERGIC rhinitis.Continue Singulair 10 mg at bedtime 5. Benign prostatic hypertrophy.Continue Flomax 0.4 mg at bedtime and Proscar 5 mg daily. 6. COPD. seems to do better at this time 7. Hypertension. Continue lisinopril 5 mg daily. 8. Generalized anxiety disorder. Continue citalopram 40 mg daily. 9. GI prophylaxis. Protonix 40 mg orally once every 3 10. DVT prophylaxis. per vascular surgery 11. Acute on chronic anemia status post 2 units of packed red blood cell transfusion that was done in the OR. Monitor the patient's CBC with her next 24 hours 12. Patient is medically stable for discharge home. Objective - Vital Signs Vital signs: Vital Signs Temp 98.1 F 06/26/22 11:45 Pulse 65 06/26/22 11:45 Resp 18 06/26/22 11:45 BP 149/62 06/26/22 11:45 Pulse Ox 98 06/26/22 11:45 FiO2 - Labs CBC & Chem 7: 06/26/22 10:48 06/26/22 08:30
--- NOTE | 2022-06-30 13:29 | CDI ---
Documentation Clarification Form Date: 06/30/22 From: Mouna Alcantar Admit Date: 06/25/2022 6:40:00 AM Patient Name: Sean Linn Visit Number: [id number] Discharge Date: 06/26/2022 2:31:00 PM ATTENTION: The Clinical Documentation Specialists (CDI) and [facility] Coding Staff appreciate your assistance in clarifying documentation. Please respond to the clarification below the line at the bottom and electronically sign. The CDI & [facility] Coding staff will review the response and follow-up if needed. Please note: Queries are made part of the Legal Health Record. If you have any questions, please contact the author of this message via ITS. Dr. Azra Gregory, Acute on chronic anemia is documented in the 06/28 PN. Additional specificity regarding the type of anemia is requested. History/Risk Factors: ASPVD w ulcer of right toe, COPD, HTN, HLD, BPH Clinical indicators: EBL 100 ml, He received 2 PRBCs during surgery. Hemoglobin: 7.7, 9.1, 9.6 Hematocrit: 25.5, 30.3, 33.0 Treatment: PRBCs transfused Please clarify the type and acuity of anemia: [ X ] Acute on chronic blood loss anemia [ ] Iron deficiency anemia [ ] Unable to determine [ ] Other, please specify MTDD
== END 2022-06-26 14:31 | disposition home or self-care (01) | DRG 271 ==
LOC: 2ORMAIN 06:40 → EDSTATUS 08:30 → 3SCARD 12:12
PROVIDERS: ADMIT Surgery; ATTEND Surgery
PROC: 30233N1 Transfusion of Nonautologous Red Blood Cells into Peripheral Vein, Percutaneous Approach (ICD-10-PCS; 2022-06-25)
PROC: 04CH0ZZ Extirpation of Matter from Right External Iliac Artery, Open Approach (ICD-10-PCS; principal; 2022-06-25 08:30)
PROC: 04CK0ZZ Extirpation of Matter from Right Femoral Artery, Open Approach (ICD-10-PCS; principal; 2022-06-25 08:30)
PROC: 0KBV0ZZ Excision of Right Foot Muscle, Open Approach (ICD-10-PCS; principal; 2022-06-25 08:30)
PROC: 0HTRXZZ Resection of Toe Nail, External Approach (ICD-10-PCS; principal; 2022-06-25 08:30)
PROC: 04UH0KZ Supplement Right External Iliac Artery with Nonautologous Tissue Substitute, Open Approach (ICD-10-PCS; principal; 2022-06-25 08:30)
DX: I70.261 Atherosclerosis of native arteries of extremities with gangrene, right leg (principal); D62 Acute posthemorrhagic anemia; L97.519 Non-pressure chronic ulcer of other part of right foot with unspecified severity; J44.9 Chronic obstructive pulmonary disease, unspecified; I10 Essential (primary) hypertension; E78.5 Hyperlipidemia, unspecified; K44.9 Diaphragmatic hernia without obstruction or gangrene; K57.90 Diverticulosis of intestine, part unspecified, without perforation or abscess without bleeding; M54.2 Cervicalgia; N40.0 Benign prostatic hyperplasia without lower urinary tract symptoms; K21.9 Gastro-esophageal reflux disease without esophagitis; F41.1 Generalized anxiety disorder; G89.29 Other chronic pain; G47.33 Obstructive sleep apnea (adult) (pediatric); M19.90 Unspecified osteoarthritis, unspecified site; H91.90 Unspecified hearing loss, unspecified ear; J30.9 Allergic rhinitis, unspecified; Z87.891 Personal history of nicotine dependence; Z79.899 Other long term (current) drug therapy
CPT/HCPCS: 36415; 80048; 85025; 85027; 86850; 86900; 86901; 86920; 88304; 88311

== ENCOUNTER 2022-07-03 12:13 | Inpatient (IN) | payer MEDICARE ==
--- NOTE | 2022-07-03 13:26 | ED ---
General Adult HPI - General Chief complaint: Extremity Injury, Lower Stated complaint: rt leg - toe wound Time Seen by Provider: 07/03/22 13:11 Source: patient, RN notes reviewed Mode of arrival: ambulatory Limitations: no limitations - History of Present Illness Initial comments: Patient is a pleasant 82-year-old male presenting to the emergency department right leg. A arellano did have procedure done last week. Patient had right iliofemoral endarterectomy with some debridement of the toe. Patient states he did have an ulcer. Patient is having some swelling of his entire leg with some redness. Patient states most of his discomfort is the toe itself. No fevers. Patient denies calf pain. - Related Data Home Medications Medication Instructions Recorded Confirmed Acetaminophen [Tylenol Extra 500 mg PO HS 03/09/22 06/25/22 Strength] Atorvastatin [Lipitor] 40 mg PO QAM 03/09/22 06/23/22 Finasteride [Proscar] 5 mg PO HS 03/09/22 06/25/22 Montelukast [Singulair] 10 mg PO HS 03/09/22 06/25/22 Omeprazole 20 mg PO DAILY PRN 03/09/22 06/25/22 Albuterol Nebulized [Ventolin 2.5 mg INHALATION RT-Q6H 05/21/22 06/25/22 Nebulized] Citalopram Hydrobromide [CeleXA] 40 mg PO QAM 05/21/22 06/23/22 Cyanocobalamin [Vitamin B-12 1,000 mcg IM DIRECTED 06/23/22 06/25/22 Injection] Cyanocobalamin [Vitamin B-12] 1,000 mcg PO QAM 06/23/22 06/23/22 lisinopriL [Zestril] 20 mg PO QAM 06/23/22 06/23/22 Previous Rx's Medication Instructions Recorded HYDROcodone/APAP 5-325MG [[place] 1 each PO Q4HR PRN #12 tab 06/05/22 5-325] Aspirin 81 mg PO DAILY #30 tab 06/26/22 Clopidogrel [Plavix] 75 mg PO DAILY #30 tab 06/26/22 Allergies Allergy/AdvReac Type Severity Reaction Status Date / Time No Known Allergies Allergy Verified 07/03/22 12:25 Review of Systems ROS Statement: Those systems with pertinent positive or pertinent negative responses have been documented in the HPI. ROS Other: All systems not noted in ROS Statement are negative. Constitutional: Denies: fever Eyes: Denies: eye pain ENT: Denies: ear pain Respiratory: Denies: cough, dyspnea Cardiovascular: Denies: chest pain Gastrointestinal: Denies: abdominal pain Genitourinary: Denies: urgency Musculoskeletal: Denies: back pain Skin: Reports: as per HPI Past Medical History Past Medical History: GERD/Reflux, Hyperlipidemia, Hypertension, Osteoarthritis (OA), Prostate Disorder, Skin Disorder, Sleep Apnea/CPAP/BIPAP, Vascular Disorder Additional Past Medical History / Comment(s): 06/03/22 admitted to [facility] with R 2nd toe infection/ulcer/R foot cellulitis/hyponatremia, bilateral common femoral artery occlusion, anemia, gastritis, hiatal hernia, diverticular disease, [place] years ago/sx fixed, chronic neck pain/better now, BPH, back skin issues/uses special soap. History of Any Multi-Drug Resistant Organisms: None Reported, Unobtainable Past Surgical History: Tonsillectomy Additional Past Surgical History / Comment(s): Ct angiogram with bilateral runoff, cervical epidural pain procedures , eye surgery x 3 to remove member over retina, EGD, colonoscopies, R leg Past Anesthesia/Blood Transfusion Reactions: No Reported Reaction Additional Past Anesthesia/Blood Transfusion Reaction / Comment(s): Pt received blood without reaction. Currently receiving B-12 injections. Past Psychological History: No Psychological Hx Reported Smoking Status: Former smoker - Past Family History Father Family Medical History: Cancer Additional Family Medical History / Comment(s): Lived to be 80yrs old. Mother Family Medical History: Dementia General Exam Limitations: no limitations General appearance: alert, in no apparent distress Head exam: Present: normocephalic Eye exam: Present: normal appearance Respiratory exam: Present: normal lung sounds bilaterally Cardiovascular Exam: Present: regular rate, normal rhythm Expanded Peripheral pulses: 1+: Posterior Tibialis (R), Posterior Tibialis (L), Dorsalis Pedis (R), Dorsalis Pedis (L) GI/Abdominal exam: Present: soft. Absent: tenderness Extremities exam: Present: other (Patient does have mild to moderate swelling of the entire leg. There is erythema extending from the right second toe to above the ankle. There is also some erythema in her right thigh. No calf tenderness. Mild warmth.). Absent: calf tenderness Neurological exam: Present: alert Psychiatric exam: Present: normal affect, normal mood Skin exam: Present: erythema Course Vital Signs 07/03/22 07/03/22 12:25 14:28 Temperature 97.6 F Pulse Rate 75 66 Respiratory 18 18 Rate Blood Pressure 149/58 189/81 O2 Sat by Pulse 99 100 Oximetry - Reevaluation(s) Reevaluation #1: 07/03/22 14:04 Pulses are confirmed by myself with hand-held Doppler EKG Findings - EKG Results: EKG: interpreted by ERMD (Septal Q waves), sinus rhythm, normal axis, normal ST/T Medical Decision Making - Medical Decision Making Was pt. sent in by a medical professional or institution (, [facility], [facility], urgent care, hospital, or fci...) When possible be specific @ -No Did you speak to anyone other than the patient for history (EMS, parent, family, police, friend...)? What history was obtained from this source @ -No Did you review nursing and triage notes (agree or disagree)? Why? @ -I reviewed and agree with nursing and triage notes Were old charts reviewed (outside hosp., previous admission, EMS record, old EKG, old radiological studies, urgent care reports/EKG's, fci records)? Report findings @ -Previous admission reviewed Differential Diagnosis (chest pain, altered mental status, abdominal pain women, abdominal pain men, vaginal bleeding, weakness, fever, dyspnea, syncope, headache, dizziness, GI bleed, back pain, seizure, CVA, palpatations, mental health)? @ -not applicable EKG interpreted by me (3pts min.). @ -As above X-rays interpreted by me (1pt min.). @ -X-ray right foot does show some mild degenerative changes distal second toe concerning for osteomyelitis CT interpreted by me (1pt min.). @ -None done U/S interpreted by me (1pt. min.). @ -Port reviewed What testing was considered but not performed or refused? (CT, X-rays, U/S, labs)? Why? @ -None What meds were considered but not given or refused? Why? @ -None Did you discuss the management of the patient with other professionals (professionals i.e. Dr., PA, [facility], lab, RT, psych nurse, 7th grade social studies teacher, cutter inspector, teacher, fire officer, rn case manager)? Give summary @ -Case discussed with Dr. Gregory who is familiar with this patient and he will admit with consults with vascular surgeon and infectious disease. He does recommend CTA of the leg as well as cefepime and vancomycin Was smoking cessation discussed for >3mins.? @ -No Was critical care preformed (if so, how long)? @ -No Were there social determinants of health that impacted care today? How? (Homelessness, low income, unemployed, alcoholism, drug addiction, transportation, low edu. Level, literacy, decrease access to med. care, shelter, rehab)? @ -No Was there de-escalation of care discussed even if they declined (Discuss DNR or withdrawal of care, Hospice)? DNR status @ -No What co-morbidities impacted this encounter? (DM, HTN, Smoking, COPD, CAD, Cancer, CVA, ARF, Chemo, Hep., AIDS, mental health diagnosis, sleep apnea, morbid obesity)? @ -None Was patient admitted / discharged? Hospital course, mention meds given and route, prescriptions, significant lab abnormalities, going to OR and other pertinent info. @ -Patient will be admitted for treatment and further evaluation Undiagnosed new problem with uncertain prognosis? @ -No Drug Therapy requiring intensive monitoring for toxicity (Heparin, Nitro, Insulin, Cardizem)? @ -No Were any procedures done? @ -No Diagnosis/symptom? @ -Cellulitis, osteomyelitis, vascular insufficiency, hyponatremia Acute, or Chronic, or Acute on Chronic? @ -Acute, acute, acute on chronic, acute Uncomplicated (without systemic symptoms) or Complicated (systemic symptoms)? @ -Vascular insufficiency is Located with cellulitis and osteomyelitis Side effects of treatment? @ -No Exacerbation, Progression, or Severe Exacerbation? @ -No Poses a threat to life or bodily function? How? (Chest pain, [place], [place], pneumonia, PE, COPD, DKA, ARF, appy, cholecystitis, CVA, Diverticulitis, Homicidal, Suicidal, threat to staff... and all critical care pts) @ -No - Lab Data Result diagrams: 07/03/22 14:04 07/03/22 14:04 Lab Results 07/03/22 07/03/22 07/03/22 Range/Units 14:04 14:04 14:04 WBC 6.4 (3.8-10.6) k/uL RBC 3.95 L (4.30-5.90) m/uL Hgb 9.3 L (13.0-17.5) gm/dL Hct 30.6 L (39.0-53.0) % MCV 77.4 L (80.0-100.0) fL MCH 23.4 L (25.0-35.0) pg MCHC 30.3 L (31.0-37.0) g/dL RDW 21.1 H (11.5-15.5) % Plt Count 348 (150-450) k/uL MPV 7.0 Neutrophils % 77 % Lymphocytes % 14 % Monocytes % 6 % Eosinophils % 1 % Basophils % 0 % Neutrophils # 4.9 (1.3-7.7) k/uL Lymphocytes # 0.9 L (1.0-4.8) k/uL Monocytes # 0.4 (0-1.0) k/uL Eosinophils # 0.1 (0-0.7) k/uL Basophils # 0.0 (0-0.2) k/uL Hypochromasia Marked Poikilocytosis Slight Anisocytosis Moderate Microcytosis Moderate PT 11.0 (9.0-12.0) sec INR 1.0 (<1.2) APTT 26.5 (22.0-30.0) sec Sodium 125 L (137-145) mmol/L Potassium 4.7 (3.5-5.1) mmol/L Chloride 92 L (98-107) mmol/L Carbon Dioxide 25 (22-30) mmol/L Anion Gap 8 mmol/L BUN 15 (9-20) mg/dL Creatinine 0.52 L (0.66-1.25) mg/dL Est GFR (CKD-EPI)AfAm >90 (>60 ml/min/1.73 sqM) Est GFR (CKD-EPI)NonAf >90 (>60 ml/min/1.73 sqM) Glucose 89 (74-99) mg/dL Plasma Lactic Acid Chris (0.7-2.0) mmol/L Calcium 8.7 (8.4-10.2) mg/dL Total Bilirubin 0.9 (0.2-1.3) mg/dL AST 29 (17-59) U/L ALT 19 (4-49) U/L Alkaline Phosphatase 74 (38-126) U/L Total Protein 6.0 L (6.3-8.2) g/dL Albumin 3.7 (3.5-5.0) g/dL 07/03/22 Range/Units 14:04 WBC (3.8-10.6) k/uL RBC (4.30-5.90) m/uL Hgb (13.0-17.5) gm/dL Hct (39.0-53.0) % MCV (80.0-100.0) fL MCH (25.0-35.0) pg MCHC (31.0-37.0) g/dL RDW (11.5-15.5) % Plt Count (150-450) k/uL MPV Neutrophils % % Lymphocytes % % Monocytes % % Eosinophils % % Basophils % % Neutrophils # (1.3-7.7) k/uL Lymphocytes # (1.0-4.8) k/uL Monocytes # (0-1.0) k/uL Eosinophils # (0-0.7) k/uL Basophils # (0-0.2) k/uL Hypochromasia Poikilocytosis Anisocytosis Microcytosis PT (9.0-12.0) sec INR (<1.2) APTT (22.0-30.0) sec Sodium (137-145) mmol/L Potassium (3.5-5.1) mmol/L Chloride (98-107) mmol/L Carbon Dioxide (22-30) mmol/L Anion Gap mmol/L BUN (9-20) mg/dL Creatinine (0.66-1.25) mg/dL Est GFR (CKD-EPI)AfAm (>60 ml/min/1.73 sqM) Est GFR (CKD-EPI)NonAf (>60 ml/min/1.73 sqM) Glucose (74-99) mg/dL Plasma Lactic Acid Chris 0.7 (0.7-2.0) mmol/L Calcium (8.4-10.2) mg/dL Total Bilirubin (0.2-1.3) mg/dL AST (17-59) U/L ALT (4-49) U/L Alkaline Phosphatase (38-126) U/L Total Protein (6.3-8.2) g/dL Albumin (3.5-5.0) g/dL Disposition Clinical Impression: Cellulitis, Osteomyelitis, Hyponatremia, Arterial insufficiency Disposition: ADMITTED IP TO THIS HOSP Condition: Serious Is patient prescribed a controlled substance at d/c from ED?: No Referrals: Azra Gregory MD [Primary Care Provider] - 1-2 days Time of Disposition: 14:43
--- NOTE | 2022-07-03 13:43 | XR ---
EXAMINATION TYPE: XR foot limited RT DATE OF EXAM: 07/03/2022 1:38 PM INDICATION: Patient age:Male; 82 years old; Reason for study: infection; PHH. COMPARISON: Right toe radiograph 06/03/2022 TECHNIQUE: The right foot was examined in the PA and lateral. FINDINGS: No acute fracture or dislocation. There is ulceration of the distal second phalanx with osseous erosi on. Severe hypertrophic arthropathy first MTP joint with complete loss of joint space redemonstrated. Vascular sclerosis. IMPRESSION: Soft tissue swelling and ulceration with osseous erosion of the tip of the second digit consistent wi th osteomyelitis.
[2022-07-03 14:18] LABS: Anisocytosis Moderate; Basophils % (A) 0 %; Eosinophils # (A) 0.1 k/uL (0-0.7); Eosinophils % (A) 1 %; HCT 30.6 % (39.0-53.0); HGB 9.3 gm/dL (13.0-17.5); Hypochromasia Marked; Lymphocytes # (A) 0.9 k/uL (1.0-4.8); Lymphocytes % (A) 14 %; MCH 23.4 pg (25.0-35.0); MCHC 30.3 g/dL (31.0-37.0); MCV 77.4 fL (80.0-100.0); Microcytosis Moderate; Monocytes # (A) 0.4 k/uL (0-1.0); Monocytes % (A) 6 %; Neutrophils # (A) 4.9 k/uL (1.3-7.7); Neutrophils % (A) 77 %; Platelet Count 348 k/uL (150-450); Poikilocytosis Slight; RBC 3.95 m/uL (4.30-5.90); RDW 21.1 % (11.5-15.5); WBC 6.4 k/uL (3.8-10.6)
[2022-07-03 14:23] LABS: Partial Thromboplastin Time 26.5 sec (22.0-30.0)
[2022-07-03 14:25] LABS: ALT 19 U/L (4-49); AST 29 U/L (17-59); African American GFR (CKD) >90 (>60 ml/min/1.73 sqM); Albumin 3.7 g/dL (3.5-5.0); Alkaline Phosphatase 74 U/L (38-126); Anion Gap 8 mmol/L; Blood Urea Nitrogen 15 mg/dL (9-20); Calcium 8.7 mg/dL (8.4-10.2); Carbon Dioxide 25 mmol/L (22-30); Chloride 92 mmol/L (98-107); Glucose 89 mg/dL (74-99); Non-African American GFR(CKD) >90 (>60 ml/min/1.73 sqM); Potassium 4.7 mmol/L (3.5-5.1); Sodium 125 mmol/L (137-145); Total Bilirubin 0.9 mg/dL (0.2-1.3)
--- NOTE | 2022-07-03 14:30 | US ---
EXAMINATION TYPE: US venous doppler duplex LE RT DATE OF EXAM: 07/03/2022 2:21 PM COMPARISON: CTA right lower extremity 06/09/2022 CLINICAL INDICATION: Male, 82 years old with history of swelling; SIDE PERFORMED: Right TECHNIQUE: The lower extremity deep venous system is examined utilizing real time linear array sonog marilia with graded compression, doppler sonography and color-flow sonography. VESSELS IMAGED: Common Femoral Vein Deep Femoral Vein Greater Saphenous Vein * Femoral Vein Popliteal Vein Small Saphenous Vein * Proximal Calf Veins (* superficial vessels) Grayscale, color doppler, spectral doppler imaging performed of the deep veins of the lower extremiti es. There is normal flow, compressibility, vascular waveforms. Right Leg: Negative for DVT limited visualization of vessels in the right groin due to large hematoma measuring 10.0 x 5.5 x 7.4 cm from recent vascular surgery. IMPRESSION: 1. No ultrasound evidence of deep venous thrombosis of the right lower extremity. 2. Moderate-sized right groin hematoma likely related to recent vascular surgery.
[2022-07-03] MEDS ORDERED: VANCOMYCIN IV PER PHARMACY 1 EACH MISC MISCELLANE PRN (14:44)
[2022-07-03] MEDS ORDERED: ACETAMINOPHEN TAB 325 MG TAB PO PRN (14:45)
[2022-07-03] MEDS ORDERED: NALOXONE 0.4 MG/ML 1 ML VIAL IV PRN (14:45)
[2022-07-03] MEDS ORDERED: HYDROmorphone 1 MG/ML 1 ML SYRINGE IVP PRN (14:45)
[2022-07-03] MEDS ORDERED: IBUPROFEN 400 MG TAB PO PRN (14:45)
[2022-07-03] MEDS ORDERED: RX INFO: IV CONTRAST WAS GIVEN 1 EACH MISC MISCELLANE PRN (14:47)
[2022-07-03] MEDS ORDERED: PANTOPRAZOLE 40 MG TABLET PO PRN (14:48)
[2022-07-03] MEDS ORDERED: VANCOMYCIN 1,250 MG in SODIUM CHLORIDE 0.9% 250 ML IVPB STA (14:50)
[2022-07-03] MEDS: CEFEPIME 1 GM in SODIUM CHLORIDE 0.9% 50 ML IVPB SCH ×2 (15:42→22:06)
[2022-07-03] MEDS: SODIUM CHLORIDE 0.9% 1,000 ML IV SCH (15:42)
--- NOTE | 2022-07-03 17:24 | CT ---
EXAMINATION TYPE: CT angio lower extremity RT CT DLP: 1275 mGycm, Automated exposure control for dose reduction was used. DATE OF EXAM: 07/03/2022 4:58 PM COMPARISON: CT for 1822 CLINICAL INDICATION:Male, 82 years old with history of Arterial insufficiency; , right distal leg rodrick n TECHNIQUE: Axial images were obtained of the right lower extremity . Additional coronal and sagittal reformatted images and soft tissue and bone window were obtained for review. 3-D reconstruction was created on a separate workstation. Contrast used:100 mL of Isovue 370 with IV Contrast, Oral contrast used: None FINDINGS: There is a new fluid collection in the anterior thigh compartment just anterior to the common femoral artery. The fluid collection abuts the artery and measures 6.6 x 6.1 x 12.9 cm there is some hetero genous hyperdensity fluid in this pocket of fluid along with curvilinear hyperdensity suspected activ e extravasation on series 401 image 158 through 163. The external iliac artery, common femoral artery superficial and deep branches of the femoral artery are patent with scattered atherosclerosis. Popliteal artery demonstrates severe atherosclerosis with greater than 50% narrowing image 317 through 326. The anterior and posterior tibial arteries appear p atent and cross the ankle. Motion artifact limits evaluation of the foot. IMPRESSION: 1. Right lower extremity fluid collection anterior to the right common femoral artery with areas of high density and curvilinear high-density suspected to represent contrast suggesting active extravasa tion. Correlate for recent intervention. 2. The right lower externally vasculature is patent. This high-grade stenosis of the popliteal arter y greater than 50% stenosis secondary to calcified and noncalcified plaque. Anterior posterior tibial arteries cross the ankle. 1. A [place] level critical message alert has been initiated for Tej Diaz via the [employer] on 07/03/2022 5:22 PM. This message alert has been sent to Tej Diaz via the p references provided by the clinician for the receipt of Radiology Critical Findings[place] [id number].
[2022-07-03] MEDS: HYDROmorphone 0.5 MG/0.5 ML SYRINGE IVP PRN ×2 (18:35→23:17)
--- NOTE | 2022-07-03 20:02 | P.GSCN ---
History of Present Illness Consult date: 07/03/22 Reason for Consult: Postoperative status. History of present illness: Patient is a 82-year-old male who recently underwent a right iliofemoral thromboendarterectomy and patch angioplasty. This was performed for arterial insufficiency of the right lower extremity resulting in a nonhealing wound. The patient developed a postoperative hematoma and was subsequently admitted for concern for infectious issues. He denies any chills or fevers. He has experienced some drainage from his right inguinal wound. Overall he feels relatively well. He did undergo computed tomography scan of his right lower extremity. Past Medical History Past Medical History: GERD/Reflux, Hyperlipidemia, Hypertension, Osteoarthritis (OA), Prostate Disorder, Skin Disorder, Sleep Apnea/CPAP/BIPAP, Vascular Disorder Additional Past Medical History / Comment(s): 06/03/22 admitted to [facility] with R 2nd toe infection/ulcer/R foot cellulitis/hyponatremia, bilateral common femoral artery occlusion, anemia, gastritis, hiatal hernia, diverticular disease, [place] years ago/sx fixed, chronic neck pain/better now, BPH, back skin issues/uses special soap. History of Any Multi-Drug Resistant Organisms: None Reported, Unobtainable Past Surgical History: Tonsillectomy Additional Past Surgical History / Comment(s): Ct angiogram with bilateral runoff, cervical epidural pain procedures , eye surgery x 3 to remove member over retina, EGD, colonoscopies, R leg Past Anesthesia/Blood Transfusion Reactions: No Reported Reaction Additional Past Anesthesia/Blood Transfusion Reaction / Comm: Pt received blood without reaction. Currently receiving B-12 injections. Past Psychological History: No Psychological Hx Reported Additional Psychological History / Comment(s): Pt resides with her spouse of 59 yrs. Straight cane to keep pressure off R great toe Smoking Status: Former smoker Past Alcohol Use History: Daily Additional Past Alcohol Use History / Comment(s): Pt started in 1957 and quit 1979. Pt drinks wine with dinner an a glass or two later. Past Drug Use History: None Reported - Past Family History Father Family Medical History: Cancer Additional Family Medical History / Comment(s): Lived to be 80yrs old. Mother Family Medical History: Dementia Medications and Allergies Home Medications Medication Instructions Recorded Confirmed Type Acetaminophen [Tylenol Extra 500 mg PO HS 03/09/22 07/03/22 History Strength] Atorvastatin [Lipitor] 40 mg PO DAILY 03/09/22 07/03/22 History Finasteride [Proscar] 5 mg PO HS 03/09/22 07/03/22 History Montelukast [Singulair] 10 mg PO HS 03/09/22 07/03/22 History Omeprazole 20 mg PO DAILY PRN 03/09/22 07/03/22 History Albuterol Nebulized [Ventolin 2.5 mg INHALATION RT-Q6H 05/21/22 07/03/22 History Nebulized] Citalopram Hydrobromide [CeleXA] 40 mg PO DAILY 05/21/22 07/03/22 History Cyanocobalamin [Vitamin B-12] 1,000 mcg PO DAILY 06/23/22 07/03/22 History lisinopriL [Zestril] 20 mg PO DAILY 06/23/22 07/03/22 History Aspirin 81 mg PO DAILY #30 tab 06/26/22 07/03/22 Rx Clopidogrel [Plavix] 75 mg PO DAILY #30 tab 06/26/22 07/03/22 Rx HYDROcodone/APAP 5-325MG [[place] 1 tab PO Q4HR PRN 07/03/22 07/03/22 History 5-325] Ibuprofen [Motrin] 800 mg PO Q8H PRN 07/03/22 07/03/22 History Allergies Allergy/AdvReac Type Severity Reaction Status Date / Time No Known Allergies Allergy Verified 07/03/22 16:10 Surgical - Exam Osteopathic Statement: *. No significant issues noted on an osteopathic structural exam other than those noted in the History and Physical/Consult. Vital Signs Temp Pulse Resp BP Pulse Ox 97.6 F 75 18 149/58 99 07/03/22 12:25 07/03/22 12:25 07/03/22 12:25 07/03/22 12:25 07/03/22 12:25 Patient has a hematoma in the right inguinal area with extension of ecchymotic reaction down along the medial aspect of the thigh and knee area extending to the calf. The leg itself is nontender. There is no evidence of subjectively warm to touch areas of skin. Small amount of staining from draining hematoma in the right inguinal area is noted. Toes are freely movable and nontender. Patient has a stage II wound of the third toe right foot which appears to be healing. Results - Labs 07/03/22 14:04 07/03/22 14:04 Abnormal Lab Results - Last 24 Hours (Table) 07/03/22 07/03/22 Range/Units 14:04 14:04 RBC 3.95 L (4.30-5.90) m/uL Hgb 9.3 L (13.0-17.5) gm/dL Hct 30.6 L (39.0-53.0) % MCV 77.4 L (80.0-100.0) fL MCH 23.4 L (25.0-35.0) pg MCHC 30.3 L (31.0-37.0) g/dL RDW 21.1 H (11.5-15.5) % Lymphocytes # 0.9 L (1.0-4.8) k/uL Sodium 125 L (137-145) mmol/L Chloride 92 L (98-107) mmol/L Creatinine 0.52 L (0.66-1.25) mg/dL Total Protein 6.0 L (6.3-8.2) g/dL Diabetes panel 07/03/22 Range/Units 14:04 Sodium 125 L (137-145) mmol/L Potassium 4.7 (3.5-5.1) mmol/L Chloride 92 L (98-107) mmol/L Carbon Dioxide 25 (22-30) mmol/L BUN 15 (9-20) mg/dL Creatinine 0.52 L (0.66-1.25) mg/dL Glucose 89 (74-99) mg/dL Calcium 8.7 (8.4-10.2) mg/dL AST 29 (17-59) U/L ALT 19 (4-49) U/L Alkaline Phosphatase 74 (38-126) U/L Total Protein 6.0 L (6.3-8.2) g/dL Albumin 3.7 (3.5-5.0) g/dL Calcium panel 07/03/22 Range/Units 14:04 Calcium 8.7 (8.4-10.2) mg/dL Albumin 3.7 (3.5-5.0) g/dL Pituitary panel 07/03/22 Range/Units 14:04 Sodium 125 L (137-145) mmol/L Potassium 4.7 (3.5-5.1) mmol/L Chloride 92 L (98-107) mmol/L Carbon Dioxide 25 (22-30) mmol/L BUN 15 (9-20) mg/dL Creatinine 0.52 L (0.66-1.25) mg/dL Glucose 89 (74-99) mg/dL Calcium 8.7 (8.4-10.2) mg/dL Adrenal panel 07/03/22 Range/Units 14:04 Sodium 125 L (137-145) mmol/L Potassium 4.7 (3.5-5.1) mmol/L Chloride 92 L (98-107) mmol/L Carbon Dioxide 25 (22-30) mmol/L BUN 15 (9-20) mg/dL Creatinine 0.52 L (0.66-1.25) mg/dL Glucose 89 (74-99) mg/dL Calcium 8.7 (8.4-10.2) mg/dL Total Bilirubin 0.9 (0.2-1.3) mg/dL AST 29 (17-59) U/L ALT 19 (4-49) U/L Alkaline Phosphatase 74 (38-126) U/L Total Protein 6.0 L (6.3-8.2) g/dL Albumin 3.7 (3.5-5.0) g/dL - Imaging CT scan - abdomen: image reviewed CT scan - pelvis: image reviewed Assessment and Plan Assessment: 1: Status post right iliofemoral thromboendarterectomy. 2: Postoperative hematoma right inguinal area. 3: Anemia which appears to be stable. Plan: 1: Will obtain ultrasound of the right inguinal area to rule out pseudoaneurysm. Clinically this is very unlikely as the hematoma has no pulsatility to it. 2: Will follow. Time with Patient: Greater than 30
[2022-07-03] MEDS ORDERED: FAMOTIDINE 20 MG TAB PO SCH (21:00)
--- NOTE | 2022-07-03 21:13 | US ---
EXAMINATION TYPE: US lower ext pseudo artery RT DATE OF EXAM: 07/03/2022 COMPARISON: CT same day CLINICAL INDICATION: Male, 82 years old with history of Rule out bleed/pseudoaneurysm; Patient states having arteries scraped out on June 25. Area of incision is draining. EXAM PERFORMED: Grayscale and color Doppler duplex imaging performed of the groin, post cardiac sharri ter to assess for pseudoaneurysm. SIDE PERFORMED: Right Color and Waveform Doppler performed to assess for the presence of pseudoaneurysm; Is there ultrasound evidence of a pseudoaneurysm: no Is there evidence of AV shunting: no Is there a fluid collection present: Large anterior to CFV and REGIONAL EDUCATION COORDINATOR fluid collection = 13.1 x 6.7 x 5. 0 cm. No evidence for active extravasation visualized in the images submitted for review. IMPRESSION: Redemonstration of large fluid collection most compatible with blood products. Advisory Services Associate did not de monstrate evidence for active bleeding on this exam however the CT does demonstrate evidence of activ e extravasation. There is no evidence for pseudoaneurysm.
[2022-07-03] MEDS: FINASTERIDE 5 MG TAB PO SCH (22:06)
--- NOTE | 2022-07-03 22:06 | P.CONS ---
History of Present Illness - Reason for Consult Consult date: 07/03/22 Cellulitis and osteomyelitis Requesting physician: Tej Diaz - Chief Complaint Increasing drainage from the right groin incision x few days - History of Present Illness Patient is a 82-year-old male with a past medical history significant for hypertension hyperlipidemia history of prostate disorder patient did have a nonhealing wound to the right second toe and there was concern for bilateral common femoral artery occlusion for the patient did have right iliofemoral thrombotic ectomy and patch angioplasty patient now presenting to the hospital with nonhealing wound to the right second toe and the patient has developed increasing pain and swelling to the right thigh area symptoms that has been getting worse for the last few days patient complaining of pain mostly to his right second toe describing it to be throbbing almost 7-8 out of 10 no radiation and denies having any drainage patient did have some chills but denies high- grade fever on presentation to hospital patient was afebrile and no fever has been recorded subsequently patient did have normal white count creatinine was normal liver enzymes are normal patient did have a foot x-ray did show soft tissue swelling ulceration with bony erosion of the tip of the second digit consistent with osteomyelitis local cultures were obtained patient was started on vancomycin and cefepime infectious disease was consulted for further management of antibiotic therapy Review of Systems Positive point and negatives has been mentioned in the HPI, complete review of systems was performed and all other systems are negative Past Medical History Past Medical History: GERD/Reflux, Hyperlipidemia, Hypertension, Osteoarthritis (OA), Prostate Disorder, Skin Disorder, Sleep Apnea/CPAP/BIPAP, Vascular Disorder Additional Past Medical History / Comment(s): 06/03/22 admitted to [facility] with R 2nd toe infection/ulcer/R foot cellulitis/hyponatremia, bilateral common femoral artery occlusion, anemia, gastritis, hiatal hernia, diverticular disease, [place] years ago/sx fixed, chronic neck pain/better now, BPH, back skin issues/uses special soap. History of Any Multi-Drug Resistant Organisms: None Reported, Unobtainable Past Surgical History: Tonsillectomy Additional Past Surgical History / Comment(s): Ct angiogram with bilateral runoff, cervical epidural pain procedures , eye surgery x 3 to remove member over retina, EGD, colonoscopies, R leg Past Anesthesia/Blood Transfusion Reactions: No Reported Reaction Additional Past Anesthesia/Blood Transfusion Reaction / Comm: Pt received blood without reaction. Currently receiving B-12 injections. Past Psychological History: No Psychological Hx Reported Smoking Status: Former smoker - Past Family History Father Family Medical History: Cancer Additional Family Medical History / Comment(s): Lived to be 80yrs old. Mother Family Medical History: Dementia Medications and Allergies Home Medications Medication Instructions Recorded Confirmed Type Acetaminophen [Tylenol Extra 500 mg PO HS 03/09/22 07/03/22 History Strength] Atorvastatin [Lipitor] 40 mg PO DAILY 03/09/22 07/03/22 History Finasteride [Proscar] 5 mg PO HS 03/09/22 07/03/22 History Montelukast [Singulair] 10 mg PO HS 03/09/22 07/03/22 History Omeprazole 20 mg PO DAILY PRN 03/09/22 07/03/22 History Albuterol Nebulized [Ventolin 2.5 mg INHALATION RT-Q6H 05/21/22 07/03/22 History Nebulized] Citalopram Hydrobromide [CeleXA] 40 mg PO DAILY 05/21/22 07/03/22 History Cyanocobalamin [Vitamin B-12] 1,000 mcg PO DAILY 06/23/22 07/03/22 History Aspirin 81 mg PO DAILY #30 tab 06/26/22 07/03/22 Rx Clopidogrel [Plavix] 75 mg PO DAILY #30 tab 06/26/22 07/03/22 Rx HYDROcodone/APAP 5-325MG [[place] 1 tab PO Q4HR PRN 07/03/22 07/03/22 History 5-325] Cefepime [Maxipime] 2 gm IVPB Q8HR #126 each 07/07/22 Rx lisinopriL [Zestril] 20 mg PO BID #60 tab 07/07/22 Rx Allergies Allergy/AdvReac Type Severity Reaction Status Date / Time No Known Allergies Allergy Verified 07/03/22 16:10 Physical Exam Vitals: Vital Signs Temp Pulse Resp BP Pulse Ox 07/03/22 14:28 66 18 189/81 100 07/03/22 12:25 97.6 F 75 18 149/58 99 Intake and Output 07/03/22 07/03/22 07/03/22 06:59 14:59 22:59 Other: Weight 71.668 kg GENERAL DESCRIPTION: Elderly male lying in bed, no distress. No tachypnea or accessory muscle of respiration use. HEENT: Shows Pallor , no scleral icterus. Oral mucous membrane is dry. NECK: Trachea central, no thyromegaly. LUNGS: Unlabored breathing. Clear to auscultation anteriorly. No wheeze or crackle. HEART: S1, S2, regular rate and rhythm. No loud murmur ABDOMEN: Soft, no tenderness , guarding or rigidity, no organomegaly EXTREMITIES: Right groin incision with minimal blood stained drainage right second toe with hammertoe deformity with a wound on the tip and surrounding callus. SKIN: No rash, no masses palpable. NEUROLOGICAL: The patient is awake, alert, oriented x3, mood and affect normal. Results CBC & Chem 7: 07/07/22 11:05 07/08/22 11:26 Labs: Abnormal Lab Results - Last 24 Hours (Table) 07/03/22 07/03/22 Range/Units 14:04 14:04 RBC 3.95 L (4.30-5.90) m/uL Hgb 9.3 L (13.0-17.5) gm/dL Hct 30.6 L (39.0-53.0) % MCV 77.4 L (80.0-100.0) fL MCH 23.4 L (25.0-35.0) pg MCHC 30.3 L (31.0-37.0) g/dL RDW 21.1 H (11.5-15.5) % Lymphocytes # 0.9 L (1.0-4.8) k/uL Sodium 125 L (137-145) mmol/L Chloride 92 L (98-107) mmol/L Creatinine 0.52 L (0.66-1.25) mg/dL Total Protein 6.0 L (6.3-8.2) g/dL Assessment and Plan (1) Osteomyelitis Current Visit: Yes Status: Acute Code(s): M86.9 - OSTEOMYELITIS, UNSPECIFIED SNOMED Code(s): 47241662 Plan: 1patient with a nonhealing wound to the right second toe now with evidence of bony erosion concerning for osteomyelitis in this patient who did have a history of bilateral common femoral artery occlusion status post iliofemoral thrombectomy and patch angioplasty and concerning for hematoma involving the r ight thigh and possible cellulitis. 2-marked area of the redness 3-local cultures obtained which will be followed 4-check inflammatory markers 5-continue with vancomycin cefepime while waiting for the cultures to be finalized We will follow on clinical condition and cultures to further adjust medication if needed Thank you for this consultation we will follow the patient along with you Time with Patient: Greater than 30
[2022-07-03] MEDS: ALBUTEROL NEBULIZED 2.5 MG/3 ML INHALATION SCH (22:10)
[2022-07-04] MEDS: SODIUM CHLORIDE 0.9% 1,000 ML IV SCH ×2 (03:37→19:55)
[2022-07-04] MEDS: ALBUTEROL NEBULIZED 2.5 MG/3 ML INHALATION SCH ×4 (04:16→21:38)
[2022-07-04] MEDS: VANCOMYCIN 1,250 MG in SODIUM CHLORIDE 0.9% 250 ML IVPB SCH ×2 (05:49→17:33)
[2022-07-04] MEDS: CITALOPRAM HYDROBROMIDE 20 MG TAB PO SCH (07:52)
[2022-07-04] MEDS: lisinopriL 20 MG TAB PO SCH (07:52)
[2022-07-04] MEDS: ASPIRIN 81 MG PO SCH (07:52)
[2022-07-04] MEDS: CLOPIDOGREL 75 MG TAB PO SCH (07:52)
[2022-07-04] MEDS: ATORVASTATIN 40 MG TAB PO SCH (07:53)
[2022-07-04] MEDS: CYANOCOBALAMIN 500 MCG TAB PO SCH (09:52)
[2022-07-04 10:03] LABS: HGB 9.6 g/dL (13.0-17.0); MCH 23.2 pg (27.0-32.0); MCHC 29.1 g/dL (32.0-37.0); MCV 79.9 fL (80.0-97.0); Mean Platelet Volume 9.2 fL (9.5-12.2); NRBC Per 100 WBC 0 /100 WBCS (0.0-0.0); Platelet Count 435 X 10*3/uL (140-440); RBC 4.13 X 10*6/uL (4.40-5.60); RDW 23.8 % (11.5-14.5); WBC 6.62 X 10*3/uL (4.50-10.00)
[2022-07-04 10:13] LABS: African American GFR (CKD) 111.2 (60.0-200.0); Albumin 4.1 g/dL (3.8-4.9); Albumin/Globulin Ratio 2.1 (1.60-3.17); Anion Gap 10.4 mmol/L (10.00-18.00); BUN/Creat Ratio 14.31 Ratio (12.00-20.00); Blood Urea Nitrogen 8.4 mg/dL (9.0-27.0); C Reactive Protein 0.5 mg/dL (0.00-0.80); Calcium 9.4 mg/dL (8.7-10.3); Carbon Dioxide 25.4 mmol/L (20.0-27.5); Globulin 1.9 g/dL (1.6-3.3); Potassium 4.3 mmol/L (3.5-5.5); Total Bilirubin 0.6 mg/dL (0.30-1.20)
[2022-07-04 10:35] LABS: Erythrocyte Sedimentation Rate 15 mm/Hr (0-20)
[2022-07-04] MEDS: CEFEPIME 1 GM in SODIUM CHLORIDE 0.9% 50 ML IVPB SCH ×2 (11:19→20:31)
[2022-07-04 11:42] LABS: Basophils # (A) 0.06 X 10*3/uL (0.00-0.10); Basophils % (A) 0.9 %; Eosinophils # (A) 0.13 X 10*3/uL (0.04-0.35); Immature Grans, Automated 0.3 %; Lymphocytes # (A) 1.07 X 10*3/uL (0.90-5.00); Lymphocytes % (A) 16.2 %; Monocytes # (A) 0.95 X 10*3/uL (0.20-1.00); Monocytes % (A) 14.4 %; Neutrophils # (A) 4.39 X 10*3/uL (1.80-7.70); Neutrophils % (A) 66.2 %
--- NOTE | 2022-07-04 14:10 | P.PN ---
Subjective Progress Note Date: 07/04/22 Patient is evaluated today. He voices no complaints. He indicates there is been continuous drainage from his wound although he denies any chills or fevers. Indicates that her groin area feels improved. Objective - Vital Signs Vital signs: Vital Signs Temp 97.9 F 07/04/22 07:16 Pulse 71 07/04/22 07:16 Resp 15 07/04/22 07:16 BP 165/90 07/04/22 07:16 Pulse Ox 100 07/04/22 07:16 FiO2 Intake & Output 07/03/22 07/04/22 07/04/22 18:59 06:59 18:59 Weight 71.668 kg Other: # Voids 5 6 - Exam Vital signs are stable and patient is afebrile. Right inguinal wound is intact. Serosanguineous drainage is identified draining from the inferior edge of the wound. Erythema is essentially absent. The amount of subcutaneous fluid appears decreased when compared to yesterday's exam. Toes are freely movable and nontender. Hemoglobin is stable. There is no evidence of leukocytosis. - Labs CBC & Chem 7: 07/04/22 06:04 07/04/22 06:04 Labs: Abnormal Lab Results - Last 24 Hours (Table) 07/03/22 07/03/22 07/04/22 Range/Units 14:04 14:04 06:04 RBC 3.95 L 4.13 L (4.30-5.90) m/uL Hgb 9.3 L 9.6 L (13.0-17.5) gm/dL Hct 30.6 L 33.0 L (39.0-53.0) % MCV 77.4 L 79.9 L (80.0-100.0) fL MCH 23.4 L 23.2 L (25.0-35.0) pg MCHC 30.3 L 29.1 L (31.0-37.0) g/dL RDW 21.1 H 23.8 H (11.5-15.5) % MPV 9.2 L (9.5-12.2) fL Lymphocytes # 0.9 L (1.0-4.8) k/uL Sodium 125 L (137-145) mmol/L Chloride 92 L (98-107) mmol/L BUN (9.0-27.0) mg/dL Creatinine 0.52 L (0.66-1.25) mg/dL Total Protein 6.0 L (6.3-8.2) g/dL 07/04/22 Range/Units 06:04 RBC (4.30-5.90) m/uL Hgb (13.0-17.5) gm/dL Hct (39.0-53.0) % MCV (80.0-100.0) fL MCH (25.0-35.0) pg MCHC (31.0-37.0) g/dL RDW (11.5-15.5) % MPV (9.5-12.2) fL Lymphocytes # (1.0-4.8) k/uL Sodium 132 L (137-145) mmol/L Chloride (98-107) mmol/L BUN 8.4 L (9.0-27.0) mg/dL Creatinine (0.66-1.25) mg/dL Total Protein 6.0 L (6.3-8.2) g/dL Microbiology - Last 24 Hours (Table) 07/03/22 14:04 Wound Culture - Preliminary Toe - Right Second Assessment and Plan Assessment: 1: Postoperative hematoma with evidence of liquefication of the hematoma and subsequent drainage and absorption. 2: Anemia, stable. Plan: No surgical intervention is warranted at this time. I would anticipate the wound continues to drain until hematoma/Bela is completely drained/resolved. There are no physical activity restrictions from a vascular surgical standpoint. Patient may shower over his wounds. Time with Patient: Less than 30
[2022-07-04] MEDS: MELATONIN 3 MG TABLET PO SCH (20:31)
[2022-07-04] MEDS: MONTELUKAST 10 MG TAB PO SCH (20:31)
[2022-07-04] MEDS: FINASTERIDE 5 MG TAB PO SCH (20:31)
[2022-07-04] MEDS: ACETAMINOPHEN TAB 500 MG TAB PO SCH (20:31)
--- NOTE | 2022-07-04 22:44 | P.PN ---
Subjective Progress Note Date: 07/04/22 Principal diagnosis: Right second toe wound and Osteomyelitis Patient is a 82-year-old male with a past medical history significant for hypertension hyperlipidemia history of prostate disorder patient did have a nonhealing wound to the right second toe and there was concern for bilateral common femoral artery occlusion for the patient did have right iliofemoral thrombotic ectomy and patch angioplasty patient now presenting to the hospital with nonhealing wound to the right second toe and the patient has developed increasing pain and swelling to the right thigh area. On today's evaluation that is 07/04/2022, the patient denies having any fever or any chills, patient complaining of more drainage from his right groin area mostly blood and no chest pain shortness of breath or cough no abdominal pain, swelling and redness of the right thigh is slightly decreased no abdominal pain or diarrhea Objective - Vital Signs Vital signs: Vital Signs Temp 97.9 F 07/04/22 07:16 Pulse 71 07/04/22 07:16 Resp 15 07/04/22 07:16 BP 165/90 07/04/22 07:16 Pulse Ox 100 07/04/22 07:16 FiO2 Intake & Output 07/03/22 07/04/22 07/04/22 18:59 06:59 18:59 Weight 71.668 kg Other: # Voids 5 6 - Exam GENERAL DESCRIPTION: An elderly male lying in bed in no distress RESPIRATORY SYSTEM: Unlabored breathing , decreased breath sounds at bases HEART: S1 S2 regular rate and rhythm , ABDOMEN: Soft , no tenderness EXTREMITIES: Right thigh swelling and redness slightly decreased - Labs CBC & Chem 7: 07/04/22 06:04 07/04/22 06:04 Labs: Abnormal Lab Results - Last 24 Hours (Table) 07/03/22 07/03/22 07/04/22 Range/Units 14:04 14:04 06:04 RBC 3.95 L 4.13 L (4.30-5.90) m/uL Hgb 9.3 L 9.6 L (13.0-17.5) gm/dL Hct 30.6 L 33.0 L (39.0-53.0) % MCV 77.4 L 79.9 L (80.0-100.0) fL MCH 23.4 L 23.2 L (25.0-35.0) pg MCHC 30.3 L 29.1 L (31.0-37.0) g/dL RDW 21.1 H 23.8 H (11.5-15.5) % MPV 9.2 L (9.5-12.2) fL Lymphocytes # 0.9 L (1.0-4.8) k/uL Sodium 125 L (137-145) mmol/L Chloride 92 L (98-107) mmol/L BUN (9.0-27.0) mg/dL Creatinine 0.52 L (0.66-1.25) mg/dL Total Protein 6.0 L (6.3-8.2) g/dL 07/04/22 Range/Units 06:04 RBC (4.30-5.90) m/uL Hgb (13.0-17.5) gm/dL Hct (39.0-53.0) % MCV (80.0-100.0) fL MCH (25.0-35.0) pg MCHC (31.0-37.0) g/dL RDW (11.5-15.5) % MPV (9.5-12.2) fL Lymphocytes # (1.0-4.8) k/uL Sodium 132 L (137-145) mmol/L Chloride (98-107) mmol/L BUN 8.4 L (9.0-27.0) mg/dL Creatinine (0.66-1.25) mg/dL Total Protein 6.0 L (6.3-8.2) g/dL Microbiology - Last 24 Hours (Table) 07/03/22 14:04 Wound Culture - Preliminary Toe - Right Second Assessment and Plan (1) Cellulitis Current Visit: Yes Status: Acute Code(s): L03.90 - CELLULITIS, UNSPECIFIED SNOMED Code(s): 578802389 (2) Osteomyelitis Current Visit: Yes Status: Acute Code(s): M86.9 - OSTEOMYELITIS, UNSPECIFIED SNOMED Code(s): 79094244 Plan: 1patient with a nonhealing wound to the right second toe now with evidence of bony erosion concerning for osteomyelitis in this patient who did have a history of bilateral common femoral artery occlusion status post iliofemoral thrombectomy and patch angioplasty and concerning for hematoma involving the right thigh and possible cellulitis. 2-local cultures obtained which currently pending 3Patient to with vancomycin cefepime while waiting for the cultures to be finalized Time with Patient: Less than 30
[2022-07-05] MEDS: ALBUTEROL NEBULIZED 2.5 MG/3 ML INHALATION SCH ×4 (00:41→20:48)
[2022-07-05] MEDS: HYDROcodone/APAP 5-325MG 1 EACH TAB PO PRN (00:43)
[2022-07-05] MEDS: SODIUM CHLORIDE 0.9% 1,000 ML IV SCH (03:18)
[2022-07-05] MEDS: VANCOMYCIN 1,250 MG in SODIUM CHLORIDE 0.9% 250 ML IVPB SCH ×2 (05:27→18:25)
[2022-07-05] MEDS: lisinopriL 20 MG TAB PO SCH ×2 (07:40→20:30)
[2022-07-05] MEDS: CLOPIDOGREL 75 MG TAB PO SCH (07:40)
[2022-07-05] MEDS: CITALOPRAM HYDROBROMIDE 20 MG TAB PO SCH (07:40)
[2022-07-05] MEDS: ASPIRIN 81 MG PO SCH (07:40)
[2022-07-05] MEDS: CYANOCOBALAMIN 500 MCG TAB PO SCH (07:40)
[2022-07-05] MEDS: ATORVASTATIN 40 MG TAB PO SCH (07:40)
[2022-07-05] MEDS: CEFEPIME 1 GM in SODIUM CHLORIDE 0.9% 50 ML IVPB SCH (08:09)
[2022-07-05 10:26] LABS: ALT 18 U/L (4-49); AST 30 U/L (17-59); African American GFR (CKD) >90 (>60 ml/min/1.73 sqM); Albumin 3.2 g/dL (3.5-5.0); Albumin/Globulin Ratio 1.3; Alkaline Phosphatase 65 U/L (38-126); Anion Gap 6 mmol/L; Blood Urea Nitrogen 9 mg/dL (9-20); Calcium 8.6 mg/dL (8.4-10.2); Carbon Dioxide 25 mmol/L (22-30); Chloride 96 mmol/L (98-107); Globulin 2.4 g/dL; Glucose 83 mg/dL (74-99); Non-African American GFR(CKD) >90 (>60 ml/min/1.73 sqM); Potassium 3.9 mmol/L (3.5-5.1); Sodium 127 mmol/L (137-145); Total Bilirubin 0.6 mg/dL (0.2-1.3); Total Protein 5.6 g/dL (6.3-8.2)
[2022-07-05 10:55] LABS: Anisocytosis Moderate; Basophils % (A) 0 %; Eosinophils # (A) 0.1 k/uL (0-0.7); Eosinophils % (A) 2 %; HCT 31.7 % (39.0-53.0); HGB 9.4 gm/dL (13.0-17.5); Hypochromasia Marked; Lymphocytes # (A) 0.8 k/uL (1.0-4.8); Lymphocytes % (A) 18 %; MCH 23.6 pg (25.0-35.0); MCHC 29.6 g/dL (31.0-37.0); MCV 79.8 fL (80.0-100.0); Mean Platelet Volume 8.2; Microcytosis Moderate; Monocytes # (A) 0.5 k/uL (0-1.0); Monocytes % (A) 11 %; Neutrophils % (A) 66 %; Platelet Count 343 k/uL (150-450); RBC 3.97 m/uL (4.30-5.90); RDW 21.3 % (11.5-15.5); WBC 4.5 k/uL (3.8-10.6)
--- NOTE | 2022-07-05 12:27 | P.HPIM ---
History of Present Illness H&P Date: 07/04/22 Chief Complaint: Right groin hematoma/ possible abscess of the right second toe. HISTORY OF PRESENT ILLNESS This is an 82-year-old male with past medical history of peripheral vascular disease, dyslipidemia, ALLERGIC rhinitis, benign prostatic hypertrophy. 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 Patient has been hospitalized in and out of the hospital 3 times over the last month initially due to significant anemia for which he did receive blood transfusion underwent gastrointestinal workup that was negative for blood loss, he was seen in consultation by hematology oncology and he was placed on iron infusion along with B12 Injection , patient developed to have a significant blister to the right second toe initially he was seen in consultation by Dr. Santacruz and after that the head and arterial Doppler that showed significant femoral artery disease, he was supposed to come back to have surgical intervention, ended up going to [facility] where he was seen in consultation by Dr. 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 Scott in the office yesterday and the results of which was not red, and the patient was seen in the office by me and he was recommended to go to the ER for evaluation had a CT angiography of the right lower extremity that showed 50% stenosis of the popliteal artery was significant hematoma the right groin area, there is no evidence of deep venous thrombosis, he was admitted to the hospital for possible osteophytes of the right second toe as well as significant hematoma postoperatively, he was seen in consultation by infectious disease as well as by vascular surgery, he was started on IV antibiotic in the form of vancomycin and cefepime. REVIEW OF SYSTEMS Constitutional: No fever, no chills, no night sweats. No weight change. No weakness, fatigue or lethargy. No daytime sleepiness. HEENT: No headache. No blurred vision or double vision, no loss of vision. No loss of Hearing, no ringing in the ears, no dizziness. No nasal drainage or congestion. No epistaxis. No sore throat. Lungs: No shortness of breath, cough, no sputum production. No wheezing. Cardiovascular: No chest pain, positive for right lower extremity edema. No palpitations. No paroxysmal nocturnal dyspnea. No orthopnea. No lightheade dness or dizziness. No syncopal episodes. Abdominal: No abdominal pain. No nausea, vomiting. No diarrhea. No constipation. No bloody or tarry stools. No loss of appetite. Genitourinary: No dysuria, increased frequency, urgency. No urinary retention. Musculoskeletal: No myalgias. No muscle weakness, no gait dysfunction, no frequent falls. No back pain. No neck pain. Integumentary: There is a wound to the right second toe status post sharp debridement, with osteomyelitis of the right second toe, there is a significant hematoma right groin area with minimal serosanguineous drainage. Neurologic: No aphasia. No facial droop. No change in mentation. No head injury. No headache. No paralysis. No paresthesia. Psychiatric: No depression. No anxiety. No mood swings. Endocrine: No abnormal blood sugars. No weight change. No excessive sweating or thirst. No cold intolerance. MEDICAL HISTORY Peripheral vascular disease Dyslipidemia ALLERGIC rhinitis Benign prostatic hypertrophy Anemia. SURGICAL HISTORY Right inguinal hernia repair 05/2020 Tonsillectomy Breast cyst removal Bilateral retinal membranes removal Colonoscopy 2017 UPPP Lateral cataracts. Right iliofemoral endarterectomy with patch angioplasty SOCIAL HISTORY Patient was a smoker for greater than 20 years at 1 pack per day starting at age 17 and quit 40 years ago. He drinks alcohol 4 times per week 1-2 drinks at a time. Patient lives at home with his . FAMILY HISTORY Father at age 87 from lung cancer. Mother at age 82 from dementia. Patient has 1 brother that at age 75 from liver cancer. Patient has 2 sons with no major medical problems.. PHYSICAL EXAMINATION Gen: This is an 82-year old male. He is resting in bed appears to be comfortable at rest. HEENT: Head is atraumatic, normocephalic. Pupils equal, round. Sclerae is anicteric. NECK: Supple. No JVD. No lymphadenopathy. No thyromegaly. LUNGS: Clear to auscultation. No wheezes or rhonchi. No intercostal retractions. HEART: First heart sound is depressed , second heart sound is normal there is SIMON 2/6 located at the left sternal border. ABDOMEN: Soft. Bowel sounds are present. No masses. No tenderness, right groin with large hematoma and minimal serosanguinous drainage EXTREMITIES: There is trace edema, no calf tenderness, DP +1 bilaterally, there is right second toe wound post sharp debridement with osteomyelitis NEUROLOGICAL: Patient is awake, alert and oriented x3. Cranial nerves 2 through 12 are grossly intact, muscle power 5/5 in bilateral upper and lower extremities bilaterally ASSESSMENT AND PLAN 1. Right groin hematoma post Right iliofemoral endartrectomy with patch angioplasty . The patient was seen in consultation by vascular surgery was recommended to continue conservative management for now, CTA of the right lower extremity did show evidence of 50% stenosis of the right popliteal artery, with significant hematoma of the right groin area and no evidence of pseudoaneurysm, we'll continue to monitor patient's CBC on a regular basis, as per surgery is following. Continue patient on baby aspirin 81 mg once every day, Plavix 75 mg every day. 2. osteomyelitis of the right second toe. Continue vancomycin and cefepime pharmacy to dose peak and trough, infectious disease consultation, cultures were obtained. 3. Severe right lower extremity edema without evidence of venous thrombosis on a venous Doppler, this likely related to significant hematoma the right groin area, continue leg elevation, monitor the patient very closely. 4. Peripheral vascular disease. Continue patient on atorvastatin 40 mg daily for secondary prevention. and treatment as in paragraph #1. 5. Dyslipidemia.Continue atorvastatin 40 mg daily we'll keep LDL 55-70. , 6. ALLERGIC rhinitis.Continue Singulair 10 mg at bedtime 7. Benign prostatic hypertrophy.Continue Flomax 0.4 mg at bedtime and Proscar 5 mg daily. 8. COPD. seems to do better at this time 9. Hypertension. Continue lisinopril 5 mg daily. 10. Generalized anxiety disorder. Continue citalopram 40 mg daily. 11. GI prophylaxis. Protonix 40 mg orally once every day. 12. DVT prophylaxis. Patient is currently not Lovenox due to his significant hematoma in the right groin 13. admitted to inpatient. Estimated length of stay 2 midnights, 14. patient is full code. Past Medical History Past Medical History: GERD/Reflux, Hyperlipidemia, Hypertension, Osteoarthritis (OA), Prostate Disorder, Skin Disorder, Sleep Apnea/CPAP/BIPAP, Vascular Disorder Additional Past Medical History / Comment(s): 06/03/22 admitted to [facility] with R 2nd toe infection/ulcer/R foot cellulitis/hyponatremia, bilateral common femoral artery occlusion, anemia, gastritis, hiatal hernia, diverticular disease, LLOYD years ago/sx fixed, chronic neck pain/better now, BPH, back skin issues/uses special soap. History of Any Multi-Drug Resistant Organisms: None Reported, Unobtainable Past Surgical History: Tonsillectomy Additional Past Surgical History / Comment(s): Ct angiogram with bilateral runoff, cervical epidural pain procedures , eye surgery x 3 to remove member over retina, EGD, colonoscopies, R leg Past Anesthesia/Blood Transfusion Reactions: No Reported Reaction Additional Past Anesthesia/Blood Transfusion Reaction / Comment(s): Pt received blood without reaction. Currently receiving B-12 injections. Past Psychological History: No Psychological Hx Reported Smoking Status: Former smoker - Past Family History Father Family Medical History: Cancer Additional Family Medical History / Comment(s): Lived to be 80yrs old. Mother Family Medical History: Dementia Medications and Allergies Home Medications Medication Instructions Recorded Confirmed Type Acetaminophen [Tylenol Extra 500 mg PO HS 03/09/22 07/03/22 History Strength] Atorvastatin [Lipitor] 40 mg PO DAILY 03/09/22 07/03/22 History Finasteride [Proscar] 5 mg PO HS 03/09/22 07/03/22 History Montelukast [Singulair] 10 mg PO HS 03/09/22 07/03/22 History Omeprazole 20 mg PO DAILY PRN 03/09/22 07/03/22 History Albuterol Nebulized [Ventolin 2.5 mg INHALATION RT-Q6H 05/21/22 07/03/22 History Nebulized] Citalopram Hydrobromide [CeleXA] 40 mg PO DAILY 05/21/22 07/03/22 History Cyanocobalamin [Vitamin B-12] 1,000 mcg PO DAILY 06/23/22 07/03/22 History lisinopriL [Zestril] 20 mg PO DAILY 06/23/22 07/03/22 History Aspirin 81 mg PO DAILY #30 tab 06/26/22 07/03/22 Rx Clopidogrel [Plavix] 75 mg PO DAILY #30 tab 06/26/22 07/03/22 Rx HYDROcodone/APAP 5-325MG [[place] 1 tab PO Q4HR PRN 07/03/22 07/03/22 History 5-325] Ibuprofen [Motrin] 800 mg PO Q8H PRN 07/03/22 07/03/22 History Allergies Allergy/AdvReac Type Severity Reaction Status Date / Time No Known Allergies Allergy Verified 07/03/22 16:10 Physical Exam Vitals: Vital Signs Temp Pulse Pulse Resp BP BP Pulse Ox 07/04/22 02:00 97.6 F 68 16 169/57 99 07/03/22 20:00 97.9 F 66 16 156/68 96 07/03/22 16:48 70 18 178/78 98 07/03/22 16:00 175/88 07/03/22 14:28 66 18 189/81 100 07/03/22 12:25 97.6 F 75 18 149/58 99 Intake and Output 07/03/22 07/04/22 07/04/22 22:59 06:59 14:59 Other: # Voids 5 Weight 71.668 kg Results CBC & Chem 7: 07/05/22 06:49 07/05/22 06:49 Labs: Abnormal Lab Results - Last 24 Hours (Table) 07/03/22 07/03/22 Range/Units 14:04 14:04 RBC 3.95 L (4.30-5.90) m/uL Hgb 9.3 L (13.0-17.5) gm/dL Hct 30.6 L (39.0-53.0) % MCV 77.4 L (80.0-100.0) fL MCH 23.4 L (25.0-35.0) pg MCHC 30.3 L (31.0-37.0) g/dL RDW 21.1 H (11.5-15.5) % Lymphocytes # 0.9 L (1.0-4.8) k/uL Sodium 125 L (137-145) mmol/L Chloride 92 L (98-107) mmol/L Creatinine 0.52 L (0.66-1.25) mg/dL Total Protein 6.0 L (6.3-8.2) g/dL Microbiology - Last 24 Hours (Table) 07/03/22 14:04 Wound Culture - Preliminary Toe - Right Second Thrombosis Risk Factor Assmnt - Choose All That Apply Any of the Below Risk Factors Present?: Yes Each Factor Represents 1 point: Swollen legs (current) Other Risk Factors: Yes Each Risk Factor Represents 3 Points: Age 75 years or older Thrombosis Risk Factor Assessment Total Risk Factor Score: 4 Thrombosis Risk Factor Assessment Level: Moderate Risk
--- NOTE | 2022-07-05 12:28 | P.PN ---
Subjective Progress Note Date: 07/05/22 HISTORY OF PRESENT ILLNESS This is an 82-year-old male with past medical history of peripheral vascular disease, dyslipidemia, ALLERGIC rhinitis, benign prostatic hypertrophy. his site project manager is Dr. Boykin. Patient has been hospitalized in and out of the hospital 3 times over the last month initially due to significant anemia for which he did receive blood transfusion underwent gastrointestinal workup that was negative for blood loss, he was seen in consultation by hematology oncology and he was placed on iron infusion along with B12 Injection , patient developed to have a significant blister to the right second toe initially he was seen in consultation by Dr. Santacruz and after that the head and arterial Doppler that showed significant femoral artery disease, he was supposed to come back to have surgical intervention, ended up going to [facility] where he was seen in consultation by Dr. 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 Scott in the office yesterday and the results of which was not red, and the patient was seen in the office by me and he was recommended to go to the ER for evaluation had a CT angiography of the right lower extremity that showed 50% stenosis of the popliteal artery was significant hematoma the right groin area, there is no evidence of deep venous thrombosis, he was admitted to the hospital for possible osteophytes of the right second toe as well as significant hematoma postoperatively, he was seen in consultation by infectious disease as well as by vascular surgery, he was started on IV antibiotic in the form of vancomycin and cefepime. 07/05: Patient is sitting up in bed in no apparent distress, denies any chest pain, shortness breath, he is eager to get out of the hospital, he has no fever or chills at this time, he has been maintained on vancomycin and cefepime, infectious disease and vascular surgery are following, his sodium is drifting down to 127, Hep-Lock his IV, monitor the patient started tomorrow morning, serum as well as he would be done tomorrow morning as well as urine sodium and urine osmolality. REVIEW OF SYSTEMS Constitutional: No fever, no chills, no night sweats. No weight change. No weakness, fatigue or lethargy. No daytime sleepiness. HEENT: No headache. No blurred vision or double vision, no loss of vision. No loss of Hearing, no ringing in the ears, no dizziness. No nasal drainage or congestion. No epistaxis. No sore throat. Lungs: No shortness of breath, cough, no sputum production. No wheezing. Cardiovascular: No chest pain, positive for right lower extremity edema. No palpitations. No paroxysmal nocturnal dyspnea. No orthopnea. No lightheadedness or dizziness. No syncopal episodes. Abdominal: No abdominal pain. No nausea, vomiting. No diarrhea. No constipation. No bloody or tarry stools. No loss of appetite. Genitourinary: No dysuria, increased frequency, urgency. No urinary retention. Musculoskeletal: No myalgias. No muscle weakness, no gait dysfunction, no frequent falls. No back pain. No neck pain. Integumentary: There is a wound to the right second toe status post sharp debridement, with osteomyelitis of the right second toe, there is a significant hematoma right groin area with minimal serosanguineous drainage. Neurologic: No aphasia. No facial droop. No change in mentation. No head injury. No headache. No paralysis. No paresthesia. Psychiatric: No depression. No anxiety. No mood swings. Endocrine: No abnormal blood sugars. No weight change. No excessive sweating or thirst. No cold intolerance. PHYSICAL EXAMINATION Gen: This is an 82-year old male. He is resting in bed appears to be comfortable at rest. HEENT: Head is atraumatic, normocephalic. Pupils equal, round. Sclerae is anicteric. NECK: Supple. No JVD. No lymphadenopathy. No thyromegaly. LUNGS: Clear to auscultation. No wheezes or rhonchi. No intercostal retractions. HEART: First heart sound is depressed , second heart sound is normal there is SIMON 2/6 located at the left sternal border. ABDOMEN: Soft. Bowel sounds are present. No masses. No tenderness, right groin with large hematoma and minimal serosanguinous drainage EXTREMITIES: There is trace edema, no calf tenderness, DP +1 bilaterally, there is right second toe wound post sharp debridement with osteomyelitis NEUROLOGICAL: Patient is awake, alert and oriented x3. Cranial nerves 2 through 12 are grossly intact, muscle power 5/5 in bilateral upper and lower extremities bilaterally ASSESSMENT AND PLAN 1. Right groin hematoma post Right iliofemoral endartrectomy with patch angioplasty . The patient was seen in consultation by vascular surgery was recommended to continue conservative management for now, CTA of the right lower extremity did show evidence of 50% stenosis of the right popliteal artery, with significant hematoma of the right groin area and no evidence of pseudoaneurysm, we'll continue to monitor patient's CBC on a regular basis, as per surgery is following. Continue patient on baby aspirin 81 mg once every day, Plavix 75 mg every day. 2. osteomyelitis of the right second toe. Continue vancomycin and cefepime pharmacy to dose peak and trough, infectious disease consultation, cultures were obtained. 3. Severe right lower extremity edema without evidence of venous thrombosis on a venous Doppler, this likely related to significant hematoma the right groin area, continue leg elevation, monitor the patient very closely. 4. Peripheral vascular disease. Continue patient on atorvastatin 40 mg daily for secondary prevention. and treatment as in paragraph #1. 5. Dyslipidemia.Continue atorvastatin 40 mg daily we'll keep LDL 55-70. , 6. ALLERGIC rhinitis.Continue Singulair 10 mg at bedtime 7. Benign prostatic hypertrophy.Continue Flomax 0.4 mg at bedtime and Proscar 5 mg daily. 8. COPD. seems to do better at this time 9. Hypertension and hypertensive . Continue lisinopril 20 mg orally and increased twice every day. 10 cardiovascular disease. . Generalized anxiety disorder. Continue citalopram 40 mg daily. 11. GI prophylaxis. Protonix 40 mg orally once every day. 12. DVT prophylaxis. Patient is currently not Lovenox due to his significant hematoma in the right groin 13. Hyponatremia. Check the patient serum osmolality, urine osmole, urine sodium tomorrow morning. Objective - Vital Signs Vital signs: Vital Signs Temp 97.6 F 07/05/22 07:25 Pulse 63 07/05/22 07:25 Resp 16 07/05/22 07:25 BP 187/82 07/05/22 07:25 Pulse Ox 100 07/05/22 07:25 FiO2 Intake & Output 07/04/22 07/05/22 07/05/22 18:59 06:59 18:59 Other: Voiding Method Toilet # Voids 3 3 - Labs CBC & Chem 7: 07/05/22 06:49 07/05/22 06:49 Labs: Abnormal Lab Results - Last 24 Hours (Table) 07/05/22 07/05/22 Range/Units 06:49 06:49 RBC 3.97 L (4.30-5.90) m/uL Hgb 9.4 L (13.0-17.5) gm/dL Hct 31.7 L (39.0-53.0) % MCV 79.8 L (80.0-100.0) fL MCH 23.6 L (25.0-35.0) pg MCHC 29.6 L (31.0-37.0) g/dL RDW 21.3 H (11.5-15.5) % Lymphocytes # 0.8 L (1.0-4.8) k/uL Sodium 127 L (137-145) mmol/L Chloride 96 L (98-107) mmol/L Creatinine 0.49 L (0.66-1.25) mg/dL Total Protein 5.6 L (6.3-8.2) g/dL Albumin 3.2 L (3.5-5.0) g/dL Microbiology - Last 24 Hours (Table) 07/03/22 14:10 Blood Culture - Preliminary Blood 07/03/22 14:04 Blood Culture - Preliminary Blood 07/03/22 14:04 Gram Stain - Preliminary Toe - Right Second Wound Culture - Preliminary Gram Neg Bacilli
[2022-07-05] MEDS ORDERED: bisacodyL 5 MG TABLET.DR PO STA (13:47)
--- NOTE | 2022-07-05 15:33 | P.PN ---
Subjective Progress Note Date: 07/05/22 Principal diagnosis: Right second toe wound and Osteomyelitis Patient is a 82-year-old male with a past medical history significant for hypertension hyperlipidemia history of prostate disorder patient did have a nonhealing wound to the right second toe and there was concern for bilateral common femoral artery occlusion for the patient did have right iliofemoral thrombotic ectomy and patch angioplasty patient now presenting to the hospital with nonhealing wound to the right second toe and the patient has developed increasing pain and swelling to the right thigh area. On today's evaluation that is 07/05/2022, the patient remains to be afebrile, patient drainage from his right groin has resolved still have significant swelling to the groin area, the patient denies having any chest pain shortness of breath or cough no abdominal pain, swelling and redness of the right thigh is slightly decreased no abdominal pain or diarrhea Objective - Vital Signs Vital signs: Vital Signs Temp 98.1 F 07/05/22 13:53 Pulse 62 07/05/22 13:53 Resp 15 07/05/22 13:53 BP 148/66 07/05/22 13:53 Pulse Ox 100 07/05/22 13:53 FiO2 Intake & Output 07/04/22 07/05/22 07/05/22 18:59 06:59 18:59 Other: Voiding Method Toilet # Voids 3 3 - Exam GENERAL DESCRIPTION: An elderly male lying in bed in no distress RESPIRATORY SYSTEM: Unlabored breathing , decreased breath sounds at bases HEART: S1 S2 regular rate and rhythm , ABDOMEN: Soft , no tenderness EXTREMITIES: Right thigh swelling and redness slightly decreased - Labs CBC & Chem 7: 07/05/22 06:49 07/05/22 06:49 Labs: Abnormal Lab Results - Last 24 Hours (Table) 07/05/22 07/05/22 07/05/22 Range/Units 06:49 06:49 06:49 RBC 3.97 L (4.30-5.90) m/uL Hgb 9.4 L (13.0-17.5) gm/dL Hct 31.7 L (39.0-53.0) % MCV 79.8 L (80.0-100.0) fL MCH 23.6 L (25.0-35.0) pg MCHC 29.6 L (31.0-37.0) g/dL RDW 21.3 H (11.5-15.5) % Lymphocytes # 0.8 L (1.0-4.8) k/uL Sodium 127 L (137-145) mmol/L Chloride 96 L (98-107) mmol/L Creatinine 0.49 L (0.66-1.25) mg/dL Osmolality 265 L (280-301) mosm/kg Total Protein 5.6 L (6.3-8.2) g/dL Albumin 3.2 L (3.5-5.0) g/dL Microbiology - Last 24 Hours (Table) 07/03/22 14:10 Blood Culture - Preliminary Blood 07/03/22 14:04 Blood Culture - Preliminary Blood 07/03/22 14:04 Gram Stain - Preliminary Toe - Right Second Wound Culture - Preliminary Gram Neg Bacilli Assessment and Plan (1) Cellulitis Current Visit: Yes Status: Acute Code(s): L03.90 - CELLULITIS, UNSPECIFIED SNOMED Code(s): 884164419 (2) Osteomyelitis Current Visit: Yes Status: Acute Code(s): M86.9 - OSTEOMYELITIS, UNSPECIFIED SNOMED Code(s): 02947536 Plan: 1patient with a nonhealing wound to the right second toe now with evidence of bony erosion concerning for osteomyelitis in this patient who did have a history of bilateral common femoral artery occlusion status post iliofemoral thrombectomy and patch angioplasty and concerning for hematoma involving the right thigh and possible cellulitis. 2-local cultures obtained which currently growing gram-negative bacilli with ID and sensitivities pending 3Patient to with vancomycin , however we will adjust the dose of cefepime up to 2 g every 8 hours with a normal kidney function discussed with the pharmacist on the phone Time with Patient: Less than 30
[2022-07-05] MEDS ORDERED: VANCOMYCIN TROUGH DUE 1 EACH MISC MISCELLANE ONE (16:00)
[2022-07-05] MEDS ORDERED: CEFEPIME 2 GM in SODIUM CHLORIDE 0.9% 50 ML IVPB SCH (16:00)
[2022-07-05] MEDS: CEFEPIME 2 GM in SODIUM CHLORIDE 0.9% 100 ML IVPB SCH (17:40)
[2022-07-05] MEDS: VANCOMYCIN 1,500 MG in SODIUM CHLORIDE 0.9% 500 ML 500 ML IVPB SCH (18:38)
[2022-07-05] MEDS: ACETAMINOPHEN TAB 500 MG TAB PO SCH (20:30)
[2022-07-05] MEDS: MONTELUKAST 10 MG TAB PO SCH (20:30)
[2022-07-05] MEDS: MELATONIN 3 MG TABLET PO SCH (20:30)
[2022-07-05] MEDS: FINASTERIDE 5 MG TAB PO SCH (20:30)
[2022-07-06] MEDS: CEFEPIME 2 GM in SODIUM CHLORIDE 0.9% 100 ML IVPB SCH ×4 (00:46→23:55)
[2022-07-06] MEDS: ALBUTEROL NEBULIZED 2.5 MG/3 ML INHALATION SCH ×4 (03:23→20:28)
[2022-07-06 05:19] LABS: ALT 19 U/L (4-49); AST 29 U/L (17-59); African American GFR (CKD) >90 (>60 ml/min/1.73 sqM); Albumin 3.5 g/dL (3.5-5.0); Albumin/Globulin Ratio 1.5; Alkaline Phosphatase 67 U/L (38-126); Anion Gap 8 mmol/L; Blood Urea Nitrogen 11 mg/dL (9-20); Calcium 8.8 mg/dL (8.4-10.2); Carbon Dioxide 24 mmol/L (22-30); Chloride 94 mmol/L (98-107); Globulin 2.3 g/dL; Glucose 90 mg/dL (74-99); Non-African American GFR(CKD) >90 (>60 ml/min/1.73 sqM); Potassium 4.2 mmol/L (3.5-5.1); Sodium 126 mmol/L (137-145); Total Bilirubin 0.6 mg/dL (0.2-1.3); Total Protein 5.8 g/dL (6.3-8.2)
[2022-07-06] MEDS: VANCOMYCIN 1,500 MG in SODIUM CHLORIDE 0.9% 500 ML 500 ML IVPB SCH (06:25)
[2022-07-06] MEDS: ASPIRIN 81 MG PO SCH (07:46)
[2022-07-06] MEDS: ATORVASTATIN 40 MG TAB PO SCH (07:46)
[2022-07-06] MEDS: CLOPIDOGREL 75 MG TAB PO SCH (07:46)
[2022-07-06] MEDS: CYANOCOBALAMIN 500 MCG TAB PO SCH (07:46)
[2022-07-06] MEDS: CITALOPRAM HYDROBROMIDE 20 MG TAB PO SCH (07:46)
[2022-07-06] MEDS: lisinopriL 20 MG TAB PO SCH ×2 (07:47→20:46)
[2022-07-06] MEDS: HYDROcodone/APAP 5-325MG 1 EACH TAB PO PRN (07:49)
--- NOTE | 2022-07-06 10:17 | P.PN ---
Subjective Progress Note Date: 07/06/22 Patient is seen and examined lying in bed. He has a follow-up for right groin hematoma. States he's feeling much better. He is anxious and would like to go home. Wound culture for right second toe came back Pseudomonas aeruginosa, he is currently on IV vancomycin and cefepime. Infectious disease is following. Patient denies any abdominal pain, nausea, vomiting, fever, or chills. States hematoma seems to be getting smaller. States there is no drainage from it at this time. Objective - Vital Signs Vital signs: Vital Signs Temp 98.5 F 07/06/22 07:10 Pulse 50 L 07/06/22 07:10 Resp 17 07/06/22 07:10 BP 166/71 07/06/22 07:10 Pulse Ox 97 07/06/22 07:54 FiO2 Intake & Output 07/05/22 07/06/22 07/06/22 18:59 06:59 18:59 Other: Voiding Method Toilet # Voids 3 3 - Exam General appearance: The patient is alert, oriented, appears in no acute di stress. HET: Head is normocephalic and atraumatic. Neck: Supple. Abdomen: Soft, nontender, nondistended. Extremities: Normal skin color and turgor. Right groin hematoma, area had been marked appears to be smaller in size. Mild tenderness, small area with mild erythema. Right lower extremity edema. Good capillary refill. PT and DP Doppler signal present. Second toe right foot wound without any redness or drainage. Neurological: No focal deficits. Strength and sensation are grossly intact. - Labs CBC & Chem 7: 07/05/22 06:49 07/06/22 04:13 Labs: Abnormal Lab Results - Last 24 Hours (Table) 07/05/22 07/05/22 07/05/22 Range/Units 06:49 06:49 06:49 RBC 3.97 L (4.30-5.90) m/uL Hgb 9.4 L (13.0-17.5) gm/dL Hct 31.7 L (39.0-53.0) % MCV 79.8 L (80.0-100.0) fL MCH 23.6 L (25.0-35.0) pg MCHC 29.6 L (31.0-37.0) g/dL RDW 21.3 H (11.5-15.5) % Lymphocytes # 0.8 L (1.0-4.8) k/uL Sodium 127 L (137-145) mmol/L Chloride 96 L (98-107) mmol/L Creatinine 0.49 L (0.66-1.25) mg/dL Osmolality 265 L (280-301) mosm/kg Total Protein 5.6 L (6.3-8.2) g/dL Albumin 3.2 L (3.5-5.0) g/dL 07/06/22 Range/Units 04:13 RBC (4.30-5.90) m/uL Hgb (13.0-17.5) gm/dL Hct (39.0-53.0) % MCV (80.0-100.0) fL MCH (25.0-35.0) pg MCHC (31.0-37.0) g/dL RDW (11.5-15.5) % Lymphocytes # (1.0-4.8) k/uL Sodium 126 L (137-145) mmol/L Chloride 94 L (98-107) mmol/L Creatinine 0.47 L (0.66-1.25) mg/dL Osmolality (280-301) mosm/kg Total Protein 5.8 L (6.3-8.2) g/dL Albumin (3.5-5.0) g/dL Microbiology - Last 24 Hours (Table) 07/03/22 14:10 Blood Culture - Preliminary Blood 07/03/22 14:04 Blood Culture - Preliminary Blood 07/03/22 14:04 Gram Stain - Final Toe - Right Second Wound Culture - Final Pseudomonas aeruginosa Assessment and Plan Assessment: 1: Postoperative hematoma with evidence of liquefication of the hematoma and subsequent drainage and absorption. 2: Anemia, stable. Plan: No surgical intervention indicated at this time. Continue with symptomatic and supportive care. No physical restrictions. Patient stable for discharge from a vascular surgical standpoint. Await recommendations discharge antibiotics from infectious disease. Thank you for this consultation. The impression and plan of care has been dictated as directed. I performed a history and examination of this patient, discussed the same with the dictator. I agree with the dictator's note ,documented as a scribe. Any additional findings or plans will be noted.
--- NOTE | 2022-07-06 12:48 | P.PN ---
Subjective Progress Note Date: 07/06/22 HISTORY OF PRESENT ILLNESS This is an 82-year-old male with past medical history of peripheral vascular disease, dyslipidemia, ALLERGIC rhinitis, benign prostatic hypertrophy. his beauty advisor is Dr. Boykin. Patient has been hospitalized in and out of the hospital 3 times over the last month initially due to significant anemia for which he did receive blood transfusion underwent gastrointestinal workup that was negative for blood loss, he was seen in consultation by hematology oncology and he was placed on iron infusion along with B12 Injection , patient developed to have a significant blister to the right second toe initially he was seen in consultation by Dr. Santacruz and after that the head and arterial Doppler that showed significant femoral artery disease, he was supposed to come back to have surgical intervention, ended up going to [facility] where he was seen in consultation by Dr. 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 Scott in the office yesterday and the results of which was not red, and the patient was seen in the office by me and he was recommended to go to the ER for evaluation had a CT angiography of the right lower extremity that showed 50% stenosis of the popliteal artery was significant hematoma the right groin area, there is no evidence of deep venous thrombosis, he was admitted to the hospital for possible osteophytes of the right second toe as well as significant hematoma postoperatively, he was seen in consultation by infectious disease as well as by vascular surgery, he was started on IV antibiotic in the form of vancomycin and cefepime. 07/05: Patient is sitting up in bed in no apparent distress, denies any chest pain, shortness breath, he is eager to get out of the hospital, he has no fever or chills at this time, he has been maintained on vancomycin and cefepime, infectious disease and vascular surgery are following, his sodium is drifting down to 127, Hep-Lock his IV, monitor the patient started tomorrow morning, serum as well as he would be done tomorrow morning as well as urine sodium and urine osmolality. 07/06: Patient seen today in followu. Groin mass is smaller and softer. He is followed by ID and vascular surgery. ID is recommending IV antibiotics but patient is not sure that he can manange. However, after discussion, he is in agreement to do home IV abx. This was surgery does not plan for any surgical intervention. Patient has been afebrile, heart rate in the 50s to 70s, blood pressure 166/71, pulse ox 97% on room air. Repeat blood work reveals sodium 126, potassium 4.2, chloride 94, CO2 24, BUN 11 and creatinine 0.74. Liver function tests are within normal limits. Glucose 90. Albumin 3.5. We will ask Dr. East if we can order PICC line with anticipated discharge home tomorrow. REVIEW OF SYSTEMS Constitutional: No fever, no chills, no night sweats. No weight change. No weakness, fatigue or lethargy. No daytime sleepiness. HEENT: No headache. No blurred vision or double vision, no loss of vision. No loss of Hearing, no ringing in the ears, no dizziness. No nasal drainage or congestion. No epistaxis. No sore throat. Lungs: No shortness of breath, cough, no sputum production. No wheezing. Cardiovascular: No chest pain, positive for right lower extremity edema. No pa lpitations. No paroxysmal nocturnal dyspnea. No orthopnea. No lightheadedness or dizziness. No syncopal episodes. Abdominal: No abdominal pain. No nausea, vomiting. No diarrhea. No constipation. No bloody or tarry stools. No loss of appetite. Genitourinary: No dysuria, increased frequency, urgency. No urinary retention. Musculoskeletal: No myalgias. No muscle weakness, no gait dysfunction, no frequent falls. No back pain. No neck pain. Integumentary: There is a wound to the right second toe status post sharp debridement, with osteomyelitis of the right second toe, there is a significant hematoma right groin area with minimal serosanguineous drainage. Neurologic: No aphasia. No facial droop. No change in mentation. No head injury. No headache. No paralysis. No paresthesia. Psychiatric: No depression. No anxiety. No mood swings. Endocrine: No abnormal blood sugars. No weight change. No excessive sweating or thirst. PHYSICAL EXAMINATION Gen: This is an 82-year old male. He is resting in bed appears to be comfortable at rest. HEENT: Head is atraumatic, normocephalic. Pupils equal, round. Sclerae is anicteric. NECK: Supple. No JVD. No lymphadenopathy. No thyromegaly. LUNGS: Clear to auscultation. No wheezes or rhonchi. No intercostal retractions. HEART: First heart sound is depressed , second heart sound is normal there is SIMON 2/6 located at the left sternal border. ABDOMEN: Soft. Bowel sounds are present. No masses. No tenderness, right groin with large hematoma and minimal serosanguinous drainage EXTREMITIES: There is trace edema, no calf tenderness, DP +1 bilaterally, there is right second toe wound post sharp debridement with osteomyelitis NEUROLOGICAL: Patient is awake, alert and oriented x3. Cranial nerves 2 through 12 are grossly intact, muscle power 5/5 in bilateral upper and lower extremities bilaterally ASSESSMENT AND PLAN 1. Right groin hematoma post Right iliofemoral endartrectomy with patch angioplasty . The patient was seen in consultation by vascular surgery was mary mmended to continue conservative management for now, CTA of the right lower extremity did show evidence of 50% stenosis of the right popliteal artery, with significant hematoma of the right groin area and no evidence of pseudoaneurysm, we'll continue to monitor patient's CBC on a regular basis, as per surgery is following. Continue patient on baby aspirin 81 mg once every day, Plavix 75 mg every day. 2. osteomyelitis of the right second toe. Continue vancomycin and cefepime pharmacy to dose peak and trough, infectious disease consultation, cultures were obtained. We will ask Dr. East if a PICC line may be ordered with anticipated discharge home tomorrow. 3. Severe right lower extremity edema without evidence of venous thrombosis on a venous Doppler, this likely related to significant hematoma the right groin area, continue leg elevation, monitor the patient very closely. 4. Peripheral vascular disease. Continue patient on atorvastatin 40 mg daily for secondary prevention. and treatment as in paragraph #1. 5. Dyslipidemia.Continue atorvastatin 40 mg daily we'll keep LDL 55-70. , 6. ALLERGIC rhinitis.Continue Singulair 10 mg at bedtime 7. Benign prostatic hypertrophy.Continue Flomax 0.4 mg at bedtime and Proscar 5 mg daily. 8. COPD. seems to do better at this time 9. Hypertension and hypertensive . Continue lisinopril 20 mg orally and increased twice every day. 10 cardiovascular disease. . Generalized anxiety disorder. Continue citalopram 40 mg daily. 11. GI prophylaxis. Protonix 40 mg orally once every day. 12. DVT prophylaxis. Patient is currently not Lovenox due to his significant hematoma in the right groin 13. Hyponatremia. Check the patient serum osmolality, urine osmole, urine sodium tomorrow morning. Fluid restriction added of 1000 mL per day. Impression and plan of care have been directed as dictated by the signing physician. Nahomi Hair nurse practitioner acting as scribe for signing physician. Objective - Vital Signs Vital signs: Vital Signs Temp 98.5 F 07/06/22 07:10 Pulse 50 L 07/06/22 07:10 Resp 17 07/06/22 07:10 BP 166/71 07/06/22 07:10 Pulse Ox 97 07/06/22 07:54 FiO2 Intake & Output 07/05/22 07/06/22 07/06/22 18:59 06:59 18:59 Other: Voiding Method Toilet # Voids 3 3 2 - Labs CBC & Chem 7: 07/05/22 06:49 07/06/22 04:13 Labs: Abnormal Lab Results - Last 24 Hours (Table) 07/05/22 07/06/22 Range/Units 06:49 04:13 Sodium 126 L (137-145) mmol/L Chloride 94 L (98-107) mmol/L Creatinine 0.47 L (0.66-1.25) mg/dL Osmolality 265 L (280-301) mosm/kg Total Protein 5.8 L (6.3-8.2) g/dL Microbiology - Last 24 Hours (Table) 07/03/22 14:10 Blood Culture - Preliminary Blood 07/03/22 14:04 Blood Culture - Preliminary Blood 07/03/22 14:04 Gram Stain - Final Toe - Right Second Wound Culture - Final Pseudomonas aeruginosa
--- NOTE | 2022-07-06 16:19 | CDI ---
Documentation Clarification Form Date: 07/06/2022 4:00:16 PM From: Geneva Keller RN, CCDS Phone: [phone] Admit Date: 07/03/2022 2:47:00 PM Patient Name: Sean Linn Visit Number: [id number] Discharge Date: ATTENTION: The Clinical Documentation Specialists (CDI) and [facility] Coding Staff appreciate your assistance in clarifying documentation. Please respond to the clarification below the line at the bottom and electronically sign. The CDI & [facility] Coding staff will review the response and follow-up if needed. Please note: Queries are made part of the Legal Health Record. If you have any questions, please contact the author of this message via ITS. Dr. Azra Gregory Osteomyelitis is documented in the ID consult and subsequent progress notes. Additional clarification regarding the cause and acuity of the osteomyelitis is requested. History/Risk Factors: Hypertension, Osteoarthritis, Bilateral common femoral artery occlusion Clinical Indicators: 82-year-old male present with mild to moderate swelling of this right leg. There is erythema extending from the right second toe to above the ankle. there is also some erythema in the left thigh. 07/03 Foot XR: soft tissue swelling and ulceration with osseous erosion of the tip of the second digit consistent with osteomyelitis. 07/03 Labs: WBC 6.4 HGB 9.3 HCT 30.6 07/03 VS: 149/58 75 18 97.6 99% RA Treatment: Vancomycin 1,250 MG IVPB Once then q 12HRS (PTD 07/03- Cefepime 2 gm IVPB Q 8 HRS 07/04-07/06 Please clarify the acuity and etiology of the osteomyelitis, if known: Acuity: [x ] Acute osteomyelitis [ ] Chronic osteomyelitis [ ] Subacute osteomyelitis [ ] Unable to Determine Cause: [ ] Viral (specify organism if know): [ x ] Bacterial (specify organism if know): pseudomonas aeruginosa [ ] Other (please specify): (Template Last Revised: April 2020) MTDD
[2022-07-06] MEDS: ACETAMINOPHEN TAB 500 MG TAB PO SCH (20:46)
[2022-07-06] MEDS: MELATONIN 3 MG TABLET PO SCH (20:46)
[2022-07-06] MEDS: MONTELUKAST 10 MG TAB PO SCH (20:46)
[2022-07-06] MEDS: FINASTERIDE 5 MG TAB PO SCH (20:46)
[2022-07-06] MEDS: HYDROmorphone 0.5 MG/0.5 ML SYRINGE IVP PRN (20:49)
[2022-07-06 22:40] LABS: Basophils # (A) 0.06 X 10*3/uL (0.00-0.10); Basophils % (A) 0.9 %; Eosinophils # (A) 0.09 X 10*3/uL (0.04-0.35); Eosinophils % (A) 1.3 %; HCT 30.4 % (39.6-50.0); HGB 8.9 g/dL (13.0-17.0); Immature Grans, Automated 0.3 %; Lymphocytes # (A) 1.08 X 10*3/uL (0.90-5.00); Lymphocytes % (A) 15.5 %; MCH 22.7 pg (27.0-32.0); MCHC 29.3 g/dL (32.0-37.0); MCV 77.6 fL (80.0-97.0); Mean Platelet Volume 9.2 fL (9.5-12.2); Monocytes # (A) 0.85 X 10*3/uL (0.20-1.00); Monocytes % (A) 12.2 %; NRBC Per 100 WBC 0 /100 WBCS (0.0-0.0); Neutrophils # (A) 4.89 X 10*3/uL (1.80-7.70); Neutrophils % (A) 69.8 %; Platelet Count 400 X 10*3/uL (140-440); RBC 3.92 X 10*6/uL (4.40-5.60); WBC 6.99 X 10*3/uL (4.50-10.00)
[2022-07-07] MEDS: ALBUTEROL NEBULIZED 2.5 MG/3 ML INHALATION SCH ×4 (02:37→19:19)
--- NOTE | 2022-07-07 06:55 | P.PN ---
Subjective Progress Note Date: 07/06/22 Principal diagnosis: Right second toe wound and Osteomyelitis Patient is a 82-year-old male with a past medical history significant for hypertension hyperlipidemia history of prostate disorder patient did have a nonhealing wound to the right second toe and there was concern for bilateral common femoral artery occlusion for the patient did have right iliofemoral thrombotic ectomy and patch angioplasty patient now presenting to the hospital with nonhealing wound to the right second toe and the patient has developed increasing pain and swelling to the right thigh area. On today's evaluation that is 07/06/2022, the patient continues to be afebrile, patient drainage from his right groin has resolved and swelling to the groin area slightly decreased, the patient denies having any chest pain shortness of breath or cough no abdominal pain, the patient swelling and redness of the right thigh has decreased in intensity, no abdominal pain or diarrhea Objective - Vital Signs Vital signs: Vital Signs Temp 98.5 F 07/06/22 07:10 Pulse 50 L 07/06/22 07:10 Resp 17 07/06/22 07:10 BP 166/71 07/06/22 07:10 Pulse Ox 97 07/06/22 07:54 FiO2 Intake & Output 07/05/22 07/06/22 07/06/22 18:59 06:59 18:59 Other: Voiding Method Toilet # Voids 3 3 - Exam GENERAL DESCRIPTION: An elderly male lying in bed in no distress RESPIRATORY SYSTEM: Unlabored breathing , decreased breath sounds at bases HEART: S1 S2 regular rate and rhythm , ABDOMEN: Soft , no tenderness EXTREMITIES: Right thigh swelling and redness slightly decreased - Labs CBC & Chem 7: 07/06/22 04:13 07/06/22 04:13 Labs: Abnormal Lab Results - Last 24 Hours (Table) 07/05/22 07/05/22 07/06/22 Range/Units 06:49 06:49 04:13 RBC 3.97 L (4.30-5.90) m/uL Hgb 9.4 L (13.0-17.5) gm/dL Hct 31.7 L (39.0-53.0) % MCV 79.8 L (80.0-100.0) fL MCH 23.6 L (25.0-35.0) pg MCHC 29.6 L (31.0-37.0) g/dL RDW 21.3 H (11.5-15.5) % Lymphocytes # 0.8 L (1.0-4.8) k/uL Sodium 126 L (137-145) mmol/L Chloride 94 L (98-107) mmol/L Creatinine 0.47 L (0.66-1.25) mg/dL Osmolality 265 L (280-301) mosm/kg Total Protein 5.8 L (6.3-8.2) g/dL Microbiology - Last 24 Hours (Table) 07/03/22 14:10 Blood Culture - Preliminary Blood 07/03/22 14:04 Blood Culture - Preliminary Blood 07/03/22 14:04 Gram Stain - Final Toe - Right Second Wound Culture - Final Pseudomonas aeruginosa Assessment and Plan (1) Cellulitis Current Visit: Yes Status: Acute Code(s): L03.90 - CELLULITIS, UNSPECIFIED SNOMED Code(s): 172784799 (2) Osteomyelitis Current Visit: Yes Status: Acute Code(s): M86.9 - OSTEOMYELITIS, UNSPECIFIED SNOMED Code(s): 12595345 Plan: 1patient with a nonhealing wound to the right second toe now with evidence of bony erosion concerning for osteomyelitis in this patient who did have a history of bilateral common femoral artery occlusion status post iliofemoral thromb ectomy and patch angioplasty and concerning for hematoma involving the right thigh and possible cellulitis. 2-local cultures obtained has been finalized as pseudomonas aeruginosa 3Patient will continue with cefepime up to 2 g every 8 hours , patient needs a PICC line and outpatient IV antibiotic therapy because of the acute Osteomyelitis in his right second toe, however the patient has been refusing outpatient IV antibiotic Therapy, patient seems to be distress treated amputation of the distal phalanx of the right second toe with osteomyelitis is, if that's the case the patient will not need outpatient IV antibiotic this has been discussed with the vascular surgery DINKEY ENGINE OPERATOR, who will discuss with the surgeon for possible amputation Time with Patient: Less than 30
[2022-07-07] MEDS: ATORVASTATIN 40 MG TAB PO SCH (08:03)
[2022-07-07] MEDS: CYANOCOBALAMIN 500 MCG TAB PO SCH (08:03)
[2022-07-07] MEDS: CITALOPRAM HYDROBROMIDE 20 MG TAB PO SCH (08:03)
[2022-07-07] MEDS: lisinopriL 20 MG TAB PO SCH ×2 (08:03→20:08)
[2022-07-07] MEDS: ASPIRIN 81 MG PO SCH (08:03)
[2022-07-07] MEDS: CLOPIDOGREL 75 MG TAB PO SCH (08:03)
[2022-07-07] MEDS: CEFEPIME 2 GM in SODIUM CHLORIDE 0.9% 100 ML IVPB SCH ×2 (08:04→15:37)
[2022-07-07] MEDS ORDERED: LIDOCAINE 1% INJ 10MG/ML (5 ML VIAL-PF) SQ ONE (09:22)
--- NOTE | 2022-07-07 10:05 | P.PN ---
Subjective Progress Note Date: 07/07/22 Patient seen and examined today as a follow-up. Wound culture of right second toe wound came back positive for pseudomonas aeruginosa, patient is scheduled to get PICC line placed today with discharge home on IV antibiotics. He's been afebrile. Objective - Vital Signs Vital signs: Vital Signs Temp 97.8 F 07/07/22 07:28 Pulse 75 07/07/22 07:28 Resp 18 07/07/22 07:28 BP 151/66 07/07/22 07:28 Pulse Ox 99 07/07/22 07:28 FiO2 Intake & Output 07/06/22 07/07/22 07/07/22 18:59 06:59 18:59 Intake Total 720 Balance 720 Intake: Oral 720 Other: Voiding Method Toilet # Voids 4 1 # Bowel Movements 1 - Exam General appearance: The patient is alert, oriented, appears in no acute distress. HET: Head is normocephalic and atraumatic. Neck: Supple. Abdomen: Soft, nontender, nondistended. Extremities: Normal skin color and turgor. Right groin hematoma, with scant to small amount of serosanguineous drainage. No bowel odor. Mild tenderness, no erythema. Right lower extremity edema. Good capillary refill. PT and DP Doppler signal present. Second toe right foot wound without any redness or drainage. Neurological: No focal deficits. Strength and sensation are grossly intact. - Labs CBC & Chem 7: 07/06/22 04:13 07/06/22 04:13 Labs: Abnormal Lab Results - Last 24 Hours (Table) 07/06/22 Range/Units 04:13 RBC 3.92 L (4.40-5.60) X 10*6/uL Hgb 8.9 L (13.0-17.0) g/dL Hct 30.4 L (39.6-50.0) % MCV 77.6 L (80.0-97.0) fL MCH 22.7 L (27.0-32.0) pg MCHC 29.3 L (32.0-37.0) g/dL RDW 24.0 H (11.5-14.5) % MPV 9.2 L (9.5-12.2) fL Microbiology - Last 24 Hours (Table) 07/03/22 14:10 Blood Culture - Preliminary Blood 07/03/22 14:04 Blood Culture - Preliminary Blood Assessment and Plan Assessment: 1: Postoperative hematoma with evidence of liquefication of the hematoma and subsequent drainage and absorption. 2: Anemia, stable. Plan: No surgical intervention indicated at this time. Continue with symptomatic and supportive care. No physical restrictions. Patient stable for discharge from a vascular surgical standpoint. Await recommendations for discharge antibiotics from infectious disease. Patient to follow-up with Dr. Jordan in one week. Thank you for this consultation. The impression and plan of care has been dictated as directed. I performed a history and examination of this patient, discussed the same with the dictator. I agree with the dictator's note ,documented as a scribe. Any additional findings or plans will be noted.
[2022-07-07 11:18] LABS: Anisocytosis Moderate; HCT 30.3 % (39.0-53.0); HGB 9.3 gm/dL (13.0-17.5); Hypochromasia Marked; MCH 24.5 pg (25.0-35.0); MCHC 30.9 g/dL (31.0-37.0); MCV 79.4 fL (80.0-100.0); Mean Platelet Volume 7.9; Microcytosis Moderate; Platelet Count 364 k/uL (150-450); RBC 3.81 m/uL (4.30-5.90); RDW 21.5 % (11.5-15.5); WBC 5.7 k/uL (3.8-10.6)
[2022-07-07 11:32] LABS: ALT 19 U/L (4-49); AST 26 U/L (17-59); African American GFR (CKD) >90 (>60 ml/min/1.73 sqM); Albumin 3.4 g/dL (3.5-5.0); Albumin/Globulin Ratio 1.4; Alkaline Phosphatase 65 U/L (38-126); Anion Gap 6 mmol/L; Blood Urea Nitrogen 11 mg/dL (9-20); Calcium 8.8 mg/dL (8.4-10.2); Carbon Dioxide 27 mmol/L (22-30); Chloride 95 mmol/L (98-107); Globulin 2.4 g/dL; Glucose 86 mg/dL (74-99); Non-African American GFR(CKD) >90 (>60 ml/min/1.73 sqM); Sodium 128 mmol/L (137-145); Total Bilirubin 0.6 mg/dL (0.2-1.3); Total Protein 5.8 g/dL (6.3-8.2)
--- NOTE | 2022-07-07 13:43 | P.DS ---
Providers Date of admission: 07/03/22 14:47 Expected date of discharge: 07/08/22 Attending physician: Azra Gregory Consults: 07/03/22 14:45 Consult Physician Routine Consulting Provider: La Cochran Consult Reason/Comments: Cellulitis and osteomyelitis Do you want consulting provider notified?: Yes Consult Physician Urgent Consulting Provider: Flo Loco Consult Reason/Comments: Postoperative care, evaluate for arterial i nsufficiency Do you want consulting provider notified?: Yes Primary care physician: Azra Gregory Hospital Course: HISTORY OF PRESENT ILLNESS This is an 82-year-old male with past medical history of peripheral vascular disease, dyslipidemia, ALLERGIC rhinitis, benign prostatic hypertrophy. his telephone information supervisor is Dr. Boykin. Patient has been hospitalized in and out of the hospital 3 times over the last month initially due to significant anemia for which he did receive blood transfusion underwent gastrointestinal workup that was negative for blood loss, he was seen in consultation by hematology oncology and he was placed on iron infusion along with B12 Injection , patient developed to have a significant blister to the right second toe initially he was seen in consultation by Dr. Santacruz and after that the head and arterial Doppler that showed significant femoral artery disease, he was supposed to come back to have surgical intervention, ended up going to [facility] where he was seen in consultation by Dr. 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 Scott in the office yesterday and the results of which was not red, and the patient was seen in the office by me and he was recommended to go to the ER for evaluation had a CT angiography of the right lower extremity that showed 50% stenosis of the popliteal artery was significant hematoma the right groin area, there is no evidence of deep venous thrombosis, he was admitted to the hospital for possible osteophytes of the right second toe as well as significant hematoma postoperatively, he was seen in consultation by infectious disease as well as by vascular surgery, he was started on IV antibiotic in the form of vancomycin and cefepime. 07/05: Patient is sitting up in bed in no apparent distress, denies any chest pain, shortness breath, he is eager to get out of the hospital, he has no fever or chills at this time, he has been maintained on vancomycin and cefepime, infectious disease and vascular surgery are following, his sodium is drifting down to 127, Hep-Lock his IV, monitor the patient started tomorrow morning, serum as well as he would be done tomorrow morning as well as urine sodium and urine osmolality. 07/06: Patient seen today in follow up. Groin mass is smaller and softer. He is followed by ID and vascular surgery. ID is recommending IV antibiotics but patient is not sure that he can manange. However, after discussion, he is in agreement to do home IV abx. This was surgery does not plan for any surgical intervention. Patient has been afebrile, heart rate in the 50s to 70s, blood pressure 166/71, pulse ox 97% on room air. Repeat blood work reveals sodium 126, potassium 4.2, chloride 94, CO2 24, BUN 11 and creatinine 0.74. Liver function tests are within normal limits. Glucose 90. Albumin 3.5. We will ask Dr. East if we can order PICC line with anticipated discharge home tomorrow. 07/07: Patient has PICC line in place. We are currently waiting for insurance authorization for antibiotics, cefepime 2 g IV every 8 hours for 6 weeks. Patient remains afebrile, heart rate 75, blood pressure 151/66, pulse ox 99% on room air. Repeat blood work reveals WBC 5.7, hemoglobin 9.3, platelet count 64. Sodium 128, potassium 4.0, chloride 98, CO2 27, BUN 11, creatinine 0.52. Liver function tests are normal. Patient will be discharged home today once all arrangements are completed. 07/08: Unfortunately, the insurance authorization for IV antibiotics at home was not obtained. We are still awaiting this morning for that authorization to be processed. Patient has had no events overnight. He is continued on IV antibiotics managed by Dr. Cochran currently on cefepime only. DISCHARGE DIAGNOSES 1. Right groin hematoma post Right iliofemoral endartrectomy with patch angioplasty . 2. osteomyelitis of the right second toe. 3. Severe right lower extremity edema without evidence of venous thrombosis on a venous Doppler, this likely related to significant hematoma the right groin area. 4. Peripheral vascular disease. 5. Dyslipidemia. 6. ALLERGIC rhinitis. 7. Benign prostatic hypertrophy. 8. COPD. 9. Hypertension and hypertensive cardiovascular disease. 10. Generalized anxiety disorder. 11. Hyponatremia. Discharge plan: Home with [facility], IV antibiotics Greater than 35 minutes was utilized and coordinating patient's discharge. Impression and plan of care have been directed as dictated by the signing physician. Nahomi Hair nurse practitioner acting as scribe for signing physician. Patient Condition at Discharge: Serious Plan - Discharge Summary Discharge Rx Participant: No New Discharge Prescriptions: New lisinopriL [Zestril] 20 mg PO BID #60 tab Cefepime [Maxipime] 2 gm IVPB Q8HR #126 each Continue Montelukast [Singulair] 10 mg PO HS Acetaminophen [Tylenol Extra Strength] 500 mg PO HS HYDROcodone/APAP 5-325MG [[place] 5-325] 1 tab PO Q4HR PRN PRN Reason: Moderate Pain (Scale 4 To 6) Finasteride [Proscar] 5 mg PO HS Atorvastatin [Lipitor] 40 mg PO DAILY Omeprazole 20 mg PO DAILY PRN PRN Reason: Heartburn Albuterol Nebulized [Ventolin Nebulized] 2.5 mg INHALATION RT-Q6H Citalopram Hydrobromide [CeleXA] 40 mg PO DAILY Cyanocobalamin [Vitamin B-12] 1,000 mcg PO DAILY Aspirin 81 mg PO DAILY #30 tab Clopidogrel [Plavix] 75 mg PO DAILY #30 tab Discontinued lisinopriL [Zestril] 20 mg PO DAILY Ibuprofen [Motrin] 800 mg PO Q8H PRN PRN Reason: Fever And/ Or Pain Discharge Medication List Acetaminophen [Tylenol Extra Strength] 500 mg PO HS 03/09/22 [History] Atorvastatin [Lipitor] 40 mg PO DAILY 03/09/22 [History] Finasteride [Proscar] 5 mg PO HS 03/09/22 [History] Montelukast [Singulair] 10 mg PO HS 03/09/22 [History] Omeprazole 20 mg PO DAILY PRN 03/09/22 [History] Albuterol Nebulized [Ventolin Nebulized] 2.5 mg INHALATION RT-Q6H 05/21/22 [History] Citalopram Hydrobromide [CeleXA] 40 mg PO DAILY 05/21/22 [History] Cyanocobalamin [Vitamin B-12] 1,000 mcg PO DAILY 06/23/22 [History] Aspirin 81 mg PO DAILY #30 tab 06/26/22 [Rx] Clopidogrel [Plavix] 75 mg PO DAILY #30 tab 06/26/22 [Rx] HYDROcodone/APAP 5-325MG [[place] 5-325] 1 tab PO Q4HR PRN 07/03/22 [History] Cefepime [Maxipime] 2 gm IVPB Q8HR #126 each 07/07/22 [Rx] lisinopriL [Zestril] 20 mg PO BID #60 tab 07/07/22 [Rx] Follow up Appointment(s)/Referral(s): Azra Gregory MD [Primary Care Provider] - 1 Week (office busy at time discharge. Please call to schedule appointment ) [facility] [NON-STAFF] - As Needed (Please call [facility] at discharge to notify them to come see you in the morning. Your first visit will be on the morning of 07/08/22.) Elo Jordan DO [STAFF PHYSICIAN] - 07/14/22 3:00 pm (With [facility]) [facility] [NON-STAFF] - As Needed ([facility] will deliver the IV antibiotic supplies to your house on the evening of discharge. They will call prior to delivery. ) La Cochran MD [STAFF PHYSICIAN] - 1 Week Discharge Disposition: HOME WITH HOME HEALTH SERVICES
[2022-07-07] MEDS: MELATONIN 3 MG TABLET PO SCH (20:08)
[2022-07-07] MEDS: MONTELUKAST 10 MG TAB PO SCH (20:08)
[2022-07-07] MEDS: FINASTERIDE 5 MG TAB PO SCH (20:08)
[2022-07-07] MEDS: ACETAMINOPHEN TAB 500 MG TAB PO SCH (20:08)
--- NOTE | 2022-07-07 22:00 | P.PN ---
Subjective Progress Note Date: 07/07/22 Principal diagnosis: Right second toe wound and Osteomyelitis Patient is a 82-year-old male with a past medical history significant for hypertension hyperlipidemia history of prostate disorder patient did have a nonhealing wound to the right second toe and there was concern for bilateral common femoral artery occlusion for the patient did have right iliofemoral thrombotic ectomy and patch angioplasty patient now presenting to the hospital with nonhealing wound to the right second toe and the patient has developed increasing pain and swelling to the right thigh area. On today's evaluation that is 07/07/2022, the patient denies having any fever or any chills, no chest pain or shortness of breath or cough no nausea no vomiting no abdominal pain no diarrhea pain and swelling to the right groin has decreased and denies any worsening pain to the right second toe, patient did get a PICC line Objective - Vital Signs Vital signs: Vital Signs Temp 97.8 F 07/07/22 07:28 Pulse 75 07/07/22 07:28 Resp 18 07/07/22 07:28 BP 151/66 07/07/22 07:28 Pulse Ox 99 07/07/22 07:28 FiO2 Intake & Output 07/06/22 07/07/22 07/07/22 18:59 06:59 18:59 Intake Total 720 Balance 720 Intake: Oral 720 Other: Voiding Method Toilet # Voids 4 1 # Bowel Movements 1 - Exam GENERAL DESCRIPTION: An elderly male lying in bed in no distress RESPIRATORY SYSTEM: Unlabored breathing , decreased breath sounds at bases HEART: S1 S2 regular rate and rhythm , ABDOMEN: Soft , no tenderness EXTREMITIES: Right thigh swelling and redness slightly decreased - Labs CBC & Chem 7: 07/07/22 11:05 07/07/22 11:05 Labs: Abnormal Lab Results - Last 24 Hours (Table) 07/06/22 07/07/22 07/07/22 Range/Units 04:13 11:05 11:05 RBC 3.92 L 3.81 L (4.40-5.60) X 10*6/uL Hgb 8.9 L 9.3 L (13.0-17.0) g/dL Hct 30.4 L 30.3 L (39.6-50.0) % MCV 77.6 L 79.4 L (80.0-97.0) fL MCH 22.7 L 24.5 L (27.0-32.0) pg MCHC 29.3 L 30.9 L (32.0-37.0) g/dL RDW 24.0 H 21.5 H (11.5-14.5) % MPV 9.2 L (9.5-12.2) fL Sodium 128 L (137-145) mmol/L Chloride 95 L (98-107) mmol/L Creatinine 0.52 L (0.66-1.25) mg/dL Total Protein 5.8 L (6.3-8.2) g/dL Albumin 3.4 L (3.5-5.0) g/dL Microbiology - Last 24 Hours (Table) 07/03/22 14:10 Blood Culture - Preliminary Blood 07/03/22 14:04 Blood Culture - Preliminary Blood Assessment and Plan (1) Cellulitis Current Visit: Yes Status: Acute Code(s): L03.90 - CELLULITIS, UNSPECIFIED SNOMED Code(s): 336678879 (2) Osteomyelitis Current Visit: Yes Status: Acute Code(s): M86.9 - OSTEOMYELITIS, UNSPECIFIED SNOMED Code(s): 07956627 Plan: 1patient with a nonhealing wound to the right second toe now with evidence of bony erosion concerning for osteomyelitis in this patient who did have a history of bilateral common femoral artery occlusion status post iliofemoral thrombectomy and patch angioplasty and concerning for hematoma involving the right thigh and possible cellulitis. 2-local cultures obtained has been finalized as pseudomonas aeruginosa 3Patient will continue with cefepime up to 2 g every 8 hours , patient needs a PICC line and outpatient IV antibiotic therapy because of the acute Osteomyelitis in his right second toe, After discussion with his primary care physician the patient seem to have agreed for the IV antibiotic therapy PICC line has been placed currently waiting for outpatient IV antibiotic arrangement plan is for cefepime 2 g every 8 hours for 6 weeks and a close outpatient follow -up questions Answered Time with Patient: Less than 30
[2022-07-08] MEDS: CEFEPIME 2 GM in SODIUM CHLORIDE 0.9% 100 ML IVPB SCH ×3 (01:44→16:47)
[2022-07-08] MEDS: ALBUTEROL NEBULIZED 2.5 MG/3 ML INHALATION SCH ×3 (03:20→11:43)
[2022-07-08] MEDS: CITALOPRAM HYDROBROMIDE 20 MG TAB PO SCH (07:53)
[2022-07-08] MEDS: ATORVASTATIN 40 MG TAB PO SCH (07:54)
[2022-07-08] MEDS: CYANOCOBALAMIN 500 MCG TAB PO SCH (07:54)
[2022-07-08] MEDS: lisinopriL 20 MG TAB PO SCH (07:54)
[2022-07-08] MEDS: CLOPIDOGREL 75 MG TAB PO SCH (07:54)
[2022-07-08] MEDS: ASPIRIN 81 MG PO SCH (07:54)
[2022-07-08 08:46] VITALS: RESP 18
--- NOTE | 2022-07-08 09:58 | P.PN ---
Subjective Progress Note Date: 07/08/22 Patient resting comfortably. No acute changes through the night no new complaints. Awaiting on insurance authorization for home IV antibiotics. Objective - Vital Signs Vital signs: Vital Signs Temp 97.7 F 07/08/22 08:03 Pulse 76 07/08/22 08:03 Resp 18 07/08/22 08:03 BP 132/51 07/08/22 08:03 Pulse Ox 99 07/08/22 08:03 FiO2 Intake & Output 07/07/22 07/08/22 07/08/22 18:59 06:59 18:59 Other: # Voids 3 3 - Exam General appearance: The patient is alert, oriented, appears in no acute distress. HET: Head is normocephalic and atraumatic. Neck: Supple. Abdomen: Soft, nontender, nondistended. Extremities: Normal skin color and turgor. Right groin hematoma, with scant to small amount of serosanguineous drainage. No bowel odor. Mild tenderness, no erythema. Right lower extremity edema. Good capillary refill. PT and DP Doppler signal present. Second toe right foot wound without any redness or drainage. Neurological: No focal deficits. Strength and sensation are grossly intact. - Labs CBC & Chem 7: 07/07/22 11:05 07/07/22 11:05 Labs: Abnormal Lab Results - Last 24 Hours (Table) 07/07/22 07/07/22 Range/Units 11:05 11:05 RBC 3.81 L (4.30-5.90) m/uL Hgb 9.3 L (13.0-17.5) gm/dL Hct 30.3 L (39.0-53.0) % MCV 79.4 L (80.0-100.0) fL MCH 24.5 L (25.0-35.0) pg MCHC 30.9 L (31.0-37.0) g/dL RDW 21.5 H (11.5-15.5) % Sodium 128 L (137-145) mmol/L Chloride 95 L (98-107) mmol/L Creatinine 0.52 L (0.66-1.25) mg/dL Total Protein 5.8 L (6.3-8.2) g/dL Albumin 3.4 L (3.5-5.0) g/dL Microbiology - Last 24 Hours (Table) 07/03/22 14:10 Blood Culture - Preliminary Blood 07/03/22 14:04 Blood Culture - Preliminary Blood Assessment and Plan Assessment: 1: Postoperative hematoma with evidence of liquefication of the hematoma and subsequent drainage and absorption. 2: Anemia, stable. Plan: No surgical intervention indicated at this time. Continue with symptomatic and supportive care. No physical restrictions. Patient stable for discharge from a vascular surgical standpoint. Patient to follow-up with Dr. Jordan in one week. We will sign off at this time. Thank you for this consultation. The impression and plan of care has been dictated as directed. Dr. Loco I performed a history and examination of this patient, discussed the same with the dictator. I agree with the dictator's note ,documented as a scribe. Any additional findings or plans will be noted.
--- NOTE | 2022-07-08 11:12 | P.PN ---
Subjective Progress Note Date: 07/07/22 HISTORY OF PRESENT ILLNESS This is an 82-year-old male with past medical history of peripheral vascular disease, dyslipidemia, ALLERGIC rhinitis, benign prostatic hypertrophy. his solution specialist is Dr. Boykin. Patient has been hospitalized in and out of the hospital 3 times over the last month initially due to significant anemia for which he did receive blood transfusion underwent gastrointestinal workup that was negative for blood loss, he was seen in consultation by hematology oncology and he was placed on iron infusion along with B12 Injection , patient developed to have a significant blister to the right second toe initially he was seen in consultation by Dr. Santacruz and after that the head and arterial Doppler that showed significant femoral artery disease, he was supposed to come back to have surgical intervention, ended up going to [facility] where he was seen in consultation by Dr. 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 Scott in the office yesterday and the results of which was not red, and the patient was seen in the office by me and he was recommended to go to the ER for evaluation had a CT angiography of the right lower extremity that showed 50% stenosis of the popliteal artery was significant hematoma the right groin area, there is no evidence of deep venous thrombosis, he was admitted to the hospital for possible osteophytes of the right second toe as well as significant hematoma postoperatively, he was seen in consultation by infectious disease as well as by vascular surgery, he was started on IV antibiotic in the form of vancomycin and cefepime. 07/05: Patient is sitting up in bed in no apparent distress, denies any chest pain, shortness breath, he is eager to get out of the hospital, he has no fever or chills at this time, he has been maintained on vancomycin and cefepime, infectious disease and vascular surgery are following, his sodium is drifting down to 127, Hep-Lock his IV, monitor the patient started tomorrow morning, serum as well as he would be done tomorrow morning as well as urine sodium and urine osmolality. 07/06: Patient seen today in followu. Groin mass is smaller and softer. He is followed by ID and vascular surgery. ID is recommending IV antibiotics but patient is not sure that he can manange. However, after discussion, he is in agreement to do home IV abx. This was surgery does not plan for any surgical intervention. Patient has been afebrile, heart rate in the 50s to 70s, blood pressure 166/71, pulse ox 97% on room air. Repeat blood work reveals sodium 126, potassium 4.2, chloride 94, CO2 24, BUN 11 and creatinine 0.74. Liver function tests are within normal limits. Glucose 90. Albumin 3.5. We will ask Dr. East if we can order PICC line with anticipated discharge home tomorrow. 07/07: Patient has PICC line in place. We are currently waiting for insurance authorization for antibiotics, cefepime 2 g IV every 8 hours for 6 weeks. Patient remains afebrile, heart rate 75, blood pressure 151/66, pulse ox 99% on room air. Repeat blood work reveals WBC 5.7, hemoglobin 9.3, platelet count 64. Sodium 128, potassium 4.0, chloride 98, CO2 27, BUN 11, creatinine 0.52. Liver function tests are normal. Patient will be discharged home today once all arrangements are completed. REVIEW OF SYSTEMS Constitutional: No fever, no chills, no night sweats. No weight change. No weakness, fatigue or lethargy. No daytime sleepiness. HEENT: No headache. No blurred vision or double vision, no loss of vision. No loss of Hearing, no ringing in the ears, no dizziness. No nasal drainage or congestion. No epistaxis. No sore throat. Lungs: No shortness of breath, cough, no sputum production. No wheezing. Cardiovascular: No chest pain, positive for right lower extremity edema. No palpitations. No paroxysmal nocturnal dyspnea. No orthopnea. No lightheadedness or dizziness. No syncopal episodes. Abdominal: No abdominal pain. No nausea, vomiting. No diarrhea. No constipation. No bloody or tarry stools. No loss of appetite. Genitourinary: No dysuria, increased frequency, urgency. No urinary retention. Musculoskeletal: No myalgias. No muscle weakness, no gait dysfunction, no frequent falls. No back pain. No neck pain. Integumentary: There is a wound to the right second toe status post sharp debridement, with osteomyelitis of the right second toe, there is a significant hematoma right groin area with minimal serosanguineous drainage. Neurologic: No aphasia. No facial droop. No change in mentation. No head injury. No headache. No paralysis. No paresthesia. Psychiatric: No depression. No anxiety. No mood swings. Endocrine: No abnormal blood sugars. No weight change. No excessive sweating or thirst. PHYSICAL EXAMINATION Gen: This is an 82-year old male. He is resting in bed appears to be comfortable at rest. HEENT: Head is atraumatic, normocephalic. Pupils equal, round. Sclerae is anicteric. NECK: Supple. No JVD. No lymphadenopathy. No thyromegaly. LUNGS: Clear to auscultation. No wheezes or rhonchi. No intercostal retractions. HEART: First heart sound is depressed , second heart sound is normal there is SIMON 2/6 located at the left sternal border. ABDOMEN: Soft. Bowel sounds are present. No masses. No tenderness, right groin with large hematoma and minimal serosanguinous drainage EXTREMITIES: There is trace edema, no calf tenderness, DP +1 bilaterally, there is right second toe wound post sharp debridement with osteomyelitis. PICC line left arm. NEUROLOGICAL: Patient is awake, alert and oriented x3. Cranial nerves 2 through 12 are grossly intact, muscle power 5/5 in bilateral upper and lower extremities bilaterally ASSESSMENT AND PLAN 1. Right groin hematoma post Right iliofemoral endartrectomy with patch angioplasty . The patient was seen in consultation by vascular surgery was recommended to continue conservative management for now, CTA of the right lower extremity did show evidence of 50% stenosis of the right popliteal artery, with significant hematoma of the right groin area and no evidence of pseudoaneurysm, we'll continue to monitor patient's CBC on a regular basis, as per surgery is following. Continue patient on baby aspirin 81 mg once every day, Plavix 75 mg every day. 2. osteomyelitis of the right second toe. Continue vancomycin and cefepime pharmacy to dose peak and trough, infectious disease consultation, cultures were obtained. We will ask Dr. East if a PICC line may be ordered with anticipated discharge home tomorrow. 3. Severe right lower extremity edema without evidence of venous thrombosis on a venous Doppler, this likely related to significant hematoma the right groin area, continue leg elevation, monitor the patient very closely. 4. Peripheral vascular disease. Continue patient on atorvastatin 40 mg daily for secondary prevention. and treatment as in paragraph #1. 5. Dyslipidemia.Continue atorvastatin 40 mg daily we'll keep LDL 55-70. , 6. ALLERGIC rhinitis.Continue Singulair 10 mg at bedtime 7. Benign prostatic hypertrophy.Continue Flomax 0.4 mg at bedtime and Proscar 5 mg daily. 8. COPD. seems to do better at this time 9. Hypertension and hypertensive . Continue lisinopril 20 mg orally and increased twice every day. 10 cardiovascular disease. . Generalized anxiety disorder. Continue citalopram 40 mg daily. 11. GI prophylaxis. Protonix 40 mg orally once every day. 12. DVT prophylaxis. Patient is currently not Lovenox due to his significant hematoma in the right groin 13. Hyponatremia. Continue to monitor. Fluid restriction added of 1000 mL per day. Impression and plan of care have been directed as dictated by the signing physician. Nahomi Hair nurse practitioner acting as scribe for signing physician. Objective - Vital Signs Vital signs: Vital Signs Temp 97.7 F 07/08/22 08:03 Pulse 76 07/08/22 08:03 Resp 18 07/08/22 08:03 BP 132/51 07/08/22 08:03 Pulse Ox 99 07/08/22 08:03 FiO2 Intake & Output 07/07/22 07/08/22 07/08/22 18:59 06:59 18:59 Other: # Voids 3 3 - Labs CBC & Chem 7: 07/07/22 11:05 07/07/22 11:05 Labs: Abnormal Lab Results - Last 24 Hours (Table) 07/07/22 07/07/22 Range/Units 11:05 11:05 RBC 3.81 L (4.30-5.90) m/uL Hgb 9.3 L (13.0-17.5) gm/dL Hct 30.3 L (39.0-53.0) % MCV 79.4 L (80.0-100.0) fL MCH 24.5 L (25.0-35.0) pg MCHC 30.9 L (31.0-37.0) g/dL RDW 21.5 H (11.5-15.5) % Sodium 128 L (137-145) mmol/L Chloride 95 L (98-107) mmol/L Creatinine 0.52 L (0.66-1.25) mg/dL Total Protein 5.8 L (6.3-8.2) g/dL Albumin 3.4 L (3.5-5.0) g/dL Microbiology - Last 24 Hours (Table) 07/03/22 14:10 Blood Culture - Preliminary Blood 07/03/22 14:04 Blood Culture - Preliminary Blood
[2022-07-08 11:50] LABS: African American GFR (CKD) >90 (>60 ml/min/1.73 sqM); Anion Gap 7 mmol/L; Blood Urea Nitrogen 14 mg/dL (9-20); Calcium 8.8 mg/dL (8.4-10.2); Carbon Dioxide 27 mmol/L (22-30); Chloride 93 mmol/L (98-107); Glucose 83 mg/dL (74-99); Non-African American GFR(CKD) >90 (>60 ml/min/1.73 sqM); Potassium 4.1 mmol/L (3.5-5.1); Sodium 127 mmol/L (137-145)
--- NOTE | 2022-07-08 14:19 | P.PN ---
Subjective Progress Note Date: 07/08/22 Principal diagnosis: Right second toe wound and Osteomyelitis Patient is a 82-year-old male with a past medical history significant for hypertension hyperlipidemia history of prostate disorder patient did have a nonhealing wound to the right second toe and there was concern for bilateral common femoral artery occlusion for the patient did have right iliofemoral thrombotic ectomy and patch angioplasty patient now presenting to the hospital with nonhealing wound to the right second toe and the patient has developed increasing pain and swelling to the right thigh area. On today's evaluation that is 07/08/2022, the patient remains to be stable, the patient denies having any chest pain or shortness of breath or cough no nausea no vomiting no abdominal pain no diarrhea pain and swelling to the right groin has decreased and denies any worsening pain to the right second toe, patient did get a PICC line for outpatient IV antibiotic therapy Objective - Vital Signs Vital signs: Vital Signs Temp 97.7 F 07/08/22 08:03 Pulse 76 07/08/22 08:03 Resp 18 07/08/22 08:03 BP 132/51 07/08/22 08:03 Pulse Ox 99 07/08/22 08:03 FiO2 Intake & Output 07/07/22 07/08/22 07/08/22 18:59 06:59 18:59 Other: # Voids 3 3 - Exam GENERAL DESCRIPTION: An elderly male lying in bed in no distress RESPIRATORY SYSTEM: Unlabored breathing , decreased breath sounds at bases HEART: S1 S2 regular rate and rhythm , ABDOMEN: Soft , no tenderness EXTREMITIES: Right thigh swelling and redness slightly decreased - Labs CBC & Chem 7: 07/07/22 11:05 07/08/22 11:26 Labs: Abnormal Lab Results - Last 24 Hours (Table) 07/07/22 Range/Units 11:05 Sodium 128 L (137-145) mmol/L Chloride 95 L (98-107) mmol/L Creatinine 0.52 L (0.66-1.25) mg/dL Total Protein 5.8 L (6.3-8.2) g/dL Albumin 3.4 L (3.5-5.0) g/dL Microbiology - Last 24 Hours (Table) 07/03/22 14:10 Blood Culture - Preliminary Blood 07/03/22 14:04 Blood Culture - Preliminary Blood Assessment and Plan (1) Cellulitis Current Visit: Yes Status: Acute Code(s): L03.90 - CELLULITIS, UNSPECIFIED SNOMED Code(s): 856656548 (2) Osteomyelitis Current Visit: Yes Status: Acute Code(s): M86.9 - OSTEOMYELITIS, UNSPECIFIED SNOMED Code(s): 02845448 Plan: 1patient with a nonhealing wound to the right second toe now with evidence of bony erosion concerning for osteomyelitis in this patient who did have a history of bilateral common femoral artery occlusion status post iliofemoral thrombectomy and patch angioplasty and concerning for hematoma involving the ri ght thigh and possible cellulitis. 2-local cultures obtained has been finalized as pseudomonas aeruginosa 3Patient will continue with cefepime up to 2 g every 8 hours , patient needs a PICC line and outpatient IV antibiotic therapy because of the acute Osteomyelitis in his right second toe, After discussion with his primary care physician the patient seem to have agreed for the IV antibiotic therapy PICC line has been placed and authorization has been obtained for outpatient IV cefepime which will be continued for 6 weeks along with weekly CRP and a sed rate and a close patient follow-up Time with Patient: Less than 30
[2022-07-08 14:36] VITALS: BP 160/72; PULSE 66; TEMP 97.6
== END 2022-07-08 17:16 | disposition home health service (06) | DRG 920 ==
LOC: EC 12:13 → 4SSUR 14:47
PROVIDERS: ADMIT Internal Medicine; ATTEND Internal Medicine
PROC: 02HV33Z Insertion of Infusion Device into Superior Vena Cava, Percutaneous Approach (ICD-10-PCS; principal; 2022-07-07 10:00)
DX: I97.638 Postprocedural hematoma of a circulatory system organ or structure following other circulatory system procedure (principal); E87.1 Hypo-osmolality and hyponatremia; M86.171 Other acute osteomyelitis, right ankle and foot; L97.412 Non-pressure chronic ulcer of right heel and midfoot with fat layer exposed; L03.115 Cellulitis of right lower limb; Z16.24 Resistance to multiple antibiotics; L97.512 Non-pressure chronic ulcer of other part of right foot with fat layer exposed; E11.628 Type 2 diabetes mellitus with other skin complications; I11.9 Hypertensive heart disease without heart failure; E11.69 Type 2 diabetes mellitus with other specified complication; E11.51 Type 2 diabetes mellitus with diabetic peripheral angiopathy without gangrene; E11.621 Type 2 diabetes mellitus with foot ulcer; I70.203 Unspecified atherosclerosis of native arteries of extremities, bilateral legs; J44.9 Chronic obstructive pulmonary disease, unspecified; D64.9 Anemia, unspecified; N40.0 Benign prostatic hyperplasia without lower urinary tract symptoms; G47.33 Obstructive sleep apnea (adult) (pediatric); G89.29 Other chronic pain; E78.5 Hyperlipidemia, unspecified; B96.5 Pseudomonas (aeruginosa) (mallei) (pseudomallei) as the cause of diseases classified elsewhere; S30.1XXA Contusion of abdominal wall, initial encounter; M25.774 Osteophyte, right foot; J30.9 Allergic rhinitis, unspecified; I25.10 Atherosclerotic heart disease of native coronary artery without angina pectoris; R60.0 Localized edema; F41.1 Generalized anxiety disorder; M54.2 Cervicalgia; Y83.2 Surgical operation with anastomosis, bypass or graft as the cause of abnormal reaction of the patient, or of later complication, without mention of misadventure at the time of the procedure; Z87.891 Personal history of nicotine dependence; Z87.19 Personal history of other diseases of the digestive system; Z79.899 Other long term (current) drug therapy; Z79.82 Long term (current) use of aspirin; Z79.02 Long term (current) use of antithrombotics/antiplatelets; Z79.1 Long term (current) use of non-steroidal anti-inflammatories (NSAID)
CPT/HCPCS: 36415; 36573; 80048; 80053; 80202; 83605; 83930; 83935; 84300; 85025; 85027; 85610; 85652; 85730; 86140; 86850; 86900; 86901; 87040; 87070; 87077; 87186; 87205; 93005; 93975; 94760; 96365; 96375; 99285

== ENCOUNTER → 2022-07-15 | Outpatient (CLI) | payer MEDICARE ==
[2022-07-15 13:07] LABS: African American GFR (CKD) >90 (>60 ml/min/1.73 sqM); Blood Urea Nitrogen 14 mg/dL (9-20); Non-African American GFR(CKD) >90 (>60 ml/min/1.73 sqM)
--- NOTE | 2022-07-15 15:59 | CT ---
EXAMINATION TYPE: CT angio abdomen pelvis DATE OF EXAM: 07/15/2022 COMPARISON: Most recent CTA July 03, 2022 and ultrasound same date HISTORY: RT groin swelling after arterial procedure CT DLP: 619.6 mGycm, Automated Exposure Control for Dose Reduction was Utilized. CONTRAST: CTA scan of the abdomen and pelvis is performed without oral and without and with IV Contrast, patien t injected with 100 mL of Isovue 370. Three-D reconstructed images were created on an independent wor kstation and reviewed. FINDINGS: Vascular: Moderate peripheral mixed plaque in the aorta extends into branch vessels. Patent celiac ar marti and SMA along with 2 renal arteries bilaterally and IRENA. No significant stenosis. No AAA. Modera te mixed plaque in the common iliac arteries bilaterally without significant stenosis. There is signi ficant narrowing suspected complete occlusion of a short segment in the left groin region distal comm on femoral artery extending into the superficial and profunda femoris branches with some reconstituti on. Surrounding the right common femoral artery extending into the superficial femoral artery there i s persistent thin-walled focal fluid collection in the anterior right fibroid measuring 8.1 x 7.3 cm axial image 2 31 x 11.8 cm craniocaudal dimension coronal image 60 fairly similar in size to most rec ent CT. Slight focal prominence to the right common femoral artery is redemonstrated. More hyperdense blood seen inferiorly on prior study is significantly improved on current study LUNG BASES: Coronary artery calcifications and/or stents are identified. Additional calcification at level of the aortic and the mitral valve is noted. LIVER/GB: Tiny dependent gallstones and/or gallbladder sludge. PANCREAS: No significant abnormality is seen. SPLEEN: No significant abnormality is seen. ADRENALS: No significant abnormality is seen. KIDNEYS: No significant abnormality is seen. BOWEL: No significant abnormality is seen. PROSTATE/SEMINAL VESICLES: Prostate gland measures upper limits of normal in size. LYMPH NODES: No greater than 1cm abdominal or pelvic lymph nodes are appreciated. OSSEOUS STRUCTURES: Slight scoliotic curvature. Multilevel disc space narrowing and vacuum disc pheno matilde with most prominent disc space narrowing noted at L1-L2 level. Multilevel facet arthropathy. OTHER: No significant additional abnormality is seen. IMPRESSION: Stable in size 11.8 cm thin-walled fluid collection in the anterior right groin favoring large hematoma.
== END | disposition home or self-care (01) ==
LOC: RADCTMAIN 12:07
PROVIDERS: ATTEND Surgery
DX: R19.09 Other intra-abdominal and pelvic swelling, mass and lump (principal)
CPT/HCPCS: 82565; 84520; 36415; 74174; Q9967

== ENCOUNTER 2022-08-03 11:55 | Emergency (ER) | payer MEDICARE ==
[2022-08-03 12:33] VITALS: RESP 18; TEMP 98.4
--- NOTE | 2022-08-03 13:02 | ED ---
General Adult HPI - General Chief complaint: Recheck/Abnormal Lab/Rx Stated complaint: rt leg wound Time Seen by Provider: 08/03/22 12:37 Source: patient Mode of arrival: ambulatory Limitations: no limitations - History of Present Illness Initial comments: Dictation was produced using [employer] dictation software. please excuse any grammatical, word or spelling errors. Chief Complaint: 82-year-old male presents emergency department for concerns of osteomyelitis History of Present Illness: Is an 82-year-old male who was visited at home by home health care visiting nurses. They were concerned that patient was having osteomyelitis to one of his toes. Patient has had worsening redness and swelling to the right lower extremity. Does have a history of peripheral vascular disease which was intervened on by one of our vascular surgeons. The patient be worried about him having osteomyelitis and that he should come to the ER for further evaluation. Patient denies any fever or constitutional symptoms. If redness of breath and chest pain. Denies any pain to his right lower extremity. The ROS documented in this emergency department record has been reviewed and confirmed by me. Those systems with pertinent positive or negative responses have been documented in the HPI. All other systems are other negative and/or noncontributory. - Related Data Home Medications Medication Instructions Recorded Confirmed Acetaminophen [Tylenol Extra 500 mg PO HS 03/09/22 08/03/22 Strength] Atorvastatin [Lipitor] 40 mg PO DAILY 03/09/22 08/03/22 Finasteride [Proscar] 5 mg PO HS 03/09/22 08/03/22 Montelukast [Singulair] 10 mg PO HS 03/09/22 08/03/22 Omeprazole 20 mg PO DAILY PRN 03/09/22 08/03/22 Albuterol Nebulized [Ventolin 2.5 mg INHALATION RT-Q6H 05/21/22 08/03/22 Nebulized] Citalopram Hydrobromide [CeleXA] 40 mg PO DAILY 05/21/22 08/03/22 Cyanocobalamin [Vitamin B-12] 1,000 mcg PO DAILY 06/23/22 08/03/22 HYDROcodone/APAP 5-325MG [[place] 1 tab PO Q4HR PRN 07/03/22 08/03/22 5-325] Cephalexin [Keflex] 500 mg PO TID 08/03/22 08/03/22 Previous Rx's Medication Instructions Recorded Aspirin 81 mg PO DAILY #30 tab 06/26/22 Clopidogrel [Plavix] 75 mg PO DAILY #30 tab 06/26/22 Cefepime [Maxipime] 2 gm IVPB Q8HR #126 each 07/07/22 lisinopriL [Zestril] 20 mg PO BID #60 tab 07/07/22 Allergies Allergy/AdvReac Type Severity Reaction Status Date / Time No Known Allergies Allergy Verified 08/03/22 14:20 Review of Systems ROS Statement: Those systems with pertinent positive or pertinent negative responses have been documented in the HPI. ROS Other: All systems not noted in ROS Statement are negative. Past Medical History Past Medical History: GERD/Reflux, Hyperlipidemia, Hypertension, Osteoarthritis (OA), Prostate Disorder, Skin Disorder, Sleep Apnea/CPAP/BIPAP, Vascular Disorder Additional Past Medical History / Comment(s): 06/03/22 admitted to [facility] with R 2nd toe infection/ulcer/R foot cellulitis/hyponatremia, bilateral common femoral artery occlusion, anemia, gastritis, hiatal hernia, diverticular disease, [place] years ago/sx fixed, chronic neck pain/better now, BPH, back skin issues/uses special soap. History of Any Multi-Drug Resistant Organisms: None Reported, Unobtainable Past Surgical History: Tonsillectomy Additional Past Surgical History / Comment(s): Ct angiogram with bilateral runoff, cervical epidural pain procedures , eye surgery x 3 to remove member over retina, EGD, colonoscopies, R leg Past Anesthesia/Blood Transfusion Reactions: No Reported Reaction Additional Past Anesthesia/Blood Transfusion Reaction / Comment(s): Pt received blood without reaction. Currently receiving B-12 injections. Past Psychological History: No Psychological Hx Reported Smoking Status: Former smoker Past Alcohol Use History: None Reported Past Drug Use History: None Reported - Past Family History Father Family Medical History: Cancer Additional Family Medical History / Comment(s): Lived to be 80yrs old. Mother Family Medical History: Dementia General Exam - General Exam Comments Initial Comments: PHYSICAL EXAM: General Impression: Alert and oriented x3, not in acute distress HEENT: Normocephalic atraumatic, extra-ocular movements intact, pupils equal and reactive to light bilaterally, mucous membranes moist. Cardiovascular: Heart regular rate and rhythm Chest: Able to complete full sentences, no retractions, no tachypnea Abdomen: abdomen soft, non-tender, non-distended, no organomegaly Motor: no focal deficits noted Neurological: CN II-XII grossly intact, no focal motor or sensory deficits noted Skin: Intact with no visualized rashes Psych: Normal affect and mood Right lower extremity : there has been to be some lymphedema and pitting edema. Second toe shows some ulcer to the medial surface with some drainage, no tracking wound to the bone Limitations: no limitations Course Vital Signs 08/03/22 12:30 Temperature 98.4 F Pulse Rate 67 Respiratory 18 Rate Blood Pressure 130/51 O2 Sat by Pulse 99 Oximetry - Reevaluation(s) Reevaluation #1: 08/03/22 13:51 Clinical presentation and imaging studies was discussed with Dr. Gregory. States that patient is currently being treated outpatient process of myelitis. Pulse closely with infectious disease, Dr. Cochran. Reevaluation #2: 08/03/22 14:28 More history was obtained from patient. Patient states currently on antibiotics. He is supposed to be getting IV antibiotics 3 times a day. States that his PICC line has not been working very well. He has not received antibiotics for the last 2 days because PICC line doesn't seem to be working. Reevaluation #3: 08/03/22 16:28 Patient is given Flow with resolution of PICC line malfunction patient given a dose of cefepime. Case discussed with Dr. Gregory was agreeable discharge Medical Decision Making - Medical Decision Making Was pt. sent in by a medical professional or institution (, PA, PASTRY COOK APPRENTICE, urgent care, hospital, or group home...) When possible be specific @ -Instructed to come to the ER from home visiting nurse Did you speak to anyone other than the patient for history (EMS, parent, family, police, friend...)? What history was obtained from this source @ -Clinical presentation discussed with Dr. Gregory Did you review nursing and triage notes (agree or disagree)? Why? @ -I reviewed and agree with nursing and triage notes Were old charts reviewed (outside hosp., previous admission, EMS record, old EKG, old radiological studies, urgent care reports/EKG's, group home records)? Report findings @ -No old charts were reviewed Differential Diagnosis (chest pain, altered mental status, abdominal pain women, abdominal pain men, vaginal bleeding, musculoskeletal, weakness, fever, dyspnea, syncope, headache, dizziness, GI bleed, back pain, seizure, CVA, palpatations, mental health)? @ -Not applicable EKG interpreted by me (3pts min.). @ -None done X-rays interpreted by me (1pt min.). @ -Foot x-ray shows stable osteomyelitis to the second toe on the right foot CT interpreted by me (1pt min.). @ -None done U/S interpreted by me (1pt. min.). @ -None done What testing was considered but not performed or refused? (CT, X-rays, U/S, labs)? Why? @ -None What meds were considered but not given or refused? Why? @ -None Did you discuss the management of the patient with other professionals (professionals i.e. , PA, PASTRY COOK APPRENTICE, lab, RT, psych nurse, social services analyst, pricer, teacher, chief talent officer, shoe caser)? Give summary @ -Case discussed with Dr. Gregory as mentioned above Was smoking cessation discussed for >3mins.? @ -No Was critical care preformed (if so, how long)? @ -No Were there social determinants of health that impacted care today? How? (Homelessness, low income, unemployed, alcoholism, drug addiction, transportation, low edu. Level, literacy, decrease access to med. care, care home, rehab)? @ -No Was there de-escalation of care discussed even if they declined (Discuss DNR or withdrawal of care, Hospice)? DNR status @ -No What co-morbidities impacted this encounter? (DM, HTN, Smoking, COPD, CAD, Cancer, CVA, ARF, Chemo, Hep., AIDS, mental health diagnosis, sleep apnea, morbid obesity)? @ -None Was patient admitted / discharged? Hospital course, mention meds given and route, prescriptions, significant lab abnormalities, going to OR and other pertinent info. @ -82 Year-old male presents emergency department for PICC line malfunction. He is a poor historian. Has not received his cefepime medication over the last 2 days. States that it's because his PICC line has not been functioning very well. Patient is limited historian however more history was obtained states that he hasn't been getting his medications because his PICC line has not been functioning well. PICC line malfunction was resolved with cath flow. Patient given doses of pain. Patient stable for discharge. Patient has mild hyponatremia. Told to follow up with his primary care doctor regarding sodium 127. Undiagnosed new problem with uncertain prognosis? @ -No Drug Therapy requiring intensive monitoring for toxicity (Heparin, Nitro, Insulin, Cardizem)? @ -No Were any procedures done? @ -No Diagnosis/symptom? Acute, or Chronic, or Acute on Chronic? Uncomplicated (without systemic symptoms) or Complicated (systemic symptoms)? @ -PICC line malfunction Side effects of treatment? @ -No Exacerbation, Progression, or Severe Exacerbation? @ -No Poses a threat to life or bodily function? How? (Chest pain, [place], [place], pneumonia, PE, COPD, DKA, ARF, appy, cholecystitis, CVA, Diverticulitis, Homicidal, Suicidal, threat to staff... and all critical care pts) @ -yes - Lab Data Result diagrams: 08/03/22 13:32 08/03/22 13:32 Lab Results 08/03/22 08/03/22 Range/Units 13:32 13:32 WBC 5.3 (3.8-10.6) k/uL RBC 3.76 L (4.30-5.90) m/uL Hgb 9.0 L (13.0-17.5) gm/dL Hct 29.2 L (39.0-53.0) % MCV 77.7 L (80.0-100.0) fL MCH 24.0 L (25.0-35.0) pg MCHC 30.8 L (31.0-37.0) g/dL RDW 19.6 H (11.5-15.5) % Plt Count 293 (150-450) k/uL MPV 7.5 Neutrophils % 77 % Lymphocytes % 12 % Monocytes % 8 % Eosinophils % 1 % Basophils % 0 % Neutrophils # 4.0 (1.3-7.7) k/uL Lymphocytes # 0.6 L (1.0-4.8) k/uL Monocytes # 0.4 (0-1.0) k/uL Eosinophils # 0.0 (0-0.7) k/uL Basophils # 0.0 (0-0.2) k/uL Hypochromasia Marked Anisocytosis Slight Microcytosis Moderate ESR 18 H (0-15) mm/hr Sodium 126 L (137-145) mmol/L Potassium 4.7 (3.5-5.1) mmol/L Chloride 95 L (98-107) mmol/L Carbon Dioxide 24 (22-30) mmol/L Anion Gap 7 mmol/L BUN 17 (9-20) mg/dL Creatinine 0.46 L (0.66-1.25) mg/dL Est GFR (CKD-EPI)AfAm >90 (>60 ml/min/1.73 sqM) Est GFR (CKD-EPI)NonAf >90 (>60 ml/min/1.73 sqM) Glucose 80 (74-99) mg/dL Calcium 8.6 (8.4-10.2) mg/dL C-Reactive Protein 1.0 H (<1.0) mg/dL Disposition Clinical Impression: Occluded PICC line, Hyponatremia Disposition: HOME SELF-CARE Condition: Fair Is patient prescribed a controlled substance at d/c from ED?: No Referrals: Azra Gregory MD [Primary Care Provider] - 1-2 days Time of Disposition: 16:35
[2022-08-03 13:41] LABS: Anisocytosis Slight; Basophils % (A) 0 %; Eosinophils % (A) 1 %; HCT 29.2 % (39.0-53.0); Hypochromasia Marked; Lymphocytes # (A) 0.6 k/uL (1.0-4.8); Lymphocytes % (A) 12 %; MCHC 30.8 g/dL (31.0-37.0); MCV 77.7 fL (80.0-100.0); Mean Platelet Volume 7.5; Microcytosis Moderate; Monocytes # (A) 0.4 k/uL (0-1.0); Monocytes % (A) 8 %; Neutrophils % (A) 77 %; Platelet Count 293 k/uL (150-450); RBC 3.76 m/uL (4.30-5.90); RDW 19.6 % (11.5-15.5); WBC 5.3 k/uL (3.8-10.6)
--- NOTE | 2022-08-03 13:42 | XR ---
EXAMINATION TYPE: XR foot complete RT DATE OF EXAM: 08/03/2022 COMPARISON: 07/03/2022 HISTORY: Swelling TECHNIQUE: Three views are submitted. FINDINGS: The osseous structures are intact. There is no acute fracture or dislocation. Complete loss of bisi nt space for PE with valgus deformity. Diffuse. Resorption of the tuft of the distal phalanx of the s econd digit. Soft tissue edema in this region noted with probable ulceration. Vascular calcifications noted. IMPRESSION: 1. Stable resorption of the tuft distal phalanx second digit adjacent to soft tissue edema and possib le ulcer compatible with osteomyelitis. 2. Severe first digit MTP arthropathy with complete loss of joint space
[2022-08-03] MEDS ORDERED: VANCOMYCIN IV PER PHARMACY 1 EACH MISC MISCELLANE PRN (13:46)
[2022-08-03] MEDS ORDERED: PIPERACILLIN-TAZOBACTAM 3.375 GM in SODIUM CHLORIDE 0.9% 100 ML IVPB STA (13:49)
[2022-08-03 14:02] LABS: African American GFR (CKD) >90 (>60 ml/min/1.73 sqM); Anion Gap 7 mmol/L; Blood Urea Nitrogen 17 mg/dL (9-20); Calcium 8.6 mg/dL (8.4-10.2); Carbon Dioxide 24 mmol/L (22-30); Chloride 95 mmol/L (98-107); Glucose 80 mg/dL (74-99); Non-African American GFR(CKD) >90 (>60 ml/min/1.73 sqM); Potassium 4.7 mmol/L (3.5-5.1); Sodium 126 mmol/L (137-145)
[2022-08-03] MEDS ORDERED: CEFEPIME 2 GM in SODIUM CHLORIDE 0.9% 100 ML IVPB STA (14:27)
--- NOTE | 2022-08-03 14:27 | P.HPIM ---
History of Present Illness H&P Date: 08/03/22 HISTORY OF PRESENT ILLNESS This is an 82-year-old male with past medical history of peripheral vascular disease, dyslipidemia, ALLERGIC rhinitis, benign prostatic hypertrophy. This spring, patient had anemia who was hospitalized 3 times for significant anemia and did receive blood transfusion and GI workup which was negative for blood loss, seen by oncology and started on iron infusion and B12 injections. He had a blister that formed on the right second toe initially seen by Dr. Santacruz and arterial Doppler showed femoral artery disease. He came back to the hospital with Dr. Jordan and had a CT Patient wangiography of the aorta with runoff and found significant femoral artery disease and the patient return to the hospital on June 25 underwent a right iliofemoral antrectomy with patch angioplasty. Patient was discharged home and when he followed up in the office he was found to have significant swelling and hematoma to the right groin area and was recommended to go to the emergency center for admission. Patient was seen by vascular surgery and by infectious disease treated with IV antibiotics at the time of discharge, patient had a PICC line placed and he was discharged home with outpatient IV antibiotics. He now returns to the emergency department as advised by his home care nurse with concern for osteomyelitis of his toes with worsening redness and swelling of the right lower extremity. Patient was found to be afebrile, heart rate 67, blood pressure 130/50 with a pulse ox 99% on room air. WBC 5.3, hemoglobin 9, platelet count 293. Sodium 126, potassium 4.7, chloride 95, CO2 24, BUN 17 and creatinine 0.45. X-ray right foot reveals stable resorption of the tuft distal phalanx second digit adjacent to soft tissue edema and possible ulcer compatible with osteomyelitis. Severe first digit MTP arthropathy with complete loss of joint space Patient is status post Zosyn and vancomycin. Patient will be admitted to the [facility] floor, consult with ID and vascular surgery. REVIEW OF SYSTEMS Constitutional: No fever, no chills, no night sweats. No weight change. No weakness, fatigue or lethargy. No daytime sleepiness. HEENT: No headache. No blurred vision or double vision, no loss of vision. No loss of Hearing, no ringing in the ears, no dizziness. No nasal drainage or congestion. No epistaxis. No sore throat. Lungs: No shortness of breath, cough, no sputum production. No wheezing. Cardiovascular: No chest pain, positive for right lower extremity edema. No palpitations. No paroxysmal nocturnal dyspnea. No orthopnea. No lightheadedness or dizziness. No syncopal episodes. Abdominal: No abdominal pain. No nausea, vomiting. No diarrhea. No constipation. No bloody or tarry stools. No loss of appetite. Genitourinary: No dysuria, increased frequency, urgency. No urinary retention. Musculoskeletal: No myalgias. No muscle weakness, no gait dysfunction, no frequent falls. No back pain. No neck pain. Integumentary: There is a wound to the right second toe with osteomyelitis. Neurologic: No aphasia. No facial droop. No change in mentation. No head injury. No headache. No paralysis. No paresthesia. Psychiatric: No depression. No anxiety. No mood swings. Endocrine: No abnormal blood sugars. No weight change. No excessive sweating or thirst. No cold intolerance. MEDICAL HISTORY Peripheral vascular disease Dyslipidemia ALLERGIC rhinitis Benign prostatic hypertrophy Anemia. SURGICAL HISTORY Right inguinal hernia repair 05/2020 Tonsillectomy Breast cyst removal Bilateral retinal membranes removal Colonoscopy 2017 UPPP Lateral cataracts. Right iliofemoral endarterectomy with patch angioplasty SOCIAL HISTORY Patient was a smoker for greater than 20 years at 1 pack per day starting at age 17 and quit 40 years ago. He drinks alcohol 4 times per week 1-2 drinks at a time. Patient lives at home with his . FAMILY HISTORY Father at age 87 from lung cancer. Mother at age 82 from dementia. Patient has 1 brother that at age 75 from liver cancer. Patient has 2 sons with no major medical problems.. PHYSICAL EXAMINATION Gen: This is an 82-year old male. He is resting in bed appears to be comfortable at rest. HEENT: Head is atraumatic, normocephalic. Pupils equal, round. Sclerae is anicteric. NECK: Supple. No JVD. No lymphadenopathy. No thyromegaly. LUNGS: Clear to auscultation. No wheezes or rhonchi. No intercostal retraction s. HEART: First heart sound is depressed , second heart sound is normal there is SIMON 2/6 located at the left sternal border. ABDOMEN: Soft. Bowel sounds are present. No masses. No tenderness. EXTREMITIES: There is edema to the right lower extremity, no calf tenderness, DP +1 bilaterally, there is right second toe wound with osteomyelitis NEUROLOGICAL: Patient is awake, alert and oriented x3. Cranial nerves 2 through 12 are grossly intact, muscle power 5/5 in bilateral upper and lower extremities bilaterally ASSESSMENT AND PLAN 1. Right Osteomyelitis right foot. Patient has been started on Zosyn and vancomycin, consult with infectious disease and vascular surgery. Admit patient to [facility] floor. 2. Recent right iliofemoral endartrectomy with patch angioplasty with hematoma of the right groin, treated with IV antibiotics 3. Right lower extremity edema, continue leg elevation, monitor the patient very closely. 4. Peripheral vascular disease. Continue patient on atorvastatin 40 mg daily for secondary prevention. and treatment as in paragraph #1. 5. Dyslipidemia.Continue atorvastatin 40 mg daily we'll keep LDL 55-70. , 6. ALLERGIC rhinitis.Continue Singulair 10 mg at bedtime 7. Benign prostatic hypertrophy.Continue Flomax 0.4 mg at bedtime and Proscar 5 mg daily. 8. COPD, stable without exacerbation. Continue patient on albuterol every 6 hours. 9. Hypertension. Continue lisinopril 5 mg daily. 10. Generalized anxiety disorder. Continue citalopram 40 mg daily. 11. GI prophylaxis. Protonix 40 mg orally once every day. 12. DVT prophylaxix. Heparin 5000 units subcu every 8 hours. Patient admitted to inpatient. Estimated length of stay 2 midnights, CODE STATUS: FULL CODE Impression and plan of care have been directed as dictated by the signing physician. Nahomi Hair nurse practitioner acting as scribe for signing physician. Past Medical History Past Medical History: GERD/Reflux, Hyperlipidemia, Hypertension, Osteoarthritis (OA), Prostate Disorder, Skin Disorder, Sleep Apnea/CPAP/BIPAP, Vascular Disorder Additional Past Medical History / Comment(s): 06/03/22 admitted to [facility] with R 2nd toe infection/ulcer/R foot cellulitis/hyponatremia, bilateral common femoral artery occlusion, anemia, gastritis, hiatal hernia, diverticular disease, [place] years ago/sx fixed, chronic neck pain/better now, BPH, back skin issues/uses special soap. History of Any Multi-Drug Resistant Organisms: None Reported, Unobtainable Past Surgical History: Tonsillectomy Additional Past Surgical History / Comment(s): Ct angiogram with bilateral runoff, cervical epidural pain procedures , eye surgery x 3 to remove member over retina, EGD, colonoscopies, R leg Past Anesthesia/Blood Transfusion Reactions: No Reported Reaction Additional Past Anesthesia/Blood Transfusion Reaction / Comment(s): Pt received blood without reaction. Currently receiving B-12 injections. Past Psychological History: No Psychological Hx Reported Smoking Status: Former smoker Past Alcohol Use History: None Reported Past Drug Use History: None Reported - Past Family History Father Family Medical History: Cancer Additional Family Medical History / Comment(s): Lived to be 80yrs old. Mother Family Medical History: Dementia Medications and Allergies Home Medications Medication Instructions Recorded Confirmed Type Acetaminophen [Tylenol Extra 500 mg PO HS 03/09/22 07/03/22 History Strength] Atorvastatin [Lipitor] 40 mg PO DAILY 03/09/22 07/03/22 History Finasteride [Proscar] 5 mg PO HS 03/09/22 07/03/22 History Montelukast [Singulair] 10 mg PO HS 03/09/22 07/03/22 History Omeprazole 20 mg PO DAILY PRN 03/09/22 07/03/22 History Albuterol Nebulized [Ventolin 2.5 mg INHALATION RT-Q6H 05/21/22 07/03/22 History Nebulized] Citalopram Hydrobromide [CeleXA] 40 mg PO DAILY 05/21/22 07/03/22 History Cyanocobalamin [Vitamin B-12] 1,000 mcg PO DAILY 06/23/22 07/03/22 History Aspirin 81 mg PO DAILY #30 tab 06/26/22 07/03/22 Rx Clopidogrel [Plavix] 75 mg PO DAILY #30 tab 06/26/22 07/03/22 Rx HYDROcodone/APAP 5-325MG [[place] 1 tab PO Q4HR PRN 07/03/22 07/03/22 History 5-325] Cefepime [Maxipime] 2 gm IVPB Q8HR #126 each 07/07/22 Rx lisinopriL [Zestril] 20 mg PO BID #60 tab 07/07/22 Rx Allergies Allergy/AdvReac Type Severity Reaction Status Date / Time No Known Allergies Allergy Verified 08/03/22 12:33 Physical Exam Vitals: Vital Signs Temp Pulse Resp BP Pulse Ox 08/03/22 12:30 98.4 F 67 18 130/51 99 Intake and Output 08/02/22 08/03/22 08/03/22 22:59 06:59 14:59 Other: Weight 72.121 kg Results CBC & Chem 7: 08/03/22 13:32 08/03/22 13:32 Labs: Abnormal Lab Results - Last 24 Hours (Table) 08/03/22 08/03/22 Range/Units 13:32 13:32 RBC 3.76 L (4.30-5.90) m/uL Hgb 9.0 L (13.0-17.5) gm/dL Hct 29.2 L (39.0-53.0) % MCV 77.7 L (80.0-100.0) fL MCH 24.0 L (25.0-35.0) pg MCHC 30.8 L (31.0-37.0) g/dL RDW 19.6 H (11.5-15.5) % Lymphocytes # 0.6 L (1.0-4.8) k/uL Sodium 126 L (137-145) mmol/L Chloride 95 L (98-107) mmol/L Creatinine 0.46 L (0.66-1.25) mg/dL C-Reactive Protein 1.0 H (<1.0) mg/dL
[2022-08-03] MEDS ORDERED: ALTEPLASE 2 MG VIAL (CATHFLO) IV STA (14:35)
[2022-08-03] MEDS ORDERED: VANCOMYCIN 1,500 MG in SODIUM CHLORIDE 0.9% 500 ML 500 ML IVPB ONE (15:00)
[2022-08-03 15:25] LABS: Erythrocyte Sedimentation Rate 18 mm/hr (0-15)
[2022-08-03] MEDS ORDERED: HYDROcodone/APAP 5-325MG 1 EACH TAB PO PRN (15:33)
[2022-08-03] MEDS ORDERED: PIPERACILLIN-TAZOBACTAM 3.375 GM in SODIUM CHLORIDE 0.9% 100 ML IVPB SCH ×2 (16:00→22:00)
[2022-08-03] MEDS ORDERED: HEPARIN SODIUM,PORCINE/PF 5,000 UNIT/0.5 ML SYRINGE SQ SCH (16:00)
[2022-08-03 16:54] VITALS: BP 186/73; PULSE 61
[2022-08-03] MEDS ORDERED: ALBUTEROL NEBULIZED 2.5 MG/3 ML INHALATION SCH (20:00)
[2022-08-03] MEDS ORDERED: FINASTERIDE 5 MG TAB PO SCH (21:00)
[2022-08-03] MEDS ORDERED: MONTELUKAST 10 MG TAB PO SCH (21:00)
[2022-08-03] MEDS ORDERED: lisinopriL 20 MG TAB PO SCH (21:00)
[2022-08-03] MEDS ORDERED: NON FORMULARY DRUG (Acetaminophen [Tylenol Extra Strength] 500 MG Packet) PO SCH (21:00)
[2022-08-04] MEDS ORDERED: PANTOPRAZOLE 40 MG TABLET PO SCH (07:30)
[2022-08-04] MEDS ORDERED: ATORVASTATIN 40 MG TAB PO SCH (09:00)
[2022-08-04] MEDS ORDERED: CYANOCOBALAMIN 500 MCG TAB PO SCH (09:00)
[2022-08-04] MEDS ORDERED: ASPIRIN 81 MG PO SCH (09:00)
[2022-08-04] MEDS ORDERED: NON FORMULARY DRUG (Citalopram Hydrobromide [Celexa] 40 MG Tablet) PO SCH (09:00)
== END 2022-08-03 16:54 | disposition home or self-care (01) ==
LOC: EC 11:55
DX: T82.594A Other mechanical complication of infusion catheter, initial encounter (principal); E87.1 Hypo-osmolality and hyponatremia; K21.9 Gastro-esophageal reflux disease without esophagitis; I10 Essential (primary) hypertension; E78.5 Hyperlipidemia, unspecified; M19.90 Unspecified osteoarthritis, unspecified site; G47.30 Sleep apnea, unspecified; Z87.891 Personal history of nicotine dependence; Z79.1 Long term (current) use of non-steroidal anti-inflammatories (NSAID); Z79.899 Other long term (current) drug therapy
CPT/HCPCS: 99283; 37195; 96365; 96372; 36415; 80048; 85652; 85025; 86140; 73630; J0692; J2997; J1644

== ENCOUNTER 2022-08-20 13:01 | Day surgery (SDC) | payer MEDICARE ==
[2022-08-18 10:38] VITALS: BMI 22.5
[~2022-08-20 13:01] MED LIST changes: +HYDROmorphone 0.5 MG/0.5 ML SYRINGE IVP PRN; +LACTATED RINGERS 1,000 ML IV SCH; +LIDOCAINE 1% (10MG/ML) FOR IV START INTRADERMA PRN; +MIDAZOLAM 2 MG/2 ML VIAL IV PRN; +Pre Op ABX Message 1 EACH MISC MISCELLANE ONE; -fentaNYL (PF) 50 MCG/ML 2 ML AMP IV PRN
--- NOTE | 2022-08-20 14:09 | P.HPIHPCON ---
History of Present Illness H&P Date: 08/20/22 Patient is a 82-year-old male who previously underwent right femoral endarterectomy patch angioplasty. He has been dealing with a seroma of his right groin, there were multiple aspirations in the office with re-accumulation of fluid. He is offered a operative intervention. He also has of wound to his right toe from pressure from his first toe and having difficulty with therapy so at this time we will plan to go forward with debridement and possible second toe amputation due to his nonhealing wound. Consent for Procedure: I have explained the operation/procedure to the patient, including the risks, benefits, side effects, alternative therapies (including not receiving the proposed treatment or service), the likelihood of the patient achieving his/her goals, and potential recuperation problems for the procedure/sedation/analgesia, as well as any blood products, if indicated. I also explained to the patient the risks, benefits and side effects of the alternatives, as well as the risks related to not receiving the proposed procedure, care, treatment, or services. Past Medical History Past Medical History: Asthma, GERD/Reflux, Hyperlipidemia, Hypertension, Osteoarthritis (OA), Prostate Disorder, Skin Disorder, Sleep Apnea/CPAP/BIPAP, Vascular Disorder Additional Past Medical History / Comment(s): PVD with hx bilateral common femoral artery occlusion, anemia, gastritis, hiatal hernia, diverticular disease, Sleep Apnea resolved with surgery., chronic neck pain (hx injections)., BPH, osteomyelitis right 2nd toe., picc line. History of Any Multi-Drug Resistant Organisms: None Reported Past Surgical History: Hernia Repair, Tonsillectomy Additional Past Surgical History / Comment(s): Ct angiogram with bilateral runoff, cervical epidural pain procedures , eye surgery x 3 to remove membrane over retina, EGD, colonoscopies, R iliofemoral endarterectomy with patch Past Anesthesia/Blood Transfusion Reactions: No Reported Reaction Additional Past Anesthesia/Blood Transfusion Reaction / Comment(s): hx blood transfusions-denies reaction Past Psychological History: No Psychological Hx Reported Additional Psychological History / Comment(s): lives with spouse, states he takes care of his own medications. Smoking Status: Former smoker Past Alcohol Use History: None Reported Additional Past Alcohol Use History / Comment(s): Pt started smoking 1957 & quit 1979. Hx of 1ppd. pt drinks 2-3 glasses of wine daily and sometimes a beer also. Past Drug Use History: None Reported - Past Family History Father Family Medical History: Cancer Additional Family Medical History / Comment(s): Lived to be 80yrs old. Mother Family Medical History: Dementia Medications and Allergies Home Medications Medication Instructions Recorded Confirmed Type Acetaminophen [Tylenol Extra 500 mg PO BID PRN 03/09/22 08/18/22 History Strength] Atorvastatin [Lipitor] 40 mg PO DAILY 03/09/22 08/18/22 History Finasteride [Proscar] 5 mg PO HS 03/09/22 08/18/22 History Montelukast [Singulair] 10 mg PO HS 03/09/22 08/18/22 History Omeprazole 20 mg PO DAILY PRN 03/09/22 08/18/22 History Citalopram Hydrobromide [CeleXA] 40 mg PO DAILY 05/21/22 08/18/22 History HYDROcodone/APAP 5-325MG [Delta 1 tab PO Q6HR PRN 07/03/22 08/18/22 History 5-325] Budesonide [Pulmicort] 0.5 mg INHALATION BID 08/18/22 08/18/22 History Cetirizine HCl [Zyrtec] 10 mg PO DAILY 08/18/22 08/18/22 History Fluticasone Propionate 2 sprays EA NOSTRIL Q12HR PRN 08/18/22 08/18/22 History [Fluticasone Propionate [place]] Losartan Potassium 50 mg PO HS 08/18/22 08/18/22 History Mirabegron [Myrbetriq] 50 mg PO DAILY 08/18/22 08/18/22 History Tamsulosin [Flomax] 0.4 mg PO HS 08/18/22 08/18/22 History lisinopriL [Zestril] 20 mg PO DAILY 08/18/22 08/18/22 History Allergies Allergy/AdvReac Type Severity Reaction Status Date / Time No Known Allergies Allergy Verified 08/20/22 13:45 Surgical - Exam Vital Signs Temp Pulse Resp BP Pulse Ox 98.7 F 58 L 16 140/63 100 08/20/22 13:44 08/20/22 13:44 08/20/22 13:44 08/20/22 13:44 08/20/22 13:44 Genitals a pleasant cooperative male in no acute distress. Heart appears regular. Lungs are clear. Right groin is soft with fluid mass. Right second toe is clean and dry, significant dried drainage, small wound likely from pressure Assessment and Plan Assessment: Right groin seroma Right second toe nonhealing wound Peripheral arterial disease Plan: Plan today to go forward with incision and drainage the right groin seroma and debridement/possible a dictation of the right second toe. Risks and benefits were discussed the patient seemingly understands and is willing to proceed.
[2022-08-20] MEDS ORDERED: PROPOFOL 10 MG/ML 20 ML VIAL IV ONE (14:14)
[2022-08-20] MEDS ORDERED: ePHEDrine 50 MG/ML 1 ML VIAL ONE (14:14)
[2022-08-20] MEDS ORDERED: fentaNYL (PF) 50 MCG/ML 2 ML AMP ONE (14:14)
[2022-08-20] MEDS ORDERED: PHENYLEPHRINE-0.9% NACL SYG 1,000 MCG/10 ML SYRINGE ONE (14:14)
[2022-08-20] MEDS ORDERED: SODIUM CHLORIDE 0.9% 50 ML with ceFAZolin 2,000 MG IV ONE ×2 (14:21)
[2022-08-20 14:23] LABS: African American GFR (CKD) >90 (>60 ml/min/1.73 sqM); Anion Gap 7 mmol/L; Blood Urea Nitrogen 14 mg/dL (9-20); Calcium 8.5 mg/dL (8.4-10.2); Carbon Dioxide 24 mmol/L (22-30); Chloride 93 mmol/L (98-107); Glucose 86 mg/dL (74-99); Non-African American GFR(CKD) >90 (>60 ml/min/1.73 sqM); Potassium 4.5 mmol/L (3.5-5.1); Sodium 124 mmol/L (137-145)
[2022-08-20] MEDS ORDERED: SODIUM CHLORIDE 0.9% 500 ML 500 ML IV ONE (14:50)
--- NOTE | 2022-08-20 15:22 | P.OP ---
Date of Procedure: 08/20/22 Description of Procedure: DATE OF SERVICE: SURGEON: Elo Jordan DO [employer] TEACHER: None PREOPERATIVE DIAGNOSIS: Right groin seroma, right second toe nonhealing wound POSTOPERATIVE DIAGNOSIS: Same OPERATION: Right groin incision and drainage right second toe amputation. ANESTHESIA: Gen. LMA ESTIMATED BLOOD LOSS: 10 mL SPECIMENS REMOVED: None COMPLICATIONS: None immediately apparent OPERATIVE FINDINGS: Patient is a 82-year-old male who previously underwent a right femoral endarterectomy. He has had fluid in his groin and a postoperative seroma that has been drained on multiple occasions but most recently had an area of loculation therefore he presented to the hospital today for incision and drainage. Also given the appearance of the toe, the wound care physician thinks that it would best be served by a digital amputation, I agree based on the nonhealing wound and proximity of the great toe with inability to offload that portion. Discussed this with the patient seemingly understands. DESCRIPTION OF PROCEDURE: Patient is brought to the operating and placed in supine position. The right lower extremity and groin were prepped and draped in usual sterile fashion. A preprocedure timeout was performed, all parties were in agreement. Overlying the previous incision, a small incision was made and carried down to the level of the seroma with electrocautery. Digital exploration to break any loculations was performed. Old seroma and previous hematoma was excised. A 19 HUGH was placed and sutured in place with nylon. After appropriate irrigation, the wound was closed. The deep subcu tissues tissues were reapproximated with interrupted sutures of 3-0 Vicryl. The skin was reprepped and running 4-0 Monocryl. Attention was then turned towards the toe, and a circular incision was made at the middle of the toe at the interphalangeal joint and, deepened through the skin, fat, and tendons. Tendons were divided prior to plantar and dorsal aspect of the second toe. After that, distal phalanx was removed from the proximal phalanx. There was no evidence of infection, purulent drainage or osteomyelitis at this level Hemostasis was well controlled and incision was approximated with 3-0 Vicryl and 40 nylon interrupted suture. Dressing applied. The patient tolera tres the procedure well. Plan - Discharge Summary Discharge Rx Participant: No New Discharge Prescriptions: No Action Montelukast [Singulair] 10 mg PO HS Acetaminophen [Tylenol Extra Strength] 500 mg PO BID PRN PRN Reason: Pain HYDROcodone/APAP 5-325MG [[place] 5-325] 1 tab PO Q6HR PRN PRN Reason: Pain Finasteride [Proscar] 5 mg PO HS Atorvastatin [Lipitor] 40 mg PO DAILY Omeprazole 20 mg PO DAILY PRN PRN Reason: Heartburn Citalopram Hydrobromide [CeleXA] 40 mg PO DAILY lisinopriL [Zestril] 20 mg PO DAILY Mirabegron [Myrbetriq] 50 mg PO DAILY Tamsulosin [Flomax] 0.4 mg PO HS Cetirizine HCl [Zyrtec] 10 mg PO DAILY Budesonide [Pulmicort] 0.5 mg INHALATION BID Losartan Potassium 50 mg PO HS Fluticasone Propionate [Fluticasone Propionate [place]] 2 sprays EA NOSTRIL Q12HR PRN PRN Reason: Allergy Symptoms Discharge Medication List Acetaminophen [Tylenol Extra Strength] 500 mg PO BID PRN 03/09/22 [History] Atorvastatin [Lipitor] 40 mg PO DAILY 03/09/22 [History] Finasteride [Proscar] 5 mg PO HS 03/09/22 [History] Montelukast [Singulair] 10 mg PO HS 03/09/22 [History] Omeprazole 20 mg PO DAILY PRN 03/09/22 [History] Citalopram Hydrobromide [CeleXA] 40 mg PO DAILY 05/21/22 [History] HYDROcodone/APAP 5-325MG [[place] 5-325] 1 tab PO Q6HR PRN 07/03/22 [History] Budesonide [Pulmicort] 0.5 mg INHALATION BID 08/18/22 [History] Cetirizine HCl [Zyrtec] 10 mg PO DAILY 08/18/22 [History] Fluticasone Propionate [Fluticasone Propionate [place]] 2 sprays EA NOSTRIL Q12HR PRN 08/18/22 [History] Losartan Potassium 50 mg PO HS 08/18/22 [History] Mirabegron [Myrbetriq] 50 mg PO DAILY 08/18/22 [History] Tamsulosin [Flomax] 0.4 mg PO HS 08/18/22 [History] lisinopriL [Zestril] 20 mg PO DAILY 08/18/22 [History] Follow up Appointment(s)/Referral(s): Azra Gregory MD [Primary Care Provider] - 1 Week Elo Jordan DO [STAFF PHYSICIAN] - 1 Week Activity/Diet/Wound Care/Special Instructions: Drain and record HUGH fluid twice daily. Resume regular activity. Resume regular diet. Hell touch weightbearing on the right lower extremity. Change outer dressing to the right lower extremity every other day with fluff gauze and Kerlix roll. May change right groin dressing after 3 days. Keep gauze and paper tape dressing in place and change every other day. Discharge Disposition: HOME SELF-CARE
[2022-08-20 15:31] VITALS: TEMP 98
[2022-08-20 16:35] VITALS: BP 139/71; PULSE 82; RESP 16
[2022-08-20] MEDS ORDERED: ACETAMINOPHEN TAB 500 MG TAB ONE (16:40)
[2022-08-20] MEDS ORDERED: ACETAMINOPHEN TAB 500 MG TAB PO ONE (16:42)
== END 2022-08-20 17:14 | disposition home or self-care (01) ==
LOC: OR 13:01
PROVIDERS: ATTEND Surgery
DX: L97.512 Non-pressure chronic ulcer of other part of right foot with fat layer exposed (principal); S70.11XA Contusion of right thigh, initial encounter; J45.909 Unspecified asthma, uncomplicated; K21.9 Gastro-esophageal reflux disease without esophagitis; E78.5 Hyperlipidemia, unspecified; I10 Essential (primary) hypertension; G47.33 Obstructive sleep apnea (adult) (pediatric); D64.9 Anemia, unspecified; K29.50 Unspecified chronic gastritis without bleeding; K57.30 Diverticulosis of large intestine without perforation or abscess without bleeding; K44.9 Diaphragmatic hernia without obstruction or gangrene; N40.0 Benign prostatic hyperplasia without lower urinary tract symptoms; Z87.891 Personal history of nicotine dependence; Z99.89 Dependence on other enabling machines and devices; Z80.8 Family history of malignant neoplasm of other organs or systems; Z79.899 Other long term (current) drug therapy
CPT/HCPCS: 80048; 28810; 10140; J1100; J2405; J0690; J3010; J2370; J2704

== ENCOUNTER 2022-09-08 20:58 | Observation (INO) | payer MEDICARE ==
--- NOTE | 2022-09-08 21:54 | ED ---
General Adult HPI - General Chief complaint: Wound/Laceration Stated complaint: Post Op complication Time Seen by Provider: 09/08/22 21:19 Source: patient Mode of arrival: ambulatory Limitations: no limitations - History of Present Illness Initial comments: Dictation was produced using [employer] dictation software. please excuse any grammatical, word or spelling errors. Chief Complaint: 82-year-old male presents to emergency Department with bleeding from HUGH drain site History of Present Illness: Patient is an 82-year-old male who presents emergency Department with bleeding from HUGH drain site. He had a HUGH drain placed on August 20 for treatment of seroma. Patient states that he noted that there was some bleeding coming from the site and running down his leg. States that he came to the emergency department and while waiting to be placed in a ER around the HUGH drain fell out. Patient states that the bleeding stopped. Patient has no other complaints at this time. The ROS documented in this emergency department record has been reviewed and confirmed by me. Those systems with pertinent positive or negative responses have been documented in the HPI. All other systems are other negative and/or noncontributory. - Related Data Home Medications Medication Instructions Recorded Confirmed Atorvastatin [Lipitor] 40 mg PO DAILY 03/09/22 09/08/22 Finasteride [Proscar] 5 mg PO HS 03/09/22 09/08/22 Montelukast [Singulair] 10 mg PO HS 03/09/22 09/08/22 Omeprazole 20 mg PO DAILY PRN 03/09/22 09/08/22 Citalopram Hydrobromide [CeleXA] 40 mg PO DAILY 05/21/22 09/08/22 Budesonide [Pulmicort] 0.5 mg INHALATION RT-BID 08/18/22 09/08/22 Cetirizine HCl [Zyrtec] 10 mg PO DAILY 08/18/22 09/08/22 Mirabegron [Myrbetriq] 50 mg PO DAILY 08/18/22 09/08/22 Tamsulosin [Flomax] 0.4 mg PO DAILY 08/18/22 09/08/22 lisinopriL [Zestril] 20 mg PO DAILY 08/18/22 09/08/22 Albuterol Nebulized [Ventolin 2.5 mg INHALATION RT-Q6H PRN 09/08/22 09/08/22 Nebulized] Ibuprofen [Motrin] 800 mg PO Q8H PRN 09/08/22 09/08/22 Allergies Allergy/AdvReac Type Severity Reaction Status Date / Time No Known Allergies Allergy Verified 09/08/22 23:08 Review of Systems ROS Statement: Those systems with pertinent positive or pertinent negative responses have been documented in the HPI. ROS Other: All systems not noted in ROS Statement are negative. Past Medical History Past Medical History: Asthma, GERD/Reflux, Hyperlipidemia, Hypertension, Osteoarthritis (OA), Prostate Disorder, Skin Disorder, Sleep Apnea/CPAP/BIPAP, Vascular Disorder Additional Past Medical History / Comment(s): PVD with hx bilateral common femoral artery occlusion, anemia, gastritis, hiatal hernia, diverticular disease, Sleep Apnea resolved with surgery., chronic neck pain (hx injections)., BPH, osteomyelitis right 2nd toe., picc line. History of Any Multi-Drug Resistant Organisms: None Reported Past Surgical History: Hernia Repair, Tonsillectomy Additional Past Surgical History / Comment(s): Ct angiogram with bilateral runoff, cervical epidural pain procedures , eye surgery x 3 to remove membrane over retina, EGD, colonoscopies, R iliofemoral endarterectomy with patch Past Anesthesia/Blood Transfusion Reactions: No Reported Reaction Additional Past Anesthesia/Blood Transfusion Reaction / Comment(s): hx blood transfusions-denies reaction Past Psychological History: No Psychological Hx Reported Smoking Status: Former smoker Past Alcohol Use History: None Reported Past Drug Use History: None Reported - Past Family History Father Family Medical History: Cancer Additional Family Medical History / Comment(s): Lived to be 80yrs old. Mother Family Medical History: Dementia General Exam - General Exam Comments Initial Comments: PHYSICAL EXAM: General Impression: Alert and oriented x3, not in acute distress HEENT: Normocephalic atraumatic, extra-ocular movements intact, pupils equal and reactive to light bilaterally, mucous membranes moist. Cardiovascular: Heart regular rate and rhythm Chest: Able to complete full sentences, no retractions, no tachypnea Abdomen: abdomen soft, non-tender, non-distended, no organomegaly Musculoskeletal: Pulses present and equal in all extremities, no peripheral ed caitlyn Motor: no focal deficits noted Neurological: CN II-XII grossly intact, no focal motor or sensory deficits noted Skin: Intact with no visualized rashes Psych: Normal affect and mood Right groin: No bleeding, HUGH drained puncture wound shows no signs of drainage, bleeding. Site is clean dry intact without any erythema Limitations: no limitations Course Vital Signs 09/08/22 09/08/22 21:04 21:10 Temperature 98.0 F Pulse Rate 75 70 Respiratory 20 16 Rate Blood Pressure 134/63 136/56 O2 Sat by Pulse 96 99 Oximetry Medical Decision Making - Medical Decision Making Was pt. sent in by a medical professional or institution ([facility], [facility] [employer] [facility], urgent care, hospital, or shelter...) When possible be specific @ -No Did you speak to anyone other than the patient for history (EMS, parent, family, police, friend...)? What history was obtained from this source @ -No Did you review nursing and triage notes (agree or disagree)? Why? @ -I reviewed and agree with nursing and triage notes Were old charts reviewed (outside hosp., previous admission, EMS record, old EKG, old radiological studies, urgent care reports/EKG's, shelter records)? Report findings @ -No old charts were reviewed Differential Diagnosis (chest pain, altered mental status, abdominal pain women, abdominal pain men, vaginal bleeding, musculoskeletal, weakness, fever, dyspnea, syncope, headache, dizziness, GI bleed, back pain, seizure, CVA, palpatations, mental health)? @ -Differential Weakness: Hypoglycemia, shock, sepsis, hyponatremia, anemia, infection, IA, ETOH, adverse medicine reaction, overdose, stroke, this is not meant to be an all-inclusive list. EKG interpreted by me (3pts min.). @ -The above X-rays interpreted by me (1pt min.). @ -None done CT interpreted by me (1pt min.). @ -None done U/S interpreted by me (1pt. min.). @ -None done What testing was considered but not performed or refused? (CT, X-rays, U/S, labs)? Why? @ -None What meds were considered but not given or refused? Why? @ -None Did you discuss the management of the patient with other professionals (professionals i.e. [facility], [facility] [employer] [facility], lab, RT, psych nurse, director social, wood sash and frame carpenter, teacher, home lending officer, keycase assembler)? Give summary @ -Labs vitals clinical presentation discussed with hospitalist for admission Was smoking cessation discussed for >3mins.? @ -No Was critical care preformed (if so, how long)? @ -No Were there social determinants of health that impacted care today? How? (Homelessness, low income, unemployed, alcoholism, drug addiction, transportation, low edu. Level, literacy, decrease access to med. care, long term, rehab)? @ -No Was there de-escalation of care discussed even if they declined (Discuss DNR or withdrawal of care, Hospice)? DNR status @ -No What co-morbidities impacted this encounter? (DM, HTN, Smoking, COPD, CAD, Cancer, CVA, ARF, Chemo, Hep., AIDS, mental health diagnosis, sleep apnea, morbid obesity)? @ -None Was patient admitted / discharged? Hospital course, mention meds given and route, prescriptions, significant lab abnormalities, going to OR and other pertinent info. @ -82-year-old male presents emergency department for bleeding comforting from HUGH drain site. Vital signs stable. Patient and no other complaints. Patient reports that the bleeding was pretty significant. Labs drawn. Hemoglobin 7.0 with a steep decrease of 2 g since last month. Rest of labs within acceptable limits. Patient's occult blood positive. He is concerned that patient having GI bleed. Patient given Protonix. Will be admitted with consultation to GI Undiagnosed new problem with uncertain prognosis? @ -No Drug Therapy requiring intensive monitoring for toxicity (Heparin, Nitro, Insulin, Cardizem)? @ -No Were any procedures done? @ -No Diagnosis/symptom? Acute, or Chronic, or Acute on Chronic? Uncomplicated (without systemic symptoms) or Complicated (systemic symptoms)? @ -1. GI bleed, 2. Anemia Side effects of treatment? @ -No Exacerbation, Progression, or Severe Exacerbation? @ -No Poses a threat to life or bodily function? How? (Chest pain, USA, IA, pneumonia, PE, COPD, DKA, ARF, appy, cholecystitis, CVA, Diverticulitis, Homicidal, Suicidal, threat to staff... and all critical care pts) @ -yes - Lab Data Result diagrams: 09/08/22 21:46 09/08/22 21:46 Lab Results 09/08/22 09/08/22 09/08/22 Range/Units 21:46 21:46 22:50 WBC 3.7 L (3.8-10.6) k/uL RBC 3.14 L (4.30-5.90) m/uL Hgb 7.0 L D (13.0-17.5) gm/dL Hct 23.7 L (39.0-53.0) % MCV 75.4 L (80.0-100.0) fL MCH 22.5 L (25.0-35.0) pg MCHC 29.8 L (31.0-37.0) g/dL RDW 17.2 H (11.5-15.5) % Plt Count 257 (150-450) k/uL MPV 7.4 Neutrophils % 65 % Lymphocytes % 20 % Monocytes % 11 % Eosinophils % 1 % Basophils % 0 % Neutrophils # 2.4 (1.3-7.7) k/uL Lymphocytes # 0.7 L (1.0-4.8) k/uL Monocytes # 0.4 (0-1.0) k/uL Eosinophils # 0.1 (0-0.7) k/uL Basophils # 0.0 (0-0.2) k/uL Hypochromasia Marked Poikilocytosis Slight Anisocytosis Slight Microcytosis Slight Sodium 126 L (137-145) mmol/L Potassium 4.1 (3.5-5.1) mmol/L Chloride 97 L (98-107) mmol/L Carbon Dioxide 23 (22-30) mmol/L Anion Gap 6 mmol/L BUN 17 (9-20) mg/dL Creatinine 0.49 L (0.66-1.25) mg/dL Est GFR (CKD-EPI)AfAm >90 (>60 ml/min/1.73 sqM) Est GFR (CKD-EPI)NonAf >90 (>60 ml/min/1.73 sqM) Glucose 88 (74-99) mg/dL Calcium 8.1 L (8.4-10.2) mg/dL Stool Occult Blood Positive (Negative) Disposition Clinical Impression: Anemia Disposition: ADMITTED IP TO THIS [facility] Condition: Fair Referrals: Azra Gregory MD [Primary Care Provider] - 1-2 days Decision Time: 23:00
[2022-09-08 22:07] LABS: Anisocytosis Slight; Basophils % (A) 0 %; Eosinophils # (A) 0.1 k/uL (0-0.7); Eosinophils % (A) 1 %; HCT 23.7 % (39.0-53.0); Hypochromasia Marked; Lymphocytes # (A) 0.7 k/uL (1.0-4.8); Lymphocytes % (A) 20 %; MCH 22.5 pg (25.0-35.0); MCHC 29.8 g/dL (31.0-37.0); MCV 75.4 fL (80.0-100.0); Mean Platelet Volume 7.4; Microcytosis Slight; Monocytes # (A) 0.4 k/uL (0-1.0); Monocytes % (A) 11 %; Neutrophils # (A) 2.4 k/uL (1.3-7.7); Neutrophils % (A) 65 %; Platelet Count 257 k/uL (150-450); Poikilocytosis Slight; RBC 3.14 m/uL (4.30-5.90); RDW 17.2 % (11.5-15.5); WBC 3.7 k/uL (3.8-10.6)
[2022-09-08 22:16] LABS: African American GFR (CKD) >90 (>60 ml/min/1.73 sqM); Anion Gap 6 mmol/L; Blood Urea Nitrogen 17 mg/dL (9-20); Calcium 8.1 mg/dL (8.4-10.2); Carbon Dioxide 23 mmol/L (22-30); Chloride 97 mmol/L (98-107); Glucose 88 mg/dL (74-99); Non-African American GFR(CKD) >90 (>60 ml/min/1.73 sqM); Potassium 4.1 mmol/L (3.5-5.1); Sodium 126 mmol/L (137-145)
--- NOTE | 2022-09-08 22:42 | US ---
EXAM: US Abdomen Complete CLINICAL HISTORY: ITS.REASON US Reason: groin swelling TECHNIQUE: Real-time ultrasound of the abdomen with image documentation. COMPARISON: No relevant prior studies available. FINDINGS/IMPRESSION: Indeterminate hypoechoic focus in the RIGHT inguinal region measuring 7.2 x 3.7 x [address] scan recommended for further evaluation.
[2022-09-08] MEDS ORDERED: PANTOPRAZOLE 40 MG/10 ML VIAL IVP STA (23:03)
[2022-09-08] MEDS ORDERED: ONDANSETRON 4 MG/2 ML VIAL IVP PRN (23:19)
[2022-09-08] MEDS ORDERED: NALOXONE 0.4 MG/ML 1 ML VIAL IV PRN (23:19)
[2022-09-08] MEDS: SODIUM CHLORIDE 0.9% 1,000 ML IV SCH (23:36)
[2022-09-09] MEDS ORDERED: MORPHINE SULFATE 2 MG/ML SYRINGE IVP PRN (03:10)
[2022-09-09] MEDS: HYDROcodone/APAP 7.5-325MG 1 EACH TAB PO PRN ×2 (03:50→22:10)
[2022-09-09] MEDS ORDERED: ALBUTEROL NEBULIZED 2.5 MG/3 ML INHALATION PRN (07:59)
[2022-09-09] MEDS ORDERED: NON FORMULARY DRUG (Omeprazole [Omeprazole] 20 MG Capsule.Dr) PO PRN (07:59)
[2022-09-09 08:05] LABS: African American GFR (CKD) >90 (>60 ml/min/1.73 sqM); Anion Gap 3 mmol/L; Blood Urea Nitrogen 12 mg/dL (9-20); Calcium 8.1 mg/dL (8.4-10.2); Carbon Dioxide 27 mmol/L (22-30); Chloride 98 mmol/L (98-107); Glucose 84 mg/dL (74-99); Non-African American GFR(CKD) >90 (>60 ml/min/1.73 sqM); Potassium 4.3 mmol/L (3.5-5.1); Sodium 128 mmol/L (137-145)
[2022-09-09 08:25] LABS: Anisocytosis Slight; HCT 25.6 % (39.0-53.0); HGB 7.6 gm/dL (13.0-17.5); Hypochromasia Marked; MCH 22.5 pg (25.0-35.0); MCHC 29.6 g/dL (31.0-37.0); MCV 76.1 fL (80.0-100.0); Microcytosis Slight; Platelet Count 252 k/uL (150-450); Poikilocytosis Slight; RBC 3.36 m/uL (4.30-5.90); RDW 16.7 % (11.5-15.5); WBC 4.2 k/uL (3.8-10.6)
[2022-09-09] MEDS: BUDESONIDE 0.5 MG/2 ML NEBU INHALATION SCH ×2 (09:09→21:44)
[2022-09-09] MEDS: SODIUM CHLORIDE 0.9% 1,000 ML IV SCH ×2 (09:29→18:00)
[2022-09-09] MEDS: LORATADINE 10 MG TAB PO SCH (09:30)
[2022-09-09] MEDS: lisinopriL 20 MG TAB PO SCH (09:30)
[2022-09-09] MEDS: NON FORMULARY DRUG (Mirabegron [Myrbetriq] 50 MG Tab.Er.24h) PO SCH (09:30)
[2022-09-09] MEDS: ATORVASTATIN 40 MG TAB PO SCH (09:30)
[2022-09-09] MEDS: TAMSULOSIN 0.4 MG CAP.ER.24H PO SCH (09:30)
[2022-09-09] MEDS: PANTOPRAZOLE 40 MG/10 ML VIAL IV SCH (09:30)
[2022-09-09] MEDS: CITALOPRAM HYDROBROMIDE 20 MG TAB PO SCH (09:31)
--- NOTE | 2022-09-09 11:41 | P.CONS ---
History of Present Illness - Reason for Consult Consult date: 09/09/22 GI bleed Requesting physician: Allen Vaz - Chief Complaint bleeding from HUGH drain site - History of Present Illness This is a pleasant 82-year-old male who presented to the emergency department yesterday evening with concerns of bleeding from around HUGH drain site. Past medical history includes asthma, GERD, hyperlipidemia, hypertension, osteoarthritis, prostate disorder, sleep apnea, peripheral arterial disease, and chronic anemia. He had a right ileal femoral artery endarterectomy with patch angioplasty in June and then was noted to have a right groin seroma with I&D on 08/20/2022 with HUGH drain placed. Patient states that he empties about a quarter to half daily. He denies any pain in the groin. He denies any shortness of breath, chest pain, abdominal pain, nausea or vomiting. Denies any dizziness, weakness, fevers or chills. The patient had a groin ultrasound reporting indeterminate hyperope: Focus in the right inguinal region 7.2 x 3.7 x 2.5 cm. No flow. Patient was also noted to be anemic, they did a local stool which was positive for blood. Gastroenterology was consulted for possible GI bleed. Patient denies any blood in his stool or black stool. Denies again any abdominal pain, nausea or vomiting. He denies any anticoagulation or NSAID use. Denies previous history of ulcer. Patient has been anemic since February of this year. He had a previous EGD and colonoscopy done on 05/25/[address] Jara. EGD with findings of large paraesophageal hernia without any evidence of active bleeding or old blood. Colonoscopy with poor prep, findings of diverticulosis in both descending and sigmoid colon without any evidence of any active bleeding or old blood noted. PCP ordered one unit of blood. Admitting labs WBC 3.7 hemoglobin 7.0 hematocrit 23 platelet count 257,000 BUN 17 creatinine 0.4 Review of Systems REVIEW OF SYSTEMS: CARDIOPULMONARY: No chest pain or shortness of breath. Gastrointestinal: No abdominal pain, nausea or vomiting. No hematemesis, coffee-ground emesis. No rectal bleeding, or melena. GENITOURINARY: No dysuria or hematuria. MUSCULOSKELETAL: Reports normal range of motion., Joint pain. SKIN: No rashes. No jaundice. ENDOCRINE: No chills, fevers. No excessive weight gain or loss. No polydipsia or polyuria. PSYCHIATRIC: Unremarkable. NEUROLOGY: No change in mental status. Denies dizziness, headache. ENT: Vision unremarkable. CONSTITUTIONAL: No recent weight loss. No fever, chills, night sweats. Past Medical History Past Medical History: Asthma, GERD/Reflux, Hyperlipidemia, Hypertension, Osteoarthritis (OA), Prostate Disorder, Skin Disorder, Vascular Disorder Additional Past Medical History / Comment(s): PVD with hx bilateral common femoral artery occlusion, anemia, gastritis, hiatal hernia, diverticular disease, Sleep Apnea resolved with surgery., chronic neck pain (hx injecti ons)., BPH, osteomyelitis right 2nd toe., picc line. History of Any Multi-Drug Resistant Organisms: None Reported Past Surgical History: Hernia Repair, Tonsillectomy Additional Past Surgical History / Comment(s): Ct angiogram with bilateral runoff, cervical epidural pain procedures , eye surgery x 3 to remove membrane over retina, EGD, colonoscopies, R iliofemoral endarterectomy with patch. Uvulaectomy Past Anesthesia/Blood Transfusion Reactions: No Reported Reaction Additional Past Anesthesia/Blood Transfusion Reaction / Comm: hx blood transfusions-denies reaction Past Psychological History: No Psychological Hx Reported Additional Psychological History / Comment(s): lives with spouse, states he takes care of his own medications. Smoking Status: Former smoker Past Alcohol Use History: None Reported Additional Past Alcohol Use History / Comment(s): Pt started smoking 1957 & quit 1979. Hx of 1ppd. pt drinks 2-3 glasses of wine daily and sometimes a beer also. Past Drug Use History: None Reported - Past Family History Father Family Medical History: Cancer Additional Family Medical History / Comment(s): Lived to be 80yrs old. Mother Family Medical History: Dementia Medications and Allergies Home Medications Medication Instructions Recorded Confirmed Type Atorvastatin [Lipitor] 40 mg PO DAILY 03/09/22 09/08/22 History Finasteride [Proscar] 5 mg PO HS 03/09/22 09/08/22 History Montelukast [Singulair] 10 mg PO HS 03/09/22 09/08/22 History Omeprazole 20 mg PO DAILY PRN 03/09/22 09/08/22 History Citalopram Hydrobromide [CeleXA] 40 mg PO DAILY 05/21/22 09/08/22 History Budesonide [Pulmicort] 0.5 mg INHALATION RT-BID 08/18/22 09/08/22 History Cetirizine HCl [Zyrtec] 10 mg PO DAILY 08/18/22 09/08/22 History Mirabegron [Myrbetriq] 50 mg PO DAILY 08/18/22 09/08/22 History Tamsulosin [Flomax] 0.4 mg PO DAILY 08/18/22 09/08/22 History lisinopriL [Zestril] 20 mg PO DAILY 08/18/22 09/08/22 History Albuterol Nebulized [Ventolin 2.5 mg INHALATION RT-Q6H PRN 09/08/22 09/08/22 History Nebulized] Ibuprofen [Motrin] 800 mg PO Q8H PRN 09/08/22 09/08/22 History Allergies Allergy/AdvReac Type Severity Reaction Status Date / Time No Known Allergies Allergy Verified 09/08/22 23:08 Physical Exam Vitals: Vital Signs Temp Pulse Pulse Resp BP BP Pulse Ox 09/09/22 07:16 97.6 F 66 15 173/67 97 09/09/22 00:55 97.6 F 79 18 150/62 96 09/09/22 00:04 18 111/59 95 09/08/22 21:10 70 16 136/56 99 09/08/22 21:04 98.0 F 75 20 134/63 96 Intake and Output 09/08/22 09/09/22 09/09/22 22:59 06:59 14:59 Other: # Voids 1 Weight 71.214 kg 71.214 kg General appearance: The patient is alert, oriented, appears in no acute distress. HET: Head is normocephalic and atraumatic. Conjunctiva pink. Sclera anicteric. Neck: Supple without lymphadenopathy. Trachea midline. Heart: S1 S2. Regular rate and rhythm. Lungs: Clear to auscultation. Abdomen: Soft, nontender, nondistended with bowel sounds. No guarding or rigidity. Skin: No rashes. No jaundice. Extremities: Normal skin color and turgor. No pedal edema. Neurological: No focal deficits. Alert and oriented x3. Results CBC & Chem 7: 09/09/22 07:39 09/09/22 07:39 Labs: Abnormal Lab Results - Last 24 Hours (Table) 09/08/22 09/08/22 09/09/22 Range/Units 21:46 21:46 07:39 WBC 3.7 L (3.8-10.6) k/uL RBC 3.14 L 3.36 L (4.30-5.90) m/uL Hgb 7.0 L D 7.6 L (13.0-17.5) gm/dL Hct 23.7 L 25.6 L (39.0-53.0) % MCV 75.4 L 76.1 L (80.0-100.0) fL MCH 22.5 L 22.5 L (25.0-35.0) pg MCHC 29.8 L 29.6 L (31.0-37.0) g/dL RDW 17.2 H 16.7 H (11.5-15.5) % Lymphocytes # 0.7 L (1.0-4.8) k/uL Sodium 126 L (137-145) mmol/L Chloride 97 L (98-107) mmol/L Creatinine 0.49 L (0.66-1.25) mg/dL Calcium 8.1 L (8.4-10.2) mg/dL 09/09/22 Range/Units 07:39 WBC (3.8-10.6) k/uL RBC (4.30-5.90) m/uL Hgb (13.0-17.5) gm/dL Hct (39.0-53.0) % MCV (80.0-100.0) fL MCH (25.0-35.0) pg MCHC (31.0-37.0) g/dL RDW (11.5-15.5) % Lymphocytes # (1.0-4.8) k/uL Sodium 128 L (137-145) mmol/L Chloride (98-107) mmol/L Creatinine 0.49 L (0.66-1.25) mg/dL Calcium 8.1 L (8.4-10.2) mg/dL Assessment and Plan (1) Anemia Narrative/Plan: This 82-year-old patient who presented with concerns for bleeding around the HUGH drain from his right groin where he had previous revascularization with postop seroma status post I&D. On admission he was noted to have a low hemoglobin at 7.0 with labs consistent with a microcytic anemia. The 10 and STOOL which was positive. However patient has had chronic anemia since February of this year with multiple comorbidities. He denies any signs or symptoms of a GI bleed. Denies any dizziness, shortness of breath, dyspnea with exertion, no black stool or blood in his stool noted. Denies abdominal pain nausea or vomiting. He recently underwent both upper and lower endoscopy in April of this year for a nemia at that time with no evidence of active or old blood noted. Full continue with supportive care, order anemia workup and transfuse as needed. No plans on endoscopic evaluation at this time. Current Visit: Yes Status: Acute Code(s): D64.9 - ANEMIA, UNSPECIFIED SNOMED Code(s): 439473868 (2) Peripheral arterial disease with history of revascularization Current Visit: Yes Status: Acute Code(s): I73.9 - PERIPHERAL VASCULAR DISEASE, UNSPECIFIED; Z98.890 - OTHER SPECIFIED POSTPROCEDURAL STATES SNOMED Code(s): 768795857 Plan: 1. Continue symptomatic and supportive care 2. Daily CBC, transfuse for hemoglobin less than 7 3. Anemia panel ordered 4. Diet as tolerated 5. No plan for an endoscopic evaluation at this time. Further recommendations forthcoming based on clinical course. Thank you for this consultation, we will continue to follow. Dr. Julian Chew I agree with the dictator's note, documented as a scribe by Ilene Mason.
--- NOTE | 2022-09-09 12:03 | P.GSCN ---
History of Present Illness Consult date: 09/09/22 Reason for Consult: Abnormal groin ultrasound Requesting physician: Allen Vaz History of present illness: This is a pleasant 82-year-old male who presented to the emergency department yesterday evening with concerns of bleeding from around HUGH drain site. While in the emergency department apparently the HUGH drain came/fell out. Past medical history includes asthma, GERD, hyperlipidemia, hypertension, osteoarthritis, prostate disorder, sleep apnea, peripheral arterial disease, and chronic anemia. He had a right ileal femoral artery endarterectomy with patch angioplasty in June and then was noted to have a right groin seroma with I&D on 08/20/2022 with HUGH drain placed. Patient states that he empties about a quarter to half daily. He denies any pain in the groin. He denies any shortness of breath, chest pain, abdominal pain, nausea or vomiting. Denies any dizziness, weakness, fevers or chills. The patient had a groin ultrasound reporting indeterminate hyperope: Focus in the right inguinal region 7.2 x 3.7 x 2.5 cm. No flow. Patient was also noted to be anemic, PCP ordered one unit of blood. Vascular surgery was consulted for abnormal ultrasound groin. Again patient had seroma with previous CTA abdomen and pelvis on 07/15/2022 showing a 11.8 cm fluid collection. He had follow closely with vascular surgery in the outpatient setting and was scheduled for I&D of right groin seroma on 08/20/2022 with a HUGH drain placed by Dr. Jordan. Patient was to have follow-up next week. He denies any pain in his groin, no pain in the right leg, however he does report pain in his right second toe where distal tip amputation was performed. Admitting labs WBC 3.7 hemoglobin 7.0 hematocrit 23 platelet count 257,000 BUN 17 creatinine 0.4 Review of Systems A 14 point review systems was completed all pertinent positives and negatives as stated in the HPI. Past Medical History Past Medical History: Asthma, GERD/Reflux, Hyperlipidemia, Hypertension, Osteoarthritis (OA), Prostate Disorder, Skin Disorder, Vascular Disorder Additional Past Medical History / Comment(s): PVD with hx bilateral common femoral artery occlusion, anemia, gastritis, hiatal hernia, diverticular di sease, Sleep Apnea resolved with surgery., chronic neck pain (hx injections)., BPH, osteomyelitis right 2nd toe., picc line. History of Any Multi-Drug Resistant Organisms: None Reported Past Surgical History: Hernia Repair, Tonsillectomy Additional Past Surgical History / Comment(s): Ct angiogram with bilateral runoff, cervical epidural pain procedures , eye surgery x 3 to remove membrane over retina, EGD, colonoscopies, R iliofemoral endarterectomy with patch. Uvulaectomy Past Anesthesia/Blood Transfusion Reactions: No Reported Reaction Additional Past Anesthesia/Blood Transfusion Reaction / Comm: hx blood transfusions-denies reaction Past Psychological History: No Psychological Hx Reported Additional Psychological History / Comment(s): lives with spouse, states he takes care of his own medications. Smoking Status: Former smoker Past Alcohol Use History: None Reported Additional Past Alcohol Use History / Comment(s): Pt started smoking 1957 & quit 1979. Hx of 1ppd. pt drinks 2-3 glasses of wine daily and sometimes a beer also. Past Drug Use History: None Reported - Past Family History Father Family Medical History: Cancer Additional Family Medical History / Comment(s): Lived to be 80yrs old. Mother Family Medical History: Dementia Medications and Allergies Home Medications Medication Instructions Recorded Confirmed Type Atorvastatin [Lipitor] 40 mg PO DAILY 03/09/22 09/08/22 History Finasteride [Proscar] 5 mg PO HS 03/09/22 09/08/22 History Montelukast [Singulair] 10 mg PO HS 03/09/22 09/08/22 History Omeprazole 20 mg PO DAILY PRN 03/09/22 09/08/22 History Citalopram Hydrobromide [CeleXA] 40 mg PO DAILY 05/21/22 09/08/22 History Budesonide [Pulmicort] 0.5 mg INHALATION RT-BID 08/18/22 09/08/22 History Cetirizine HCl [Zyrtec] 10 mg PO DAILY 08/18/22 09/08/22 History Mirabegron [Myrbetriq] 50 mg PO DAILY 08/18/22 09/08/22 History Tamsulosin [Flomax] 0.4 mg PO DAILY 08/18/22 09/08/22 History lisinopriL [Zestril] 20 mg PO DAILY 08/18/22 09/08/22 History Albuterol Nebulized [Ventolin 2.5 mg INHALATION RT-Q6H PRN 09/08/22 09/08/22 History Nebulized] Ibuprofen [Motrin] 800 mg PO Q8H PRN 09/08/22 09/08/22 History Allergies Allergy/AdvReac Type Severity Reaction Status Date / Time No Known Allergies Allergy Verified 09/08/22 23:08 Surgical - Exam Vital Signs Temp Pulse Resp BP Pulse Ox 98.0 F 75 20 134/63 96 09/08/22 21:04 09/08/22 21:04 09/08/22 21:04 09/08/22 21:04 09/08/22 21:04 General appearance: The patient is alert, oriented, appears in no acute distress. HET: Head is normocephalic and atraumatic. Conjunctiva pink. Sclera anicteric. Neck: Supple without lymphadenopathy. Trachea midline. Heart: S1 S2. Regular rate and rhythm. Lungs: Clear to auscultation. Abdomen: Soft, nontender, nondistended with bowel sounds. No guarding or rigidity. Skin: No rashes. No jaundice. Extremities: Normal skin color and turgor. Right groin incision well approximated. Right groin with seroma, HUGH drain site without any drainage. No pedal edema. Positive PT and DP signal. Neurological: No focal deficits. Alert and oriented x3. Results - Labs 09/09/22 07:39 09/09/22 07:39 Abnormal Lab Results - Last 24 Hours (Table) 09/08/22 09/08/22 09/09/22 Range/Units 21:46 21:46 07:39 WBC 3.7 L (3.8-10.6) k/uL RBC 3.14 L 3.36 L (4.30-5.90) m/uL Hgb 7.0 L D 7.6 L (13.0-17.5) gm/dL Hct 23.7 L 25.6 L (39.0-53.0) % MCV 75.4 L 76.1 L (80.0-100.0) fL MCH 22.5 L 22.5 L (25.0-35.0) pg MCHC 29.8 L 29.6 L (31.0-37.0) g/dL RDW 17.2 H 16.7 H (11.5-15.5) % Lymphocytes # 0.7 L (1.0-4.8) k/uL Sodium 126 L (137-145) mmol/L Chloride 97 L (98-107) mmol/L Creatinine 0.49 L (0.66-1.25) mg/dL Calcium 8.1 L (8.4-10.2) mg/dL 09/09/22 Range/Units 07:39 WBC (3.8-10.6) k/uL RBC (4.30-5.90) m/uL Hgb (13.0-17.5) gm/dL Hct (39.0-53.0) % MCV (80.0-100.0) fL MCH (25.0-35.0) pg MCHC (31.0-37.0) g/dL RDW (11.5-15.5) % Lymphocytes # (1.0-4.8) k/uL Sodium 128 L (137-145) mmol/L Chloride (98-107) mmol/L Creatinine 0.49 L (0.66-1.25) mg/dL Calcium 8.1 L (8.4-10.2) mg/dL Diabetes panel 09/08/22 09/09/22 Range/Units 21:46 07:39 Sodium 126 L 128 L (137-145) mmol/L Potassium 4.1 4.3 (3.5-5.1) mmol/L Chloride 97 L 98 (98-107) mmol/L Carbon Dioxide 23 27 (22-30) mmol/L BUN 17 12 (9-20) mg/dL Creatinine 0.49 L 0.49 L (0.66-1.25) mg/dL Glucose 88 84 (74-99) mg/dL Calcium 8.1 L 8.1 L (8.4-10.2) mg/dL Calcium panel 09/08/22 09/09/22 Range/Units 21:46 07:39 Calcium 8.1 L 8.1 L (8.4-10.2) mg/dL Pituitary panel 09/08/22 09/09/22 Range/Units 21:46 07:39 Sodium 126 L 128 L (137-145) mmol/L Potassium 4.1 4.3 (3.5-5.1) mmol/L Chloride 97 L 98 (98-107) mmol/L Carbon Dioxide 23 27 (22-30) mmol/L BUN 17 12 (9-20) mg/dL Creatinine 0.49 L 0.49 L (0.66-1.25) mg/dL Glucose 88 84 (74-99) mg/dL Calcium 8.1 L 8.1 L (8.4-10.2) mg/dL Adrenal panel 09/08/22 09/09/22 Range/Units 21:46 07:39 Sodium 126 L 128 L (137-145) mmol/L Potassium 4.1 4.3 (3.5-5.1) mmol/L Chloride 97 L 98 (98-107) mmol/L Carbon Dioxide 23 27 (22-30) mmol/L BUN 17 12 (9-20) mg/dL Creatinine 0.49 L 0.49 L (0.66-1.25) mg/dL Glucose 88 84 (74-99) mg/dL Calcium 8.1 L 8.1 L (8.4-10.2) mg/dL Assessment and Plan Assessment: 1. Right groin seroma status post I&D 2. Chronic Anemia 3. Peripheral arterial disease status post right ileofemoral artery endartere ctomy with patch angioplasty Plan: HGUH drain fell out apparently in the emergency department. No need for replacement at this time. Patient with known seroma, improving in size. No plans for any vascular surgical intervention at this time. Patient has follow- up appointment next week and can consider further I&D and wound VAC placement at that time if needed. Thank you for this consultation, we will sign off at this time. The impression and plan of care has been dictated as directed. Dr. Jordan I performed a history and examination of this patient, discussed the same with the dictator. I agree with the dictator's note ,documented as a scribe. Any additional findings or plans will be noted.
[2022-09-09 14:46] LABS: % Iron Saturation 3.19 (15.00-50.00); Iron 13 UG/DL (65-175); Total Iron Binding Capacity 407 UG/DL (228-460)
[2022-09-09 14:58] LABS: Ferritin 16.7 ng/mL (22.0-322.0)
--- NOTE | 2022-09-09 15:21 | P.HPIM ---
History of Present Illness H&P Date: 09/09/22 Chief Complaint: Anemia HISTORY OF PRESENT ILLNESS This is an 82-year-old male with past medical history of peripheral vascular disease, dyslipidemia, ALLERGIC rhinitis, benign prostatic hypertrophy. his sed special education teacher is Dr. Boykin. Patient has been hospitalized in and out of the hospital 3 times over the last month initially due to significant anemia for which he did receive blood transfusion underwent gastrointestinal workup that was negative for blood loss, he was seen in consultation by hematology oncology and he was placed on iron infusion along with B12 Injection , patient developed to have a significant blister to the right second toe initially he was seen in consultation by Dr. Santacruz and after that the head and arterial Doppler that s howed significant femoral artery disease, he was supposed to come back to have surgical intervention, ended up going to [facility] where he was seen in consultation by Dr. Jordan and he did have a CT angiography of the aorta with the run off and was found to have a significant femoral artery disease, so the patient underwent right iliofemoral antrectomy with patch angioplasty that was done on 06/25/2022, patient after that he developed to have a significant seroma of the right groin after that he ended up going for surgical intervention with draining of the hematoma, and patient had a HUGH tube in place, initially he was treated conservatively with the aspiration of the cerumen the office without any relief, patient apparent he came to the emergency department at [facility] yesterday after the drain fell off and the patient was bleeding from the drain area, and patient was admitted to the hospital for evaluation of vascular surgery at the same time patient was found to have a positive Hemoccult blood, and a hemoglobin was around 7, therefore the patient was admitted to the hospital with gastric artery consultation, patient did have an EGD as well as colonoscopy at the beginning of the year that was negative for any acute bleed at that time, never had a capsule endoscopy I will request from the gastric from his service to perform capsule endoscopy this time, we will transfuse 1 unit of packed red blood cells, patient has been following with Dr. Alcala in the of [facility] for his chronic anemia. REVIEW OF SYSTEMS Constitutional: No fever, no chills, no night sweats. No weight change. No weakness, fatigue or lethargy. No daytime sleepiness. HEENT: No headache. No blurred vision or double vision, no loss of vision. No loss of Hearing, no ringing in the ears, no dizziness. No nasal drainage or congestion. No epistaxis. No sore throat. Lungs: No shortness of breath, cough, no sputum production. No wheezing. Cardiovascular: No chest pain, positive for right lower extremity edema. No palpitations. No paroxysmal nocturnal dyspnea. No orthopnea. No lightheadedness or dizziness. No syncopal episodes. Abdominal: No abdominal pain. No nausea, vomiting. No diarrhea. No constipation. No bloody or tarry stools. No loss of appetite. Genitourinary: No dysuria, increased frequency, urgency. No urinary retention. Musculoskeletal: No myalgias. No muscle weakness, no gait dysfunction, no frequent falls. No back pain. No neck pain. Integumentary: There is a wound to the right second toe post partial amputation there is a mild hematoma at the right groin area. Neurologic: No aphasia. No facial droop. No change in mentation. No head injury. No headache. No paralysis. No paresthesia. Psychiatric: No depression. No anxiety. No mood swings. Endocrine: No abnormal blood sugars. No weight change. No excessive sweating or thirst. No cold intolerance. MEDICAL HISTORY Peripheral vascular disease Dyslipidemia ALLERGIC rhinitis Benign prostatic hypertrophy Anemia. SURGICAL HISTORY Right inguinal hernia repair 05/2020 Tonsillectomy Breast cyst removal Bilateral retinal membranes removal Colonoscopy 2017 UPPP Lateral cataracts. Right iliofemoral endarterectomy with patch angioplasty SOCIAL HISTORY Patient was a smoker for greater than 20 years at 1 pack per day starting at age 17 and quit 40 years ago. He drinks alcohol 4 times per week 1-2 drinks at a time. Patient lives at home with his . FAMILY HISTORY Father at age 87 from lung cancer. Mother at age 82 from dementia. Patient has 1 brother that at age 75 from liver cancer. Patient has 2 sons with no major medical problems.. PHYSICAL EXAMINATION Gen: This is an 82-year old male. He is resting in bed appears to be comfortable at rest. HEENT: Head is atraumatic, normocephalic. Pupils equal, round. Sclerae is anicteric. NECK: Supple. No JVD. No lymphadenopathy. No thyromegaly. LUNGS: Clear to auscultation. No wheezes or rhonchi. No intercostal retractions. HEART: First heart sound is depressed , second heart sound is normal there is SIMON 2/6 located at the left sternal border. ABDOMEN: Soft. Bowel sounds are present. No masses. No tenderness, right groin with large hematoma and minimal serosanguinous drainage EXTREMITIES: There is trace edema, no calf tenderness, DP +1 bilaterally, there is right second toe partial amputation NEUROLOGICAL: Patient is awake, alert and oriented x3. Cranial nerves 2 through 12 are grossly intact, muscle power 5/5 in bilateral upper and lower extremities bilaterally ASSESSMENT AND PLAN 1. Right groin hematoma post Right iliofemoral endartrectomy with patch angioplasty status post incision and drainage of the hematoma with a HUGH drain that fell off the emergency department with minimal bleeding from that, patient was seen in consultation by vascular surgery was no recoomendation to place the HUGH drain anymore, and continue to monitor the patient very closely. 2. Acute on chronic microcytic anemia without evidence of GI bleed. Vision has been following with hematology as an outpatient Dr. Alcala, patient did have an EGD and colonoscopy at the beginning of the year did not show evidence of acute GI bleed, I will ask GI service for capsule endoscopy to complete the investigation . Transfuse 1 unit of packed red blood cells 3. osteomyelitis of the right second toe status post partial ablation. Continue local care. 4. Peripheral vascular disease. Continue patient on atorvastatin 40 mg daily for secondary prevention. and treatment as in paragraph #1. 5. Dyslipidemia.Continue atorvastatin 40 mg daily we'll keep LDL 55-70. , 6. ALLERGIC rhinitis.Continue Singulair 10 mg at bedtime 7. Benign prostatic hypertrophy.Continue Flomax 0.4 mg at bedtime and Proscar 5 mg daily. 8. COPD. seems to do better at this time 9. Hypertension. Continue lisinopril 5 mg daily. 10. Generalized anxiety disorder. Continue citalopram 40 mg daily. 11. GI prophylaxis. Protonix 40 mg orally once every day. 12. DVT prophylaxis. Lovenox 40 mg subcutaneously every 24 hours 14. Hyponatremia secondary to hypovolemia repeat CMP tomorrow morning. Check serum osmolality, urine osmolality and urine sodium. 15. admitted to inpatient. Estimated length of stay 2 midnights, 16. patient is full code. Past Medical History Past Medical History: Asthma, GERD/Reflux, Hyperlipidemia, Hypertension, Osteoarthritis (OA), Prostate Disorder, Skin Disorder, Vascular Disorder Additional Past Medical History / Comment(s): PVD with hx bilateral common femoral artery occlusion, anemia, gastritis, hiatal hernia, diverticular disease, Sleep Apnea resolved with surgery., chronic neck pain (hx injections)., BPH, osteomyelitis right 2nd toe., picc line. History of Any Multi-Drug Resistant Organisms: None Reported Past Surgical History: Hernia Repair, Tonsillectomy Additional Past Surgical History / Comment(s): Ct angiogram with bilateral runoff, cervical epidural pain procedures , eye surgery x 3 to remove membrane over retina, EGD, colonoscopies, R iliofemoral endarterectomy with patch. Uvulaectomy Past Anesthesia/Blood Transfusion Reactions: No Reported Reaction Additional Past Anesthesia/Blood Transfusion Reaction / Comment(s): hx blood transfusions-denies reaction Past Psychological History: No Psychological Hx Reported Additional Psychological History / Comment(s): lives with spouse, states he takes care of his own medications. Smoking Status: Former smoker Past Alcohol Use History: None Reported Additional Past Alcohol Use History / Comment(s): Pt started smoking 1957 & quit 1979. Hx of 1ppd. pt drinks 2-3 glasses of wine daily and sometimes a beer also. Past Drug Use History: None Reported - Past Family History Father Family Medical History: Cancer Additional Family Medical History / Comment(s): Lived to be 80yrs old. Mother Family Medical History: Dementia Medications and Allergies Home Medications Medication Instructions Recorded Confirmed Type Atorvastatin [Lipitor] 40 mg PO DAILY 03/09/22 09/08/22 History Finasteride [Proscar] 5 mg PO HS 03/09/22 09/08/22 History Montelukast [Singulair] 10 mg PO HS 03/09/22 09/08/22 History Omeprazole 20 mg PO DAILY PRN 03/09/22 09/08/22 History Citalopram Hydrobromide [CeleXA] 40 mg PO DAILY 05/21/22 09/08/22 History Budesonide [Pulmicort] 0.5 mg INHALATION RT-BID 08/18/22 09/08/22 History Cetirizine HCl [Zyrtec] 10 mg PO DAILY 08/18/22 09/08/22 History Mirabegron [Myrbetriq] 50 mg PO DAILY 08/18/22 09/08/22 History Tamsulosin [Flomax] 0.4 mg PO DAILY 08/18/22 09/08/22 History lisinopriL [Zestril] 20 mg PO DAILY 08/18/22 09/08/22 History Albuterol Nebulized [Ventolin 2.5 mg INHALATION RT-Q6H PRN 09/08/22 09/08/22 History Nebulized] Ibuprofen [Motrin] 800 mg PO Q8H PRN 09/08/22 09/08/22 History Allergies Allergy/AdvReac Type Severity Reaction Status Date / Time No Known Allergies Allergy Verified 09/08/22 23:08 Physical Exam Vitals: Vital Signs Temp Pulse Pulse Resp BP BP Pulse Ox 09/09/22 07:16 97.6 F 66 15 173/67 97 09/09/22 00:55 97.6 F 79 18 150/62 96 09/09/22 00:04 18 111/59 95 09/08/22 21:10 70 16 136/56 99 09/08/22 21:04 98.0 F 75 20 134/63 96 Intake and Output 09/08/22 09/09/22 09/09/22 22:59 06:59 14:59 Other: # Voids 1 Weight 71.214 kg 71.214 kg Results CBC & Chem 7: 09/09/22 07:39 09/09/22 07:39 Labs: Abnormal Lab Results - Last 24 Hours (Table) 09/08/22 09/08/22 Range/Units 21:46 21:46 WBC 3.7 L (3.8-10.6) k/uL RBC 3.14 L (4.30-5.90) m/uL Hgb 7.0 L D (13.0-17.5) gm/dL Hct 23.7 L (39.0-53.0) % MCV 75.4 L (80.0-100.0) fL MCH 22.5 L (25.0-35.0) pg MCHC 29.8 L (31.0-37.0) g/dL RDW 17.2 H (11.5-15.5) % Lymphocytes # 0.7 L (1.0-4.8) k/uL Sodium 126 L (137-145) mmol/L Chloride 97 L (98-107) mmol/L Creatinine 0.49 L (0.66-1.25) mg/dL Calcium 8.1 L (8.4-10.2) mg/dL Thrombosis Risk Factor Assmnt - Choose All That Apply Each Factor Represents 1 point: Swollen legs (current) Other Risk Factors: Yes Each Risk Factor Represents 3 Points: Age 75 years or older Thrombosis Risk Factor Assessment Total Risk Factor Score: 4 Thrombosis Risk Factor Assessment Level: Moderate Risk
[2022-09-09 15:57] LABS: Uric Acid 3.8 mg/dL (3.5-8.5)
[2022-09-09] MEDS ORDERED: FINASTERIDE 5 MG TAB PO SCH (21:00)
[2022-09-09] MEDS ORDERED: MONTELUKAST 10 MG TAB PO SCH (21:00)
[2022-09-10] MEDS: SODIUM CHLORIDE 0.9% 1,000 ML IV SCH (02:18)
[2022-09-10 07:58] VITALS: BP 158/64; PULSE 71; RESP 17; TEMP 97.8
[2022-09-10] MEDS ORDERED: LACTULOSE 20 GM/30 ML CUP PO ONE (08:15)
[2022-09-10] MEDS: lisinopriL 20 MG TAB PO SCH (08:29)
[2022-09-10] MEDS: ATORVASTATIN 40 MG TAB PO SCH (08:29)
[2022-09-10] MEDS: LORATADINE 10 MG TAB PO SCH (08:29)
[2022-09-10] MEDS: CITALOPRAM HYDROBROMIDE 20 MG TAB PO SCH (08:29)
[2022-09-10] MEDS: PANTOPRAZOLE 40 MG/10 ML VIAL IV SCH (08:32)
[2022-09-10] MEDS: TAMSULOSIN 0.4 MG CAP.ER.24H PO SCH (08:54)
[2022-09-10] MEDS: NON FORMULARY DRUG (Mirabegron [Myrbetriq] 50 MG Tab.Er.24h) PO SCH (08:56)
[2022-09-10] MEDS ORDERED: ENOXAPARIN 40 MG/0.4 ML SYRINGE SQ SCH (09:00)
[2022-09-10] MEDS ORDERED: SODIUM FERRIC GLUCONAT-SUCROSE 125 MG in SODIUM CHLORIDE 0.9% 100 ML IVPB SCH (09:00)
[2022-09-10] MEDS: BUDESONIDE 0.5 MG/2 ML NEBU INHALATION SCH (09:02)
[2022-09-10] MEDS: HYDROcodone/APAP 7.5-325MG 1 EACH TAB PO PRN (09:43)
[2022-09-10] MEDS ORDERED: polyethylene glycoL 3350 17 GM POWD.PACK PO SCH (11:00)
--- NOTE | 2022-09-10 11:59 | P.PN ---
Subjective Progress Note Date: 09/10/22 Principal diagnosis: Anemia This is a pleasant 82-year-old male who presented to the emergency department yesterday evening with concerns of bleeding from around HUGH drain site. Past medical history includes asthma, GERD, hyperlipidemia, hypertension, osteoarthritis, prostate disorder, sleep apnea, peripheral arterial disease, and chronic anemia. He had a right ileal femoral artery endarterectomy with patch angioplasty in June and then was noted to have a right groin seroma with I&D on 08/20/2022 with HUGH drain placed. Patient states that he empties about a quarter to half daily. He denies any pain in the groin. He denies any shortness of breath, chest pain, abdominal pain, nausea or vomiting. Denies any dizziness, weakness, fevers or chills. The patient had a groin ultrasound reporting indeterminate hyperope: Focus in the right inguinal region 7.2 x 3.7 x 2.5 cm. No flow. Patient was also noted to be anemic, they did a local stool which was positive for blood. Gastroenterology was consulted for possible GI bleed. Patient denies any blood in his stool or black stool. Denies again any abdominal pain, nausea or vomiting. He denies any anticoagulation or NSAID use. Denies previous history of ulcer. Patient has been anemic since February of this year. He had a previous EGD and colonoscopy done on 05/25/[address] Jara. EGD with findings of large paraesophageal hernia without any evidence of active bleeding or old blood. Colonoscopy with poor prep, findings of diverticulosis in both descending and sigmoid colon without any evidence of any active bleeding or old blood noted. PCP ordered one unit of blood. Admitting labs WBC 3.7 hemoglobin 7.0 hematocrit 23 platelet count 257,000 BUN 17 creatinine 0.4 09/10/2022 Patient seen and examined today as a follow-up. He states he is feeling well. Denies any blood or black stool. Denies any bowel movement today. No abdominal pain, nausea, or vomiting. Iron studies were consistent with iron deficiency anemia. Today's labs currently pending. Objective - Vital Signs Vital signs: Vital Signs Temp 97.8 F 09/10/22 07:00 Pulse 71 09/10/22 07:00 Resp 17 09/10/22 07:00 BP 158/64 09/10/22 07:00 Pulse Ox 98 09/10/22 07:00 FiO2 Intake & Output 09/09/22 09/10/22 09/10/22 18:59 06:59 18:59 Other: Voiding Method Toilet Urinal # Voids 3 1 # Bowel Movements 1 - Exam General appearance: The patient is alert, oriented, appears in no acute distress. HET: Head is normocephalic and atraumatic. Conjunctiva pink. Sclera anicteric. Neck: Supple without lymphadenopathy. Abdomen: Soft, nontender, nondistended with bowel sounds. No guarding or rigidity. Extremities: Normal skin color and turgor. No pedal edema Skin: No rashes, no jaundice Neurological: No focal deficits. Alert and oriented. - Labs CBC & Chem 7: 09/09/22 07:39 09/09/22 07:39 Labs: Abnormal Lab Results - Last 24 Hours (Table) 09/09/22 09/09/22 Range/Units 07:39 15:25 Osmolality 274 L (280-301) mosm/kg Iron 13 L (65-175) UG/DL % Saturation 3.19 L (15.00-50.00) Ferritin 16.7 L (22.0-322.0) ng/mL Assessment and Plan (1) Anemia Narrative/Plan: This 82-year-old patient who presented with concerns for bleeding around the HUGH drain from his right groin where he had previous revascularization with postop seroma status post I&D. On admission he was noted to have a low hemoglobin at 7.0 with labs consistent with a microcytic anemia. The 10 and STOOL which was positive. However patient has had chronic anemia since February of this year with multiple comorbidities. He denies any signs or symptoms of a GI bleed. Denies any dizziness, shortness of breath, dyspnea with exertion, no black stool or blood in his stool noted. Denies abdominal pain nausea or vomiting. He recently underwent both upper and lower endoscopy in April of this year for anemia at that time with no evidence of active or old blood noted. Full continue with supportive care, order anemia workup and transfuse as needed. No plans on endoscopic evaluation at this time. Iron labs consistent with iron deficiency anemia. Parental iron ordered. PCP has placed discharge orders. Patient would like to follow up outpatient. This is reasonable and can consider doing small bowel capsule at that time. Current Visit: Yes Status: Acute Code(s): D64.9 - ANEMIA, UNSPECIFIED SNOMED Code(s): 564505436 (2) Peripheral arterial disease with history of revascularization Current Visit: Yes Status: Acute Code(s): I73.9 - PERIPHERAL VASCULAR DISEASE, UNSPECIFIED; Z98.890 - OTHER SPECIFIED POSTPROCEDURAL STATES SNOMED Code(s): 970600330 Plan: 1. Continue symptomatic and supportive care 2. Parental iron ordered 3. Diet as tolerated 4. No plans on endoscopic evaluation at this time. Patient requesting discharge. Reasonable to follow-up as an outpatient with gastroenterology and consider if a small bowel capsule as appropriate at that time. Thank you for this consultation, we will sign off at this time. Dr. Julian Chew I agree with the dictator's note, documented as a scribe by Ilene Mason.
[2022-09-10 13:28] LABS: HCT 25.1 % (39.6-50.0); HGB 7.5 d/dL (12.0-15.0); MCH 22.2 pg (27.0-32.0); MCHC 29.9 d/dL (32.0-37.0); MCV 74.3 FL (80.0-97.0); NRBC Per 100 WBC 0 X 10*3/uL (0.00-0.01); Platelet Count 283 X 10*3/uL (140-440); RBC 3.38 X 10*6/uL (4.40-5.60); RDW 17.3 % (11.5-14.5)
[2022-09-10 13:40] LABS: ALT 15 U/L (10-49); AST 23 U/L (14-35); Albumin 3.4 d/dL (3.8-4.9); Albumin/Globulin Ratio 1.79 Ratio (1.60-3.17); Alkaline Phosphatase 94 U/L (41-126); Blood Urea Nitrogen 7.1 mg/dL (9.0-27.0); Carbon Dioxide 24.3 mmol/L (21.6-31.8); Chloride 98 mmol/L (96-109); Globulin 1.9 d/dL (1.6-3.3); Glucose 75 mg/dL (70-110); Potassium 4.2 mmol/L (3.5-5.5); Sodium 132 mmol/L (135-145); Total Bilirubin 0.4 mg/dL (0.3-1.2); Total Protein 5.3 d/dL (6.2-8.2)
[2022-09-10 14:59] LABS: Basophils # (A) 0.05 X 10*3/uL (0.00-0.10); Basophils % (A) 1.1 %; Elliptocytes 2+; Eosinophils # (A) 0.04 X 10*3/uL (0.04-0.35); Eosinophils % (A) 0.9 %; Hypochromasia (M) 2+; Lymphocytes # (A) 0.79 X 10*3/uL (0.90-5.00); Lymphocytes % (A) 17.2 %; Monocytes # (A) 0.68 X 10*3/uL (0.20-1.00); Monocytes % (A) 14.8 %; Neutrophils # (A) 3.03 X 10*3/uL (1.80-7.70); Neutrophils % (A) 65.8 %
--- NOTE | 2022-09-13 15:47 | P.DS ---
Providers Date of admission: 09/08/22 23:19 Expected date of discharge: 09/10/22 Attending physician: Azra Gregory Consults: 09/08/22 23:03 Consult Physician Routine Consulting Provider: Herminia Chew Consult Reason/Comments: gi bleed Do you want consulting provider notified?: Yes Primary care physician: Azra Gregory Hospital Course: HISTORY OF PRESENT ILLNESS This is an 82-year-old male with past medical history of peripheral vascular disease, dyslipidemia, ALLERGIC rhinitis, benign prostatic hypertrophy. his stretching machine tender frame is Dr. Boykin. Patient has been hospitalized in and out of the hospital 3 times over the last month initially due to significant anemia for which he did receive blood transfusion underwent gastrointestinal workup that was negative for blood loss, he was seen in consultation by hematology oncology and he was placed on iron infusion along with B12 Injection , patient developed to have a significant blister to the right second toe initially he was seen in consultation by Dr. Santacruz and after that the head and arterial Doppler that showed significant femoral artery disease, he was supposed to come back to have surgical intervention, ended up going to [facility] where he was seen in consultation by Dr. Jordan and he did have a CT angiography of the aorta with the run off and was found to have a significant femoral artery disease, so the patient underwent right iliofemoral antrectomy with patch angioplasty that was done on 06/25/2022, patient after that he developed to have a significant seroma of the right groin after that he ended up going for surgical intervention with draining of the hematoma, and patient had a HUGH tube in place, initially he was treated conservatively with the aspiration of the cerumen the office without any relief, patient apparent he came to the emergency department at [facility] yesterday after the drain fell off and the patient was bleeding from the drain area, and patient was admitted to the hospital for evaluation of vascular surgery at the same time patient was found to have a positive Hemoccult blood, and a hemoglobin was around 7, therefore the patient was admitted to the hospital with gastric artery consultation, patient did have an EGD as well as colonoscopy at the beginning of the year that was negative for any acute bleed at that time, never had a capsule endoscopy I will request from the gastric from his service to perform capsule endoscopy this time, we will transfuse 1 unit of packed red blood cells, patient has been following with Dr. Alcala in the office for his chronic anemia. 09/10: Patient has been seen by GI with no plan for any intervention. No endoscopies planned. Patient also seen by vascular services with no plan for any intervention at this time for follow-up in the office in the week. Patient has been afebrile, heart rate 71, blood pressure 158/64, pulse ox 90% on room air. Repeat blood work reveals WBC 4.6, hemoglobin 7.5, platelet count 283. Thank you sodium is 132, potassium 4.2, creatinine 0.5. Patient will be discharged home today in stable condition. DISCHARGE DIAGONSES 1. Right groin hematoma post Right iliofemoral endartrectomy with patch angioplasty status post incision and drainage of the hematoma with a HUGH drain that fell off the emergency department with minimal bleeding from that. 2. Acute on chronic microcytic anemia without evidence of GI bleed. 3. osteomyelitis of the right second toe status post partial ablation. 4. Peripheral vascular disease. 5. Dyslipidemia. 6. ALLERGIC rhinitis. 7. Benign prostatic hypertrophy. 8. COPD. 9. Hypertension. 10. Generalized anxiety disorder. 11. Hyponatremia secondary to hypovolemia Discharge plan: Home Greater than 35 minutes was utilized and coordinating patient's discharge. Impression and plan of care have been directed as dictated by the signing physician. Nahomi Hair nurse practitioner acting as scribe for signing physician. Patient Condition at Discharge: Stable Plan - Discharge Summary Discharge Rx Participant: No New Discharge Prescriptions: Continue Montelukast [Singulair] 10 mg PO HS Albuterol Nebulized [Ventolin Nebulized] 2.5 mg INHALATION RT-Q6H PRN PRN Reason: Shortness Of Breath Finasteride [Proscar] 5 mg PO HS Atorvastatin [Lipitor] 40 mg PO DAILY Omeprazole 20 mg PO DAILY PRN PRN Reason: Heartburn Citalopram Hydrobromide [CeleXA] 40 mg PO DAILY lisinopriL [Zestril] 20 mg PO DAILY Mirabegron [Myrbetriq] 50 mg PO DAILY Tamsulosin [Flomax] 0.4 mg PO DAILY Cetirizine HCl [Zyrtec] 10 mg PO DAILY Budesonide [Pulmicort] 0.5 mg INHALATION RT-BID PRN PRN Reason: Wheezing Discharge Medication List Atorvastatin [Lipitor] 40 mg PO DAILY 03/09/22 [History] Finasteride [Proscar] 5 mg PO HS 03/09/22 [History] Montelukast [Singulair] 10 mg PO HS 03/09/22 [History] Omeprazole 20 mg PO DAILY PRN 03/09/22 [History] Citalopram Hydrobromide [CeleXA] 40 mg PO DAILY 05/21/22 [History] Budesonide [Pulmicort] 0.5 mg INHALATION RT-BID PRN 08/18/22 [History] Cetirizine HCl [Zyrtec] 10 mg PO DAILY 08/18/22 [History] Mirabegron [Myrbetriq] 50 mg PO DAILY 08/18/22 [History] Tamsulosin [Flomax] 0.4 mg PO DAILY 08/18/22 [History] lisinopriL [Zestril] 20 mg PO DAILY 08/18/22 [History] Albuterol Nebulized [Ventolin Nebulized] 2.5 mg INHALATION RT-Q6H PRN 09/08/22 [History] Follow up Appointment(s)/Referral(s): Azra Gregory MD [Primary Care Provider] - 09/17/22 10:30 am Ashley Moore NPC [REFERRING] - 1 Week (Gastroenterology follow up for anemia, possible SBC ) Elo Jordan DO [STAFF PHYSICIAN] - 09/16/22 12:00 pm Patient Instructions/Handouts: Anemia (DC) Discharge Disposition: HOME SELF-CARE
== END 2022-09-10 13:55 | disposition home or self-care (01) ==
LOC: EC 20:58 → INTOOBSV 23:19 → 4SSUR 23:19 → UNDODISIN 09-10 13:55
PROVIDERS: ADMIT Internal Medicine; ATTEND Internal Medicine
DX: L76.32 Postprocedural hematoma of skin and subcutaneous tissue following other procedure (principal); M86.8X7 Other osteomyelitis, ankle and foot; E87.1 Hypo-osmolality and hyponatremia; Y83.8 Other surgical procedures as the cause of abnormal reaction of the patient, or of later complication, without mention of misadventure at the time of the procedure; Y82.8 Other medical devices associated with adverse incidents; D64.9 Anemia, unspecified; I73.9 Peripheral vascular disease, unspecified; J45.909 Unspecified asthma, uncomplicated; K21.9 Gastro-esophageal reflux disease without esophagitis; E78.5 Hyperlipidemia, unspecified; I10 Essential (primary) hypertension; G47.30 Sleep apnea, unspecified; G89.29 Other chronic pain; M54.2 Cervicalgia; N40.0 Benign prostatic hyperplasia without lower urinary tract symptoms; F41.1 Generalized anxiety disorder; E86.1 Hypovolemia; Z87.891 Personal history of nicotine dependence; Z89.421 Acquired absence of other right toe(s); Z79.899 Other long term (current) drug therapy
CPT/HCPCS: 96376 ×2; 96361; 96365; 96372; 96375; 99285; 36415; 86900; 86901; 84300; 83930; 80053; 80048 ×2; 82728; 83540; 83550; 84550; 85025 ×2; 85027; 86850; 82272; 83935; 76882; G0378 ×3; S0138; J1650; J2916; C9113 ×3; 96374

== ENCOUNTER 2022-09-16 12:08 | Day surgery (SDC) | payer MEDICARE ==
[~2022-09-16 12:08] MED LIST changes: +ALPRAZolam 0.25 MG TAB PO PRN; +ALPRAZolam 0.5 MG TAB PO PRN; +ASPIRIN 325 MG TAB PO PRN; -DEXAMETHASONE SOD PHOSPHATE 4 MG/ML 1 ML VIAL IV ONE; +HEPARIN SODIUM,PORCINE (1 ML) 2,500 UNIT in SODIUM CHLORIDE 0.9% 250 ML IRRIGATION PRN; +HEPARIN SODIUM,PORCINE 10,000 UNIT in SODIUM CHLORIDE 0.9% 1,000 ML IRRIGATION PRN; -HYDROmorphone 0.5 MG/0.5 ML SYRINGE IVP PRN; -LACTATED RINGERS 1,000 ML IV SCH; -LIDOCAINE 1% (10MG/ML) FOR IV START INTRADERMA PRN; -MIDAZOLAM 2 MG/2 ML VIAL IV PRN; -ONDANSETRON 4 MG/2 ML VIAL IVP ONE; -Pre Op ABX Message 1 EACH MISC MISCELLANE ONE; +SODIUM CHLORIDE 0.9% 1,000 ML in EMPTY BAG 1 BAG IV ONE; +ZOLPIDEM 5 MG TAB PO PRN
[2022-09-16 12:36] LABS: Anisocytosis Slight; HCT 28.4 % (39.0-53.0); HGB 8.4 gm/dL (13.0-17.5); Hypochromasia Marked; MCH 22.4 pg (25.0-35.0); MCHC 29.4 g/dL (31.0-37.0); MCV 76.1 fL (80.0-100.0); Mean Platelet Volume 7.2; Microcytosis Slight; Platelet Count 374 k/uL (150-450); Poikilocytosis Slight; RBC 3.74 m/uL (4.30-5.90); RDW 18.8 % (11.5-15.5); WBC 5.2 k/uL (3.8-10.6)
[2022-09-16 13:56] LABS: Lymphocytes # (M) 1.09 k/uL (1.0-4.8); Monocytes # (M) 0.73 k/uL (0-1.0); Neutrophils # (M) 3.38 k/uL (1.3-7.7); Neutrophils % (M) 65 %; Nucleated Red Blood Cells 0 /100 WBC (0-0); Total Cells Counted 100
[2022-09-16 14:00] LABS: Ovalocytes Present
[2022-09-16] MEDS ORDERED: LIDOCAINE 1% INJ 10MG/ML (20 ML MDV) ONE (15:41)
[2022-09-16] MEDS ORDERED: MIDAZOLAM 2 MG/2 ML VIAL IVP ONE ×2 (15:44)
[2022-09-16] MEDS ORDERED: LIDOCAINE 1% INJ 10MG/ML (20 ML MDV) SQ ONE ×2 (15:46→15:49)
[2022-09-16] MEDS ORDERED: LIDOCAINE 1% INJ 10MG/ML (5 ML VIAL-PF) SQ ONE (15:57)
[2022-09-16] MEDS ORDERED: VERAPAMIL 2.5 MG/ML 2 ML AMP ONE (16:00)
[2022-09-16] MEDS ORDERED: IOPAMIDOL-250 100ML BTL INTRAARTER ONE ×2 (16:20)
[2022-09-16 17:00] VITALS: TEMP 97.4
--- NOTE | 2022-09-16 17:02 | P.OP ---
Date of Procedure: 09/16/22 Description of Procedure: Preoperative diagnosis: Tejinder 5 peripheral arterial disease Postoperative diagnosis: Same Procedure: [Ultrasound-guided right radial artery access Placement of catheter in aorta Aortogram Selective right lower extremity angiogram via iliac artery, second order Moderate conscious sedation 36 minutes, personal monitoring of certified RN with hemodynamic monitoring] Surgeon: Elo Jordan D.O. EBL: [Less than 5 mL] IV fluids: [See records] Urine output: []None Drains: [None] Complications: [None immediately apparent] Condition: [Stable to recovery] Operative indication and findings: [Patient is an 82-year-old male with known peripheral arterial disease who underwent previously a right femoral endarterectomy and patch angioplasty. He continues to have nonhealing of this wound on the right lower extremity therefore he presents today for an angiogram. Initial attempts were to try access at the left femoral and go Up & Over however there was significant and severe calcific disease causing femoral artery occlusion. Rather than performing a high stick the decision was made to go from the radial artery. Valentino test was sufficient for collateral flow.] Procedure in detail: [Patient was brought to the special suite and placed in supine position. Initially as above the left groin was evaluated with ultrasound guidance however it was found to be unfit for cannulation. Attention was then towards the right wrist. The wrist was prepped and draped in usual sterile fashion. A preprocedure timeout performed, all parties are in agreement. Using the ultrasound, micro-access needle was used to access the artery. Seldinger technique was used to place a 5 Center sheath. Verapamil cocktail was instilled. Catheters and wires were used to traverse the axillary subclavian brachycephalic arteries and into the aorta. The catheter was then placed slightly into the descending aorta and advanced the infrarenal abdominal aorta. An aortogram was performed. Attempts were initially made to perform serial runoff images. The right iliac system was then selected and right lower extremity angiogram was performed. Catheters wires and the removed and a TR band was placed for hemostasis after pulling of the sheath. Angiographic findings the aorta appears normal in course and caliber with mild atherosclerotic disease. Visualized mesenteric and renal vessels are patent without disease. Bilateral common internal and external iliac arteries are patent without significant disease. On the right there are postsurgical changes to the right femoral artery. The superficial and profunda femoris arteries appear widely patent through the thigh. At the level of the popliteal artery and the P2 segment there is abrupt occlusion of the right sided vessel with reconstitution after a few centimeters via collaterals. The below-knee popliteal artery appears patent without significant disease. The anterior tibial artery and tibial peroneal trunk are patent without significant disease. The anterior tibial artery and peroneal artery are patent to the level of the ankle. The posterior tibial artery occludes shortly after its takeoff with reconstitution at the level of the ankle. On the left the common femoral artery appears to be occluded with dense calci fication and large collateral vessels. There is relatively quick reconstitution to the profunda femoris and subsequently the superficial femoral artery. The superficial femoral artery appears patent with diffuse disease to the level of the knee. The popliteal artery appears patent. The anterior tibial and tibial peroneal trunk appear patent without significant disease, with a dominant anterior tibial artery to the distal calf. Difficult to visualize peroneal artery. The posterior tibial artery occludes shortly after its takeoff.] Plan - Discharge Summary Discharge Rx Participant: No New Discharge Prescriptions: No Action Montelukast [Singulair] 10 mg PO HS Albuterol Nebulized [Ventolin Nebulized] 2.5 mg INHALATION RT-Q6H PRN PRN Reason: Shortness Of Breath Finasteride [Proscar] 5 mg PO HS Atorvastatin [Lipitor] 40 mg PO DAILY Omeprazole 20 mg PO DAILY PRN PRN Reason: Heartburn Citalopram Hydrobromide [CeleXA] 40 mg PO DAILY lisinopriL [Zestril] 20 mg PO DAILY Mirabegron [Myrbetriq] 50 mg PO DAILY Tamsulosin [Flomax] 0.4 mg PO DAILY Cetirizine HCl [Zyrtec] 10 mg PO DAILY Budesonide [Pulmicort] 0.5 mg INHALATION RT-BID PRN PRN Reason: Wheezing Discharge Medication List Atorvastatin [Lipitor] 40 mg PO DAILY 03/09/22 [History] Finasteride [Proscar] 5 mg PO HS 03/09/22 [History] Montelukast [Singulair] 10 mg PO HS 03/09/22 [History] Omeprazole 20 mg PO DAILY PRN 03/09/22 [History] Citalopram Hydrobromide [CeleXA] 40 mg PO DAILY 05/21/22 [History] Budesonide [Pulmicort] 0.5 mg INHALATION RT-BID PRN 08/18/22 [History] Cetirizine HCl [Zyrtec] 10 mg PO DAILY 08/18/22 [History] Mirabegron [Myrbetriq] 50 mg PO DAILY 08/18/22 [History] Tamsulosin [Flomax] 0.4 mg PO DAILY 08/18/22 [History] lisinopriL [Zestril] 20 mg PO DAILY 08/18/22 [History] Albuterol Nebulized [Ventolin Nebulized] 2.5 mg INHALATION RT-Q6H PRN 09/08/22 [History] Follow up Appointment(s)/Referral(s): Elo Jordan DO [STAFF PHYSICIAN] - 10 Days Patient Instructions/Handouts: Peripheral Artery Disease (ED), Moderate Sedation (DC), After Radial Heart Catheterization (GEN), Peripheral Vascular Stent Placement (DC) Activity/Diet/Wound Care/Special Instructions: *NO LIFTING, PUSHING, OR PULLING ANYTHING OVER 5 POUNDS FOR 5 DAYS *NO DRIVING FOR 3 DAYS *YOU CAN REMOVE YOUR DRESSING TOMORROW AND YOU CAN SHOWER AT THAT TIME - DO NOT SUBMERSE YOUR PUNCTURE SITE IN WATER FOR A FEW DAYS TO PREVENT INFECTION - SO NO TUB BATHS, POOLS, HOT TUBS, DISHES...ETC *ANY SIGNS OF BLEEDING (HARDNESS, SWELLING, OR EXCESSIVE BRUISING) HOLD DIRECT PRESSURE ON YOUR PUNCTURE SITE AND COME TO THE NEAREST EMERGENCY ROOM TO GET YOUR PUNCTURE SITE LOOKED AT - DO NOT DRIVE YOURSELF! EITHER CALL EMS OR HAVE SOMEONE DRIVE YOU! Discharge Disposition: HOME SELF-CARE
[2022-09-16 22:42] VITALS: RESP 18
[2022-09-16 22:44] VITALS: BP 164/54; PULSE 61
--- NOTE | 2022-09-18 13:40 | IR ---
EXAMINATION TYPE: IR angio abdominal w runoff DATE OF EXAM: 09/16/2022 COMPARISON: 06/04/2022 HISTORY: Peripheral vascular disease. 4.3 minutes fluoroscopy time. Fluoroscopy was provided to the referring clinician.
== END 2022-09-16 22:30 | disposition home or self-care (01) ==
LOC: CATHCVL 12:08 → 6NMEDSUR 16:25 → CATHCVL 22:30
PROVIDERS: ATTEND Surgery
DX: I73.9 Peripheral vascular disease, unspecified (principal); Z79.899 Other long term (current) drug therapy
CPT/HCPCS: 36246; 75625; 75716; 85025; C1894 ×3; C1769 ×4; J2250; J2001 ×2; Q9966; 36248

== ENCOUNTER → 2022-11-02 | Day surgery (SDC) | payer MEDICARE ==
[2022-10-29 12:15] VITALS: BMI 22.6
[~2022-11-02] MED LIST changes: -ALPRAZolam 0.25 MG TAB PO PRN; -ALPRAZolam 0.5 MG TAB PO PRN; -ASPIRIN 325 MG TAB PO PRN; -HEPARIN SODIUM,PORCINE (1 ML) 2,500 UNIT in SODIUM CHLORIDE 0.9% 250 ML IRRIGATION PRN; -HEPARIN SODIUM,PORCINE 10,000 UNIT in SODIUM CHLORIDE 0.9% 1,000 ML IRRIGATION PRN; +SIMETHICONE 40 MG/0.6 ML DROPS 2,000 MG/30 ML BOTTLE PO ONE; -SODIUM CHLORIDE 0.9% 1,000 ML in EMPTY BAG 1 BAG IV ONE; -ZOLPIDEM 5 MG TAB PO PRN
[2022-11-02 07:33] VITALS: BP 145/65; PULSE 65; RESP 16; TEMP 97.2
== END ==
LOC: ORWHC2ENDO 07:14
PROVIDERS: ATTEND Internal Medicine Gastroenterology
DX: D50.9 Iron deficiency anemia, unspecified (principal)
CPT/HCPCS: 91110

== ENCOUNTER 2023-02-13 18:54 | Emergency (ER) | payer MEDICARE ==
[2023-02-13 19:13] VITALS: TEMP 98
--- NOTE | 2023-02-13 20:23 | ED ---
General Adult HPI - General Chief complaint: Skin/Abscess/Foreign Body Stated complaint: lump on right elbow Time Seen by Provider: 02/13/23 19:08 Source: patient Mode of arrival: ambulatory Limitations: no limitations - History of Present Illness Initial comments: 82 year-old male presenting to the ED with a chief complaint of elbow swelling. Patient states today he noticed swelling of his elbow. Denies any recent trauma. Denies history of trauma. Denies pain of the elbow. No fever or chills. No other complaints. - Related Data Home Medications Medication Instructions Recorded Confirmed Atorvastatin [Lipitor] 40 mg PO DAILY 03/09/22 11/02/22 Finasteride [Proscar] 5 mg PO HS 03/09/22 11/02/22 Montelukast [Singulair] 10 mg PO HS 03/09/22 11/02/22 Omeprazole 20 mg PO DAILY PRN 03/09/22 11/02/22 Citalopram Hydrobromide [CeleXA] 40 mg PO DAILY 05/21/22 11/02/22 Budesonide [Pulmicort] 0.5 mg INHALATION RT-BID PRN 08/18/22 11/02/22 Cetirizine HCl [Zyrtec] 10 mg PO DAILY 08/18/22 11/02/22 Mirabegron [Myrbetriq] 50 mg PO DAILY 08/18/22 11/02/22 Tamsulosin [Flomax] 0.4 mg PO DAILY 08/18/22 11/02/22 lisinopriL [Zestril] 20 mg PO DAILY 08/18/22 11/02/22 Albuterol Nebulized [Ventolin 2.5 mg INHALATION RT-Q6H PRN 09/08/22 11/02/22 Nebulized] Allergies Allergy/AdvReac Type Severity Reaction Status Date / Time No Known Allergies Allergy Verified 02/13/23 19:06 Review of Systems ROS Statement: Those systems with pertinent positive or pertinent negative responses have been documented in the HPI. ROS Other: All systems not noted in ROS Statement are negative. Past Medical History Past Medical History: Asthma, GERD/Reflux, Hyperlipidemia, Hypertension, Osteoarthritis (OA), Prostate Disorder, Skin Disorder, Vascular Disorder Additional Past Medical History / Comment(s): PVD with hx bilateral common femoral artery occlusion, anemia, gastritis, hiatal hernia, diverticular disease, Sleep Apnea resolved with surgery., chronic neck pain (hx injections)., BPH, osteomyelitis right 2nd toe., picc line. History of Any Multi-Drug Resistant Organisms: None Reported Past Surgical History: Hernia Repair, Tonsillectomy Additional Past Surgical History / Comment(s): Ct angiogram with bilateral runoff, cervical epidural pain procedures , eye surgery x 3 to remove membrane over retina, EGD, colonoscopies, R iliofemoral endarterectomy with patch. Uvulaectomy Past Anesthesia/Blood Transfusion Reactions: No Reported Reaction Additional Past Anesthesia/Blood Transfusion Reaction / Comment(s): hx blood transfusions-denies reaction Past Psychological History: No Psychological Hx Reported Smoking Status: Former smoker Past Alcohol Use History: Occasional Past Drug Use History: None Reported - Past Family History Father Family Medical History: Cancer Additional Family Medical History / Comment(s): Lived to be 80yrs old. Mother Family Medical History: Dementia General Exam Limitations: no limitations General appearance: alert, in no apparent distress Eye exam: Present: normal appearance Neck exam: Present: normal inspection Respiratory exam: Present: normal lung sounds bilaterally Cardiovascular Exam: Present: regular rate, normal rhythm GI/Abdominal exam: Present: soft Extremities exam: Present: other (Swelling of the right elbow line of the right elbow, fluctuant, no tenderness to palpation. No significant warmth.) Neurological exam: Present: alert, oriented X3 Skin exam: Present: warm, dry Course Vital Signs 02/13/23 19:03 Temperature 98 F Pulse Rate 80 Respiratory 18 Rate Blood Pressure 171/65 O2 Sat by Pulse 98 Oximetry Medical Decision Making - Medical Decision Making Was pt. sent in by a medical professional or institution (, PA, FURNITURE AND BEDDING INSPECTOR, urgent care, hospital, or snf...) When possible be specific @ -No Did you speak to anyone other than the patient for history (EMS, parent, family, police, friend...)? What history was obtained from this source @ -No Did you review nursing and triage notes (agree or disagree)? Why? @ -I reviewed and agree with nursing and triage notes Were old charts reviewed (outside hosp., previous admission, EMS record, old EKG, old radiological studies, urgent care reports/EKG's, snf records)? Report findings @ -No old charts were reviewed Differential Diagnosis (chest pain, altered mental status, abdominal pain women, abdominal pain men, vaginal bleeding, weakness, fever, dyspnea, syncope, headache, dizziness, GI bleed, back pain, seizure, CVA, palpatations, mental health, musculoskeletal)? @ -Differential Musculoskeletal Muscular strain, contusion, ligament sprain, fracture, arthritis, septic arthritis, bursitis, cellulitis, muscle spasm, nerve compression, DVT, arterial occlusion, herpes zoster, electrolyte abnormality, tumor.... This is not meant to be in all inclusive list EKG interpreted by me (3pts min.). @ -None X-rays interpreted by me (1pt min.). @ -None done CT interpreted by me (1pt min.). @ -None done U/S interpreted by me (1pt. min.). @ -Ultrasound interpreted by me showing cystic mass of the patient's elbow. What testing was considered but not performed or refused? (CT, X-rays, U/S, labs)? Why? @ -None What meds were considered but not given or refused? Why? @ -None Did you discuss the management of the patient with other professionals (professionals i.e. , PA, FURNITURE AND BEDDING INSPECTOR, lab, RT, psych nurse, licensed clinical social worker, box loader, teacher, amphibious operations officer, case loader operator)? Give summary @ -No Was smoking cessation discussed for >3mins.? @ -No Was critical care preformed (if so, how long)? @ -No Were there social determinants of health that impacted care today? How? (Homelessness, low income, unemployed, alcoholism, drug addiction, transportation, low edu. Level, literacy, decrease access to med. care, shelter, rehab)? @ -No Was there de-escalation of care discussed even if they declined (Discuss DNR or withdrawal of care, Hospice)? DNR status @ -No What co-morbidities impacted this encounter? (DM, HTN, Smoking, COPD, CAD, Cancer, CVA, ARF, Chemo, Hep., AIDS, mental health diagnosis, sleep apnea, morbid obesity)? @ -None Was patient admitted / discharged? Hospital course, mention meds given and route, prescriptions, significant lab abnormalities, going to OR and other pertinent info. @ -Discharge 82 year Old male presenting to the ED with swelling in his elbow. This appears to be consistent with bursitis. On exam there is no overlying warmth, erythema, is nontender to palpation. Elbow is able to actively and passively flex and extend without any pain. Unlikely a septic bursitis at this time no evidence of intra-articular infection at this time as well. Patient discharged home condition and advised follow-up with his PCP. Discussed return precautions with patient who verbalizes agreement. Undiagnosed new problem with uncertain prognosis? @ -No Drug Therapy requiring intensive monitoring for toxicity (Heparin, Nitro, Insulin, Cardizem)? @ -No Were any procedures done? @ -No Diagnosis/symptom? @ -Bursitis Acute, or Chronic, or Acute on Chronic? @ -Acute Uncomplicated (without systemic symptoms) or Complicated (systemic symptoms)? @ -Uncomplicated Side effects of treatment? @ -No Exacerbation, Progression, or Severe Exacerbation? @ -No Poses a threat to life or bodily function? How? (Chest pain, [place], [place], pneumonia, PE, COPD, DKA, ARF, appy, cholecystitis, CVA, Diverticulitis, Homicidal, Suicidal, threat to staff... and all critical care pts) @ -No - Lab Data Result diagrams: 02/13/23 20:14 02/13/23 20:14 Lab Results 02/13/23 02/13/23 02/13/23 Range/Units 20:14 20:14 20:14 WBC 4.7 (3.8-10.6) k/uL RBC 3.91 L (4.30-5.90) m/uL Hgb 12.8 L (13.0-17.5) gm/dL Hct 37.4 L (39.0-53.0) % MCV 95.7 (80.0-100.0) fL MCH 32.6 (25.0-35.0) pg MCHC 34.1 (31.0-37.0) g/dL RDW 15.9 H (11.5-15.5) % Plt Count 218 (150-450) k/uL MPV 7.4 Neutrophils % 67 % Lymphocytes % 21 % Monocytes % 9 % Eosinophils % 1 % Basophils % 0 % Neutrophils # 3.1 (1.3-7.7) k/uL Lymphocytes # 1.0 (1.0-4.8) k/uL Monocytes # 0.4 (0-1.0) k/uL Eosinophils # 0.1 (0-0.7) k/uL Basophils # 0.0 (0-0.2) k/uL Sodium 132 L (137-145) mmol/L Potassium 4.3 (3.5-5.1) mmol/L Chloride 97 L (98-107) mmol/L Carbon Dioxide 25 (22-30) mmol/L Anion Gap 10 mmol/L BUN 21 H (9-20) mg/dL Creatinine 0.56 L (0.66-1.25) mg/dL Est GFR (CKD-EPI)AfAm >90 (>60 ml/min/1.73 sqM) Est GFR (CKD-EPI)NonAf >90 (>60 ml/min/1.73 sqM) Glucose 86 (74-99) mg/dL Calcium 9.1 (8.4-10.2) mg/dL Total Bilirubin 0.5 (0.2-1.3) mg/dL AST 39 (17-59) U/L ALT 28 (4-49) U/L Alkaline Phosphatase 92 (38-126) U/L Total Protein 7.1 (6.3-8.2) g/dL Albumin 4.5 (3.5-5.0) g/dL Urine Color Yellow Urine Appearance Clear (Clear) Urine pH 6.0 (5.0-8.0) Ur Specific [place] 1.030 (1.001-1.035) Urine Protein Trace H (Negative) Urine Glucose (UA) Negative (Negative) Urine Ketones Negative (Negative) Urine Blood Negative (Negative) Urine Nitrite Negative (Negative) Urine Bilirubin Negative (Negative) Urine Urobilinogen 2.0 (<2.0) mg/dL Ur Leukocyte Esterase Negative (Negative) Disposition Clinical Impression: Bursitis Disposition: HOME SELF-CARE Condition: Good Instructions (If sedation given, give patient instructions): Elbow Bursitis (ED) Additional Instructions: Please return to the Emergency Department if symptoms worsen or any other concerns. Monitor for signs of infection as discussed. Follow up with your primary care provider. Is patient prescribed a controlled substance at d/c from ED?: No Referrals: Azra Gregory MD [Primary Care Provider] - 1-2 days Time of Disposition: 22:15
[2023-02-13 20:29] LABS: Basophils % (A) 0 %; Eosinophils # (A) 0.1 k/uL (0-0.7); Eosinophils % (A) 1 %; HCT 37.4 % (39.0-53.0); HGB 12.8 gm/dL (13.0-17.5); Lymphocytes % (A) 21 %; MCH 32.6 pg (25.0-35.0); MCHC 34.1 g/dL (31.0-37.0); MCV 95.7 fL (80.0-100.0); Mean Platelet Volume 7.4; Monocytes # (A) 0.4 k/uL (0-1.0); Monocytes % (A) 9 %; Neutrophils # (A) 3.1 k/uL (1.3-7.7); Neutrophils % (A) 67 %; Platelet Count 218 k/uL (150-450); RBC 3.91 m/uL (4.30-5.90); RDW 15.9 % (11.5-15.5); WBC 4.7 k/uL (3.8-10.6)
[2023-02-13 20:38] LABS: ALT 28 U/L (4-49); AST 39 U/L (17-59); African American GFR (CKD) >90 (>60 ml/min/1.73 sqM); Albumin 4.5 g/dL (3.5-5.0); Alkaline Phosphatase 92 U/L (38-126); Anion Gap 10 mmol/L; Blood Urea Nitrogen 21 mg/dL (9-20); Calcium 9.1 mg/dL (8.4-10.2); Carbon Dioxide 25 mmol/L (22-30); Chloride 97 mmol/L (98-107); Glucose 86 mg/dL (74-99); Non-African American GFR(CKD) >90 (>60 ml/min/1.73 sqM); Potassium 4.3 mmol/L (3.5-5.1); Sodium 132 mmol/L (137-145); Total Bilirubin 0.5 mg/dL (0.2-1.3); Total Protein 7.1 g/dL (6.3-8.2)
--- NOTE | 2023-02-13 21:37 | US ---
EXAMINATION TYPE: US extremity nonvasc mass RT DATE OF EXAM: 02/13/2023 COMPARISON: NONE CLINICAL INDICATION: Male, 82 years old with history of Swelling; Large squishy bump on elbow. Pt sta danyelle he noticed it tonight. No pain. TECHNIQUE: Right elbow scanned FINDINGS: Large predominately cystic area seen measuring 5.4 x 4.3 x 3.0cm. There does appear to be some vascularity within the solid parts of this mass. IMPRESSION: The lcsw did not indicate the location of the complex cystic mass of the elbow. If this is loc ated posteriorly overlying the olecranon, consider a complex olecranon bursitis. Consider radiographi c correlation and either aspiration or tissue sampling depending on clinical suspicion for neoplasm o r other inflammatory etiology.
[2023-02-13 21:53] LABS: Appearance,Urine Clear (Clear); Bilirubin,Urine Negative (Negative); Blood,Urine Negative (Negative); Color,Urine Yellow; Glucose,Urine (UA) Negative (Negative); Ketones,Urine Negative (Negative); Leukocyte Esterase,Urine Negative (Negative); Nitrite,Urine Negative (Negative); Protein,Urine Trace (Negative)
[2023-02-13 22:39] VITALS: BP 180/83; PULSE 62; RESP 16
== END 2023-02-13 22:28 | disposition home or self-care (01) ==
LOC: EC 18:54
DX: M70.31 Other bursitis of elbow, right elbow (principal); E78.5 Hyperlipidemia, unspecified; I10 Essential (primary) hypertension; J45.909 Unspecified asthma, uncomplicated; K21.9 Gastro-esophageal reflux disease without esophagitis; Z79.899 Other long term (current) drug therapy
CPT/HCPCS: 36415; 80053; 81003; 85025; 99283

== ENCOUNTER → 2024-03-02 | Outpatient (CLI) | payer MEDICARE ==
--- NOTE | 2024-03-02 14:04 | US ---
EXAMINATION TYPE: US carotid duplex BILAT DATE OF EXAM: 03/02/2024 COMPARISON: NONE CLINICAL INDICATION: Male, 83 years old with history of I65.29 STENOSIS OF CAROTID ARTERY; Additional History: .... TECHNIQUE: Grayscale, color Doppler and spectral Doppler evaluation of the bilateral carotid systems and vertebral arteries. Indirect Doppler criteria was utilized. FINDINGS: EXAM MEASUREMENTS: RIGHT: Peak Systolic Velocity (PSV) cm/sec ----- Right CCA: 67.0 ----- Right ICA: 122.0 ----- Right ECA: 106.0 ICA/CCA ratio: 1.8 RIGHT: End Diastole cm/sec ----- Right CCA: 7.0 ----- Right ICA: 17.3 ----- Right ECA: 6.3 LEFT: Peak Systolic Velocity (PSV) cm/sec ----- Left CCA: 75.9 ----- Left ICA: 114.0 ----- Left ECA: 144.0 ICA/CCA ratio: 1.5 LEFT: End Diastole cm/sec ----- Left CCA: 8.9 ----- Left ICA: 34.5 ----- Left ECA: 0.0 VERTEBRALS (direction of flow): Right Vertebral: Antegrade Left Vertebral: Antegrade Rhythm: Normal IMPRESSION: Right: Less than 50% stenosis of the carotid bifurcation. Left: No hemodynamically significant stenosis. Criteria for Assigning % of Stenosis / Diameter reduction (Estimation based on the indirect measurements of the internal carotid artery velocities (ICA PSV). 1. Normal (no stenosis)=ICA PSV < 125 cm/s: ratio < 2.0: ICA EDV<40 cm/s. 2. Less than 50% stenosis=ICA PSV < 125 cm/s: ratio < 2.0: ICA EDV<40 cm/s. 3. 50 to 69% stenosis=ICA PSV of 125 to 230 cm/s: ration 2.0 ? 4.0: ICA EDV 40-100 cm/s. 4. Greater than 70% stenosis to near occlusion= ICA PSV > 230 cm/s: ratio > 4.0: ICA EDV > 100 cm/s. 5. Near occlusion= ICA PSV velocities may be low or undetectable: variable ratio and ICA EDV. 6. Total occlusion=unable to detect flow. [facility], , 03/02/2024 2:01 PM
--- NOTE | 2024-03-02 14:42 | US ---
EXAMINATION TYPE: US arterial LE single level DATE OF EXAM: 03/02/2024 2:05 PM COMPARISONS: CT abdomen and pelvis July 15, 2022. CLINICAL INDICATION: Male, 83 years old with history of I73.9 PAD; TECHNIQUE: Systolic pressures were taken of the upper and lower extremity arteries with ankle-brachia l indices and toe brachial indices calculated bilaterally. History of: Smoker: Previous Hypertension: Yes Diabetic: No Hyperlipidemia: Yes TIA/CVA: No Previous Vascular Surgery: No ME: No Vascular Ulcers: No Claudication: No Gangrene: No FINDINGS: Doppler Waveforms: Right: Monophasic Left: Monophasic Brachial Artery systolic pressure: Right: 159 Left: 163 Posterior Tibial artery systolic pressure: Right: 121 Left: 89 Dorsalis Pedis artery systolic pressure: Right: 117 Left: 93 Ankle-Brachial Indices: Right: 0.74 Left: 0.57 IMPRESSION: Patient already has known peripheral arterial disease. Vascular evaluation advised. MONTEZ: Right: Some Arterial Disease 0.7 - 0.8, , Recommendation: Treat Risk Factors Left: Moderate Arterial Disease 0.5-0.8, Recommendation: Refer to vascular specialist [facility], , 03/02/2024 2:40 PM
== END | disposition home or self-care (01) ==
LOC: RADUSWWP 13:06
PROVIDERS: ATTEND Internal Medicine
DX: I65.21 Occlusion and stenosis of right carotid artery (principal); I73.9 Peripheral vascular disease, unspecified; I34.0 Nonrheumatic mitral (valve) insufficiency
CPT/HCPCS: 93880; 93923